=== PATIENT | female | born 1960 | race Caucasian/White ===

== ENCOUNTER → 2017-01-06 | Outpatient (CLI) | payer OTHER ==
--- NOTE | 2017-01-06 08:53 | US ---
EXAMINATION TYPE: US abdomen complete DATE OF EXAM: 01/06/2017 7:35 AM COMPARISON: 07/17/2014 CLINICAL HISTORY: R10.84 Gen Abd Pain, R94.5 Abn LFT. 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 small 4mm polyp, non mobile echogenic foci at gb neck Evidence for sonographic Odonnell's sign: no CBD: wnl Spleen: wnl Right Kidney: not seen Left Kidney: creek, not well seen, scattered cysts, atrophied Left Pelvic Transplant: wnl Upper IVC: wnl Abd Aorta: wnl The liver is somewhat heterogenous and this may reflect fatty hepatic infiltration. The intrahepatic portion of the IVC and proximal abdominal aorta are within normal limits. There is no evidence of ch olelithiasis. Small gallbladder polyp is difficult to exclude. Common bile duct is unremarkable. The visualized portions of the pancreas are homogenous. The spleen is unremarkable. Left pelvic transpl ant kidney is grossly unremarkable. Nonvisualization of the right kidney. Left creek kidney demonstr ates cysts and atrophy. IMPRESSION: 1. Fatty liver. 2. I cannot exclude gallbladder polyps. 3. Atrophic left-sided kidney with cystic change. Transplant kidney appears unremarkable.
== END | disposition home or self-care (01) ==
LOC: RADUSWWP 07:10
PROVIDERS: ATTEND Internal Medicine
DX: K76.0 Fatty (change of) liver, not elsewhere classified (principal); N26.1 Atrophy of kidney (terminal); N28.1 Cyst of kidney, acquired
CPT/HCPCS: 76700

== ENCOUNTER → 2017-08-08 | Outpatient (CLI) | payer OTHER ==
--- NOTE | 2017-08-08 08:36 | US ---
EXAMINATION TYPE: US liver DATE OF EXAM: 08/08/2017 COMPARISON: NONE CLINICAL HISTORY: Abnormal Liver Function Test r94.5. elevated lft's, h/o renal failure with left pel myra transplant EXAM MEASUREMENTS: Liver Length: 14.5 cm Gallbladder Wall: 0.2 cm CBD: 0.4 cm Right Kidney: N/A Pancreas: wnl Liver: heterogeneous, possible focal fatty sparing Gallbladder: tiny shadowing stones seen Evidence for sonographic Odonnell's sign: NO CBD: wnl Right Kidney: not seen due to atrophy IMPRESSION: 1. Cholelithiasis. 2. Mild fatty infiltration of the liver.
== END | disposition home or self-care (01) ==
LOC: RADUSWWP 07:50
PROVIDERS: ATTEND Internal Medicine
DX: K80.20 Calculus of gallbladder without cholecystitis without obstruction (principal); K76.0 Fatty (change of) liver, not elsewhere classified
CPT/HCPCS: 76705

== ENCOUNTER 2018-11-08 02:22 | Emergency (ER) | payer OTHER ==
[2018-11-08 02:32] VITALS: TEMP 97.5
[2018-11-08] MEDS ORDERED: cloNIDine HCL 0.2 MG TAB PO STA (03:29)
[2018-11-08] MEDS ORDERED: OXYMETAZOLINE 0.05% NASL SPRAY 1 SPRAY BOTTLE NASAL STA (03:29)
--- NOTE | 2018-11-08 03:44 | ED ---
ENT HPI - General Chief complaint: ENT Stated complaint: Nose Bleed Time Seen by Provider: 11/08/18 03:28 Source: patient, EMS Mode of arrival: EMS Limitations: no limitations - History of Present Illness Initial comments: This patient is a 58-year-old woman who presents to be evaluated for epistaxis. The patient states that she had been at home at rest when the bleeding started from the right nare. She states that she was applying pressure at home but it didn't seem to help. The bleeding did stop but then it seemed to be coming from the left nare, so she felt she should be evaluated. In addition there were times when it seemed like the blood was going back, and she was swallowing it. The patient did have minor nosebleed a bit over a week ago that stopped at home. Patient denies other symptoms. She did have 3-4 drinks tonight. Denies history of previous bleeding disorder or use of anticoagulant. MD complaint: epistaxis Onset/Timin -: hour(s) Location: nose Severity: moderate Severity scale (1-10): 0 Consistency: intermittent Improves with: pressure Worsens with: none Context-Epistaxis: history of similar - Related Data Home Medications Medication Instructions Recorded Confirmed ALPRAZolam [Xanax] 0.25 mg PO TID PRN 08/13/14 03/01/16 ARIPiprazole [Abilify] 2 mg PO DAILY 08/13/14 03/01/16 Aspirin 325 mg PO DAILY 08/13/14 03/01/16 Dextroamphetamine/Amphetamine 20 mg PO DAILY 08/13/14 03/01/16 [Adderall] Escitalopram [Lexapro] 10 mg PO DAILY 08/13/14 03/01/16 HYDROcodone/APAP 7.5-325MG [Crucible 1 each PO TID PRN 08/13/14 03/01/16 7.5] Meclicot 25 mg PO DAILY 08/13/14 03/01/16 Mycophenolate Mofetil [Cellcept] 250 mg PO DAILY 08/13/14 03/01/16 Pravastatin Sodium [Pravachol] 40 mg PO HS 08/13/14 03/01/16 Sirolimus [Rapamune] 1 mg PO DAILY 08/13/14 03/01/16 Diltiazem Cd [Cardizem Cd] 300 mg PO DAILY 02/26/16 03/01/16 Previous Rx's Medication Instructions Recorded Cephalexin [Keflex] 500 mg PO Q6HR #16 cap 11/08/18 Allergies Allergy/AdvReac Type Severity Reaction Status Date / Time Penicillins Allergy Vomiting Verified 02/26/16 14:35 Review of Systems ROS Statement: Those systems with pertinent positive or pertinent negative responses have been documented in the HPI. ROS Other: All systems not noted in ROS Statement are negative. Constitutional: Denies: fever, chills, weakness ENT: Reports: epistaxis Respiratory: Denies: cough, dyspnea Cardiovascular: Denies: chest pain, palpitations, syncope Gastrointestinal: Reports: nausea. Denies: abdominal pain, vomiting, diarrhea Genitourinary: Denies: dysuria Skin: Denies: rash Neurological: Denies: headache, weakness, numbness Hematological/Lymphatic: Denies: easy bleeding Past Medical History Past Medical History: CVA/TIA, Hyperlipidemia, Hypertension, Renal Disease Additional Past Medical History / Comment(s): HEART MURMUR, HX OF TIA , DIVERTICLITIS, ANEMIA., HEPATITIS, RECENT CORTISONE INJECTION OF THUMB FOR BASAL JOINT ARTHRITIS., BACK AND RIGHT SHOULDER PAIN (LIMITED ROM), POLYCYSTIC KIDNEY DISEASE, BORN WITH 1 KIDNEDY. 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 HX OF HEMODIALYSIS. 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 History of Any Multi-Drug Resistant Organisms: MRSA Date of last positivie culture/infection: 08/28/2014 MDRO Source:: Abdomen Past Surgical History: Adenoidectomy, Bladder Surgery, Section, Tonsillectomy, Tubal Ligation Additional Past Surgical History / Comment(s): cataracts. 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 eye surgery. dialysis fistula left arm. breast bx. Past Anesthesia/Blood Transfusion Reactions: Motion Sickness Past Psychological History: Anxiety Smoking Status: Never smoker Past Alcohol Use History: Occasional Past Drug Use History: Marijuana - Past Family History Mother Family Medical History: No Reported History General Exam Limitations: no limitations General appearance: alert, in no apparent distress Eye exam: Present: normal appearance, PERRL, EOMI ENT exam: Present: other (Dried blood pharynx. Clot left Nare) Respiratory exam: Present: normal lung sounds bilaterally. Absent: respiratory distress, wheezes, rales, rhonchi, stridor Cardiovascular Exam: Present: regular rate, normal rhythm, normal heart sounds. Absent: systolic murmur, diastolic murmur, rubs, gallop Skin exam: Present: warm, dry, intact, normal color. Absent: rash Course Vital Signs 11/08/18 02:28 Temperature 97.5 F L Pulse Rate 96 Respiratory 16 Rate Blood Pressure 171/93 O2 Sat by Pulse 97 Oximetry Disposition Clinical Impression: Epistaxis Disposition: HOME SELF-CARE Condition: Good Instructions: Nosebleed (ED) Prescriptions: Cephalexin [Keflex] 500 mg PO Q6HR #16 cap Is patient prescribed a controlled substance at d/c from ED?: No Referrals: Harry Foreman MD [Primary Care Provider] - 1-2 days Barney Lin DO [Doctor of Osteopathic Medicine] - 1-2 days
[2018-11-08 05:27] VITALS: BP 176/96; PULSE 99; RESP 18
[2018-11-08 06:13] LABS: Amorphous Sediment,Urine Rare /hpf; Appearance,Urine Turbid (Clear); Bacteria,Urine Moderate /hpf; Bilirubin,Urine Negative (Negative); Blood,Urine Negative (Negative); Color,Urine Yellow; Glucose,Urine (UA) Negative (Negative); Ketones,Urine Negative (Negative); Leukocyte Esterase,Urine Large (Negative); Mucus,Urine Rare /hpf; Nitrite,Urine Positive (Negative); PH, Urine 8.5 (5.0-8.0); Protein,Urine 1+ (Negative); RBC,Urine 4 /hpf (0-5); Specific Gravity,Urine 1.017 (1.001-1.035); Urobilinogen,Urine <2.0 mg/dL (<2.0)
== END 2018-11-08 05:35 | disposition home or self-care (01) ==
LOC: EC 02:22
DX: R04.0 Epistaxis (principal); E78.5 Hyperlipidemia, unspecified; Z86.73 Personal history of transient ischemic attack (TIA), and cerebral infarction without residual deficits; Z86.19 Personal history of other infectious and parasitic diseases; D64.9 Anemia, unspecified; F41.9 Anxiety disorder, unspecified; I12.9 Hypertensive chronic kidney disease with stage 1 through stage 4 chronic kidney disease, or unspecified chronic kidney disease; N18.9 Chronic kidney disease, unspecified; Z94.0 Kidney transplant status; Z99.2 Dependence on renal dialysis; Z79.82 Long term (current) use of aspirin; Z79.899 Other long term (current) drug therapy; Z88.0 Allergy status to penicillin
CPT/HCPCS: 81001; 99283

== ENCOUNTER 2019-01-23 11:47 | Emergency (ER) | payer OTHER ==
[2019-01-23] MEDS ORDERED: SODIUM CHLORIDE 0.9% 500 ML 500 ML IV STA (12:19)
--- NOTE | 2019-01-23 12:23 | ED ---
General Adult HPI - General Chief complaint: Nausea/Vomiting/Diarrhea Stated complaint: Nausea vomiting Time Seen by Provider: 01/23/19 12:07 Source: patient, RN notes reviewed, old records reviewed Mode of arrival: ambulatory Limitations: no limitations - History of Present Illness Initial comments: 58-year-old female patient past medical history including polycystic kidney disease, status post renal transplant - previous on dialysis not currently on di alysis presents to ED primarily for chief complaint of depression and fleeting suicidal ideations. Patient has secondary complaint of some waxing and waning abdominal pain which has been present for approximately 3 weeks. Patient reports that she has had some nausea and vomiting over this time period as well. Patient denies any nausea and vomiting today. Patient denies any focal area of abdominal tenderness. Patient states that she has not done anything to hurt herself today, denies any active plans herself or hurt any other people. Patient denies that she is not . Denies other complaints. Systemic: Pt denies fatigue, myalgia, fever/chills, rash. Pt denies weakness, night sweats, weight loss. Neuro: Pt denies headache, visual disturbances, syncope or pre-syncope. HEENT: Pt denies ocular discharge or irritation, otalgia, rhinorrhea, pharyngitis or notable lymphadenopathy. Cardiopulmonary: Pt denies chest pain, SOB, heart palpitations, dyspnea on exertion. : Pt denies dysuria, burning w/ urination, frequency/urgency. Denies new onset urinary or bowel incontinence. MSK: Pt denies myalgia, loss of strength or function in extremities. Neuro: Pt denies new onset weakness, paresthesias. - Related Data Home Medications Medication Instructions Recorded Confirmed ALPRAZolam [Xanax] 0.25 mg PO TID PRN 08/13/14 01/23/19 ARIPiprazole [Abilify] 2 mg PO DAILY 08/13/14 01/23/19 Aspirin 325 mg PO DAILY 08/13/14 01/23/19 Sirolimus [Rapamune] 1 mg PO DAILY 08/13/14 01/23/19 Atomoxetine HCl [Strattera] 40 mg PO DAILY 01/23/19 01/23/19 Carvedilol [Coreg] 6.25 mg PO BID 01/23/19 01/23/19 Diltiazem HCl [Cardizem Cd] 360 mg PO DAILY 01/23/19 01/23/19 Escitalopram [Lexapro] 20 mg PO DAILY 01/23/19 01/23/19 Mycophenolate Mofetil [Cellcept] 500 mg PO BID 01/23/19 01/23/19 Pravastatin Sodium [Pravachol] 80 mg PO HS 01/23/19 01/23/19 Previous Rx's Medication Instructions Recorded Ondansetron Odt [Zofran ODT] 4 mg PO Q8HR PRN #20 tab 01/23/19 Allergies Allergy/AdvReac Type Severity Reaction Status Date / Time Penicillins Allergy Vomiting Verified 01/23/19 12:36 Review of Systems ROS Statement: Those systems with pertinent positive or pertinent negative responses have been documented in the HPI. ROS Other: All systems not noted in ROS Statement are negative. Past Medical History Past Medical History: CVA/TIA, Hyperlipidemia, Hypertension, Renal Disease Additional Past Medical History / Comment(s): HEART MURMUR, HX OF TIA , DIVERTICLITIS, ANEMIA., HEPATITIS, RECENT CORTISONE INJECTION OF THUMB FOR BASAL JOINT ARTHRITIS., BACK AND RIGHT SHOULDER PAIN (LIMITED ROM), POLYCYSTIC KIDNEY DISEASE, BORN WITH 1 KIDNEDY. 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 HX OF HEMODIALYSIS. 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 History of Any Multi-Drug Resistant Organisms: MRSA Date of last positivie culture/infection: 08/28/2014 MDRO Source:: Abdomen Past Surgical History: Adenoidectomy, Bladder Surgery, Section, Tonsillectomy, Tubal Ligation Additional Past Surgical History / Comment(s): cataracts. 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 eye surgery. dialysis fistula left arm. breast bx. Past Anesthesia/Blood Transfusion Reactions: Motion Sickness Past Psychological History: Anxiety Smoking Status: Never smoker Past Alcohol Use History: Occasional Past Drug Use History: Marijuana - Past Family History Mother Family Medical History: No Reported History General Exam - General Exam Comments Initial Comments: Constitutional: NAD, AOX3, Pt has pleasant affect. HEENT: NC/AT, trachea midline, neck supple, no lymphadenopathy. Posterior pharynx non erythematous, without exudates. External ears appear normal, without discharge. Mucous membranes moist. Eyes PERRLA, EOM intact. There is no scleral icterus. No pallor noted. Cardiopulmonary: RRR, no murmurs, rubs or gallops, no JVD noted. Lungs CTAB in anterior and posterior dodd. No peripheral edema. Abdominal exam: Abdomen soft and non-distended. Abdomen mildly tender to palpation in epigastric region. No guarding, no JVD, no rebound tenderness. Bowel sounds active in LLQ. No hepatosplenomegaly. No ecchymosis Neuro: CN II-XII grossly intact. No nuchal rigidity. MSK: No posterior calf tenderness bilaterally, homans sign negative bilaterally. Posterior tibialis and radial pulse +2 bilaterally. Sensation intact in upper and lower extremities. Full active ROM in upper and lower extremities, 5/5 stregnth. Limitations: no limitations Course Vital Signs 01/23/19 01/23/19 01/23/19 11:49 14:08 16:24 Temperature 98.4 F Pulse Rate 87 94 107 H Respiratory 18 16 18 Rate Blood Pressure 164/102 159/84 200/93 O2 Sat by Pulse 97 96 96 Oximetry 01/23/19 01/23/19 16:58 21:36 Temperature 98 F Pulse Rate 94 79 Respiratory 18 18 Rate Blood Pressure 173/88 139/89 O2 Sat by Pulse 95 97 Oximetry Medical Decision Making - Medical Decision Making 58-year-old female patient past medical history including polycystic kidney disease, status post renal transplant - previous on dialysis not currently on dialysis presents to ED primarily for chief complaint of depression and fleeting suicidal ideations. Patient has secondary complaint of some waxing and waning abdominal pain which has been present for approximately 3 weeks. Patient reports that she has had some nausea and vomiting over this time period as well. Patient denies any nausea and vomiting today. Patient denies any focal area of abdominal tenderness. Patient states that she has not done anything to hurt herself today, denies any active plans herself or hurt any other people. Patien t denies that she is not . Denies other complaints. Patient vital signs stable, afebrile. Physical exam displayed: Abdomen soft and non- distended. Abdomen mildly tender to palpation in epigastric region. No guarding, no JVD, no rebound tenderness. Laboratory investigations revealed mild hypokalemia, mild hypomagnesemia. Bilirubin elevated at 2.5. Bilirubin differentials displayed no unconjugated, 0.8 unconjugated bilirubin. AST elevated. Alk phos elevated. Lipase mildly elevated. UA was negative. Tox screen negative. CT abdomen and pelvis displayed hepatomegaly and heterogeneous hyperdense appearance of liver. Intrahepatic biliary dilation possibly worrisome of obstructing mass or cholangiocarcinoma. Ultrasound of gallbladder revealed biliary sludging cholelithiasis without sonographic evidence for acute cholecystitis. EPS evaluation did not recommend admission. Patient denies any suicidal or homicidal thoughts or plans. Patient discharged with psychiatric follow-up, as well as GI follow-up. Patient to follow up with primary care provider in 1-2 days. Patient to return to ER if symptoms worsen in anyway. Case discussed with Dr. Abad. - Lab Data Result diagrams: 01/23/19 12:35 01/23/19 12:35 Lab Results 01/23/19 01/23/19 01/23/19 Range/Units 12:35 12:35 12:35 WBC 8.2 (3.8-10.6) k/uL RBC 3.57 L (3.80-5.40) m/uL Hgb 11.2 L (11.4-16.0) gm/dL Hct 34.9 (34.0-46.0) % MCV 97.8 (80.0-100.0) fL MCH 31.3 (25.0-35.0) pg MCHC 32.0 (31.0-37.0) g/dL RDW 21.7 H (11.5-15.5) % Plt Count 149 L (150-450) k/uL Neutrophils % 69 % Lymphocytes % 23 % Monocytes % 5 % Eosinophils % 2 % Basophils % 1 % Neutrophils # 5.6 (1.3-7.7) k/uL Lymphocytes # 1.8 (1.0-4.8) k/uL Monocytes # 0.4 (0-1.0) k/uL Eosinophils # 0.1 (0-0.7) k/uL Basophils # 0.1 (0-0.2) k/uL Anisocytosis Moderate Macrocytosis Moderate Sodium 140 (137-145) mmol/L Potassium 3.3 L (3.5-5.1) mmol/L Chloride 103 (98-107) mmol/L Carbon Dioxide 26 (22-30) mmol/L Anion Gap 11 mmol/L BUN 9 (7-17) mg/dL Creatinine 0.55 (0.52-1.04) mg/dL Est GFR (CKD-EPI)AfAm >90 (>60 ml/min/1.73 sqM) Est GFR (CKD-EPI)NonAf >90 (>60 ml/min/1.73 sqM) Glucose 106 H (74-99) mg/dL Calcium 8.8 (8.4-10.2) mg/dL Phosphorus 3.0 (2.5-4.5) mg/dL Magnesium 1.4 L (1.6-2.3) mg/dL Total Bilirubin 2.6 H 2.5 H (0.2-1.3) mg/dL Conjugated Bilirubin 0.1 (0.0-0.3) mg/dL Unconjugated Bilirubin 0.8 (0.0-1.1) mg/dL Delta Bilirubin 1.6 H (0.0-0.2) mg/dL AST 231 H (14-36) U/L ALT 52 (9-52) U/L Alkaline Phosphatase 435 H (38-126) U/L Total Protein 6.7 (6.3-8.2) g/dL Albumin 3.3 L (3.5-5.0) g/dL Lipase 345 H (23-300) U/L Urine Color Urine Appearance (Clear) Urine pH (5.0-8.0) Ur Specific [place] (1.001-1.035) Urine Protein (Negative) Urine Glucose (UA) (Negative) Urine Ketones (Negative) Urine Blood (Negative) Urine Nitrite (Negative) Urine Bilirubin (Negative) Urine Urobilinogen (<2.0) mg/dL Ur Leukocyte Esterase (Negative) Urine WBC (0-5) /hpf Ur Squamous Epith Cells (0-4) /hpf Amorphous Sediment (None) /hpf Urine Bacteria (None) /hpf Urine Mucus (None) /hpf Urine Opiates Screen (NotDetected) Ur Oxycodone Screen (NotDetected) Urine Methadone Screen (NotDetected) Ur Propoxyphene Screen (NotDetected) Ur Barbiturates Screen (NotDetected) U Tricyclic Antidepress (NotDetected) Ur Phencyclidine Scrn (NotDetected) Ur Amphetamines Screen (NotDetected) U Methamphetamines Scrn (NotDetected) U Benzodiazepines Scrn (NotDetected) Urine Cocaine Screen (NotDetected) U Marijuana (THC) Screen (NotDetected) 01/23/19 01/23/19 Range/Units 13:05 14:20 WBC (3.8-10.6) k/uL RBC (3.80-5.40) m/uL Hgb (11.4-16.0) gm/dL Hct (34.0-46.0) % MCV (80.0-100.0) fL MCH (25.0-35.0) pg MCHC (31.0-37.0) g/dL RDW (11.5-15.5) % Plt Count (150-450) k/uL Neutrophils % % Lymphocytes % % Monocytes % % Eosinophils % % Basophils % % Neutrophils # (1.3-7.7) k/uL Lymphocytes # (1.0-4.8) k/uL Monocytes # (0-1.0) k/uL Eosinophils # (0-0.7) k/uL Basophils # (0-0.2) k/uL Anisocytosis Macrocytosis Sodium (137-145) mmol/L Potassium (3.5-5.1) mmol/L Chloride (98-107) mmol/L Carbon Dioxide (22-30) mmol/L Anion Gap mmol/L BUN (7-17) mg/dL Creatinine (0.52-1.04) mg/dL Est GFR (CKD-EPI)AfAm (>60 ml/min/1.73 sqM) Est GFR (CKD-EPI)NonAf (>60 ml/min/1.73 sqM) Glucose (74-99) mg/dL Calcium (8.4-10.2) mg/dL Phosphorus (2.5-4.5) mg/dL Magnesium (1.6-2.3) mg/dL Total Bilirubin (0.2-1.3) mg/dL Conjugated Bilirubin (0.0-0.3) mg/dL Unconjugated Bilirubin (0.0-1.1) mg/dL Delta Bilirubin (0.0-0.2) mg/dL AST (14-36) U/L ALT (9-52) U/L Alkaline Phosphatase (38-126) U/L Total Protein (6.3-8.2) g/dL Albumin (3.5-5.0) g/dL Lipase (23-300) U/L Urine Color Yellow Urine Appearance Cloudy H (Clear) Urine pH 6.5 (5.0-8.0) Ur Specific [place] 1.007 (1.001-1.035) Urine Protein Negative (Negative) Urine Glucose (UA) Negative (Negative) Urine Ketones Trace H (Negative) Urine Blood Negative (Negative) Urine Nitrite Negative (Negative) Urine Bilirubin Negative (Negative) Urine Urobilinogen 2.0 (<2.0) mg/dL Ur Leukocyte Esterase Negative (Negative) Urine WBC 2 (0-5) /hpf Ur Squamous Epith Cells <1 (0-4) /hpf Amorphous Sediment Moderate H (None) /hpf Urine Bacteria Occasional H (None) /hpf Urine Mucus Few H (None) /hpf Urine Opiates Screen Not Detected (NotDetected) Ur Oxycodone Screen Not Detected (NotDetected) Urine Methadone Screen Not Detected (NotDetected) Ur Propoxyphene Screen Not Detected (NotDetected) Ur Barbiturates Screen Not Detected (NotDetected) U Tricyclic Antidepress Not Detected (NotDetected) Ur Phencyclidine Scrn Not Detected (NotDetected) Ur Amphetamines Screen Not Detected (NotDetected) U Methamphetamines Scrn Not Detected (NotDetected) U Benzodiazepines Scrn Not Detected (NotDetected) Urine Cocaine Screen Not Detected (NotDetected) U Marijuana (THC) Screen Not Detected (NotDetected) Disposition Clinical Impression: Depression, Abdominal pain Disposition: HOME SELF-CARE Condition: Stable Instructions (If sedation given, give patient instructions): Abdominal Pain (ED) Additional Instructions: Patient to adhere to previously discussed treatment plan and will take medication(s) as directed. Patient to follow up with PCP in 1-2 days. Patient to return to ED if symptoms do not improve. Use Zofran as needed for nausea. Follow up with primary care provider as well as GI consult for imaging findings. Follow-up with psychiatric providers. Return to ER if new signs or symptoms develop or if condition worsens in any way. Prescriptions: Ondansetron Odt [Zofran ODT] 4 mg PO Q8HR PRN #20 tab PRN Reason: Nausea Is patient prescribed a controlled substance at d/c from ED?: No Referrals: Harry Foreman MD [Primary Care Provider] - 1-2 days Xander Gomez MD [STAFF PHYSICIAN] - 1-2 days
[2019-01-23 12:57] LABS: Anisocytosis Moderate; Basophils # (A) 0.1 k/uL (0-0.2); Basophils % (A) 1 %; Eosinophils # (A) 0.1 k/uL (0-0.7); Eosinophils % (A) 2 %; HCT 34.9 % (34.0-46.0); HGB 11.2 gm/dL (11.4-16.0); Lymphocytes # (A) 1.8 k/uL (1.0-4.8); Lymphocytes % (A) 23 %; MCH 31.3 pg (25.0-35.0); MCV 97.8 fL (80.0-100.0); Macrocytosis Moderate; Mean Platelet Volume 7.3; Monocytes # (A) 0.4 k/uL (0-1.0); Monocytes % (A) 5 %; Neutrophils # (A) 5.6 k/uL (1.3-7.7); Neutrophils % (A) 69 %; Platelet Count 149 k/uL (150-450); RBC 3.57 m/uL (3.80-5.40); RDW 21.7 % (11.5-15.5); WBC 8.2 k/uL (3.8-10.6)
--- NOTE | 2019-01-23 13:02 | XR ---
EXAMINATION TYPE: XR KUB DATE OF EXAM: 01/23/2019 12:48 PM CLINICAL HISTORY: Lower abdominal pain with nausea and vomiting for 2 weeks. TECHNIQUE: Single Upright KUB images of the abdomen is obtained. COMPARISON: Abdominal x-ray November 14, 2012 FINDINGS: Scattered gas is seen in non-distended stomach and small bowel loops. Gas and fecal materia l is seen in non-distended colon. There is air-fluid level overlying lumbosacral junction of uncertai n etiology near surgical clips which were present on prior study. Gas and fecal material is redemonst rated in nondistended rectum. Surgical screws L3 level are redemonstrated. No pneumoperitoneum is pre sent. Visualized lung bases are clear. IMPRESSION: Overall nonobstructive bowel gas pattern remains present. Air-fluid level midline upper pelvis of unc ertain etiology, differential includes focal prominent bowel loop or possibly air within mildly diste nded bladder. Correlate clinically.
[2019-01-23 13:07] LABS: ALT 52 U/L (9-52); AST 231 U/L (14-36); Albumin 3.3 g/dL (3.5-5.0); Alkaline Phosphatase 435 U/L (38-126); Anion Gap 11 mmol/L; Blood Urea Nitrogen 9 mg/dL (7-17); Calcium 8.8 mg/dL (8.4-10.2); Carbon Dioxide 26 mmol/L (22-30); Chloride 103 mmol/L (98-107); Glucose 106 mg/dL (74-99); Lipase 345 U/L (23-300); Magnesium 1.4 mg/dL (1.6-2.3); Potassium 3.3 mmol/L (3.5-5.1); Sodium 140 mmol/L (137-145); Total Bilirubin 2.6 mg/dL (0.2-1.3); Total Protein 6.7 g/dL (6.3-8.2)
[2019-01-23 13:39] LABS: Amphetamine Screen,Urine Not Detected (NotDetected); Barbiturate Screen,Urine Not Detected (NotDetected); Benzodiazepines Screen,Urine Not Detected (NotDetected); Cocaine Screen,Urine Not Detected (NotDetected); Methadone Screen, Urine Not Detected (NotDetected); Opiate Screen,Urine Not Detected (NotDetected); Oxycodone Screen, Urine Not Detected (NotDetected); Phencyclidine Screen,Urine Not Detected (NotDetected); Tricyclic Antidepressant,Urine Not Detected (NotDetected); Urn Cannabinoid Scrn Not Detected (NotDetected)
[2019-01-23] MEDS ORDERED: ONDANSETRON 4 MG/2 ML VIAL IVP STA ×2 (14:21→17:14)
[2019-01-23 14:27] LABS: Amorphous Sediment,Urine Moderate /hpf; Appearance,Urine Cloudy (Clear); Bacteria,Urine Occasional /hpf; Bilirubin,Urine Negative (Negative); Blood,Urine Negative (Negative); Color,Urine Yellow; Glucose,Urine (UA) Negative (Negative); Ketones,Urine Trace (Negative); Leukocyte Esterase,Urine Negative (Negative); Mucus,Urine Few /hpf; Nitrite,Urine Negative (Negative); PH, Urine 6.5 (5.0-8.0); Protein,Urine Negative (Negative); Specific Gravity,Urine 1.007 (1.001-1.035); Squamous Epithelial Cell,Urine <1 /hpf (0-4)
--- NOTE | 2019-01-23 14:55 | CT ---
EXAMINATION TYPE: CT abdomen pelvis w con DATE OF EXAM: 01/23/2019 HISTORY: Nausea, vomiting, abdominal pain CT DLP: 688.3mGycm Automated Exposure Control for Dose Reduction was Utilized. CONTRAST: CT scan of the abdomen and pelvis is performed without oral but with IV Contrast, patient injected wi th 100 ml mL of Isovue 300. COMPARISON: CT abdomen March 04, 2011. Abdominal x-ray earlier today. FINDINGS: LUNG BASES: No significant abnormality is appreciated. LIVER/GB: Liver is enlarged in size and more prominent from prior CT. It is markedly heterogeneously hypodense in appearance suggesting diffuse fatty infiltration. In the left hepatic lobe anteriorly ne ar hepatic dome there are focal areas of hypodensity some round and some tubular shaped new from prio r CT. There is single dependent calcified gallstone in gallbladder axial image 35. There is no suspic ious intrahepatic or extrahepatic biliary dilatation otherwise seen. Portal vein is noted patent and not suspiciously dilated. IVC is also noted patent. There is now however new mild to moderate narrowi ng of the intrahepatic portion superiorly near coronal image 46. PANCREAS: No significant abnormality is seen. SPLEEN: No significant abnormality is seen. ADRENALS: Slight nodular thickening inferior aspect right adrenal glands image 24 is not significantl y changed from prior study image 19 presumed benign. KIDNEYS: At level of left kidney there is redemonstration of some simple appearing cysts and cortical calcifications consistent with product of end-stage renal disease. Right kidney also is suspected matute rgically absent.. Surgical clips inferior right nephrectomy bed are noted. There is left pelvic renal transplant anteriorly redemonstrated. There is satisfactory uptake and excretion from the transplant with mild hydronephrosis. Air-fluid level is seen within mildly distended bladder likely accounting for the abnormal x-ray earlier today. Scattered pelvic phleboliths are present bilaterally. BOWEL: Evaluation of bowel noted suboptimal secondary to lack of enteric contrast. Stomach is poorly distended and thus suboptimally evaluated. There is no suspicious small or large bowel dilatation. Th ere is diffuse colonic diverticula including near level of hepatic flexure with more prominent divert icula seen in the left and sigmoid colon. There is mild wall thickening involving the transverse and mid to distal sigmoid colon. Finding is presumed product of nondistention, a colitis cannot be exclud ed. Correlate clinically. UTERUS/ADNEXA: Anteverted uterus projects to right of midline. LYMPH NODES: No greater than 1cm abdominal or pelvic lymph nodes are appreciated. OSSEOUS STRUCTURES: Moderate disc space narrowing L2-L3 level with moderate spurring is seen. Posteri or spur disc complex effaces anterior thecal sac at this level. OTHER: No significant additional abnormality is seen. IMPRESSION: 1. No bowel obstruction is present. 2. Air-fluid level in bladder account for x-ray abnormality, correlate clinically for recent Ole[place] ca theterization otherwise other etiologies need to be considered. 3. Progressive hepatomegaly and heterogeneous hypodense appearance of liver with multifocal diffuse n odularity. No peripheral nodularity identified to suggest cirrhosis. Differential includes diffuse in filtrating hepatocellular carcinoma and/or CAZARES with regenerating nodules. Latter is favored. Correla te clinically. Imaging guided random biopsy for tissue analysis can be performed if desired. 4. Focal moderate intrahepatic biliary dilatation periphery anterior left hepatic lobe is worrisome f or obstructing mass or cholangiocarcinoma. Liver protocol MRI can be performed to further evaluate th is.
[2019-01-23] MEDS ORDERED: MAGNESIUM OXIDE 400 MG TAB PO STA (15:15)
[2019-01-23] MEDS ORDERED: POTASSIUM CHLORIDE ER 20 MEQ TAB.ER PO STA (15:16)
[2019-01-23 15:26] LABS: Bilirubin, Conjugated 0.1 mg/dL (0.0-0.3); Bilirubin, Delta 1.6 mg/dL (0.0-0.2); Bilirubin,Unconjugated 0.8 mg/dL (0.0-1.1); Total Bilirubin 2.5 mg/dL (0.2-1.3)
--- NOTE | 2019-01-23 15:57 | US ---
EXAMINATION TYPE: US gallbladder DATE OF EXAM: 01/23/2019 COMPARISON: 01/23/2019 CLINICAL HISTORY: Pain. ETOH, abnormal CT, abd pain, h/o renal transplant in left pelvis EXAM MEASUREMENTS: Liver Length: 18.0 cm Gallbladder Wall: 0.2 cm CBD: 0.4 cm Right Kidney: N/A Limited views due to overlying bowel gas and body habitus Pancreas: limited views appear wnl Liver: difficult to penetrate, heterogeneous and coarsened echotexture that limits evaluation for un derlying hepatic masses, larger in size. The previously noted intrahepatic biliary ductal dilatation versus hepatic mass is not well seen sonographically as a liver is difficult to penetrate. Gallbladder: mobile debris seen, single 4mm foci seen Evidence for sonographic Odonnell's sign: no CBD: wnl Right Kidney: not seen due to atrophy and bowel gas IMPRESSION: 1. Biliary sludge and cholelithiasis without sonographic evidence of acute cholecystitis. 2. Diffusely coarsened and heterogenous hepatic echotexture. This could relate to hepatic steatosis, cirrhosis from nonalcoholic steatohepatitis or other hepatocellular disease. Correlate with laborator y values. The findings concerning for cholangiocarcinoma are not well seen sonographically. MRI liver mass protocol should again be considered. 3. Nonvisualization of the right kidney, possibly surgically absent.
[2019-01-23] MEDS ORDERED: MORPHINE SULFATE 2 MG/ML SYRINGE IVP STA (16:14)
[2019-01-23 16:25] VITALS: RESP 18
[2019-01-23] MEDS ORDERED: MORPHINE SULFATE 4 MG/ML SYRINGE IV STA (17:13)
[2019-01-23 21:36] VITALS: BP 139/89; PULSE 79; TEMP 98
== END 2019-01-23 21:37 | disposition home or self-care (01) ==
LOC: EC 11:47
DX: F32.9 Major depressive disorder, single episode, unspecified (principal); R10.13 Epigastric pain; R11.2 Nausea with vomiting, unspecified; R45.851 Suicidal ideations; E78.5 Hyperlipidemia, unspecified; I10 Essential (primary) hypertension; Z86.73 Personal history of transient ischemic attack (TIA), and cerebral infarction without residual deficits; Z86.19 Personal history of other infectious and parasitic diseases; Z86.14 Personal history of Methicillin resistant Staphylococcus aureus infection; F41.9 Anxiety disorder, unspecified; Z79.82 Long term (current) use of aspirin; Z79.899 Other long term (current) drug therapy; Z88.0 Allergy status to penicillin; Z94.0 Kidney transplant status
CPT/HCPCS: 36415; 80053; 82248; 83690; 83735; 84100; 85025; 81001; 80306; 87086; 74018; 76705; 74177; 99285; 96374; 96376 ×2; 96375; 96361 ×6; J2270 ×2; J2405; Q9967

== ENCOUNTER 2019-02-15 15:47 | Inpatient (IN) | payer OTHER ==
[2019-02-15] MEDS ORDERED: SODIUM CHLORIDE 0.9% 1,000 ML IV STA (16:00)
--- NOTE | 2019-02-15 16:04 | ED ---
General Adult HPI - General Chief complaint: Nausea/Vomiting/Diarrhea Stated complaint: ABD PAIN Time Seen by Provider: 02/15/19 15:52 Source: patient, EMS, RN notes reviewed, old records reviewed Mode of arrival: EMS Limitations: no limitations - History of Present Illness Initial comments: 58-year-old female presenting with initial chief complaint of chest pain. History is somewhat limited as patient has been drinking alcohol. She was previous medical history of kidney transplant, review of medical record indicates this was in 1992. She called EMS for chest pain, probable arrival denies chest pain, states she had abdominal pain nausea vomiting and loose stool. She has previous history of gallstones and complains right upper quadrant abdominal pain. Patient is intoxicated and somewhat reluctant to give a complete history. - Related Data Home Medications Medication Instructions Recorded Confirmed ALPRAZolam [Xanax] 0.25 mg PO TID PRN 08/13/14 02/15/19 ARIPiprazole [Abilify] 2 mg PO DAILY 08/13/14 02/15/19 Sirolimus [Rapamune] 1 mg PO DAILY 08/13/14 02/15/19 Atomoxetine HCl [Strattera] 40 mg PO DAILY 01/23/19 02/15/19 Carvedilol [Coreg] 6.25 mg PO BID 01/23/19 02/15/19 Diltiazem HCl [Cardizem Cd] 360 mg PO DAILY 01/23/19 02/15/19 Escitalopram [Lexapro] 20 mg PO DAILY 01/23/19 02/15/19 Mycophenolate Mofetil [Cellcept] 500 mg PO BID 01/23/19 02/15/19 Pravastatin Sodium [Pravachol] 80 mg PO HS 01/23/19 02/15/19 Allergies Allergy/AdvReac Type Severity Reaction Status Date / Time Penicillins AdvReac Vomiting Verified 02/15/19 16:43 Review of Systems ROS Statement: Those systems with pertinent positive or pertinent negative responses have been documented in the HPI. ROS Other: All systems not noted in ROS Statement are negative. Past Medical History Past Medical History: CVA/TIA, Hyperlipidemia, Hypertension, Renal Disease Additional Past Medical History / Comment(s): HEART MURMUR, HX OF TIA , DIVERTIC LITIS, ANEMIA., HEPATITIS, RECENT CORTISONE INJECTION OF THUMB FOR BASAL JOINT ARTHRITIS., BACK AND RIGHT SHOULDER PAIN (LIMITED ROM), POLYCYSTIC KIDNEY DISEASE, BORN WITH 1 KIDNEDY. 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 HX OF HEMODIALYSIS. 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 History of Any Multi-Drug Resistant Organisms: MRSA Date of last positivie culture/infection: 08/28/2014 MDRO Source:: Abdomen Past Surgical History: Adenoidectomy, Bladder Surgery, Section, To nsillectomy, Tubal Ligation Additional Past Surgical History / Comment(s): cataracts. 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 eye surgery. dialysis fistula left arm. breast bx. Past Anesthesia/Blood Transfusion Reactions: Motion Sickness Past Psychological History: Anxiety Smoking Status: Never smoker Past Alcohol Use History: Abuse, Daily, Heavy Past Drug Use History: Marijuana - Past Family History Mother Family Medical History: No Reported History General Exam Limitations: no limitations General appearance: alert, appears intoxicated Head exam: Present: atraumatic, normocephalic Eye exam: Present: normal appearance, scleral icterus ENT exam: Present: mucous membranes dry Neck exam: Present: normal inspection. Absent: tenderness, meningismus Respiratory exam: Absent: respiratory distress, wheezes Cardiovascular Exam: Present: tachycardia, irregular rhythm GI/Abdominal exam: Present: soft, tenderness (Right upper quadrant tenderness to palpation). Absent: distended, guarding, rebound Extremities exam: Present: normal inspection, normal capillary refill. Absent: pedal edema Neurological exam: Present: alert. Absent: motor sensory deficit Skin exam: Present: warm, dry, intact, other (Jaundice). Absent: cyanosis, diaphoretic Course Vital Signs 02/15/19 02/15/19 02/15/19 15:53 17:13 18:44 Temperature 98.3 F Pulse Rate 107 H 101 H 114 H Respiratory 18 20 20 Rate Blood Pressure 142/74 121/73 121/73 O2 Sat by Pulse 98 98 99 Oximetry - Reevaluation(s) Reevaluation #1: 02/15/19 19:35 Patient does admit to daily drinking for the past 3 months straight. EKG Findings - EKG Comments: EKG Findings:: EKG: Sinus tachycardia, rate of 101, AR interval 134, QRS duration 86, QTC 42, no ST segment elevation, Medical Decision Making - Medical Decision Making 58-year-old female presenting with alcohol intoxication, complaining of right upper quadrant pain. Patient is jaundiced on exam with right upper quadrant pain. Laboratory studies reveal mild leukocytosis, hemoglobin 10.1, significant acidosis with a CO2 of 9, lactic acidosis 10. She has elevated total bili at 7.8. Transaminitis with elevated alkaline phosphatase. Acetaminophen negative, alcohol is elevated 117. She has an INR 1.1. She is given fluid resuscitation, x-ray and ultrasound is obtained. Ultrasound shows no signs of acute cholecystitis, no interval change compared to prior, common bile duct not well visualized. Patient is started on antibiotics to cover possible biliary tree infection, given penicillin ALLERGY she started on cefepime and Flagyl. After fluid resuscitation her lactic acid is down trending to 6.3. Case discussed with the admitting physician Dr. Foreman, and pulmonary control room supervisor Dr. Boone given her lactic acidosis. It is felt this patient is stable for monitored bed, no ICU at this time. I suspect her lactic acidosis is secondary to liver failure and dehydration.. She is placed on CIWA scale for alcohol withdrawal. Gastroenterology placed on consult. - Lab Data Result diagrams: 02/15/19 16:20 02/15/19 19:43 Lab Results 02/15/19 02/15/19 02/15/19 Range/Units 16:20 16:20 16:20 WBC 11.1 H (3.8-10.6) k/uL RBC 2.55 L (3.80-5.40) m/uL Hgb 10.1 L (11.4-16.0) gm/dL Hct 30.2 L (34.0-46.0) % MCV 118.4 H D (80.0-100.0) fL MCH 39.8 H (25.0-35.0) pg MCHC 33.6 (31.0-37.0) g/dL RDW 19.1 H (11.5-15.5) % Plt Count 138 L (150-450) k/uL Neutrophils % 86 % Lymphocytes % 7 % Monocytes % 5 % Eosinophils % 1 % Basophils % 0 % Neutrophils # 9.6 H (1.3-7.7) k/uL Lymphocytes # 0.7 L (1.0-4.8) k/uL Monocytes # 0.6 (0-1.0) k/uL Eosinophils # 0.1 (0-0.7) k/uL Basophils # 0.0 (0-0.2) k/uL Manual Slide Review Performed Polychromasia Present Anisocytosis Slight Anisocytosis (manual) Present Macrocytosis Marked PT (9.0-12.0) sec INR (<1.2) APTT (22.0-30.0) sec Sodium 136 L (137-145) mmol/L Potassium 3.7 (3.5-5.1) mmol/L Chloride 97 L (98-107) mmol/L Carbon Dioxide 9 L* (22-30) mmol/L Anion Gap 30 mmol/L BUN 11 (7-17) mg/dL Creatinine 0.65 (0.52-1.04) mg/dL Est GFR (CKD-EPI)AfAm >90 (>60 ml/min/1.73 sqM) Est GFR (CKD-EPI)NonAf >90 (>60 ml/min/1.73 sqM) Glucose 100 H (74-99) mg/dL Lactic Ac Sepsis Rflx Plasma Lactic Acid Tony (0.7-2.0) mmol/L Calcium 8.7 (8.4-10.2) mg/dL Magnesium (1.6-2.3) mg/dL Total Bilirubin 7.9 H (0.2-1.3) mg/dL Conjugated Bilirubin (0.0-0.3) mg/dL Unconjugated Bilirubin (0.0-1.1) mg/dL Delta Bilirubin (0.0-0.2) mg/dL AST 142 H (14-36) U/L ALT 40 (9-52) U/L Alkaline Phosphatase 317 H (38-126) U/L Troponin I 0.018 (0.000-0.034) ng/mL Total Protein 6.5 (6.3-8.2) g/dL Albumin 3.3 L (3.5-5.0) g/dL Amylase 31 (30-110) U/L Lipase 178 (23-300) U/L Urine Color Urine Appearance (Clear) Urine pH (5.0-8.0) Ur Specific [place] (1.001-1.035) Urine Protein (Negative) Urine Glucose (UA) (Negative) Urine Ketones (Negative) Urine Blood (Negative) Urine Nitrite (Negative) Urine Bilirubin (Negative) Urine Urobilinogen (<2.0) mg/dL Ur Leukocyte Esterase (Negative) Urine RBC (0-5) /hpf Ur Squamous Epith Cells (0-4) /hpf Amorphous Sediment (None) /hpf Urine Bacteria (None) /hpf Urine Mucus (None) /hpf Acetaminophen ug/mL Serum Alcohol 117 mg/dL Acetone, Qual (Negative) 02/15/19 02/15/19 02/15/19 Range/Units 16:20 16:20 17:00 WBC (3.8-10.6) k/uL RBC (3.80-5.40) m/uL Hgb (11.4-16.0) gm/dL Hct (34.0-46.0) % MCV (80.0-100.0) fL MCH (25.0-35.0) pg MCHC (31.0-37.0) g/dL RDW (11.5-15.5) % Plt Count (150-450) k/uL Neutrophils % % Lymphocytes % % Monocytes % % Eosinophils % % Basophils % % Neutrophils # (1.3-7.7) k/uL Lymphocytes # (1.0-4.8) k/uL Monocytes # (0-1.0) k/uL Eosinophils # (0-0.7) k/uL Basophils # (0-0.2) k/uL Manual Slide Review Polychromasia Anisocytosis Anisocytosis (manual) Macrocytosis PT 11.7 (9.0-12.0) sec INR 1.1 (<1.2) APTT 27.5 (22.0-30.0) sec Sodium (137-145) mmol/L Potassium (3.5-5.1) mmol/L Chloride (98-107) mmol/L Carbon Dioxide (22-30) mmol/L Anion Gap mmol/L BUN (7-17) mg/dL Creatinine (0.52-1.04) mg/dL Est GFR (CKD-EPI)AfAm (>60 ml/min/1.73 sqM) Est GFR (CKD-EPI)NonAf (>60 ml/min/1.73 sqM) Glucose (74-99) mg/dL Lactic Ac Sepsis Rflx Plasma Lactic Acid Tony 10.2 H* (0.7-2.0) mmol/L Calcium (8.4-10.2) mg/dL Magnesium 1.6 (1.6-2.3) mg/dL Total Bilirubin 7.8 H (0.2-1.3) mg/dL Conjugated Bilirubin 3.6 H (0.0-0.3) mg/dL Unconjugated Bilirubin 1.4 H (0.0-1.1) mg/dL Delta Bilirubin 2.8 H (0.0-0.2) mg/dL AST (14-36) U/L ALT (9-52) U/L Alkaline Phosphatase (38-126) U/L Troponin I (0.000-0.034) ng/mL Total Protein (6.3-8.2) g/dL Albumin (3.5-5.0) g/dL Amylase (30-110) U/L Lipase (23-300) U/L Urine Color Urine Appearance (Clear) Urine pH (5.0-8.0) Ur Specific [place] (1.001-1.035) Urine Protein (Negative) Urine Glucose (UA) (Negative) Urine Ketones (Negative) Urine Blood (Negative) Urine Nitrite (Negative) Urine Bilirubin (Negative) Urine Urobilinogen (<2.0) mg/dL Ur Leukocyte Esterase (Negative) Urine RBC (0-5) /hpf Ur Squamous Epith Cells (0-4) /hpf Amorphous Sediment (None) /hpf Urine Bacteria (None) /hpf Urine Mucus (None) /hpf Acetaminophen <10.0 ug/mL Serum Alcohol mg/dL Acetone, Qual Negative (Negative) 02/15/19 02/15/19 02/15/19 Range/Units 17:00 17:11 17:30 WBC (3.8-10.6) k/uL RBC (3.80-5.40) m/uL Hgb (11.4-16.0) gm/dL Hct (34.0-46.0) % MCV (80.0-100.0) fL MCH (25.0-35.0) pg MCHC (31.0-37.0) g/dL RDW (11.5-15.5) % Plt Count (150-450) k/uL Neutrophils % % Lymphocytes % % Monocytes % % Eosinophils % % Basophils % % Neutrophils # (1.3-7.7) k/uL Lymphocytes # (1.0-4.8) k/uL Monocytes # (0-1.0) k/uL Eosinophils # (0-0.7) k/uL Basophils # (0-0.2) k/uL Manual Slide Review Polychromasia Anisocytosis Anisocytosis (manual) Macrocytosis PT (9.0-12.0) sec INR (<1.2) APTT (22.0-30.0) sec Sodium (137-145) mmol/L Potassium (3.5-5.1) mmol/L Chloride (98-107) mmol/L Carbon Dioxide (22-30) mmol/L Anion Gap mmol/L BUN (7-17) mg/dL Creatinine (0.52-1.04) mg/dL Est GFR (CKD-EPI)AfAm (>60 ml/min/1.73 sqM) Est GFR (CKD-EPI)NonAf (>60 ml/min/1.73 sqM) Glucose (74-99) mg/dL Lactic Ac Sepsis Rflx Y Plasma Lactic Acid Tony 9.4 H* (0.7-2.0) mmol/L Calcium (8.4-10.2) mg/dL Magnesium (1.6-2.3) mg/dL Total Bilirubin (0.2-1.3) mg/dL Conjugated Bilirubin (0.0-0.3) mg/dL Unconjugated Bilirubin (0.0-1.1) mg/dL Delta Bilirubin (0.0-0.2) mg/dL AST (14-36) U/L ALT (9-52) U/L Alkaline Phosphatase (38-126) U/L Troponin I (0.000-0.034) ng/mL Total Protein (6.3-8.2) g/dL Albumin (3.5-5.0) g/dL Amylase (30-110) U/L Lipase (23-300) U/L Urine Color Dark Yellow Urine Appearance Cloudy H (Clear) Urine pH 6.5 (5.0-8.0) Ur Specific [place] 1.015 (1.001-1.035) Urine Protein 1+ H (Negative) Urine Glucose (UA) Negative (Negative) Urine Ketones 2+ H (Negative) Urine Blood Small H (Negative) Urine Nitrite Negative (Negative) Urine Bilirubin 2+ H (Negative) Urine Urobilinogen 6.0 (<2.0) mg/dL Ur Leukocyte Esterase Moderate H (Negative) Urine RBC 1 (0-5) /hpf Ur Squamous Epith Cells 1 (0-4) /hpf Amorphous Sediment Rare H (None) /hpf Urine Bacteria Moderate H (None) /hpf Urine Mucus Rare H (None) /hpf Acetaminophen ug/mL Serum Alcohol mg/dL Acetone, Qual (Negative) 02/15/19 02/15/19 02/15/19 Range/Units 17:43 19:43 19:43 WBC (3.8-10.6) k/uL RBC (3.80-5.40) m/uL Hgb (11.4-16.0) gm/dL Hct (34.0-46.0) % MCV (80.0-100.0) fL MCH (25.0-35.0) pg MCHC (31.0-37.0) g/dL RDW (11.5-15.5) % Plt Count (150-450) k/uL Neutrophils % % Lymphocytes % % Monocytes % % Eosinophils % % Basophils % % Neutrophils # (1.3-7.7) k/uL Lymphocytes # (1.0-4.8) k/uL Monocytes # (0-1.0) k/uL Eosinophils # (0-0.7) k/uL Basophils # (0-0.2) k/uL Manual Slide Review Polychromasia Anisocytosis Anisocytosis (manual) Macrocytosis PT (9.0-12.0) sec INR (<1.2) APTT (22.0-30.0) sec Sodium 139 (137-145) mmol/L Potassium 2.7 L* (3.5-5.1) mmol/L Chloride 107 (98-107) mmol/L Carbon Dioxide 10 L (22-30) mmol/L Anion Gap 22 mmol/L BUN 9 (7-17) mg/dL Creatinine 0.52 (0.52-1.04) mg/dL Est GFR (CKD-EPI)AfAm >90 (>60 ml/min/1.73 sqM) Est GFR (CKD-EPI)NonAf >90 (>60 ml/min/1.73 sqM) Glucose 78 (74-99) mg/dL Lactic Ac Sepsis Rflx Y Plasma Lactic Acid Tony 6.3 H* (0.7-2.0) mmol/L Calcium 7.4 L (8.4-10.2) mg/dL Magnesium (1.6-2.3) mg/dL Total Bilirubin 7.2 H (0.2-1.3) mg/dL Conjugated Bilirubin (0.0-0.3) mg/dL Unconjugated Bilirubin (0.0-1.1) mg/dL Delta Bilirubin (0.0-0.2) mg/dL AST 119 H (14-36) U/L ALT 47 (9-52) U/L Alkaline Phosphatase 288 H (38-126) U/L Troponin I (0.000-0.034) ng/mL Total Protein 5.5 L (6.3-8.2) g/dL Albumin 2.6 L (3.5-5.0) g/dL Amylase (30-110) U/L Lipase (23-300) U/L Urine Color Urine Appearance (Clear) Urine pH (5.0-8.0) Ur Specific [place] (1.001-1.035) Urine Protein (Negative) Urine Glucose (UA) (Negative) Urine Ketones (Negative) Urine Blood (Negative) Urine Nitrite (Negative) Urine Bilirubin (Negative) Urine Urobilinogen (<2.0) mg/dL Ur Leukocyte Esterase (Negative) Urine RBC (0-5) /hpf Ur Squamous Epith Cells (0-4) /hpf Amorphous Sediment (None) /hpf Urine Bacteria (None) /hpf Urine Mucus (None) /hpf Acetaminophen ug/mL Serum Alcohol mg/dL Acetone, Qual (Negative) Critical Care Time Critical Care Time: Yes Total Critical Care Time: 35 Disposition Clinical Impression: Dehydration, Hyperbilirubinemia, Alcohol abuse, Lactic acidosis Disposition: ADMITTED IP TO THIS [facility] Condition: Serious Is patient prescribed a controlled substance at d/c from ED?: No Referrals: Harry Foreman MD [Primary Care Provider] - 1-2 days Decision to Admit Reason: Admit from EC Decision Date: 02/15/19 Decision Time: 19:30
[2019-02-15 16:50] LABS: Anisocytosis Slight; Basophils % (A) 0 %; Eosinophils # (A) 0.1 k/uL (0-0.7); Eosinophils % (A) 1 %; HCT 30.2 % (34.0-46.0); HGB 10.1 gm/dL (11.4-16.0); Lymphocytes # (A) 0.7 k/uL (1.0-4.8); Lymphocytes % (A) 7 %; MCH 39.8 pg (25.0-35.0); MCHC 33.6 g/dL (31.0-37.0); Macrocytosis Marked; Mean Platelet Volume 9.1; Monocytes # (A) 0.6 k/uL (0-1.0); Monocytes % (A) 5 %; Neutrophils # (A) 9.6 k/uL (1.3-7.7); Neutrophils % (A) 86 %; Platelet Count 138 k/uL (150-450); RBC 2.55 m/uL (3.80-5.40); RDW 19.1 % (11.5-15.5); WBC 11.1 k/uL (3.8-10.6)
[2019-02-15 16:53] LABS: MCV 118.4 fL (80.0-100.0)
[2019-02-15 16:56] LABS: ALT 40 U/L (9-52); AST 142 U/L (14-36); Albumin 3.3 g/dL (3.5-5.0); Alkaline Phosphatase 317 U/L (38-126); Amylase 31 U/L (30-110); Anion Gap 30 mmol/L; Blood Urea Nitrogen 11 mg/dL (7-17); Calcium 8.7 mg/dL (8.4-10.2); Chloride 97 mmol/L (98-107); Glucose 100 mg/dL (74-99); Lipase 178 U/L (23-300); Potassium 3.7 mmol/L (3.5-5.1); Sodium 136 mmol/L (137-145); Total Bilirubin 7.9 mg/dL (0.2-1.3); Total Protein 6.5 g/dL (6.3-8.2)
[2019-02-15 17:00] LABS: Alcohol 117 mg/dL; Carbon Dioxide 9 mmol/L (22-30)
[2019-02-15] MEDS ORDERED: SODIUM CHLORIDE 0.9% 1,000 ML IV ONE ×2 (17:07→17:26)
[2019-02-15] MEDS ORDERED: LORazepam 2 MG/ML INJ IV PRN ×3 (17:10)
[2019-02-15] MEDS ORDERED: THIAMINE 100 MG/ML 2 ML VIAL IM STA (17:10)
[2019-02-15] MEDS ORDERED: metroNIDAZOLE-NS PMX 500 MG in SALINE 1 100ML.BAG IVPB STA (17:14)
[2019-02-15] MEDS ORDERED: CEFEPIME 2 GM in SODIUM CHLORIDE 0.9% 100 ML IVPB STA (17:14)
[2019-02-15 17:20] LABS: Anisocytosis (M) Present; Polychromasia Present
[2019-02-15 17:25] LABS: INR 1.1 (<1.2)
[2019-02-15 17:26] LABS: Partial Thromboplastin Time 27.5 sec (22.0-30.0); Prothrombin Time 11.7 sec (9.0-12.0)
--- NOTE | 2019-02-15 17:53 | US ---
EXAMINATION TYPE: US gallbladder DATE OF EXAM: 02/15/2019 COMPARISON: Ultrasound 01/23/2019 CLINICAL HISTORY: Pain. Abdominal pain, ETOH, patient states right nephrectomy EXAM MEASUREMENTS: Liver Length: 19.9 cm Gallbladder Wall: 0.4 cm CBD: unable to visualize Right Kidney: N/A Technical limitations due to patient's body habitus and large amount of overlying bowel content Pancreas: Obscured by bowel gas Liver: enlarged, unable to penetrate, heterogeneous Gallbladder: sludge with 0.8cm stone Evidence for sonographic Odonnell's sign: no CBD: unable to visualize Right Kidney: unable to visualize, possibly surgically absent IMPRESSION: 1. No definite acute process. 2. No interval change when compared to the prior ultrasound examination. Biliary sludge and cholelith iasis without sonographic evidence of acute cholecystitis. Diffusely coarsened and heterogenous hepat ic echotexture.
[2019-02-15 18:03] LABS: Amorphous Sediment,Urine Rare /hpf; Appearance,Urine Cloudy (Clear); Bacteria,Urine Moderate /hpf; Bilirubin,Urine 2+ (Negative); Blood,Urine Small (Negative); Color,Urine Dark Yellow; Glucose,Urine (UA) Negative (Negative); Ketones,Urine 2+ (Negative); Leukocyte Esterase,Urine Moderate (Negative); Mucus,Urine Rare /hpf; Nitrite,Urine Negative (Negative); PH, Urine 6.5 (5.0-8.0); Protein,Urine 1+ (Negative); RBC,Urine 1 /hpf (0-5); Specific Gravity,Urine 1.015 (1.001-1.035); Squamous Epithelial Cell,Urine 1 /hpf (0-4)
[2019-02-15 18:23] LABS: Acetaminophen <10.0 ug/mL; Bilirubin, Conjugated 3.6 mg/dL (0.0-0.3); Bilirubin, Delta 2.8 mg/dL (0.0-0.2); Bilirubin,Unconjugated 1.4 mg/dL (0.0-1.1); Magnesium 1.6 mg/dL (1.6-2.3); Total Bilirubin 7.8 mg/dL (0.2-1.3)
--- NOTE | 2019-02-15 18:26 | XR ---
EXAMINATION: XR chest 2V DATE AND TIME: 02/15/2019 5:42 PM CLINICAL INDICATION: PHH; abdominal pain TECHNIQUE: Departmental protocol COMPARISON: 11/14/2012 radiographs FINDINGS: The lungs are clear. However, on the lateral view there is a 2 cm dense opacity superimposed over the expected position of the esophagus. This finding is not definitely seen on the prior study and is mo st likely to represent summation shadows related to the azygos vein, but nonurgent follow-up chest CT can prove benignity. The pleural spaces are negative. The cardiac silhouette is not enlarged. The remainder of the mediastinal silhouette is unremarkable. The skeletal structures and soft tissues are negative for acute findings. IMPRESSION: NO ACUTE PROCESS. Incidental finding seen on the lateral radiograph, w/ nonurgent follow-up chest CT suggested.
--- NOTE | 2019-02-15 18:30 | XR ---
EXAMINATION TYPE: XR KUB, 1V DATE OF EXAM: 02/15/2019 COMPARISON: 01/23/2019 HISTORY: Pain, diarrhea TECHNIQUE: Supine image FINDINGS: Bowel gas pattern is negative as seen. Surgical clips noted in the right lower quadrant. No definite acute skeletal or soft tissue findings. Note: Abnormal gas collections cannot be excluded supine radiography. IMPRESSION: NEGATIVE EXAMINATION
[2019-02-15 20:04] LABS: ALT 47 U/L (9-52); AST 119 U/L (14-36); Albumin 2.6 g/dL (3.5-5.0); Alkaline Phosphatase 288 U/L (38-126); Anion Gap 22 mmol/L; Blood Urea Nitrogen 9 mg/dL (7-17); Calcium 7.4 mg/dL (8.4-10.2); Carbon Dioxide 10 mmol/L (22-30); Chloride 107 mmol/L (98-107); Glucose 78 mg/dL (74-99); Sodium 139 mmol/L (137-145); Total Bilirubin 7.2 mg/dL (0.2-1.3); Total Protein 5.5 g/dL (6.3-8.2)
[2019-02-15 20:16] LABS: Potassium 2.7 mmol/L (3.5-5.1)
[2019-02-15] MEDS ORDERED: POTASSIUM CHLORIDE ER 20 MEQ TAB.ER PO STA (20:29)
[2019-02-15] MEDS ORDERED: NALOXONE 0.4 MG/ML 1 ML VIAL IV PRN (20:41)
[2019-02-15] MEDS: ONDANSETRON 4 MG/2 ML VIAL IVP PRN (20:59)
[2019-02-15] MEDS: SODIUM CHLORIDE 0.9% 1,000 ML IV SCH ×2 (21:00→23:50)
[2019-02-15] MEDS: POTASSIUM CHLORIDE 10 MEQ in WATER FOR INJECTION 1 100ML.BAG IVPB SCH ×2 (21:48→23:51)
[2019-02-16] MEDS: POTASSIUM CHLORIDE 10 MEQ in WATER FOR INJECTION 1 100ML.BAG IVPB SCH ×2 (01:24→03:00)
[2019-02-16] MEDS: CEFEPIME 2 GM in SODIUM CHLORIDE 0.9% 100 ML IVPB SCH ×3 (04:25→21:26)
[2019-02-16] MEDS: HYDROmorphone 0.5 MG/0.5 ML SYRINGE IVP PRN ×2 (06:22→17:01)
[2019-02-16] MEDS: ONDANSETRON 4 MG/2 ML VIAL IVP PRN (06:22)
[2019-02-16 06:52] LABS: Anisocytosis Moderate; Basophils % (A) 0 %; Eosinophils % (A) 0 %; HCT 30.6 % (34.0-46.0); HGB 9.9 gm/dL (11.4-16.0); Hypochromasia Moderate; Lymphocytes # (A) 0.7 k/uL (1.0-4.8); Lymphocytes % (A) 7 %; MCH 37.8 pg (25.0-35.0); MCHC 32.3 g/dL (31.0-37.0); MCV 117.2 fL (80.0-100.0); Macrocytosis Marked; Monocytes # (A) 0.4 k/uL (0-1.0); Monocytes % (A) 5 %; Neutrophils # (A) 8.6 k/uL (1.3-7.7); Neutrophils % (A) 87 %; Platelet Count 122 k/uL (150-450); RBC 2.61 m/uL (3.80-5.40); RDW 20.4 % (11.5-15.5); WBC 9.8 k/uL (3.8-10.6)
[2019-02-16 07:02] LABS: INR 1.3 (<1.2); Prothrombin Time 12.9 sec (9.0-12.0)
[2019-02-16 08:34] LABS: ALT 52 U/L (9-52); AST 139 U/L (14-36); Albumin 2.8 g/dL (3.5-5.0); Alkaline Phosphatase 304 U/L (38-126); Anion Gap 17 mmol/L; Blood Urea Nitrogen 11 mg/dL (7-17); Carbon Dioxide 17 mmol/L (22-30); Chloride 103 mmol/L (98-107); Glucose 127 mg/dL (74-99); Magnesium 1.5 mg/dL (1.6-2.3); Potassium 3.3 mmol/L (3.5-5.1); Sodium 137 mmol/L (137-145); Total Bilirubin 8.9 mg/dL (0.2-1.3); Total Protein 5.8 g/dL (6.3-8.2)
[2019-02-16] MEDS: PANTOPRAZOLE 40 MG/10 ML VIAL IV SCH (08:37)
[2019-02-16 08:40] LABS: Phosphorus 0.8 mg/dL (2.5-4.5)
[2019-02-16] MEDS: SODIUM CHLORIDE 0.9% 1,000 ML IV SCH ×3 (08:40→22:48)
[2019-02-16] MEDS ORDERED: ALPRAZolam 0.25 MG TAB PO PRN (08:48)
[2019-02-16] MEDS: ESCITALOPRAM 20 MG TAB PO SCH (09:44)
[2019-02-16] MEDS: ARIPiprazole 2 MG TAB PO SCH (09:44)
[2019-02-16] MEDS: DILTIAZEM CD 180 MG CAP.ER.24H PO SCH (09:44)
[2019-02-16] MEDS: CARVEDILOL 6.25 MG TAB PO SCH ×2 (09:44→17:01)
[2019-02-16] MEDS: MYCOPHENOLATE MOFETIL 500 MG TAB PO SCH ×2 (09:45→22:47)
[2019-02-16] MEDS ORDERED: Phosphorus Replacement Protoco 1 EACH MISC MISCELLANE PRN (12:02)
[2019-02-16] MEDS: NON-FORMULARY DRUG (Atomoxetine Hcl [Strattera] 40 MG) PO SCH (12:05)
[2019-02-16] MEDS: SIROLIMUS 1 MG PO SCH (12:05)
[2019-02-16] MEDS: THIAMINE 100 MG TAB PO SCH ×2 (12:06→17:01)
[2019-02-16] MEDS ORDERED: Magnesium Replacement Protocol 1 EACH MISC MISCELLANE PRN (12:35)
[2019-02-16] MEDS ORDERED: Potassium Replacement Protocol 1 EACH MISC MISCELLANE PRN (12:36)
--- NOTE | 2019-02-16 13:17 | CONS ---
CONSULTATION PULMONARY CRITICAL CARE CONSULTATION: DATE OF SERVICE: 02/16/2019 We were up on the floor and Dr. Foreman asked us to stop by and see this patient. She is a 58-year-old female who apparently was brought in to EMS on 02/15 for nausea, vomiting, and diarrhea. The patient has history of severe alcoholic liver disease. She drinks 1 pint of vodka a day. She apparently was brought in because of jaundice, mental status changes, nausea, vomiting, diarrhea. She looks very much older than her stated age of 58. She is a very poor historian. Somewhat lethargic and somnolent. For that reason, I thought it was better that she be in the ICU. She did not have any particular complaints who we saw her but she is a very poor historian. She apparently has a previous history of a kidney transplant years ago. HOME MEDICATIONS: Apparently include Xanax, Abilify, Rapamune, Strattera, Coreg, Cardizem, Lexapro, CellCept, and pravastatin. ALLERGIES: Are PENICILLIN. 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 History of hemodialysis. SURGICAL HISTORY: Includes among other things adenoidectomy, bladder surgery, renal transplant x2, C- section, tonsillectomy, tubal ligation, cataract surgery. Her kidney transplants were 1972, 1992. She also has a dialysis fistula in the left arm. She has had a breast biopsy. SOCIAL HISTORY: Positive for chronic alcohol abuse. She drinks at least a pint of vodka a day. No alcohol use. She does use marijuana. FAMILY HISTORY: Not documented in the medical record. REVIEW OF SYSTEMS: Completely unreliable. The patient is not able to give any history. According to the ER jacqueline, she came in for nausea, vomiting, and diarrhea with abdominal pain. Current vital signs are reviewed, temperature is 98.4, heart rate 102, respiratory rate 16, blood pressure 137/89, mean 105, room air saturation 96%. She is very jaundiced. HEENT examination is grossly unremarkable. NECK: Supple. Full range of motion. No adenopathy. No neck vein distention. Cardiovascular examination reveals tachycardia. Heart rate 102. It is regular. Lungs revealed diminished but relatively clear breath sounds. Abdomen is distended. There may be ascites. Extremities are intact. Mild edema. Skin shows evidence of significant jaundice. Neurologic examination is difficult to assess. LABS: Reviewed. White count 9.8, hemoglobin 9.9, hematocrit 30.6, and platelet count 122,000. PT 12.9, INR 1.3. Sodium 137, potassium 3.3, chloride 103, CO2 is 17, anion gap 17, BUN and creatinine were 11 and 0.59. Her lactic acid was 9.4, initially then down to 6.3. Her phosphorus was 0.8. Her magnesium 1.5. Total bilirubin 8.9, AST 139, ALT 52, alkaline phosphatase 304. Her urine is dark and yellow. It is cloudy. Leukocyte esterase was moderate positive. Nitrite was negative. There was some moderate bacteria. . She had a belly film. The belly film was negative. Chest x-ray showed no acute process. ASSESSMENT: 1. Alcoholic liver disease with likely severe cirrhosis, coagulopathy, bicytopenia and hyperbilirubinemia all related to her alcoholic liver disease. 2. Anemia. 3. Thrombocytopenia. 4. Coagulopathy, liver disease. 5. Hypovolemia. 6. Anion gap metabolic acidosis secondary to lactic acidemia. 7. Possible urinary tract infection/urosepsis. 8. Hypoalbuminemia. 9. Previous kidney transplant x2. 10.Cerebrovascular accident. 11.Hyperlipidemia. 12.History of hypertension. 13.History of congenital absence of one kidney. 14.History of polycystic kidney disease. 15.Diverticular disease. PLAN: The patient has a multitude of medical problems and probably will be best suited in the ICU. The patient has electrolyte disturbances, hyperbilirubinemia, coagulopathy, and anion gap metabolic acidosis secondary to lactic acidemia. She will need fluid resuscitation. She may she may be best served at an acute liver unit such as [facility]. Additional recommendations and suggestions are forthcoming. Prognosis is poor. Additional recommendations and suggestions are forthcoming. MMODL / IJN: [id number] /
[2019-02-16] MEDS: MAGNESIUM SULFATE-D5W PMX 1 GM in DEXTROSE/WATER 1 100ML.BAG IVPB SCH ×2 (13:30→15:58)
[2019-02-16] MEDS: POTASSIUM PHOSPHATE 10 MMOL in SODIUM CHLORIDE 0.9% 250 ML IV SCH ×3 (13:52→21:26)
--- NOTE | 2019-02-16 14:03 | P.HPIM ---
History of Present Illness H&P Date: 02/16/19 Carol Guardado is a 58-year-old female known to my practice however has not shown up in the office for a long time who was brought in to [facility] emergency room with a chief complaint of mental status changes and multiple vague complaints of chest pain, abdominal pain, nausea vomiting and diarrhea, patient had evidence of significant jaundice, total bilirubin was elevated at 7.2 she was intoxicated with alcohol level of 117 patient also had evidence of urinary tract infection and evidence of sepsis with leukocytosis and elevated lactic acid she was started on IV antibiotic cefepime and IV fluids and admitted to telemetry floor. Her past medical history is significant for history of hypertension, history of depression, history of chronic renal failure with history of renal transplant in the past. She has a known history of alcohol abuse she drinks 1 pint of vodka per day. Past Medical History Past Medical History: CVA/TIA, Hyperlipidemia, Hypertension, Renal Disease Additional Past Medical History / Comment(s): HEART MURMUR, HX OF TIA , DIVERTICLITIS, ANEMIA., HEPATITIS, RECENT CORTISONE INJECTION OF THUMB FOR BASAL JOINT ARTHRITIS., BACK AND RIGHT SHOULDER PAIN (LIMITED ROM), POLYCYSTIC KIDNEY DISEASE, BORN WITH 1 KIDNEDY. 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 HX OF HEMODIALYSIS. 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 History of Any Multi-Drug Resistant Organisms: MRSA Date of last positivie culture/infection: 08/28/2014 MDRO Source:: Abdomen Past Surgical History: Adenoidectomy, Bladder Surgery, Section, Tonsillectomy, Tubal Ligation Additional Past Surgical History / Comment(s): cataracts. 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 eye surgery. dialysis fistula left arm. breast bx. Past Anesthesia/Blood Transfusion Reactions: Motion Sickness Past Psychological History: Anxiety Smoking Status: Never smoker Past Alcohol Use History: Abuse, Daily, Heavy Additional Past Alcohol Use History / Comment(s): pt reports consuming 1 pint of vodka per day, last drink 02/15/19 Past Drug Use History: Marijuana Additional Drug Use History / Comment(s): 3 times a month - Past Family History Mother Family Medical History: No Reported History Medications and Allergies Home Medications Medication Instructions Recorded Confirmed Type ALPRAZolam [Xanax] 0.25 mg PO TID PRN 08/13/14 02/15/19 History ARIPiprazole [Abilify] 2 mg PO DAILY 08/13/14 02/15/19 History Sirolimus [Rapamune] 1 mg PO DAILY 08/13/14 02/15/19 History Atomoxetine HCl [Strattera] 40 mg PO DAILY 01/23/19 02/15/19 History Carvedilol [Coreg] 6.25 mg PO BID 01/23/19 02/15/19 History Diltiazem HCl [Cardizem Cd] 360 mg PO DAILY 01/23/19 02/15/19 History Escitalopram [Lexapro] 20 mg PO DAILY 01/23/19 02/15/19 History Mycophenolate Mofetil [Cellcept] 500 mg PO BID 01/23/19 02/15/19 History Pravastatin Sodium [Pravachol] 80 mg PO HS 01/23/19 02/15/19 History Allergies Allergy/AdvReac Type Severity Reaction Status Date / Time Penicillins AdvReac Vomiting Verified 02/15/19 16:43 Physical Exam Vitals: Vital Signs Temp Pulse Pulse Resp BP BP Pulse Ox 02/16/19 12:00 98.4 F 102 H 16 137/89 96 02/16/19 08:00 99.0 F 112 H 18 144/93 95 02/16/19 04:15 98.1 F 93 18 150/97 99 02/16/19 00:42 98.5 F 115 H 18 138/82 100 02/15/19 22:59 98.9 F 118 H 18 147/82 100 02/15/19 21:06 117 H 20 156/83 96 02/15/19 18:44 114 H 20 121/73 99 02/15/19 17:13 101 H 20 121/73 98 02/15/19 15:53 98.3 F 107 H 18 142/74 98 Intake and Output 02/15/19 02/16/19 02/16/19 22:59 06:59 14:59 Intake Total 860 Balance 860 Intake: Intake, IV Titration 700 Amount Cefepime 2 gm In Sodium 100 Chloride 0.9% 100 ml @ 200 mls/hr IVPB Q8H EDDA Rx#:[id number] Sodium Chloride 0.9% 1, 600 000 ml @ 150 mls/hr IV . Q6H40M EDDA Rx#:[id number] Oral 160 Other: # Voids 1 1 # Bowel Movements 2 2 Weight 80.286 kg 60 kg In general patient is somnolent but awakes easily she answered a few questions and closes her eyes again HEENT was significant icterus otherwise no abnormality Neck is supple no JVD no goiter no lymphadenopathy Chest exam reveals a few scattered rhonchi no wheezing Cardiac exam reveals regular heart sounds S1 and S2 no gallops no murmurs Abdomen is soft nontender no organomegaly with normal bowel sounds Extremity exam reveals no edema no cyanosis or clubbing Neurological examination reveals drowsiness but no focal neurological deficit Results CBC & Chem 7: 02/16/19 06:04 02/16/19 06:04 Labs: Abnormal Lab Results - Last 24 Hours (Table) 02/15/19 02/15/19 02/15/19 Range/Units 00:30 16:20 16:20 WBC 11.1 H (3.8-10.6) k/uL RBC 2.55 L (3.80-5.40) m/uL Hgb 10.1 L (11.4-16.0) gm/dL Hct 30.2 L (34.0-46.0) % MCV 118.4 H D (80.0-100.0) fL MCH 39.8 H (25.0-35.0) pg RDW 19.1 H (11.5-15.5) % Plt Count 138 L (150-450) k/uL Neutrophils # 9.6 H (1.3-7.7) k/uL Lymphocytes # 0.7 L (1.0-4.8) k/uL PT (9.0-12.0) sec INR (<1.2) Sodium 136 L (137-145) mmol/L Potassium (3.5-5.1) mmol/L Chloride 97 L (98-107) mmol/L Carbon Dioxide 9 L* (22-30) mmol/L Glucose 100 H (74-99) mg/dL Plasma Lactic Acid Tony 6.4 H* (0.7-2.0) mmol/L Calcium (8.4-10.2) mg/dL Phosphorus (2.5-4.5) mg/dL Magnesium (1.6-2.3) mg/dL Total Bilirubin 7.9 H (0.2-1.3) mg/dL Conjugated Bilirubin (0.0-0.3) mg/dL Unconjugated Bilirubin (0.0-1.1) mg/dL Delta Bilirubin (0.0-0.2) mg/dL AST 142 H (14-36) U/L Alkaline Phosphatase 317 H (38-126) U/L Total Protein (6.3-8.2) g/dL Albumin 3.3 L (3.5-5.0) g/dL Urine Appearance (Clear) Urine Protein (Negative) Urine Ketones (Negative) Urine Blood (Negative) Urine Bilirubin (Negative) Ur Leukocyte Esterase (Negative) Amorphous Sediment (None) /hpf Urine Bacteria (None) /hpf Urine Mucus (None) /hpf 02/15/19 02/15/19 02/15/19 Range/Units 16:20 16:20 17:11 WBC (3.8-10.6) k/uL RBC (3.80-5.40) m/uL Hgb (11.4-16.0) gm/dL Hct (34.0-46.0) % MCV (80.0-100.0) fL MCH (25.0-35.0) pg RDW (11.5-15.5) % Plt Count (150-450) k/uL Neutrophils # (1.3-7.7) k/uL Lymphocytes # (1.0-4.8) k/uL PT (9.0-12.0) sec INR (<1.2) Sodium (137-145) mmol/L Potassium (3.5-5.1) mmol/L Chloride (98-107) mmol/L Carbon Dioxide (22-30) mmol/L Glucose (74-99) mg/dL Plasma Lactic Acid Tony 10.2 H* 9.4 H* (0.7-2.0) mmol/L Calcium (8.4-10.2) mg/dL Phosphorus (2.5-4.5) mg/dL Magnesium (1.6-2.3) mg/dL Total Bilirubin 7.8 H (0.2-1.3) mg/dL Conjugated Bilirubin 3.6 H (0.0-0.3) mg/dL Unconjugated Bilirubin 1.4 H (0.0-1.1) mg/dL Delta Bilirubin 2.8 H (0.0-0.2) mg/dL AST (14-36) U/L Alkaline Phosphatase (38-126) U/L Total Protein (6.3-8.2) g/dL Albumin (3.5-5.0) g/dL Urine Appearance (Clear) Urine Protein (Negative) Urine Ketones (Negative) Urine Blood (Negative) Urine Bilirubin (Negative) Ur Leukocyte Esterase (Negative) Amorphous Sediment (None) /hpf Urine Bacteria (None) /hpf Urine Mucus (None) /hpf 02/15/19 02/15/19 02/15/19 Range/Units 17:30 19:43 19:43 WBC (3.8-10.6) k/uL RBC (3.80-5.40) m/uL Hgb (11.4-16.0) gm/dL Hct (34.0-46.0) % MCV (80.0-100.0) fL MCH (25.0-35.0) pg RDW (11.5-15.5) % Plt Count (150-450) k/uL Neutrophils # (1.3-7.7) k/uL Lymphocytes # (1.0-4.8) k/uL PT (9.0-12.0) sec INR (<1.2) Sodium (137-145) mmol/L Potassium 2.7 L* (3.5-5.1) mmol/L Chloride (98-107) mmol/L Carbon Dioxide 10 L (22-30) mmol/L Glucose (74-99) mg/dL Plasma Lactic Acid Tony 6.3 H* (0.7-2.0) mmol/L Calcium 7.4 L (8.4-10.2) mg/dL Phosphorus (2.5-4.5) mg/dL Magnesium (1.6-2.3) mg/dL Total Bilirubin 7.2 H (0.2-1.3) mg/dL Conjugated Bilirubin (0.0-0.3) mg/dL Unconjugated Bilirubin (0.0-1.1) mg/dL Delta Bilirubin (0.0-0.2) mg/dL AST 119 H (14-36) U/L Alkaline Phosphatase 288 H (38-126) U/L Total Protein 5.5 L (6.3-8.2) g/dL Albumin 2.6 L (3.5-5.0) g/dL Urine Appearance Cloudy H (Clear) Urine Protein 1+ H (Negative) Urine Ketones 2+ H (Negative) Urine Blood Small H (Negative) Urine Bilirubin 2+ H (Negative) Ur Leukocyte Esterase Moderate H (Negative) Amorphous Sediment Rare H (None) /hpf Urine Bacteria Moderate H (None) /hpf Urine Mucus Rare H (None) /hpf 02/16/19 02/16/19 02/16/19 Range/Units 06:04 06:04 06:04 WBC (3.8-10.6) k/uL RBC 2.61 L (3.80-5.40) m/uL Hgb 9.9 L (11.4-16.0) gm/dL Hct 30.6 L (34.0-46.0) % MCV 117.2 H (80.0-100.0) fL MCH 37.8 H (25.0-35.0) pg RDW 20.4 H (11.5-15.5) % Plt Count 122 L (150-450) k/uL Neutrophils # 8.6 H (1.3-7.7) k/uL Lymphocytes # 0.7 L (1.0-4.8) k/uL PT 12.9 H (9.0-12.0) sec INR 1.3 H (<1.2) Sodium (137-145) mmol/L Potassium 3.3 L (3.5-5.1) mmol/L Chloride (98-107) mmol/L Carbon Dioxide 17 L (22-30) mmol/L Glucose 127 H (74-99) mg/dL Plasma Lactic Acid Tony (0.7-2.0) mmol/L Calcium 8.0 L (8.4-10.2) mg/dL Phosphorus 0.8 L* (2.5-4.5) mg/dL Magnesium 1.5 L (1.6-2.3) mg/dL Total Bilirubin 8.9 H (0.2-1.3) mg/dL Conjugated Bilirubin (0.0-0.3) mg/dL Unconjugated Bilirubin (0.0-1.1) mg/dL Delta Bilirubin (0.0-0.2) mg/dL AST 139 H (14-36) U/L Alkaline Phosphatase 304 H (38-126) U/L Total Protein 5.8 L (6.3-8.2) g/dL Albumin 2.8 L (3.5-5.0) g/dL Urine Appearance (Clear) Urine Protein (Negative) Urine Ketones (Negative) Urine Blood (Negative) Urine Bilirubin (Negative) Ur Leukocyte Esterase (Negative) Amorphous Sediment (None) /hpf Urine Bacteria (None) /hpf Urine Mucus (None) /hpf Thrombosis Risk Factor Assmnt - Choose All That Apply Any of the Below Risk Factors Present?: Yes Each Factor Represents 1 point: Age 41-60 years, Obesity (BMI >25) Other Risk Factors: No Other congenital or acquired thrombophilia - If yes, enter type in comment: No Thrombosis Risk Factor Assessment Total Risk Factor Score: 2 Thrombosis Risk Factor Assessment Level: Low Risk Assessment and Plan Plan: #1 acute alcoholic hepatitis #2 underlying history of chronic liver failure #3 underlying history of hypertension #4 underlying history of depression #5 chronic kidney disease with previous history of renal transplant #6 underlying history of hyperlipidemia maintained on Pravachol #7 evidence of urinary tract infection with sepsis #8 anemia and thrombocytopenia likely related to liver disease #9 poor nutritional status with protein calorie malnutrition with decreased albumin to 2.6 #10 severe electrolyte imbalance with hypokalemia and hypophosphatemia and hypomagnesemia #11 metabolic acidosis At this time patient was seen and examined she will be maintained on IV fluid, critical care consultation was requested for possible transfer to ICU Continue with IV antibiotic, awaiting culture results Patient counseled regarding alcohol abuse CODE STATUS is full code discussed with patient Prognosis is poor due to severe underlying liver disease
[2019-02-16 14:27] LABS: Glucose,Whole Blood 256 mg/dL (75-99)
[2019-02-16 17:54] LABS: Glucose,Whole Blood 179 mg/dL (75-99)
[2019-02-16] MEDS: PRAVASTATIN SODIUM 80 MG TAB PO SCH (22:47)
[2019-02-16 23:50] LABS: Glucose,Whole Blood 133 mg/dL (75-99)
[2019-02-17] MEDS: SODIUM CHLORIDE 0.9% 1,000 ML IV SCH ×3 (04:57→21:05)
[2019-02-17] MEDS: CEFEPIME 2 GM in SODIUM CHLORIDE 0.9% 100 ML IVPB SCH ×3 (04:57→21:05)
[2019-02-17 06:16] LABS: ALT 48 U/L (9-52); AST 113 U/L (14-36); Albumin 2.1 g/dL (3.5-5.0); Alkaline Phosphatase 212 U/L (38-126); Anion Gap 8 mmol/L; Blood Urea Nitrogen 16 mg/dL (7-17); Calcium 6.9 mg/dL (8.4-10.2); Carbon Dioxide 17 mmol/L (22-30); Chloride 110 mmol/L (98-107); Glucose 114 mg/dL (74-99); Magnesium 1.8 mg/dL (1.6-2.3); Potassium 3.2 mmol/L (3.5-5.1); Sodium 135 mmol/L (137-145); Total Bilirubin 7.1 mg/dL (0.2-1.3); Total Protein 4.9 g/dL (6.3-8.2)
[2019-02-17 06:44] LABS: Phosphorus 1.4 mg/dL (2.5-4.5)
[2019-02-17] MEDS: MAGNESIUM SULFATE-D5W PMX 1 GM in DEXTROSE/WATER 1 100ML.BAG IVPB SCH ×2 (06:50→08:10)
[2019-02-17] MEDS: POTASSIUM CHLORIDE ER 20 MEQ TAB.ER PO SCH ×4 (06:51→18:00)
[2019-02-17 07:15] LABS: Glucose,Whole Blood 132 mg/dL (75-99)
[2019-02-17 07:37] LABS: Anisocytosis Moderate; Basophils % (A) 0 %; Eosinophils # (A) 0.2 k/uL (0-0.7); Eosinophils % (A) 3 %; HCT 24.8 % (34.0-46.0); Hypochromasia Marked; Lymphocytes # (A) 0.8 k/uL (1.0-4.8); Lymphocytes % (A) 12 %; MCH 38.2 pg (25.0-35.0); MCV 119.2 fL (80.0-100.0); Macrocytosis Marked; Mean Platelet Volume 11.3; Monocytes # (A) 0.3 k/uL (0-1.0); Monocytes % (A) 5 %; Neutrophils % (A) 79 %; Platelet Count 111 k/uL (150-450); RBC 2.08 m/uL (3.80-5.40); RDW 20.3 % (11.5-15.5); WBC 6.4 k/uL (3.8-10.6)
[2019-02-17 07:38] LABS: HGB 7.9 gm/dL (11.4-16.0)
[2019-02-17] MEDS: PANTOPRAZOLE 40 MG/10 ML VIAL IV SCH (08:10)
[2019-02-17] MEDS: SODIUM PHOSPHATE 10 MMOL in SODIUM CHLORIDE 0.9% 250 ML IVPB SCH ×3 (08:20→14:23)
[2019-02-17] MEDS: CARVEDILOL 6.25 MG TAB PO SCH ×2 (08:29→17:54)
[2019-02-17] MEDS: ESCITALOPRAM 20 MG TAB PO SCH (08:31)
[2019-02-17] MEDS: ARIPiprazole 2 MG TAB PO SCH (08:31)
[2019-02-17] MEDS: NON-FORMULARY DRUG (Atomoxetine Hcl [Strattera] 40 MG) PO SCH (08:32)
[2019-02-17] MEDS: SIROLIMUS 1 MG PO SCH (08:33)
[2019-02-17] MEDS: MYCOPHENOLATE MOFETIL 500 MG TAB PO SCH ×2 (08:34→21:05)
--- NOTE | 2019-02-17 09:16 | P.PN ---
Subjective Progress Note Date: 02/17/19 Principal diagnosis: Alcoholic liver disease with severe cirrhosis, bycytopenia, hyperbilirubinemia, anemia, probable urinary tract infection On 02/17/2018 patient seen in follow-up in the intensive care unit, she is resting comfortably in bed, she is lethargic, but easily arousable to verbal stimuli, oriented times 2. Denies any acute distress, no shortness of breath or chest pain, no abdominal pain, she is on room air, with pulse ox of 93%, IV 0.9 normal saline at a rate of 150 ML per hour, no fever or chills, hemodynamically patient is stable, blood pressures 90/61 with a map of 70. Urine output is 30- 50 ML per hour. Antibiotic coverage in the form of cefepime. His labs have been reviewed, white blood cell count of 6.4, hemoglobin is 7.9, serum sodium is 135, potassium is 3.2, chloride is 110, CO2 17, BUN 16, creatinine 0.57, calcium was 6.9, phosphorus is 1.4, alkaline phosphatase is trending down, down to 12, AST is 113, ALT is 48, albumin is 2.1. C. diff was negative, stool occult blood was positive. No hematemesis, no blood per rectum. Lung sounds are clear, diminished at the bases. She is on clear liquid diet. Patient is on no PPI therapy, patient is on CIWA protocol, no acute complaints or events overnight Objective - Vital Signs Vital signs: Vital Signs Temp 97.7 F 02/17/19 08:00 Pulse 72 02/17/19 08:00 Resp 19 02/17/19 08:00 BP 90/61 02/17/19 08:00 Pulse Ox 93 L 02/17/19 08:00 Intake & Output 02/16/19 02/17/19 02/17/19 18:59 06:59 18:59 Intake Total 2110 3900 300 Output Total 500 390 95 Balance 1610 3510 205 Weight 71.5 kg Intake: IV 1250 3900 300 0.9 300 3650 300 Magnesium Sulfate-D5w Pmx 200 1 gm In Dextrose/Water 1 100ml.bag @ 100 mls/hr IVPB Q1H EDDA Rx#: [id number] Potassium Phosphate 10 750 250 mmol In Sodium Chloride 0 .9% 250 ml @ 125 mls/hr IV Q2H EDDA Rx#:[id number] Intake, IV Titration 700 Amount Cefepime 2 gm In Sodium 100 Chloride 0.9% 100 ml @ 200 mls/hr IVPB Q8H EDDA Rx#:[id number] Sodium Chloride 0.9% 1, 600 000 ml @ 150 mls/hr IV . Q6H40M EDDA Rx#:[id number] Oral 160 Output: Urine 500 390 95 Other: Voiding Method Indwelling Catheter # Voids 1 # Bowel Movements 2 - Exam GENERAL EXAM: Lethargic, extremely jaundiced 58-year-old obese white female, arousable to verbal stimuli comfortable in no apparent distress. HEAD: Normocephalic/atraumatic. EYES: Normal reaction of pupils, equal size. Conjunctiva pink, sclera white. NOSE: Clear with pink turbinates. THROAT: No erythema or exudates. NECK: No masses, no JVD, no thyroid enlargement, no adenopathy. CHEST: No chest wall deformity. Symmetrical expansion. LUNGS: Equal air entry with no crackles, wheeze, rhonchi or dullness. CVS: Regular rate and rhythm, normal S1 and S2, no gallops, no murmurs, no rubs ABDOMEN: Soft, nontender. No hepatosplenomegaly, normal bowel sounds, no guarding or rigidity. EXTREMITIES: No clubbing, 1+ pitting edema lower extremities, no cyanosis, 2+ pulses and upper and lower extremities. MUSCULOSKELETAL: Muscle strength and tone normal. SPINE: No scoliosis or deformity SKIN: No rashes CENTRAL NERVOUS SYSTEM: Lethargic, but arousable to verbal stimuli. No focal deficits, tone is normal in all 4 extremities. - Labs CBC & Chem 7: 02/17/19 05:15 02/17/19 05:15 Labs: Abnormal Lab Results - Last 24 Hours (Table) 02/16/19 02/16/19 02/16/19 Range/Units 06:16 14:15 17:42 RBC (3.80-5.40) m/uL Hgb (11.4-16.0) gm/dL Hct (34.0-46.0) % MCV (80.0-100.0) fL MCH (25.0-35.0) pg RDW (11.5-15.5) % Plt Count (150-450) k/uL Lymphocytes # (1.0-4.8) k/uL Sodium (137-145) mmol/L Potassium (3.5-5.1) mmol/L Chloride (98-107) mmol/L Carbon Dioxide (22-30) mmol/L Glucose (74-99) mg/dL POC Glucose (mg/dL) 256 H 179 H (75-99) mg/dL Calcium (8.4-10.2) mg/dL Phosphorus (2.5-4.5) mg/dL Total Bilirubin (0.2-1.3) mg/dL AST (14-36) U/L Alkaline Phosphatase (38-126) U/L Total Protein (6.3-8.2) g/dL Albumin (3.5-5.0) g/dL Stool Occult Blood Positive H (Negative) 02/16/19 02/17/19 02/17/19 Range/Units 23:38 05:15 05:15 RBC 2.08 L (3.80-5.40) m/uL Hgb 7.9 L D (11.4-16.0) gm/dL Hct 24.8 L (34.0-46.0) % MCV 119.2 H (80.0-100.0) fL MCH 38.2 H (25.0-35.0) pg RDW 20.3 H (11.5-15.5) % Plt Count 111 L (150-450) k/uL Lymphocytes # 0.8 L (1.0-4.8) k/uL Sodium 135 L (137-145) mmol/L Potassium 3.2 L (3.5-5.1) mmol/L Chloride 110 H (98-107) mmol/L Carbon Dioxide 17 L (22-30) mmol/L Glucose 114 H (74-99) mg/dL POC Glucose (mg/dL) 133 H (75-99) mg/dL Calcium 6.9 L (8.4-10.2) mg/dL Phosphorus 1.4 L (2.5-4.5) mg/dL Total Bilirubin 7.1 H (0.2-1.3) mg/dL AST 113 H (14-36) U/L Alkaline Phosphatase 212 H (38-126) U/L Total Protein 4.9 L (6.3-8.2) g/dL Albumin 2.1 L (3.5-5.0) g/dL Stool Occult Blood (Negative) 02/17/19 Range/Units 07:04 RBC (3.80-5.40) m/uL Hgb (11.4-16.0) gm/dL Hct (34.0-46.0) % MCV (80.0-100.0) fL MCH (25.0-35.0) pg RDW (11.5-15.5) % Plt Count (150-450) k/uL Lymphocytes # (1.0-4.8) k/uL Sodium (137-145) mmol/L Potassium (3.5-5.1) mmol/L Chloride (98-107) mmol/L Carbon Dioxide (22-30) mmol/L Glucose (74-99) mg/dL POC Glucose (mg/dL) 132 H (75-99) mg/dL Calcium (8.4-10.2) mg/dL Phosphorus (2.5-4.5) mg/dL Total Bilirubin (0.2-1.3) mg/dL AST (14-36) U/L Alkaline Phosphatase (38-126) U/L Total Protein (6.3-8.2) g/dL Albumin (3.5-5.0) g/dL Stool Occult Blood (Negative) Assessment and Plan Plan: Assessment: #1. Hypotension, related to hypovolemia, and underlying alcoholic liver disease with hypoalbuminemia #2. Alcoholic liver disease with likely severe cirrhosis, bicytopenia, hyperbilirubinemia #3. Chronic anemia #4. Thrombocytopenia #5. Anion gap metabolic acidosis secondary to lactic acidemia #6. Possible tract infection #7. He of previous kidney transplant 2 #8. Hx of CVA #9. Hypertension, hyperlipidemia #10. History of congenital absence of one kidney, and polycystic kidney disease #11. Diverticular disease Plan: Continue the IV fluids, will continue current antibiotics, blood culture and urine culture has been ordered, fever or chills, and was fluid resuscitated yesterday, more hemodynamically stable today, nonoliguric. Renal profile is within normal limits, we'll correct serum potassium per protocol. No hematemesis, no bleeding per rectum. Patient will remain in the ICU for further monitoring. I performed a history & physical examination of the patient and discussed their management with my nurse practitioner, Cindy Salazar. I reviewed the nurse practitioner's note and agree with the documented findings and plan of care. Lung sounds are diminished breath sounds. The findings and the impression was discussed with the patient. I attest to the documentation by the nurse practitioner. Time with Patient: Less than 30
[2019-02-17] MEDS: DILTIAZEM CD 180 MG CAP.ER.24H PO SCH (10:22)
[2019-02-17] MEDS: NOREPINEPHRINE 4 MG in SODIUM CHLORIDE 0.9% 250 ML IV SCH (10:42)
[2019-02-17] MEDS: HYDROmorphone 0.5 MG/0.5 ML SYRINGE IVP PRN (12:01)
[2019-02-17] MEDS: THIAMINE 100 MG TAB PO SCH ×2 (12:12→16:22)
[2019-02-17 12:22] LABS: Glucose,Whole Blood 150 mg/dL (75-99)
[2019-02-17 14:19] LABS: Anisocytosis Slight; Basophils % (A) 0 %; Eosinophils # (A) 0.3 k/uL (0-0.7); Eosinophils % (A) 4 %; HCT 26.6 % (34.0-46.0); HGB 8.9 gm/dL (11.4-16.0); Lymphocytes # (A) 1.1 k/uL (1.0-4.8); Lymphocytes % (A) 14 %; MCH 40.4 pg (25.0-35.0); MCHC 33.5 g/dL (31.0-37.0); MCV 120.8 fL (80.0-100.0); Macrocytosis Marked; Mean Platelet Volume 9.1; Monocytes # (A) 0.4 k/uL (0-1.0); Monocytes % (A) 5 %; Neutrophils # (A) 5.8 k/uL (1.3-7.7); Neutrophils % (A) 76 %; Platelet Count 133 k/uL (150-450); RDW 18.4 % (11.5-15.5); WBC 7.6 k/uL (3.8-10.6)
--- NOTE | 2019-02-17 15:29 | P.CONS ---
History of Present Illness - Reason for Consult Consult date: 02/16/19 Increased bilirubin and liver failure - History of Present Illness The patient is a 58-year-old female with past medical history significant for hypertension, depression, chronic renal failure with history of renal transplant in the past. She has a known history of alcohol abuse drinking 1 pint of vodka per day. She was brought in to [facility] Emergency Department with a chief complaint of mental status changes and multiple vague complaints of chest pain, abdominal pain, nausea vomiting and diarrhea, patient had evidence of significant jaundice, total bilirubin was elevated at 7.2 she was intoxicated with alcohol level of 117 patient also had evidence of urinary tract infection and evidence of sepsis with leukocytosis and elevated lactic acid she was started on IV antibiotic cefepime and IV fluids and admitted to telemetry floor. Patient was transferred to ICU for more intensive management. We are asked to see her for alcoholic liver disease. She is on CIWA protocol. Stools were hemoccult positive. No hematemesis or melena. Review of Systems CONSTITUTIONAL: Denies any fevers, chills, weight change or fatigue. CARDIOVASCULAR: Denies any chest pain, palpitations high or low blood pressures RESPIRATORY: Denies any shortness of breath, hemoptysis or cough. GENITOURINARY: No dysuria or hematuria. MUSCULOSKELETAL: No weakness reported. SKIN: Denies any new rashes or lesions, jaundice or pallor. PSYCHIATRIC: Denies any depression or anxiety. NEUROLOGY: Denies headache, denies any new focal deficits. EARS/NOSE/THROAT: No recent hearing change, congestion, nasal discharge or sore throat. EYES: No pain in eyes, discharge or change in vision. GASTROINTESTINAL: As per HPI. Past Medical History Past Medical History: CVA/TIA, Hyperlipidemia, Hypertension, Renal Disease Additional Past Medical History / Comment(s): HEART MURMUR, HX OF TIA , DIVERTICLITIS, ANEMIA., HEPATITIS, RECENT CORTISONE INJECTION OF THUMB FOR BASAL JOINT ARTHRITIS., BACK AND RIGHT SHOULDER PAIN (LIMITED ROM), POLYCYSTIC KIDNEY DISEASE, BORN WITH 1 KIDNEDY. 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 HX OF HEMODIALYSIS. 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 History of Any Multi-Drug Resistant Organisms: MRSA Year Discovered:: 08/28/2014 MDRO Source:: Abdomen Past Surgical History: Adenoidectomy, Bladder Surgery, Section, Tonsillectomy, Tubal Ligation Additional Past Surgical History / Comment(s): cataracts. 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 eye surgery. dialysis fistula left arm. breast bx. Past Anesthesia/Blood Transfusion Reactions: Motion Sickness Past Psychological History: Anxiety Smoking Status: Never smoker Past Alcohol Use History: Abuse, Daily, Heavy Additional Past Alcohol Use History / Comment(s): pt reports consuming 1 pint of vodka per day, last drink 02/15/19 Past Drug Use History: Marijuana Additional Drug Use History / Comment(s): 3 times a month - Past Family History Mother Family Medical History: No Reported History Medications and Allergies Home Medications Medication Instructions Recorded Confirmed Type ALPRAZolam [Xanax] 0.25 mg PO TID PRN 08/13/14 02/15/19 History ARIPiprazole [Abilify] 2 mg PO DAILY 08/13/14 02/15/19 History Sirolimus [Rapamune] 1 mg PO DAILY 08/13/14 02/15/19 History Atomoxetine HCl [Strattera] 40 mg PO DAILY 01/23/19 02/15/19 History Carvedilol [Coreg] 6.25 mg PO BID 01/23/19 02/15/19 History Diltiazem HCl [Cardizem Cd] 360 mg PO DAILY 01/23/19 02/15/19 History Escitalopram [Lexapro] 20 mg PO DAILY 01/23/19 02/15/19 History Mycophenolate Mofetil [Cellcept] 500 mg PO BID 01/23/19 02/15/19 History Pravastatin Sodium [Pravachol] 80 mg PO HS 01/23/19 02/15/19 History Allergies Allergy/AdvReac Type Severity Reaction Status Date / Time Penicillins AdvReac Vomiting Verified 02/15/19 16:43 Physical Exam Vitals: Vital Signs Temp Pulse Pulse Resp BP BP Pulse Ox 02/16/19 08:00 99.0 F 112 H 18 144/93 95 02/16/19 04:15 98.1 F 93 18 150/97 99 02/16/19 00:42 98.5 F 115 H 18 138/82 100 02/15/19 22:59 98.9 F 118 H 18 147/82 100 02/15/19 21:06 117 H 20 156/83 96 02/15/19 18:44 114 H 20 121/73 99 02/15/19 17:13 101 H 20 121/73 98 02/15/19 15:53 98.3 F 107 H 18 142/74 98 Intake and Output 02/15/19 02/16/19 02/16/19 22:59 06:59 14:59 Intake Total 60 Balance 60 Intake: Oral 60 Other: # Voids 1 # Bowel Movements 2 Weight 80.286 kg 60 kg On physical examination, patient appear drowzy, stated age in no acute distress. HEAD: Normocephalic, atraumatic. EYES: Scleral icterus. No conjunctival injection. MOUTH: No lesions, tongue midline. NECK: Trachea midline, no gross abnormalities. CHEST: Clear to auscultation with no wheezing or rhonchi appreciated. HEART: Regular, no abnormal solids, murmurs, gallops or friction rubs. ABDOMEN: Soft. Bowel sounds are positive. No organomegaly. No guarding or rigidity. EXTREMITIES: No pedal edema. SKIN: No rashes, no jaundice. NEUROLOGIC: Drowzy. No focal deficits. Results CBC & Chem 7: 02/17/19 12:48 02/17/19 12:48 Labs: Abnormal Lab Results - Last 24 Hours (Table) 02/15/19 02/15/19 02/15/19 Range/Units 00:30 16:20 16:20 WBC 11.1 H (3.8-10.6) k/uL RBC 2.55 L (3.80-5.40) m/uL Hgb 10.1 L (11.4-16.0) gm/dL Hct 30.2 L (34.0-46.0) % MCV 118.4 H D (80.0-100.0) fL MCH 39.8 H (25.0-35.0) pg RDW 19.1 H (11.5-15.5) % Plt Count 138 L (150-450) k/uL Neutrophils # 9.6 H (1.3-7.7) k/uL Lymphocytes # 0.7 L (1.0-4.8) k/uL PT (9.0-12.0) sec INR (<1.2) Sodium 136 L (137-145) mmol/L Potassium (3.5-5.1) mmol/L Chloride 97 L (98-107) mmol/L Carbon Dioxide 9 L* (22-30) mmol/L Glucose 100 H (74-99) mg/dL Plasma Lactic Acid Tony 6.4 H* (0.7-2.0) mmol/L Calcium (8.4-10.2) mg/dL Phosphorus (2.5-4.5) mg/dL Magnesium (1.6-2.3) mg/dL Total Bilirubin 7.9 H (0.2-1.3) mg/dL Conjugated Bilirubin (0.0-0.3) mg/dL Unconjugated Bilirubin (0.0-1.1) mg/dL Delta Bilirubin (0.0-0.2) mg/dL AST 142 H (14-36) U/L Alkaline Phosphatase 317 H (38-126) U/L Total Protein (6.3-8.2) g/dL Albumin 3.3 L (3.5-5.0) g/dL Urine Appearance (Clear) Urine Protein (Negative) Urine Ketones (Negative) Urine Blood (Negative) Urine Bilirubin (Negative) Ur Leukocyte Esterase (Negative) Amorphous Sediment (None) /hpf Urine Bacteria (None) /hpf Urine Mucus (None) /hpf 02/15/19 02/15/19 02/15/19 Range/Units 16:20 16:20 17:11 WBC (3.8-10.6) k/uL RBC (3.80-5.40) m/uL Hgb (11.4-16.0) gm/dL Hct (34.0-46.0) % MCV (80.0-100.0) fL MCH (25.0-35.0) pg RDW (11.5-15.5) % Plt Count (150-450) k/uL Neutrophils # (1.3-7.7) k/uL Lymphocytes # (1.0-4.8) k/uL PT (9.0-12.0) sec INR (<1.2) Sodium (137-145) mmol/L Potassium (3.5-5.1) mmol/L Chloride (98-107) mmol/L Carbon Dioxide (22-30) mmol/L Glucose (74-99) mg/dL Plasma Lactic Acid Tony 10.2 H* 9.4 H* (0.7-2.0) mmol/L Calcium (8.4-10.2) mg/dL Phosphorus (2.5-4.5) mg/dL Magnesium (1.6-2.3) mg/dL Total Bilirubin 7.8 H (0.2-1.3) mg/dL Conjugated Bilirubin 3.6 H (0.0-0.3) mg/dL Unconjugated Bilirubin 1.4 H (0.0-1.1) mg/dL Delta Bilirubin 2.8 H (0.0-0.2) mg/dL AST (14-36) U/L Alkaline Phosphatase (38-126) U/L Total Protein (6.3-8.2) g/dL Albumin (3.5-5.0) g/dL Urine Appearance (Clear) Urine Protein (Negative) Urine Ketones (Negative) Urine Blood (Negative) Urine Bilirubin (Negative) Ur Leukocyte Esterase (Negative) Amorphous Sediment (None) /hpf Urine Bacteria (None) /hpf Urine Mucus (None) /hpf 02/15/19 02/15/19 02/15/19 Range/Units 17:30 19:43 19:43 WBC (3.8-10.6) k/uL RBC (3.80-5.40) m/uL Hgb (11.4-16.0) gm/dL Hct (34.0-46.0) % MCV (80.0-100.0) fL MCH (25.0-35.0) pg RDW (11.5-15.5) % Plt Count (150-450) k/uL Neutrophils # (1.3-7.7) k/uL Lymphocytes # (1.0-4.8) k/uL PT (9.0-12.0) sec INR (<1.2) Sodium (137-145) mmol/L Potassium 2.7 L* (3.5-5.1) mmol/L Chloride (98-107) mmol/L Carbon Dioxide 10 L (22-30) mmol/L Glucose (74-99) mg/dL Plasma Lactic Acid Tony 6.3 H* (0.7-2.0) mmol/L Calcium 7.4 L (8.4-10.2) mg/dL Phosphorus (2.5-4.5) mg/dL Magnesium (1.6-2.3) mg/dL Total Bilirubin 7.2 H (0.2-1.3) mg/dL Conjugated Bilirubin (0.0-0.3) mg/dL Unconjugated Bilirubin (0.0-1.1) mg/dL Delta Bilirubin (0.0-0.2) mg/dL AST 119 H (14-36) U/L Alkaline Phosphatase 288 H (38-126) U/L Total Protein 5.5 L (6.3-8.2) g/dL Albumin 2.6 L (3.5-5.0) g/dL Urine Appearance Cloudy H (Clear) Urine Protein 1+ H (Negative) Urine Ketones 2+ H (Negative) Urine Blood Small H (Negative) Urine Bilirubin 2+ H (Negative) Ur Leukocyte Esterase Moderate H (Negative) Amorphous Sediment Rare H (None) /hpf Urine Bacteria Moderate H (None) /hpf Urine Mucus Rare H (None) /hpf 02/16/19 02/16/19 02/16/19 Range/Units 06:04 06:04 06:04 WBC (3.8-10.6) k/uL RBC 2.61 L (3.80-5.40) m/uL Hgb 9.9 L (11.4-16.0) gm/dL Hct 30.6 L (34.0-46.0) % MCV 117.2 H (80.0-100.0) fL MCH 37.8 H (25.0-35.0) pg RDW 20.4 H (11.5-15.5) % Plt Count 122 L (150-450) k/uL Neutrophils # 8.6 H (1.3-7.7) k/uL Lymphocytes # 0.7 L (1.0-4.8) k/uL PT 12.9 H (9.0-12.0) sec INR 1.3 H (<1.2) Sodium (137-145) mmol/L Potassium 3.3 L (3.5-5.1) mmol/L Chloride (98-107) mmol/L Carbon Dioxide 17 L (22-30) mmol/L Glucose 127 H (74-99) mg/dL Plasma Lactic Acid Tony (0.7-2.0) mmol/L Calcium 8.0 L (8.4-10.2) mg/dL Phosphorus 0.8 L* (2.5-4.5) mg/dL Magnesium 1.5 L (1.6-2.3) mg/dL Total Bilirubin 8.9 H (0.2-1.3) mg/dL Conjugated Bilirubin (0.0-0.3) mg/dL Unconjugated Bilirubin (0.0-1.1) mg/dL Delta Bilirubin (0.0-0.2) mg/dL AST 139 H (14-36) U/L Alkaline Phosphatase 304 H (38-126) U/L Total Protein 5.8 L (6.3-8.2) g/dL Albumin 2.8 L (3.5-5.0) g/dL Urine Appearance (Clear) Urine Protein (Negative) Urine Ketones (Negative) Urine Blood (Negative) Urine Bilirubin (Negative) Ur Leukocyte Esterase (Negative) Amorphous Sediment (None) /hpf Urine Bacteria (None) /hpf Urine Mucus (None) /hpf Assessment and Plan Assessment: Picture consistent with acute hepatitis on top of chronic alcoholic liver disease. Plan: Agree with your current management. Will monitor closely for alcohol withdrawal, GI bleeding and infection. Further plans based on her course.
--- NOTE | 2019-02-17 17:35 | P.PN ---
Subjective Progress Note Date: 02/17/19 Carol Guardado is a 58-year-old female known to my practice however has not shown up in the office for a long time who was brought in to [facility] emergency room with a chief complaint of mental status changes and multiple vague complaints of chest pain, abdominal pain, nausea vomiting and diarrhea, patient had evidence of significant jaundice, total bilirubin was elevated at 7.2 she was intoxicated with alcohol level of 117 patient also had evidence of urinary tract infection and evidence of sepsis with leukocytosis and elevated lactic acid she was started on IV antibiotic cefepime and IV fluids and admitted to telemetry floor. Her past medical history is significant for history of hypertension, history of depression, history of chronic renal failure with history of renal transplant in the past. She has a known history of alcohol abuse she drinks 1 pint of vodka per day. On 02/17/2019 patient was seen and examined in the intensive care unit she is alert and oriented 3 in no apparent distress she is complaining of generalized weakness otherwise she denies any complaints there is no fever or chills no headache or dizziness no chest pain no shortness of breath no cough no nausea or vomiting no abdominal pain no diarrhea and no urinary symptoms. Patient received fluid boluses the last 24 hours and her blood pressure has stabilized. Objective - Vital Signs Vital signs: Vital Signs Temp 97.7 F 02/17/19 12:00 Pulse 61 02/17/19 17:00 Resp 18 02/17/19 17:00 BP 106/73 02/17/19 17:00 Pulse Ox 94 L 02/17/19 17:00 Intake & Output 02/16/19 02/17/19 02/17/19 18:59 06:59 18:59 Intake Total 2110 3900 2533.088 Output Total 500 390 490 Balance 1610 3510 2043.088 Weight 71.5 kg Intake: IV 1250 3900 2350 0.9 300 3650 1500 Magnesium Sulfate-D5w Pmx 200 100 1 gm In Dextrose/Water 1 100ml.bag @ 100 mls/hr IVPB Q1H [facility] Rx#: [id number] Potassium Phosphate 10 750 250 750 mmol In Sodium Chloride 0 .9% 250 ml @ 125 mls/hr IV Q2H [facility] Rx#:[id number] Intake, IV Titration 700 183.088 Amount Cefepime 2 gm In Sodium 100 100 Chloride 0.9% 100 ml @ 200 mls/hr IVPB Q8H [facility] Rx#:[id number] Norepinephrine 4 mg In 83.088 Sodium Chloride 0.9% 250 ml @ 0.05 MCG/KG/MIN 13. 621 mls/hr IV .[id number] [facility] Rx#:[id number] Sodium Chloride 0.9% 1, 600 000 ml @ 150 mls/hr IV . Q6H40M [facility] Rx#:[id number] Oral 160 Output: Urine 500 390 490 Other: Voiding Method Indwelling Catheter Indwelling Catheter # Voids 1 # Bowel Movements 2 - Exam In general patient is somnolent but awakes easily she answered a few questions and closes her eyes again HEENT was significant icterus otherwise no abnormality Neck is supple no JVD no goiter no lymphadenopathy Chest exam reveals a few scattered rhonchi no wheezing Cardiac exam reveals regular heart sounds S1 and S2 no gallops no murmurs Abdomen is soft nontender no organomegaly with normal bowel sounds Extremity exam reveals no edema no cyanosis or clubbing Neurological examination reveals drowsiness but no focal neurological deficit - Labs CBC & Chem 7: 02/17/19 12:48 02/17/19 12:48 Labs: Abnormal Lab Results - Last 24 Hours (Table) 02/16/19 02/16/19 02/17/19 Range/Units 17:42 23:38 05:15 RBC 2.08 L (3.80-5.40) m/uL Hgb 7.9 L D (11.4-16.0) gm/dL Hct 24.8 L (34.0-46.0) % MCV 119.2 H (80.0-100.0) fL MCH 38.2 H (25.0-35.0) pg RDW 20.3 H (11.5-15.5) % Plt Count 111 L (150-450) k/uL Lymphocytes # 0.8 L (1.0-4.8) k/uL Sodium (137-145) mmol/L Potassium (3.5-5.1) mmol/L Chloride (98-107) mmol/L Carbon Dioxide (22-30) mmol/L Glucose (74-99) mg/dL POC Glucose (mg/dL) 179 H 133 H (75-99) mg/dL Calcium (8.4-10.2) mg/dL Phosphorus (2.5-4.5) mg/dL Total Bilirubin (0.2-1.3) mg/dL AST (14-36) U/L Alkaline Phosphatase (38-126) U/L Total Protein (6.3-8.2) g/dL Albumin (3.5-5.0) g/dL 02/17/19 02/17/19 02/17/19 Range/Units 05:15 07:04 12:10 RBC (3.80-5.40) m/uL Hgb (11.4-16.0) gm/dL Hct (34.0-46.0) % MCV (80.0-100.0) fL MCH (25.0-35.0) pg RDW (11.5-15.5) % Plt Count (150-450) k/uL Lymphocytes # (1.0-4.8) k/uL Sodium 135 L (137-145) mmol/L Potassium 3.2 L (3.5-5.1) mmol/L Chloride 110 H (98-107) mmol/L Carbon Dioxide 17 L (22-30) mmol/L Glucose 114 H (74-99) mg/dL POC Glucose (mg/dL) 132 H 150 H (75-99) mg/dL Calcium 6.9 L (8.4-10.2) mg/dL Phosphorus 1.4 L (2.5-4.5) mg/dL Total Bilirubin 7.1 H (0.2-1.3) mg/dL AST 113 H (14-36) U/L Alkaline Phosphatase 212 H (38-126) U/L Total Protein 4.9 L (6.3-8.2) g/dL Albumin 2.1 L (3.5-5.0) g/dL 02/17/19 02/17/19 Range/Units 12:48 12:48 RBC 2.20 L (3.80-5.40) m/uL Hgb 8.9 L (11.4-16.0) gm/dL Hct 26.6 L (34.0-46.0) % MCV 120.8 H (80.0-100.0) fL MCH 40.4 H (25.0-35.0) pg RDW 18.4 H (11.5-15.5) % Plt Count 133 L (150-450) k/uL Lymphocytes # (1.0-4.8) k/uL Sodium (137-145) mmol/L Potassium 3.4 L (3.5-5.1) mmol/L Chloride (98-107) mmol/L Carbon Dioxide (22-30) mmol/L Glucose (74-99) mg/dL POC Glucose (mg/dL) (75-99) mg/dL Calcium (8.4-10.2) mg/dL Phosphorus (2.5-4.5) mg/dL Total Bilirubin (0.2-1.3) mg/dL AST (14-36) U/L Alkaline Phosphatase (38-126) U/L Total Protein (6.3-8.2) g/dL Albumin (3.5-5.0) g/dL Microbiology - Last 24 Hours (Table) 02/17/19 10:15 Urine Culture - Preliminary Urine,Catheterized Assessment and Plan Plan: #1 acute alcoholic hepatitis #2 underlying history of chronic liver failure #3 underlying history of hypertension #4 underlying history of depression #5 chronic kidney disease with previous history of renal transplant #6 underlying history of hyperlipidemia maintained on Pravachol #7 evidence of urinary tract infection with sepsis #8 anemia and thrombocytopenia likely related to liver disease #9 poor nutritional status with protein calorie malnutrition with decreased albumin to 2.6 #10 severe electrolyte imbalance with hypokalemia and hypophosphatemia and hypomagnesemia #11 metabolic acidosis At this time patient was seen and examined she will be maintained on IV fluid, patient is in ICU and has received multiple fluid boluses over the last 24 hours Continue with IV antibiotic, awaiting culture results Patient counseled regarding alcohol abuse CODE STATUS is full code discussed with patient Prognosis is poor due to severe underlying liver disease
[2019-02-17] MEDS: PRAVASTATIN SODIUM 80 MG TAB PO SCH (21:06)
--- NOTE | 2019-02-17 22:04 | P.CONS ---
History of Present Illness - Reason for Consult Consult date: 02/17/19 - Chief Complaint Mental status - History of Present Illness 58-year-old female presents to the emergency center with complaints of altered mental status, was also having difficulties with nausea emesis generalized malaise and abdominal pain. At the time of presentation the patient is grossly jaundiced and was also with evidence of alcohol intoxication. Initially the patient does drink alcohol on a daily basis. She has a very complex past medical history regarding her polycystic renal disease and prior renal transplantation 2. Last transplant was in 1992. Has had hemodialysis in the past but that's been several years. Apparently she's been having the current difficulties with her ongoing alcoholism and now has had acute alcoholic liver disease and presents jaundiced with altered mental status and concerns to underlying sepsis from urinary system. With at the infectious diseases consultation was requested. Review of Systems ROS unobtainable: due to mental status Past Medical History Past Medical History: CVA/TIA, Hyperlipidemia, Hypertension, Renal Disease Additional Past Medical History / Comment(s): HEART MURMUR, HX OF TIA , DIVERTICLITIS, ANEMIA., HEPATITIS, RECENT CORTISONE INJECTION OF THUMB FOR BASAL JOINT ARTHRITIS., BACK AND RIGHT SHOULDER PAIN (LIMITED ROM), POLYCYSTIC KIDNEY DISEASE, BORN WITH 1 KIDNEDY. 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 HX OF HEMODIALYSIS. 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 History of Any Multi-Drug Resistant Organisms: MRSA Year Discovered:: 08/28/2014 MDRO Source:: Abdomen Past Surgical History: Adenoidectomy, Bladder Surgery, Section, Tonsillectomy, Tubal Ligation Additional Past Surgical History / Comment(s): cataracts. 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 eye surgery. dialysis fistula left arm. breast bx. Past Anesthesia/Blood Transfusion Reactions: Motion Sickness Past Psychological History: Anxiety Additional Psychological History / Comment(s): Patient relates that she lives with some family members. No animals. No travel. The experience Smoking Status: Never smoker Past Alcohol Use History: Abuse, Daily, Heavy Additional Past Alcohol Use History / Comment(s): pt reports consuming 1 pint of vodka per day, last drink 02/15/19 Past Drug Use History: Marijuana Additional Drug Use History / Comment(s): 3 times a month - Past Family History Mother Family Medical History: No Reported History Medications and Allergies Home Medications and Allergies Comment(s): Current Medications Alprazolam (Xanax) 0.25 mg PO TID PRN PRN Reason: Anxiety Aripiprazole (Abilify) 2 mg PO DAILY [facility] Last Admin: 02/17/19 08:31 Dose: 2 mg Documented by: Carvedilol (Coreg) 6.25 mg PO BID-W/MEALS [facility] Last Admin: 02/17/19 17:54 Dose: Not Given Documented by: Diltiazem HCl (Cardizem Cd) 360 mg PO DAILY [facility] Last Admin: 02/17/19 10:22 Dose: Not Given Documented by: Escitalopram Oxalate (Lexapro) 20 mg PO DAILY [facility] Last Admin: 02/17/19 08:31 Dose: 20 mg Documented by: Hydromorphone HCl (Dilaudid) 0.5 mg IVP Q3HR PRN PRN Reason: Moderate Pain Last Admin: 02/17/19 12:01 Dose: 0.5 mg Documented by: Sodium Chloride (Saline 0.9%) 1,000 mls @ 150 mls/hr IV .[id number] [facility] Last Admin: 02/17/19 21:05 Dose: 150 mls/hr Documented by: Cefepime HCl 2 gm/ Sodium (Chloride) 100 mls @ 200 mls/hr IVPB Q8H [facility] Last Admin: 02/17/19 21:05 Dose: 200 mls/hr Documented by: Norepinephrine Bitartrate 4 mg (/ Sodium Chloride) 254 mls @ 13.621 mls/hr IV .[id number] [facility]; Protocol Last Titration: 02/17/19 17:05 Dose: 0.03 mcg/kg/min, 8.172 mls/hr Documented by: Lorazepam (Ativan) 1 mg IV Q2HR PRN PRN Reason: CIWA 8 or 9 Last Admin: 02/15/19 21:00 Dose: 1 mg Documented by: Lorazepam (Ativan) 1 mg IV Q1HR PRN PRN Reason: CIWA 10 to 15 Miscellaneous Information (Phosphorus Per Protocol) 1 each MISCELLANE DAILY PRN; Protocol PRN Reason: Per Protocol Miscellaneous Information (Magnesium Per Protocol) 1 each MISCELLANE DAILY PRN; Protocol PRN Reason: Per Protocol Miscellaneous Information (Potassium Per Protocol) 1 each MISCELLANE DAILY PRN; Protocol PRN Reason: Per Protocol Mycophenolate Mofetil (Cellcept) 500 mg PO BID [facility] Last Admin: 02/17/19 21:05 Dose: 500 mg Documented by: Naloxone HCl (Narcan) 0.2 mg IV Q2M PRN PRN Reason: Opioid Reversal Non-Formulary Medication (Atomoxetine Hcl [Strattera]) 40 mg PO DAILY [facility] Last Admin: 02/17/19 08:32 Dose: 40 mg Documented by: Non-Formulary Medication (Sirolimus [Rapamune]) 1 mg PO DAILY [facility] Last Admin: 02/17/19 08:33 Dose: 1 mg Documented by: Ondansetron HCl (Zofran) 4 mg IVP Q8HR PRN PRN Reason: Nausea And Vomiting Last Admin: 02/16/19 06:22 Dose: 4 mg Documented by: Pantoprazole Sodium (Protonix) 40 mg IV DAILY [facility] Last Admin: 02/17/19 08:10 Dose: 40 mg Documented by: Pravastatin Sodium (Pravachol) [address] [facility] Last Admin: 02/17/19 21:06 Dose: 80 mg Documented by: Thiamine HCl (Vitamin B-1) 100 mg PO BID@1200,1700 [facility] Last Admin: 02/17/19 16:22 Dose: 100 mg Documented by: Home Medications Medication Instructions Recorded Confirmed Type ALPRAZolam [Xanax] 0.25 mg PO TID PRN 08/13/14 02/15/19 History ARIPiprazole [Abilify] 2 mg PO DAILY 08/13/14 02/15/19 History Sirolimus [Rapamune] 1 mg PO DAILY 08/13/14 02/15/19 History Atomoxetine HCl [Strattera] 40 mg PO DAILY 01/23/19 02/15/19 History Carvedilol [Coreg] 6.25 mg PO BID 01/23/19 02/15/19 History Diltiazem HCl [Cardizem Cd] 360 mg PO DAILY 01/23/19 02/15/19 History Escitalopram [Lexapro] 20 mg PO DAILY 01/23/19 02/15/19 History Mycophenolate Mofetil [Cellcept] 500 mg PO BID 01/23/19 02/15/19 History Pravastatin Sodium [Pravachol] 80 mg PO HS 01/23/19 02/15/19 History Allergies Allergy/AdvReac Type Severity Reaction Status Date / Time Penicillins AdvReac Vomiting Verified 02/15/19 16:43 Physical Exam Vitals: Vital Signs Temp Pulse Resp BP Pulse Ox 02/17/19 21:00 80 17 92/72 95 02/17/19 20:00 98.8 F 83 19 97/69 95 02/17/19 19:00 75 19 90/65 97 02/17/19 18:00 74 16 97/67 95 02/17/19 17:00 61 18 106/73 94 L 02/17/19 16:00 70 16 94/66 93 L 02/17/19 15:00 69 14 105/65 92 L 02/17/19 14:00 68 13 94/66 91 L 02/17/19 13:00 69 15 96/59 92 L 02/17/19 12:00 97.7 F 74 23 97/58 95 02/17/19 11:00 69 16 75/50 92 L 02/17/19 10:00 67 16 81/51 91 L 02/17/19 09:00 78 23 86/58 95 02/17/19 08:00 97.7 F 72 23 90/61 93 L 02/17/19 07:00 80 16 102/61 94 L 02/17/19 06:00 69 19 86/53 95 02/17/19 05:00 73 16 87/54 93 L 02/17/19 04:00 97.9 F 73 15 88/60 94 L 02/17/19 03:00 78 16 88/63 96 02/17/19 02:00 74 14 101/66 98 02/17/19 01:00 70 16 101/69 96 02/17/19 00:00 98.6 F 80 14 93/74 95 02/16/19 23:00 76 17 96/71 94 L 02/16/19 22:00 75 14 92/67 96 Intake and Output 02/17/19 02/17/19 02/17/19 06:59 14:59 22:59 Intake Total 1200 2000 1133.088 Output Total 258 370 262 Balance 942 1630 871.088 Intake: IV 1200 1900 1050 0.9 1200 1050 1050 Magnesium Sulfate-D5w Pmx 100 1 gm In Dextrose/Water 1 100ml.bag @ 100 mls/hr IVPB Q1H [facility] Rx#: [id number] Potassium Phosphate 10 750 mmol In Sodium Chloride 0 .9% 250 ml @ 125 mls/hr IV Q2H [facility] Rx#:[id number] Intake, IV Titration 100 83.088 Amount Cefepime 2 gm In Sodium 100 Chloride 0.9% 100 ml @ 200 mls/hr IVPB Q8H [facility] Rx#:[id number] Norepinephrine 4 mg In 83.088 Sodium Chloride 0.9% 250 ml @ 0.05 MCG/KG/MIN 13. 621 mls/hr IV .[id number] [facility] Rx#:[id number] Output: Urine 258 370 262 Other: Voiding Method Indwelling Catheter Indwelling Catheter Indwelling Catheter Weight 71.5 kg 58-year-old woman markedly jaundiced HEENT: Anicteric conjunctiva are pink and moist nasal mucosa grossly intact without significant lesions, there is no thrush. Neck: The neck is supple without significant lymphadenopathy or thyromegaly. Lungs: Symmetrical bilateral air entry with few expiratory wheezes no bronchial sounds Heart: Regular rate and rhythm with an audible S1-S2, no S3 no S4. There is no significant murmur click or rub, PMI was nondisplaced. Abdomen: Obese, Positive bowel sounds soft and nontender without palpable masses or organomegaly. There was no guarding or rebound. Tenderness in the right upper quadrant no significant ascites spleen was not palpable Extremities: There is some generalized edema prior fistula in the left arm is nontender lower extremity edema is noted no ulcerations or splinter hemorrhages Neuthe patient is arousable and awake follows some simple commands poor historian at this time Results CBC & Chem 7: 02/17/19 12:48 02/17/19 12:48 Labs: Abnormal Lab Results - Last 24 Hours (Table) 02/16/19 02/17/19 02/17/19 Range/Units 23:38 05:15 05:15 RBC 2.08 L (3.80-5.40) m/uL Hgb 7.9 L D (11.4-16.0) gm/dL Hct 24.8 L (34.0-46.0) % MCV 119.2 H (80.0-100.0) fL MCH 38.2 H (25.0-35.0) pg RDW 20.3 H (11.5-15.5) % Plt Count 111 L (150-450) k/uL Lymphocytes # 0.8 L (1.0-4.8) k/uL Sodium 135 L (137-145) mmol/L Potassium 3.2 L (3.5-5.1) mmol/L Chloride 110 H (98-107) mmol/L Carbon Dioxide 17 L (22-30) mmol/L Glucose 114 H (74-99) mg/dL POC Glucose (mg/dL) 133 H (75-99) mg/dL Calcium 6.9 L (8.4-10.2) mg/dL Phosphorus 1.4 L (2.5-4.5) mg/dL Total Bilirubin 7.1 H (0.2-1.3) mg/dL AST 113 H (14-36) U/L Alkaline Phosphatase 212 H (38-126) U/L Total Protein 4.9 L (6.3-8.2) g/dL Albumin 2.1 L (3.5-5.0) g/dL 02/17/19 02/17/19 02/17/19 Range/Units 07:04 12:10 12:48 RBC (3.80-5.40) m/uL Hgb (11.4-16.0) gm/dL Hct (34.0-46.0) % MCV (80.0-100.0) fL MCH (25.0-35.0) pg RDW (11.5-15.5) % Plt Count (150-450) k/uL Lymphocytes # (1.0-4.8) k/uL Sodium (137-145) mmol/L Potassium 3.4 L (3.5-5.1) mmol/L Chloride (98-107) mmol/L Carbon Dioxide (22-30) mmol/L Glucose (74-99) mg/dL POC Glucose (mg/dL) 132 H 150 H (75-99) mg/dL Calcium (8.4-10.2) mg/dL Phosphorus (2.5-4.5) mg/dL Total Bilirubin (0.2-1.3) mg/dL AST (14-36) U/L Alkaline Phosphatase (38-126) U/L Total Protein (6.3-8.2) g/dL Albumin (3.5-5.0) g/dL 02/17/19 Range/Units 12:48 RBC 2.20 L (3.80-5.40) m/uL Hgb 8.9 L (11.4-16.0) gm/dL Hct 26.6 L (34.0-46.0) % MCV 120.8 H (80.0-100.0) fL MCH 40.4 H (25.0-35.0) pg RDW 18.4 H (11.5-15.5) % Plt Count 133 L (150-450) k/uL Lymphocytes # (1.0-4.8) k/uL Sodium (137-145) mmol/L Potassium (3.5-5.1) mmol/L Chloride (98-107) mmol/L Carbon Dioxide (22-30) mmol/L Glucose (74-99) mg/dL POC Glucose (mg/dL) (75-99) mg/dL Calcium (8.4-10.2) mg/dL Phosphorus (2.5-4.5) mg/dL Total Bilirubin (0.2-1.3) mg/dL AST (14-36) U/L Alkaline Phosphatase (38-126) U/L Total Protein (6.3-8.2) g/dL Albumin (3.5-5.0) g/dL Microbiology - Last 24 Hours (Table) 02/17/19 10:15 Urine Culture - Preliminary Urine,Catheterized Laboratory Results WBC 7.6 k/uL (3.8-10.6) 02/17/19 12:48 RBC 2.20 m/uL (3.80-5.40) L 02/17/19 12:48 Hgb 8.9 gm/dL (11.4-16.0) L 02/17/19 12:48 Hct 26.6 % (34.0-46.0) L 02/17/19 12:48 MCV 120.8 fL (80.0-100.0) H 02/17/19 12:48 MCH 40.4 pg (25.0-35.0) H 02/17/19 12:48 MCHC 33.5 g/dL (31.0-37.0) 02/17/19 12:48 RDW 18.4 % (11.5-15.5) H 02/17/19 12:48 Plt Count 133 k/uL (150-450) L 02/17/19 12:48 Neutrophils % 76 % 02/17/19 12:48 Lymphocytes % 14 % 02/17/19 12:48 Monocytes % 5 % 02/17/19 12:48 Eosinophils % 4 % 02/17/19 12:48 Basophils % 0 % 02/17/19 12:48 Neutrophils # 5.8 k/uL (1.3-7.7) 02/17/19 12:48 Lymphocytes # 1.1 k/uL (1.0-4.8) 02/17/19 12:48 Monocytes # 0.4 k/uL (0-1.0) 02/17/19 12:48 Eosinophils # 0.3 k/uL (0-0.7) 02/17/19 12:48 Basophils # 0.0 k/uL (0-0.2) 02/17/19 12:48 Differential Comment 02/17/19 12:48 Manual Slide Review Performed 02/17/19 12:48 Polychromasia Present 02/15/19 16:20 Hypochromasia Marked 02/17/19 05:15 Anisocytosis Slight 02/17/19 12:48 Anisocytosis (manual) Present 02/15/19 16:20 Macrocytosis Marked 02/17/19 12:48 PT 12.9 sec (9.0-12.0) H 02/16/19 06:04 INR 1.3 (<1.2) H 02/16/19 06:04 APTT 27.5 sec (22.0-30.0) 02/15/19 17:00 Sodium 135 mmol/L (137-145) L 02/17/19 05:15 Potassium 3.4 mmol/L (3.5-5.1) L 02/17/19 12:48 Chloride 110 mmol/L (98-107) H 02/17/19 05:15 Carbon Dioxide 17 mmol/L (22-30) L 02/17/19 05:15 Anion Gap 8 mmol/L 02/17/19 05:15 BUN 16 mg/dL (7-17) 02/17/19 05:15 Creatinine 0.57 mg/dL (0.52-1.04) 02/17/19 05:15 Est GFR (CKD-EPI)AfAm >90 (>60 ml/min/1.73 sqM) 02/17/19 05:15 Est GFR (CKD-EPI)NonAf >90 (>60 ml/min/1.73 sqM) 02/17/19 05:15 Glucose 114 mg/dL (74-99) H 02/17/19 05:15 POC Glucose (mg/dL) 150 mg/dL (75-99) H 02/17/19 12:10 POC Glu Sales And Marketing Assistant ID 02/17/19 12:10 Lactic Ac Sepsis Rflx Y 02/15/19 20:17 Plasma Lactic Acid Tony 6.3 mmol/L (0.7-2.0) H* 02/15/19 19:43 Calcium 6.9 mg/dL (8.4-10.2) L 02/17/19 05:15 Phosphorus 1.4 mg/dL (2.5-4.5) L 02/17/19 05:15 Magnesium 1.8 mg/dL (1.6-2.3) 02/17/19 05:15 Total Bilirubin 7.1 mg/dL (0.2-1.3) H 02/17/19 05:15 Conjugated Bilirubin 3.6 mg/dL (0.0-0.3) H 02/15/19 16:20 Unconjugated Bilirubin 1.4 mg/dL (0.0-1.1) H 02/15/19 16:20 Delta Bilirubin 2.8 mg/dL (0.0-0.2) H 02/15/19 16:20 AST 113 U/L (14-36) H 02/17/19 05:15 ALT 48 U/L (9-52) 02/17/19 05:15 Alkaline Phosphatase 212 U/L (38-126) H 02/17/19 05:15 Troponin I 0.018 ng/mL (0.000-0.034) 02/15/19 16:20 Total Protein 4.9 g/dL (6.3-8.2) L 02/17/19 05:15 Albumin 2.1 g/dL (3.5-5.0) L 02/17/19 05:15 Amylase 31 U/L (30-110) 02/15/19 16:20 Lipase 178 U/L (23-300) 02/15/19 16:20 Cortisol 20 ug/dL 02/17/19 10:05 Urine Color Dark Yellow 02/15/19 17:30 Urine Appearance Cloudy (Clear) H 02/15/19 17:30 Urine pH 6.5 (5.0-8.0) 02/15/19 17:30 Ur Specific Camp 1.015 (1.001-1.035) 02/15/19 17:30 Urine Protein 1+ (Negative) H 02/15/19 17:30 Urine Glucose (UA) Negative (Negative) 02/15/19 17:30 Urine Ketones 2+ (Negative) H 02/15/19 17:30 Urine Blood Small (Negative) H 02/15/19 17:30 Urine Nitrite Negative (Negative) 02/15/19 17:30 Urine Bilirubin 2+ (Negative) H 02/15/19 17:30 Urine Urobilinogen 6.0 mg/dL (<2.0) 02/15/19 17:30 Ur Leukocyte Esterase Moderate (Negative) H 02/15/19 17:30 Urine RBC 1 /hpf (0-5) 02/15/19 17:30 Ur Squamous Epith Cells 1 /hpf (0-4) 02/15/19 17:30 Amorphous Sediment Rare /hpf (None) H 02/15/19 17:30 Urine Bacteria Moderate /hpf (None) H 02/15/19 17:30 Urine Mucus Rare /hpf (None) H 02/15/19 17:30 Stool Occult Blood Positive (Negative) H 02/16/19 06:16 Acetaminophen <10.0 ug/mL 02/15/19 16:20 Serum Alcohol 117 mg/dL 02/15/19 16:20 Acetone, Qual Negative (Negative) 02/15/19 16:20 C. difficile (EIA) Intrp Negative (Negative) 02/16/19 06:00 Blood Type A Positive 02/16/19 06:15 Blood Type Confirm A Positive 02/15/19 16:20 Blood Type Recheck CABO Indicated 02/16/19 06:15 Antibody Screen NEGATIVE 02/16/19 06:15 Spec Expiration Date 02/19/2019 - 56002/16/19 06:15 Microbiology 02/17/19 10:15 Urine,Catheterized Urine Culture - Preliminary Assessment and Plan (1) Alcohol abuse Current Visit: Yes Status: Acute Code(s): F10.10 - ALCOHOL ABUSE, UNCOMPLICATED SNOMED Code(s): 98100061 (2) Lactic acidosis Current Visit: Yes Status: Acute Code(s): E87.2 - ACIDOSIS SNOMED Code(s): 86469902 (3) Urinary tract infection Narrative/Plan: 58-year-old female with a complex past medical history related to her polycystic kidney disease and prior renal transplantation. She is on sup pressive therapy and apparently has had stability to the transplant. Service chronic alcoholism and now has acute alcohol hepatitis with jaundice. She's been seen by gastroenterology. Recent urine culture shows evidence of E. coli that is resistant to quinolones and sulfa. She was not noted to have ESBL and constantly can de-escalate antibiotic therapy to Rocephin from cefepime. Cultures are in process blood culture negative to date. The patient's total bilirubin is 7.1 and has evidence of acute alcoholic hepatitis likely resulting the ongoing lactic acidosis from the liver disease. She is not having high-grade fevers and apparently is feeling better than admission. Current Visit: Yes Status: Acute Code(s): N39.0 - URINARY TRACT INFECTION, SITE NOT SPECIFIED SNOMED Code(s): 00496421
[2019-02-18 00:10] LABS: Glucose,Whole Blood 151 mg/dL (75-99)
[2019-02-18 06:09] LABS: Anisocytosis Slight; Basophils % (A) 0 %; Eosinophils # (A) 0.2 k/uL (0-0.7); Eosinophils % (A) 3 %; HCT 28.8 % (34.0-46.0); HGB 8.9 gm/dL (11.4-16.0); Hypochromasia Marked; Lymphocytes # (A) 1.1 k/uL (1.0-4.8); Lymphocytes % (A) 15 %; MCH 38.1 pg (25.0-35.0); MCV 122.9 fL (80.0-100.0); Macrocytosis Marked; Mean Platelet Volume 8.2; Monocytes # (A) 0.4 k/uL (0-1.0); Monocytes % (A) 6 %; Neutrophils # (A) 5.3 k/uL (1.3-7.7); Neutrophils % (A) 75 %; Platelet Count 142 k/uL (150-450); RBC 2.35 m/uL (3.80-5.40); RDW 18.4 % (11.5-15.5); WBC 7.1 k/uL (3.8-10.6)
[2019-02-18 06:26] LABS: Anion Gap 9 mmol/L; Blood Urea Nitrogen 13 mg/dL (7-17); Calcium 7.1 mg/dL (8.4-10.2); Carbon Dioxide 17 mmol/L (22-30); Chloride 110 mmol/L (98-107); Glucose 106 mg/dL (74-99); Magnesium 2.2 mg/dL (1.6-2.3); Phosphorus 1.1 mg/dL (2.5-4.5); Potassium 3.7 mmol/L (3.5-5.1); Sodium 136 mmol/L (137-145)
[2019-02-18] MEDS: NOREPINEPHRINE 4 MG in SODIUM CHLORIDE 0.9% 250 ML IV SCH ×2 (07:17→23:48)
[2019-02-18] MEDS: SODIUM CHLORIDE 0.9% 1,000 ML IV SCH ×3 (07:18→12:04)
[2019-02-18] MEDS: PANTOPRAZOLE 40 MG/10 ML VIAL IV SCH (08:58)
[2019-02-18] MEDS: MYCOPHENOLATE MOFETIL 500 MG TAB PO SCH ×2 (08:59→20:33)
[2019-02-18] MEDS: ESCITALOPRAM 20 MG TAB PO SCH (08:59)
[2019-02-18] MEDS: NON-FORMULARY DRUG (Atomoxetine Hcl [Strattera] 40 MG) PO SCH (09:05)
[2019-02-18] MEDS: ARIPiprazole 2 MG TAB PO SCH (09:05)
[2019-02-18] MEDS: SIROLIMUS 1 MG PO SCH (09:06)
[2019-02-18] MEDS: HYDROmorphone 0.5 MG/0.5 ML SYRINGE IVP PRN ×3 (09:19→23:51)
--- NOTE | 2019-02-18 10:33 | P.PN ---
Subjective Progress Note Date: 02/18/19 Principal diagnosis: Alcoholic liver disease with severe cirrhosis, bycytopenia, hyperbilirubinemia, anemia, probable urinary tract infection On 02/17/2018 patient seen in follow-up in the intensive care unit, she is resting comfortably in bed, she is lethargic, but easily arousable to verbal stimuli, oriented times 2. Denies any acute distress, no shortness of breath or chest pain, no abdominal pain, she is on room air, with pulse ox of 93%, IV 0.9 normal saline at a rate of 150 ML per hour, no fever or chills, hemodynamically patient is stable, blood pressures 90/61 with a map of 70. Urine output is 30- 50 ML per hour. Antibiotic coverage in the form of cefepime. His labs have been reviewed, white blood cell count of 6.4, hemoglobin is 7.9, serum sodium is 135, potassium is 3.2, chloride is 110, CO2 17, BUN 16, creatinine 0.57, calcium was 6.9, phosphorus is 1.4, alkaline phosphatase is trending down, down to 12, AST is 113, ALT is 48, albumin is 2.1. C. diff was negative, stool occult blood was positive. No hematemesis, no blood per rectum. Lung sounds are clear, diminished at the bases. She is on clear liquid diet. Patient is on no PPI therapy, patient is on CIWA protocol, no acute complaints or events overnight On 02/18/2019 patient seen in follow-up in the intensive care unit, she is more awake, and conversant on today's exam. She is providing history, she is alert and oriented 3. Remains on the vasopressor support, currently on Levophed and a rate of 1 mics per minute. IV 0.9 normal saline at a rate of 150 ML per hour. Room air pulse ox is 96%, patient has been afebrile, no specific complaints, no shortness of breath or chest pain, he states she has some chronic pain in her abdomen, no acute distress, abdomen is soft, nondistended, nontender. Bowel sounds 4. Lung sounds are clear. Blood cultures and urine cultures have been collected and sent, pending at this time, and we encourage in the form of Rocephin, IV service is following. Today's labs have been reviewed, and showed a white blood cell, 7.1, hemoglobin of 8.9, serum sodium is 136, potassium is 3.7, chloride is 110, CO2 17, renal function is within normal limits, BUN 13 creatinine 0.54. Indwelling catheter is in place, patient is nonoliguric. Producing a dark-colored urine in order of 35-85 ML per hour. Objective - Vital Signs Vital signs: Vital Signs Temp 96.9 F L 02/18/19 08:00 Pulse 93 02/18/19 08:00 Resp 21 02/18/19 08:00 BP 100/67 02/18/19 08:00 Pulse Ox 96 02/18/19 08:00 Intake & Output 02/17/19 02/18/19 02/18/19 18:59 06:59 18:59 Intake Total 2683.088 1800 566.042 Output Total 522 442 105 Balance 2161.088 1358 461.042 Weight 70.4 kg Intake: IV 2500 1800 450 0.9 1650 1800 450 Magnesium Sulfate-D5w Pmx 100 1 gm In Dextrose/Water 1 100ml.bag @ 100 mls/hr IVPB Q1H [facility] Rx#: [id number] Potassium Phosphate 10 750 mmol In Sodium Chloride 0 .9% 250 ml @ 125 mls/hr IV Q2H [facility] Rx#:[id number] Intake, IV Titration 183.088 116.042 Amount Cefepime 2 gm In Sodium 100 Chloride 0.9% 100 ml @ 200 mls/hr IVPB Q8H [facility] Rx#:[id number] Norepinephrine 4 mg In 83.088 116.042 Sodium Chloride 0.9% 250 ml @ 0.05 MCG/KG/MIN 13. 621 mls/hr IV .[id number] [facility] Rx#:[id number] Output: Urine 522 442 105 Other: Voiding Method Indwelling Catheter Indwelling Catheter # Voids 1 - Exam GENERAL EXAM: Lethargic, extremely jaundiced 58-year-old obese white female, arousable to verbal stimuli comfortable in no apparent distress. HEAD: Normocephalic/atraumatic. EYES: Normal reaction of pupils, equal size. Conjunctiva pink, sclera white. NOSE: Clear with pink turbinates. THROAT: No erythema or exudates. NECK: No masses, no JVD, no thyroid enlargement, no adenopathy. CHEST: No chest wall deformity. Symmetrical expansion. LUNGS: Equal air entry with no crackles, wheeze, rhonchi or dullness. CVS: Regular rate and rhythm, normal S1 and S2, no gallops, no murmurs, no rubs ABDOMEN: Soft, nontender. No hepatosplenomegaly, normal bowel sounds, no guarding or rigidity. EXTREMITIES: No clubbing, 1+ pitting edema lower extremities, no cyanosis, 2+ pulses and upper and lower extremities. MUSCULOSKELETAL: Muscle strength and tone normal. SPINE: No scoliosis or deformity SKIN: No rashes CENTRAL NERVOUS SYSTEM: Lethargic, but arousable to verbal stimuli. No focal deficits, tone is normal in all 4 extremities. - Labs CBC & Chem 7: 02/18/19 04:53 02/18/19 04:53 Labs: Abnormal Lab Results - Last 24 Hours (Table) 02/17/19 02/17/19 02/17/19 Range/Units 12:10 12:48 12:48 RBC 2.20 L (3.80-5.40) m/uL Hgb 8.9 L (11.4-16.0) gm/dL Hct 26.6 L (34.0-46.0) % MCV 120.8 H (80.0-100.0) fL MCH 40.4 H (25.0-35.0) pg RDW 18.4 H (11.5-15.5) % Plt Count 133 L (150-450) k/uL Sodium (137-145) mmol/L Potassium 3.4 L (3.5-5.1) mmol/L Chloride (98-107) mmol/L Carbon Dioxide (22-30) mmol/L Glucose (74-99) mg/dL POC Glucose (mg/dL) 150 H (75-99) mg/dL Calcium (8.4-10.2) mg/dL Phosphorus (2.5-4.5) mg/dL 02/17/19 02/18/19 02/18/19 Range/Units 23:58 04:53 04:53 RBC 2.35 L (3.80-5.40) m/uL Hgb 8.9 L (11.4-16.0) gm/dL Hct 28.8 L (34.0-46.0) % MCV 122.9 H (80.0-100.0) fL MCH 38.1 H (25.0-35.0) pg RDW 18.4 H (11.5-15.5) % Plt Count 142 L (150-450) k/uL Sodium 136 L (137-145) mmol/L Potassium (3.5-5.1) mmol/L Chloride 110 H (98-107) mmol/L Carbon Dioxide 17 L (22-30) mmol/L Glucose 106 H (74-99) mg/dL POC Glucose (mg/dL) 151 H (75-99) mg/dL Calcium 7.1 L (8.4-10.2) mg/dL Phosphorus 1.1 L (2.5-4.5) mg/dL Microbiology - Last 24 Hours (Table) 02/17/19 10:15 Urine Culture - Preliminary Urine,Catheterized Assessment and Plan Plan: Assessment: #1. Hypotension, related to hypovolemia and suspected sepsis, and underlying alcoholic liver disease with hypoalbuminemia. #2. Alcoholic liver disease with likely severe cirrhosis, bicytopenia, hyperbilirubinemia #3. Chronic anemia #4. Thrombocytopenia #5. Anion gap metabolic acidosis secondary to lactic acidemia related to sepsis #6. Possible tract infection #7. Hx of previous kidney transplant 2 #8. Hx of CVA #9. Hypertension, hyperlipidemia #10. History of congenital absence of one kidney, and polycystic kidney disease #11. Diverticular disease Plan: We will decrease the IV fluids down to 75 ML per hour, patient started to develop some generalized edema, hemodynamically she is more stable, she is on 1 mcg of levofed, which we will attempt to wean off. She is more awake and alert, and conversant on today's exam, she denies any chest pain, she denies any shortness of breath. Continue with current antibiotics, ID service is following, will await results of the blood and urine culture. Continue with GI and DVT prophylaxis. Repeat lactic acid today. Monitor for signs of acute alc ohol withdrawal. No signs of DTs right now. Patient is pleasant, cooperative. No acute distress. I performed a history & physical examination of the patient and discussed their management with my nurse practitioner, Cindy Salazar. I reviewed the nurse practitioner's note and agree with the documented findings and plan of care. Lung sounds are diminished breath sounds. The findings and the impression was discussed with the patient. I attest to the documentation by the nurse practitioner. Time with Patient: Less than 30
--- NOTE | 2019-02-18 11:25 | P.PN ---
Subjective Progress Note Date: 02/18/19 Carol Guardado is a 58-year-old female known to my practice however has not shown up in the office for a long time who was brought in to [facility] emergency room with a chief complaint of mental status changes and multiple vague complaints of chest pain, abdominal pain, nausea vomiting and diarrhea, patient had evidence of significant jaundice, total bilirubin was elevated at 7.2 she was intoxicated with alcohol level of 117 patient also had evidence of urinary tract infection and evidence of sepsis with leukocytosis and elevated lactic acid she was started on IV antibiotic cefepime and IV fluids and admitted to telemetry floor. Her past medical history is significant for history of hypertension, history of depression, history of chronic renal failure with history of renal transplant in the past. She has a known history of alcohol abuse she drinks 1 pint of vodka per day. On 02/17/2019 patient was seen and examined in the intensive care unit she is alert and oriented 3 in no apparent distress she is complaining of generalized weakness otherwise she denies any complaints there is no fever or chills no headache or dizziness no chest pain no shortness of breath no cough no nausea or vomiting no abdominal pain no diarrhea and no urinary symptoms. Patient received fluid boluses the last 24 hours and her blood pressure has stabilized. On 02/18/2018 patient remains in the intensive care unit. Patient is alert and oriented 3. Patient is still complaining of some abdominal pain. Patient remains on Levophed for pressure support. Diet has been advanced per critical care. Normal saline at 75. This time patient denies chest pain or shortness breath. Patient denies nausea vomiting or diarrhea. Patient denies any urinary burning or frequency Objective - Vital Signs Vital signs: Vital Signs Temp 96.9 F L 02/18/19 08:00 Pulse 92 02/18/19 10:00 Resp 25 H 02/18/19 10:00 BP 125/90 02/18/19 10:00 Pulse Ox 96 02/18/19 10:00 Intake & Output 02/17/19 02/18/19 02/18/19 18:59 06:59 18:59 Intake Total 2683.088 1800 813.788 Output Total 522 442 185 Balance 2161.088 1358 628.788 Weight 70.4 kg Intake: IV 2500 1800 600 0.9 1650 1800 600 Magnesium Sulfate-D5w Pmx 100 1 gm In Dextrose/Water 1 100ml.bag @ 100 mls/hr IVPB Q1H EDDA Rx#: [id number] Potassium Phosphate 10 750 mmol In Sodium Chloride 0 .9% 250 ml @ 125 mls/hr IV Q2H EDDA Rx#:[id number] Intake, IV Titration 183.088 213.788 Amount Cefepime 2 gm In Sodium 100 Chloride 0.9% 100 ml @ 200 mls/hr IVPB Q8H EDDA Rx#:[id number] Norepinephrine 4 mg In 83.088 138.788 Sodium Chloride 0.9% 250 ml @ 0.05 MCG/KG/MIN 13. 621 mls/hr IV .[id number] EDDA Rx#:[id number] Sodium Chloride 0.9% 1, 75 000 ml @ 75 mls/hr IV . [id number] EDDA Rx#: [id number] Output: Urine 522 442 185 Other: Voiding Method Indwelling Catheter Indwelling Catheter # Voids 1 - Exam In general patient is somnolent but awakes easily she answered a few questions and closes her eyes again HEENT was significant icterus otherwise no abnormality Neck is supple no JVD no goiter no lymphadenopathy Chest exam reveals a few scattered rhonchi no wheezing Cardiac exam reveals regular heart sounds S1 and S2 no gallops no murmurs Abdomen is soft nontender no organomegaly with normal bowel sounds Extremity exam reveals no edema no cyanosis or clubbing Neurological examination reveals drowsiness but no focal neurological deficit - Labs CBC & Chem 7: 02/18/19 04:53 02/18/19 04:53 Labs: Abnormal Lab Results - Last 24 Hours (Table) 02/17/19 02/17/19 02/17/19 Range/Units 12:10 12:48 12:48 RBC 2.20 L (3.80-5.40) m/uL Hgb 8.9 L (11.4-16.0) gm/dL Hct 26.6 L (34.0-46.0) % MCV 120.8 H (80.0-100.0) fL MCH 40.4 H (25.0-35.0) pg RDW 18.4 H (11.5-15.5) % Plt Count 133 L (150-450) k/uL Sodium (137-145) mmol/L Potassium 3.4 L (3.5-5.1) mmol/L Chloride (98-107) mmol/L Carbon Dioxide (22-30) mmol/L Glucose (74-99) mg/dL POC Glucose (mg/dL) 150 H (75-99) mg/dL Calcium (8.4-10.2) mg/dL Phosphorus (2.5-4.5) mg/dL 02/17/19 02/18/19 02/18/19 Range/Units 23:58 04:53 04:53 RBC 2.35 L (3.80-5.40) m/uL Hgb 8.9 L (11.4-16.0) gm/dL Hct 28.8 L (34.0-46.0) % MCV 122.9 H (80.0-100.0) fL MCH 38.1 H (25.0-35.0) pg RDW 18.4 H (11.5-15.5) % Plt Count 142 L (150-450) k/uL Sodium 136 L (137-145) mmol/L Potassium (3.5-5.1) mmol/L Chloride 110 H (98-107) mmol/L Carbon Dioxide 17 L (22-30) mmol/L Glucose 106 H (74-99) mg/dL POC Glucose (mg/dL) 151 H (75-99) mg/dL Calcium 7.1 L (8.4-10.2) mg/dL Phosphorus 1.1 L (2.5-4.5) mg/dL Microbiology - Last 24 Hours (Table) 02/17/19 10:15 Urine Culture - Preliminary Urine,Catheterized Assessment and Plan Assessment: #1 acute alcoholic hepatitis. GI services are following. Maintained on CIWA protocal #2 underlying history of chronic liver failure. Total bili 7.1 AST 113, ALT 48 and alkaline phosphatase 212 #3 evidence of urinary tract infection with sepsis. Dr. Lira for infectious disease is following. Patient maintained on Rocephin. Cultures pending. #4 hypotension. Patient maintained on Levophed for pressure support at this time. Levophed is getting titrated down #5 chronic kidney disease with previous history of renal transplant #6 underlying history of hyperlipidemia maintained on Pravachol. Currently on hold due to elevated liver enzymes #7underlying history of depression #8 anemia and thrombocytopenia likely related to liver disease. Hemoglobin has remained stable at 8.9 #9 poor nutritional status with protein calorie malnutrition with decreased albumin to 2.6 #10 severe electrolyte imbalance with hypokalemia and hypophosphatemia and hypomagnesemia. Improving. Potassium 3.7 magnesium 2.2 and phosphorus 1.1 #11 metabolic acidosis At this time patient was seen and examined she will be maintained on IV fluid, patient is in ICU and has received multiple fluid boluses over the last 24 hours Continue with IV antibiotic, awaiting culture results Patient counseled regarding alcohol abuse CODE STATUS is full code discussed with patient Prognosis is poor due to severe underlying liver disease
[2019-02-18] MEDS: CARVEDILOL 6.25 MG TAB PO SCH ×2 (11:33→18:19)
[2019-02-18] MEDS: DILTIAZEM CD 180 MG CAP.ER.24H PO SCH (11:33)
[2019-02-18] MEDS: THIAMINE 100 MG TAB PO SCH ×2 (14:17→18:20)
[2019-02-18] MEDS: SODIUM PHOSPHATE 10 MMOL in SODIUM CHLORIDE 0.9% 250 ML IVPB SCH ×3 (16:12→20:33)
--- NOTE | 2019-02-18 20:40 | P.PN ---
Objective - Vital Signs Vital signs: Vital Signs Temp 98.4 F 02/18/19 12:30 Pulse 93 02/18/19 19:00 Resp 12 02/18/19 19:00 BP 99/67 02/18/19 19:00 Pulse Ox 97 02/18/19 19:00 Intake & Output 02/18/19 02/18/19 02/19/19 06:59 18:59 06:59 Intake Total 1800 1888.788 75 Output Total 442 465 35 Balance 1358 1423.788 40 Weight 70.4 kg Intake: IV 1800 600 0.9 1800 600 Intake, IV Titration 1288.788 75 Amount Norepinephrine 4 mg In 138.788 Sodium Chloride 0.9% 250 ml @ 0.05 MCG/KG/MIN 13. 621 mls/hr IV .[id number] EDDA Rx#:[id number] Sodium Chloride 0.9% 1, 600 75 000 ml @ 75 mls/hr IV . [id number] EDDA Rx#:[id number] Sodium Phosphate 10 mmol 500 In Sodium Chloride 0.9% 250 ml @ 125 mls/hr IVPB Q2H EDDA Rx#:[id number] cefTRIAXone 2 gm In 50 Sodium Chloride 0.9% 50 ml @ 100 mls/hr IVPB Q24HR EDDA Rx#:[id number] Output: Urine 442 465 35 Other: Voiding Method Indwelling Catheter Indwelling Catheter # Voids 1 # Bowel Movements 1 - Labs CBC & Chem 7: 02/18/19 04:53 02/18/19 04:53 Labs: Abnormal Lab Results - Last 24 Hours (Table) 02/17/19 02/18/19 02/18/19 Range/Units 23:58 04:53 04:53 RBC 2.35 L (3.80-5.40) m/uL Hgb 8.9 L (11.4-16.0) gm/dL Hct 28.8 L (34.0-46.0) % MCV 122.9 H (80.0-100.0) fL MCH 38.1 H (25.0-35.0) pg RDW 18.4 H (11.5-15.5) % Plt Count 142 L (150-450) k/uL Sodium 136 L (137-145) mmol/L Chloride 110 H (98-107) mmol/L Carbon Dioxide 17 L (22-30) mmol/L Glucose 106 H (74-99) mg/dL POC Glucose (mg/dL) 151 H (75-99) mg/dL Calcium 7.1 L (8.4-10.2) mg/dL Phosphorus 1.1 L (2.5-4.5) mg/dL Microbiology - Last 24 Hours (Table) 02/17/19 10:05 Blood Culture - Preliminary Blood No Growth after 24 hours 02/17/19 10:32 Blood Culture - Preliminary Blood No Growth after 24 hours 02/17/19 10:15 Urine Culture - Final Urine,Catheterized Assessment and Plan (1) Hyperbilirubinemia Narrative/Plan: Elevation in liver enzymes with market elevation in the bilirubin consistent with known history of alcoholic liver disease and EtOH abuse, liver enzymes slightly improved today with total bilirubin 7.1, alkaline phosphatase 212, AST 113 and ALT 48. Current Visit: Yes Status: Acute Code(s): E80.6 - OTHER DISORDERS OF BILIRUBIN METABOLISM SNOMED Code(s): 86665812 (2) Alcoholic liver disease Narrative/Plan: Patient with findings of a coarsened echotexture on ultrasound with associated elevation in liver enzymes and both a cholestatic and hepatocellular pattern consistent with alcoholic liver disease Current Visit: Yes Status: Acute Code(s): K70.9 - ALCOHOLIC LIVER DISEASE, UNSPECIFIED SNOMED Code(s): 65156081 (3) Alcohol abuse Current Visit: Yes Status: Acute Code(s): F10.10 - ALCOHOL ABUSE, UNCOMPLICATED SNOMED Code(s): 48682426 (4) Diarrhea Narrative/Plan: Patient reporting multiple loose stools, with testing for Clostridium difficile toxin negative, this is likely related to antibiotic use for which the patient is receiving for treatment of urinary tract infection. Current Visit: Yes Status: Acute Code(s): R19.7 - DIARRHEA, UNSPECIFIED SNOMED Code(s): 00685529 (5) Macrocytic anemia Narrative/Plan: Patient had stool testing positive for occult blood, however suspicion for GI bleed is low given absence of any signs or symptoms of GI bleeding, anemia is likely multifactorial in the setting of nutritional deficiencies and toxic effect of alcohol on the bone marrow Current Visit: Yes Status: Acute Code(s): D53.9 - NUTRITIONAL ANEMIA, UNSPECIFIED SNOMED Code(s): 59121921 Plan: Supportive care Okay for diet Continue to monitor hemoglobin and hematocrit and transfuse as needed Iron studies, vitamin B12 and folate have been ordered Continue to monitor for symptoms of withdrawal/CIWA protocol If diarrhea persists can consider further stool studies Continue to monitor liver enzymes and INR Thank you for allowing us to participate in the care of the patient we will continue to follow
[2019-02-19] MEDS: SODIUM CHLORIDE 0.9% 1,000 ML IV SCH ×2 (00:05→17:10)
[2019-02-19 06:40] LABS: ALT 52 U/L (9-52); AST 138 U/L (14-36); Albumin 2.2 g/dL (3.5-5.0); Alkaline Phosphatase 283 U/L (38-126); Anion Gap 6 mmol/L; Blood Urea Nitrogen 9 mg/dL (7-17); Calcium 7.1 mg/dL (8.4-10.2); Carbon Dioxide 17 mmol/L (22-30); Chloride 112 mmol/L (98-107); Glucose 106 mg/dL (74-99); Phosphorus 1.8 mg/dL (2.5-4.5); Potassium 3.5 mmol/L (3.5-5.1); Sodium 135 mmol/L (137-145); Total Bilirubin 8.9 mg/dL (0.2-1.3); Total Protein 5.1 g/dL (6.3-8.2)
[2019-02-19] MEDS: CARVEDILOL 6.25 MG TAB PO SCH ×2 (08:22→18:36)
[2019-02-19] MEDS: ARIPiprazole 2 MG TAB PO SCH (08:22)
[2019-02-19] MEDS: MYCOPHENOLATE MOFETIL 500 MG TAB PO SCH ×2 (08:23→21:20)
[2019-02-19] MEDS: DILTIAZEM CD 180 MG CAP.ER.24H PO SCH (08:23)
[2019-02-19] MEDS: NON-FORMULARY DRUG (Atomoxetine Hcl [Strattera] 40 MG) PO SCH (08:24)
[2019-02-19] MEDS: ESCITALOPRAM 20 MG TAB PO SCH (08:24)
[2019-02-19] MEDS: SIROLIMUS 1 MG PO SCH (08:24)
[2019-02-19] MEDS: PANTOPRAZOLE 40 MG/10 ML VIAL IV SCH (08:27)
[2019-02-19] MEDS ORDERED: FUROSEMIDE 10 MG/ML 4 ML VIAL IV STA (09:04)
[2019-02-19 09:16] LABS: Anisocytosis Slight; HCT 29.7 % (34.0-46.0); HGB 9.2 gm/dL (11.4-16.0); Hypochromasia Marked; MCH 38.8 pg (25.0-35.0); MCV 125.3 fL (80.0-100.0); Macrocytosis Marked; Mean Platelet Volume 8.1; Platelet Count 127 k/uL (150-450); RBC 2.37 m/uL (3.80-5.40); RDW 18.5 % (11.5-15.5); WBC 7.8 k/uL (3.8-10.6)
--- NOTE | 2019-02-19 09:18 | P.PN ---
Subjective Progress Note Date: 02/19/19 Principal diagnosis: Elevated liver enzymes 58-year-old female with a history of alcohol liver disease alcohol abuse past 1 nonbloody bowel movements. C. diff negative. Afebrile. Feels weak. Denies abdominal pain. Total bilirubin increased today 8.9. Transaminases AST 138. ALT 52. AP 283. Objective - Vital Signs Vital signs: Vital Signs Temp 98.2 F 02/19/19 04:00 Pulse 100 02/19/19 07:00 Resp 14 02/19/19 07:00 BP 84/65 02/19/19 07:00 Pulse Ox 98 02/19/19 07:00 Intake & Output 02/18/19 02/19/19 02/19/19 18:59 06:59 18:59 Intake Total 4709.378 9080 75 Output Total 465 435 30 Balance 1423.788 715 45 Weight 71.5 kg Intake: IV 600 1075 75 0.9 600 825 75 Sodium Phosphate 10 mmol 250 In Sodium Chloride 0.9% 250 ml @ 125 mls/hr IVPB Q2H EDDA Rx#:[id number] Intake, IV Titration 1288.788 75 Amount Norepinephrine 4 mg In 138.788 Sodium Chloride 0.9% 250 ml @ 0.05 MCG/KG/MIN 13. 621 mls/hr IV .[id number] EDDA Rx#:[id number] Sodium Chloride 0.9% 1, 600 75 000 ml @ 75 mls/hr IV . [id number] EDDA Rx#:[id number] Sodium Phosphate 10 mmol 500 In Sodium Chloride 0.9% 250 ml @ 125 mls/hr IVPB Q2H EDDA Rx#:[id number] cefTRIAXone 2 gm In 50 Sodium Chloride 0.9% 50 ml @ 100 mls/hr IVPB Q24HR EDDA Rx#:[id number] Output: Urine 465 435 30 Other: Voiding Method Indwelling Catheter Indwelling Catheter # Bowel Movements 1 - Exam General appearance: The patient is alert, oriented, in no acute distress. Jaundice. HET: Head is normocephalic and atraumatic. Pupils are equal and reactive. Oropharynx is clear without lesions. Sclerae icterus. Neck: Supple without lymphadenopathy. Trachea midline. Heart: S1 S2. Regular rate and rhythm. Lungs: No crackles or wheezes are heard. Abdomen: Soft, nontender, nondistended with bowel sounds. No peritoneal signs. No palpable organomegaly or masses. Extremities: Normal skin color and turgor. No cyanosis, rash, ulceration, clubbing, or edema. Radial and pedal pulses are 2/4 bilaterally. Neurological: No focal deficits. Strength and sensation are grossly intact. - Labs CBC & Chem 7: 02/19/19 05:43 02/19/19 05:43 Labs: Abnormal Lab Results - Last 24 Hours (Table) 02/19/19 Range/Units 05:43 Sodium 135 L (137-145) mmol/L Chloride 112 H (98-107) mmol/L Carbon Dioxide 17 L (22-30) mmol/L Creatinine 0.49 L (0.52-1.04) mg/dL Glucose 106 H (74-99) mg/dL Calcium 7.1 L (8.4-10.2) mg/dL Phosphorus 1.8 L (2.5-4.5) mg/dL Total Bilirubin 8.9 H (0.2-1.3) mg/dL AST 138 H (14-36) U/L Alkaline Phosphatase 283 H (38-126) U/L Total Protein 5.1 L (6.3-8.2) g/dL Albumin 2.2 L (3.5-5.0) g/dL Microbiology - Last 24 Hours (Table) 02/17/19 10:05 Blood Culture - Preliminary Blood No Growth after 24 hours 02/17/19 10:32 Blood Culture - Preliminary Blood No Growth after 24 hours 02/17/19 10:15 Urine Culture - Final Urine,Catheterized Assessment and Plan (1) Alcohol abuse Current Visit: Yes Status: Acute Code(s): F10.10 - ALCOHOL ABUSE, UNCOMPLICATED SNOMED Code(s): 19710719 (2) Alcoholic liver disease Current Visit: Yes Status: Acute Code(s): K70.9 - ALCOHOLIC LIVER DISEASE, UNSPECIFIED SNOMED Code(s): 94204491 (3) Diarrhea Current Visit: Yes Status: Acute Code(s): R19.7 - DIARRHEA, UNSPECIFIED SNOMED Code(s): 57960667 (4) Hyperbilirubinemia Narrative/Plan: transaminitis Current Visit: Yes Status: Acute Code(s): E80.6 - OTHER DISORDERS OF BILIRUBIN METABOLISM SNOMED Code(s): 63852567 Plan: 1. Supportive measures. AFP. Possible MRCP; CT A/P January 2019 could not exclude HCC. Diet as tolerated. Continue to monitor for symptoms of withdrawal/CIWA protocol. Continue to monitor CBC CMP INR daily. Assessment and plan a care discussed with Dr. Little
--- NOTE | 2019-02-19 11:56 | P.PN ---
Subjective Progress Note Date: 02/19/19 Carol Guardado is a 58-year-old female known to my practice however has not shown up in the office for a long time who was brought in to [facility] emergency room with a chief complaint of mental status changes and multiple vague complaints of chest pain, abdominal pain, nausea vomiting and diarrhea, patient had evidence of significant jaundice, total bilirubin was elevated at 7.2 she was intoxicated with alcohol level of 117 patient also had evidence of urinary tract infection and evidence of sepsis with leukocytosis and elevated lactic acid she was started on IV antibiotic cefepime and IV fluids and admitted to telemetry floor. Her past medical history is significant for history of hypertension, history of depression, history of chronic renal failure with history of renal transplant in the past. She has a known history of alcohol abuse she drinks 1 pint of vodka per day. On 02/17/2019 patient was seen and examined in the intensive care unit she is alert and oriented 3 in no apparent distress she is complaining of generalized weakness otherwise she denies any complaints there is no fever or chills no headache or dizziness no chest pain no shortness of breath no cough no nausea or vomiting no abdominal pain no diarrhea and no urinary symptoms. Patient received fluid boluses the last 24 hours and her blood pressure has stabilized. On 02/18/2019 patient remains in the intensive care unit. Patient is alert and oriented 3. Patient is still complaining of some abdominal pain. Patient remains on Levophed for pressure support. Diet has been advanced per critical care. Normal saline at 75. This time patient denies chest pain or shortness breath. Patient denies nausea vomiting or diarrhea. Patient denies any urinary burning or frequency On 02/19/2019 patient is alert and orientated. Patient remains in the intensive care unit. Patient has been off Levophed for pressure support for over 24 hours. Patient did receive one-time dose of Lasix per ICU team today. Patient's diet has been advanced. Patient denies chest pain or shortness breath. Patient denies nausea vomiting or diarrhea. Patient denies any urinary burning or frequency Objective - Vital Signs Vital signs: Vital Signs Temp 97.1 F L 02/19/19 08:00 Pulse 97 02/19/19 11:00 Resp 17 02/19/19 11:00 BP 112/79 02/19/19 11:00 Pulse Ox 98 02/19/19 11:00 Intake & Output 02/18/19 02/19/19 02/19/19 18:59 06:59 18:59 Intake Total 9388.008 6137 155 Output Total 465 435 160 Balance 1423.788 715 -5 Weight 71.5 kg Intake: IV 600 1075 155 0.9 600 825 155 Sodium Phosphate 10 mmol 250 In Sodium Chloride 0.9% 250 ml @ 125 mls/hr IVPB Q2H EDDA Rx#:[id number] Intake, IV Titration 1288.788 75 Amount Norepinephrine 4 mg In 138.788 Sodium Chloride 0.9% 250 ml @ 0.05 MCG/KG/MIN 13. 621 mls/hr IV .[id number] EDDA Rx#:[id number] Sodium Chloride 0.9% 1, 600 75 000 ml @ 5 mls/hr IV . Q24H EDDA Rx#:[id number] Sodium Phosphate 10 mmol 500 In Sodium Chloride 0.9% 250 ml @ 125 mls/hr IVPB Q2H EDDA Rx#:[id number] cefTRIAXone 2 gm In 50 Sodium Chloride 0.9% 50 ml @ 100 mls/hr IVPB Q24HR EDDA Rx#:[id number] Output: Urine 465 435 160 Other: Voiding Method Indwelling Catheter Indwelling Catheter Indwelling Catheter # Bowel Movements 1 1 - Exam In general patient is somnolent but awakes easily she answered a few questions and closes her eyes again HEENT was significant icterus otherwise no abnormality Neck is supple no JVD no goiter no lymphadenopathy Chest exam reveals a few scattered rhonchi no wheezing Cardiac exam reveals regular heart sounds S1 and S2 no gallops no murmurs Abdomen is soft nontender no organomegaly with normal bowel sounds Extremity exam reveals no edema no cyanosis or clubbing Neurological examination reveals drowsiness but no focal neurological deficit - Labs CBC & Chem 7: 02/19/19 05:43 02/19/19 05:43 Labs: Abnormal Lab Results - Last 24 Hours (Table) 02/19/19 02/19/19 Range/Units 05:43 05:43 RBC 2.37 L (3.80-5.40) m/uL Hgb 9.2 L (11.4-16.0) gm/dL Hct 29.7 L (34.0-46.0) % MCV 125.3 H (80.0-100.0) fL MCH 38.8 H (25.0-35.0) pg RDW 18.5 H (11.5-15.5) % Plt Count 127 L (150-450) k/uL Sodium 135 L (137-145) mmol/L Chloride 112 H (98-107) mmol/L Carbon Dioxide 17 L (22-30) mmol/L Creatinine 0.49 L (0.52-1.04) mg/dL Glucose 106 H (74-99) mg/dL Calcium 7.1 L (8.4-10.2) mg/dL Phosphorus 1.8 L (2.5-4.5) mg/dL Total Bilirubin 8.9 H (0.2-1.3) mg/dL AST 138 H (14-36) U/L Alkaline Phosphatase 283 H (38-126) U/L Total Protein 5.1 L (6.3-8.2) g/dL Albumin 2.2 L (3.5-5.0) g/dL Microbiology - Last 24 Hours (Table) 02/17/19 10:05 Blood Culture - Preliminary Blood No Growth after 24 hours 02/17/19 10:32 Blood Culture - Preliminary Blood No Growth after 24 hours 02/17/19 10:15 Urine Culture - Final Urine,Catheterized Assessment and Plan Assessment: #1 acute alcoholic hepatitis. GI services are following. Maintained on CIWA protocal #2 underlying history of chronic liver failure. Total bili 7.1 AST 113, ALT 48 and alkaline phosphatase 212 #3 evidence of urinary tract infection with sepsis. Dr. Lira for infectious disease is following. Patient maintained on Rocephin. Cultures pending. #4 hypotension. Patient maintained on Levophed for pressure support at this time. Levophed has been off for 24 hours. #5 chronic kidney disease with previous history of renal transplant #6 underlying history of hyperlipidemia maintained on Pravachol. Currently on hold due to elevated liver enzymes #7underlying history of depression #8 anemia and thrombocytopenia likely related to liver disease. Hemoglobin has remained stable at 8.9 #9 poor nutritional status with protein calorie malnutrition with decreased albumin to 2.6 #10 severe electrolyte imbalance with hypokalemia and hypophosphatemia and hypomagnesemia. Improving. Potassium 3.7 magnesium 2.2 and phosphorus 1.1 #11 metabolic acidosis At this time patient was seen and examined she will be maintained on IV fluid, patient is in ICU and has received multiple fluid boluses over the last 24 hours Continue with IV antibiotic, awaiting culture results Patient counseled regarding alcohol abuse CODE STATUS is full code discussed with patient Prognosis is poor due to severe underlying liver disease I performed an examination of the patient and discussed their management with the Nurse Practitioner. I have reviewed the Nurse Practitioner's notes and agree with the documented findings and plan of care
[2019-02-19 12:02] LABS: Folate, Serum 3.9 ng/mL
[2019-02-19 12:32] LABS: Iron Saturation 14.11 (12.00-45.00)
--- NOTE | 2019-02-19 12:34 | P.PN ---
Subjective Progress Note Date: 02/19/19 Principal diagnosis: Alcoholic liver disease with severe cirrhosis, bycytopenia, hyperbilirubinemia, anemia, probable urinary tract infection On 02/17/2018 patient seen in follow-up in the intensive care unit, she is resting comfortably in bed, she is lethargic, but easily arousable to verbal stimuli, oriented times 2. Denies any acute distress, no shortness of breath or chest pain, no abdominal pain, she is on room air, with pulse ox of 93%, IV 0.9 normal saline at a rate of 150 ML per hour, no fever or chills, hemodynamically patient is stable, blood pressures 90/61 with a map of 70. Urine output is 30- 50 ML per hour. Antibiotic coverage in the form of cefepime. His labs have been reviewed, white blood cell count of 6.4, hemoglobin is 7.9, serum sodium is 135, potassium is 3.2, chloride is 110, CO2 17, BUN 16, creatinine 0.57, calcium was 6.9, phosphorus is 1.4, alkaline phosphatase is trending down, down to 12, AST is 113, ALT is 48, albumin is 2.1. C. diff was negative, stool occult blood was positive. No hematemesis, no blood per rectum. Lung sounds are clear, diminished at the bases. She is on clear liquid diet. Patient is on no PPI therapy, patient is on CIWA protocol, no acute complaints or events overnight On 02/18/2019 patient seen in follow-up in the intensive care unit, she is more awake, and conversant on today's exam. She is providing history, she is alert and oriented 3. Remains on the vasopressor support, currently on Levophed and a rate of 1 mics per minute. IV 0.9 normal saline at a rate of 150 ML per hour. Room air pulse ox is 96%, patient has been afebrile, no specific complaints, no shortness of breath or chest pain, he states she has some chronic pain in her abdomen, no acute distress, abdomen is soft, nondistended, nontender. Bowel sounds 4. Lung sounds are clear. Blood cultures and urine cultures have been collected and sent, pending at this time, and we encourage in the form of Rocephin, IV service is following. Today's labs have been reviewed, and showed a white blood cell, 7.1, hemoglobin of 8.9, serum sodium is 136, potassium is 3.7, chloride is 110, CO2 17, renal function is within normal limits, BUN 13 creatinine 0.54. Indwelling catheter is in place, patient is nonoliguric. Producing a dark-colored urine in order of 35-85 ML per hour. On 02/19/2019 patient seen in follow-up in the intensive care unit, she is awake and alert, oriented 3, pleasant and cooperative. Room air pulse ox is 99%, afebrile, hemodynamically stable, she is off the vasopressor support, she did develop generalized edema, and lower and upper extremities, and abdomen. We'll give patient a dose of IV Lasix today, no difficulty breathing, she denies any dyspnea, lung sounds are clear, sinus tach on the monitor, crit is in the low 100s, she is back on her CellCept. Antibiotic coverage in the form of Rocephin. Urine and blood cultures remain negative. Urine output is in the 30-40 range, she is tolerating full liquid diet Objective - Vital Signs Vital signs: Vital Signs Temp 97.1 F L 02/19/19 08:00 Pulse 97 02/19/19 11:00 Resp 17 02/19/19 11:00 BP 112/79 02/19/19 11:00 Pulse Ox 98 02/19/19 11:00 Intake & Output 02/18/19 02/19/19 02/19/19 18:59 06:59 18:59 Intake Total 0058.948 8812 155 Output Total 465 435 160 Balance 1423.788 715 -5 Weight 71.5 kg Intake: IV 600 1075 155 0.9 600 825 155 Sodium Phosphate 10 mmol 250 In Sodium Chloride 0.9% 250 ml @ 125 mls/hr IVPB Q2H EDDA Rx#:[id number] Intake, IV Titration 1288.788 75 Amount Norepinephrine 4 mg In 138.788 Sodium Chloride 0.9% 250 ml @ 0.05 MCG/KG/MIN 13. 621 mls/hr IV .[id number] EDDA Rx#:[id number] Sodium Chloride 0.9% 1, 600 75 000 ml @ 5 mls/hr IV . Q24H EDDA Rx#:[id number] Sodium Phosphate 10 mmol 500 In Sodium Chloride 0.9% 250 ml @ 125 mls/hr IVPB Q2H EDDA Rx#:[id number] cefTRIAXone 2 gm In 50 Sodium Chloride 0.9% 50 ml @ 100 mls/hr IVPB Q24HR EDDA Rx#:[id number] Output: Urine 465 435 160 Other: Voiding Method Indwelling Catheter Indwelling Catheter Indwelling Catheter # Bowel Movements 1 1 - Exam GENERAL EXAM: jaundiced 58-year-old obese white female, awake and alert, oriented 3, pleasant and cooperative HEAD: Normocephalic/atraumatic. EYES: Normal reaction of pupils, equal size. Conjunctiva pink, sclera white. NOSE: Clear with pink turbinates. THROAT: No erythema or exudates. NECK: No masses, no JVD, no thyroid enlargement, no adenopathy. CHEST: No chest wall deformity. Symmetrical expansion. LUNGS: Equal air entry with no crackles, wheeze, rhonchi or dullness. CVS: Regular rate and rhythm, normal S1 and S2, no gallops, no murmurs, no rubs ABDOMEN: Soft, nontender. No hepatosplenomegaly, normal bowel sounds, no guarding or rigidity. EXTREMITIES: No clubbing, 1+ pitting edema lower extremities, no cyanosis, 2+ pulses and upper and lower extremities. MUSCULOSKELETAL: Muscle strength and tone normal. SPINE: No scoliosis or deformity SKIN: No rashes CENTRAL NERVOUS SYSTEM: Lethargic, but arousable to verbal stimuli. No focal deficits, tone is normal in all 4 extremities. - Labs CBC & Chem 7: 02/19/19 05:43 02/19/19 05:43 Labs: Abnormal Lab Results - Last 24 Hours (Table) 02/19/19 02/19/19 Range/Units 05:43 05:43 RBC 2.37 L (3.80-5.40) m/uL Hgb 9.2 L (11.4-16.0) gm/dL Hct 29.7 L (34.0-46.0) % MCV 125.3 H (80.0-100.0) fL MCH 38.8 H (25.0-35.0) pg RDW 18.5 H (11.5-15.5) % Plt Count 127 L (150-450) k/uL Sodium 135 L (137-145) mmol/L Chloride 112 H (98-107) mmol/L Carbon Dioxide 17 L (22-30) mmol/L Creatinine 0.49 L (0.52-1.04) mg/dL Glucose 106 H (74-99) mg/dL Calcium 7.1 L (8.4-10.2) mg/dL Phosphorus 1.8 L (2.5-4.5) mg/dL Total Bilirubin 8.9 H (0.2-1.3) mg/dL AST 138 H (14-36) U/L Alkaline Phosphatase 283 H (38-126) U/L Total Protein 5.1 L (6.3-8.2) g/dL Albumin 2.2 L (3.5-5.0) g/dL Microbiology - Last 24 Hours (Table) 02/17/19 10:05 Blood Culture - Preliminary Blood No Growth after 24 hours 02/17/19 10:32 Blood Culture - Preliminary Blood No Growth after 24 hours 02/17/19 10:15 Urine Culture - Final Urine,Catheterized Assessment and Plan Plan: Assessment: #1. Hypotension, related to hypovolemia and suspected sepsis, and underlying alcoholic liver disease with hypoalbuminemia. Resolved #2. Alcoholic liver disease with likely severe cirrhosis, bicytopenia, hyperbilirubinemia #3. Chronic anemia #4. Thrombocytopenia #5. Anion gap metabolic acidosis secondary to lactic acidemia related to sepsis #6. Possible tract infection, urine culture showed no growth, empiric antibiotics in the form of Rocephin #7. Hx of previous kidney transplant 2 #8. Hx of CVA #9. Hypertension, hyperlipidemia #10. History of congenital absence of one kidney, and polycystic kidney disease #11. Diverticular disease Plan: We will give the patient dose of IV Lasix today for generalized edema, we will fed has been weaned off, patient is hemodynamically stable, she is awake and alert, she denies any shortness of breath, we will discontinue indwelling catheter, increase activity as tolerated, patient is awake and alert, oriented 3, no signs of delirium tremens. Encourage deep breathing and coughing, no acute events overnight. GI and DVT prophylaxis. Patient is stable to transfer to general medical surgical floor I performed a history & physical examination of the patient and discussed their management with my nurse practitioner, Cindy Salazar. I reviewed the nurse practitioner's note and agree with the documented findings and plan of care. Lung sounds are diminished breath sounds. The findings and the impression was discussed with the patient. I attest to the documentation by the nurse practitioner. Time with Patient: Less than 30
[2019-02-19 13:12] LABS: Eosinophils # (M) 0.08 k/uL (0-0.7); Lymphocytes # (M) 1.48 k/uL (1.0-4.8); Monocytes # (M) 0.94 k/uL (0-1.0); Neutrophils % (M) 68 %; Nucleated Red Blood Cells 0 /100 WBC (0-0); Total Cells Counted 100
--- NOTE | 2019-02-19 15:14 | CDI ---
Documentation Clarification Form Date: 02/19/2019 2:42:35 PM From: Kaylen Sales RN, CCDS Admit Date: 02/15/2019 8:42:00 PM Patient Name: Carol Guardado Visit Number: [id number] Discharge Date: ATTENTION: The Clinical Documentation Specialists (CDI) and [facility] Coding Staff appreciate your assistance in clarifying documentation. Please respond to the clarification below the line at the bottom and electronically sign. The CDI & [facility] Coding staff will review the response and follow-up if needed. Please note: Queries are made part of the Legal Health Record. If you have any questions, please contact the author of this message via ITS. Dr. Harry Foreman The patient presented with complaints of chest pain, abdominal pain, nausea, vomiting and diarrhea. Evidene of urinary tract infection with sepsis is in your H/P. History/Risk Factors: CVA, Hypertension, Hepatitis, Renal disease, Alcohol abuse, Suppressive therapy for Kidney transplant Clinical Indicators: 58-year-old with complaints of abdominal pain On 03/01 patient blood pressure was noted to be 76/65 77 16: Lab findings: HGB 7.9, HCT 24.8: Stool occult blood-Positive Vital Signs: 88/63 78 16, 88/60 73 15, 75/50 69 146 Treatment: IV Fluid Levophed drip Rocephin IV Monitor Labs [facility] protocol Consults: Pulmonary: Hypotension related to hypovolemia and underlying alcoholic liver disease with hypoalbuminemia is documented in the progress notes. In your professional opinion, can you please further clarify Hypotension and hypovolemia if due to? Hypovolemic Shock Sepsis Shock Other, please specify Unable to determine (Last Revision: February 2018) Hypovolemic shock MTDD
--- NOTE | 2019-02-19 15:38 | CDI ---
Documentation Clarification Form Date: 02/19/2019 3:17:08 PM From: Kaylen Sales RN, CCDS Admit Date: 02/15/2019 8:42:00 PM Patient Name: Carol Guardado Visit Number: [id number] Discharge Date: ATTENTION: The Clinical Documentation Specialists (CDI) and [facility] Coding Staff appreciate your assistance in clarifying documentation. Please respond to the clarification below the line at the bottom and electronically sign. The CDI & [facility] Coding staff will review the response and follow-up if needed. Please note: Queries are made part of the Legal Health Record. If you have any questions, please contact the author of this message via ITS. Dr. Harry Foreman Malnutrition has been documented in your H&P and ongoing progress notes. History/Risk Factors: CVA, TIA, Hypertension, Renal Disease, Hepatitis, Alcohol use, daily, heavy. Clinical Indicators: 58-year-old with complaints of nausea, vomiting and diarrhea. She has a history of daily alcohol use. Labs: Albumin 2.6, 2.1 Total Protein 5.5, 4.9 Current BMI: 34.1 Generalized edema lower extremities Treatment: Monitor Labs, Electrolytes, Monitor I/O In your professional opinion, can you please further clarify if the protein calorie malnutrition findings signify one of the following conditions? Mild Protein-Calorie Malnutrition Moderate Protein-Calorie Malnutrition Severe Protein-Calorie Malnutrition Other condition, please specify Unable to determine (Last Revision: February 2018) severe protein calorie malnutrition MTDD
[2019-02-19] MEDS: HYDROmorphone 0.5 MG/0.5 ML SYRINGE IVP PRN (17:09)
[2019-02-19] MEDS: THIAMINE 100 MG TAB PO SCH ×2 (17:09→17:12)
[2019-02-19] MEDS: NOREPINEPHRINE 4 MG in SODIUM CHLORIDE 0.9% 250 ML IV SCH (18:37)
[2019-02-20] MEDS: HYDROmorphone 0.5 MG/0.5 ML SYRINGE IVP PRN ×3 (03:50→20:41)
[2019-02-20] MEDS: THIAMINE 100 MG TAB PO SCH ×2 (09:15→16:10)
[2019-02-20] MEDS: ESCITALOPRAM 20 MG TAB PO SCH (09:15)
[2019-02-20] MEDS: CARVEDILOL 6.25 MG TAB PO SCH ×2 (09:15→16:10)
[2019-02-20] MEDS: NON-FORMULARY DRUG (Atomoxetine Hcl [Strattera] 40 MG) PO SCH (09:16)
[2019-02-20] MEDS: SIROLIMUS 1 MG PO SCH (09:16)
[2019-02-20] MEDS: PANTOPRAZOLE 40 MG/10 ML VIAL IV SCH (09:16)
[2019-02-20] MEDS: DILTIAZEM CD 180 MG CAP.ER.24H PO SCH (09:17)
[2019-02-20] MEDS: MYCOPHENOLATE MOFETIL 500 MG TAB PO SCH ×2 (09:17→20:36)
[2019-02-20] MEDS: ARIPiprazole 2 MG TAB PO SCH (09:17)
[2019-02-20 09:50] LABS: ALT 49 U/L (9-52); AST 126 U/L (14-36); Albumin 2.2 g/dL (3.5-5.0); Alkaline Phosphatase 279 U/L (38-126); Anion Gap 7 mmol/L; Anisocytosis Slight; Basophils % (A) 1 %; Blood Urea Nitrogen 10 mg/dL (7-17); Calcium 7.4 mg/dL (8.4-10.2); Carbon Dioxide 20 mmol/L (22-30); Chloride 109 mmol/L (98-107); Eosinophils # (A) 0.1 k/uL (0-0.7); Eosinophils % (A) 2 %; Glucose 112 mg/dL (74-99); HCT 29.4 % (34.0-46.0); HGB 9.4 gm/dL (11.4-16.0); Hypochromasia Slight; Lymphocytes # (A) 1.1 k/uL (1.0-4.8); Lymphocytes % (A) 17 %; MCH 40.1 pg (25.0-35.0); MCV 125.4 fL (80.0-100.0); Macrocytosis Marked; Mean Platelet Volume 8.7; Monocytes # (A) 0.5 k/uL (0-1.0); Monocytes % (A) 7 %; Neutrophils # (A) 4.9 k/uL (1.3-7.7); Neutrophils % (A) 72 %; Platelet Count 123 k/uL (150-450); Potassium 3.4 mmol/L (3.5-5.1); RBC 2.34 m/uL (3.80-5.40); RDW 18.8 % (11.5-15.5); Sodium 136 mmol/L (137-145); Total Bilirubin 8.6 mg/dL (0.2-1.3); Total Protein 5.1 g/dL (6.3-8.2); WBC 6.8 k/uL (3.8-10.6)
[2019-02-20] MEDS: SODIUM CHLORIDE 0.9% 1,000 ML IV SCH (12:41)
[2019-02-20] MEDS: NOREPINEPHRINE 4 MG in SODIUM CHLORIDE 0.9% 250 ML IV SCH (12:41)
--- NOTE | 2019-02-20 13:16 | P.PN ---
Subjective Progress Note Date: 02/20/19 Principal diagnosis: Elevated liver enzymes 58-year-old female with a history of alcohol liver disease alcohol abuse. Afebrile. Feels weak. Denies abdominal pain. Total bilirubin today 8.6. Objective - Vital Signs Vital signs: Vital Signs Temp 97.9 F 02/20/19 05:37 Pulse 90 02/20/19 05:37 Resp 16 02/20/19 05:37 BP 94/65 02/20/19 05:37 Pulse Ox 98 02/20/19 05:37 Intake & Output 02/19/19 02/20/19 02/20/19 18:59 06:59 18:59 Intake Total 275 1240 Output Total 440 180 Balance -165 1060 Intake: IV 275 60 0.9 275 60 Oral 1180 Output: Urine 440 180 Other: Voiding Method Indwelling Catheter Bedside Commode # Voids 3 # Bowel Movements 1 3 - Exam General appearance: The patient is alert, oriented, in no acute distress. Jaundice. HET: Head is normocephalic and atraumatic. Pupils are equal and reactive. Oropharynx is clear without lesions. Sclerae icterus. Neck: Supple without lymphadenopathy. Trachea midline. Heart: S1 S2. Regular rate and rhythm. Lungs: No crackles or wheezes are heard. Abdomen: Soft, nontender, nondistended with bowel sounds. No peritoneal signs. No palpable organomegaly or masses. Extremities: Normal skin color and turgor. No cyanosis, rash, ulceration, clubbing, or edema. Radial and pedal pulses are 2/4 bilaterally. Neurological: No focal deficits. Strength and sensation are grossly intact. - Labs CBC & Chem 7: 02/20/19 08:23 02/20/19 08:23 Labs: Abnormal Lab Results - Last 24 Hours (Table) 02/20/19 02/20/19 Range/Units 08:23 08:23 RBC 2.34 L (3.80-5.40) m/uL Hgb 9.4 L (11.4-16.0) gm/dL Hct 29.4 L (34.0-46.0) % MCV 125.4 H (80.0-100.0) fL MCH 40.1 H (25.0-35.0) pg RDW 18.8 H (11.5-15.5) % Plt Count 123 L (150-450) k/uL Sodium 136 L (137-145) mmol/L Potassium 3.4 L (3.5-5.1) mmol/L Chloride 109 H (98-107) mmol/L Carbon Dioxide 20 L (22-30) mmol/L Glucose 112 H (74-99) mg/dL Calcium 7.4 L (8.4-10.2) mg/dL Total Bilirubin 8.6 H (0.2-1.3) mg/dL AST 126 H (14-36) U/L Alkaline Phosphatase 279 H (38-126) U/L Total Protein 5.1 L (6.3-8.2) g/dL Albumin 2.2 L (3.5-5.0) g/dL Microbiology - Last 24 Hours (Table) 02/17/19 10:32 Blood Culture - Preliminary Blood No Growth after 72 hours 02/17/19 10:05 Blood Culture - Preliminary Blood No Growth after 72 hours Assessment and Plan (1) Alcohol abuse Current Visit: Yes Status: Acute Code(s): F10.10 - ALCOHOL ABUSE, UNCOMPLI CATED SNOMED Code(s): 11006949 (2) Alcoholic liver disease Current Visit: Yes Status: Acute Code(s): K70.9 - ALCOHOLIC LIVER DISEASE, UNSPECIFIED SNOMED Code(s): 05819457 (3) Diarrhea Current Visit: Yes Status: Acute Code(s): R19.7 - DIARRHEA, UNSPECIFIED SNOMED Code(s): 85174919 (4) Hyperbilirubinemia Narrative/Plan: transaminitis Current Visit: Yes Status: Acute Code(s): E80.6 - OTHER DISORDERS OF BILIRUBIN METABOLISM SNOMED Code(s): 61409858 Plan: 1. Supportive measures. AFP pending. MRCP/MRI liver w/wo contrast r/o HCC; CT A/P January 2019 could not exclude HCC. Diet as tolerated. Continue to monitor for symptoms of withdrawal/CIWA protocol. Continue to monitor CBC CMP INR daily. Assessment and plan a care discussed with Dr. Little
[2019-02-20] MEDS ORDERED: Potassium Replacement Protocol 1 EACH MISC MISCELLANE PRN (13:44)
--- NOTE | 2019-02-20 13:46 | P.PN ---
Subjective Progress Note Date: 02/20/19 Carol Guardado is a 58-year-old female known to my practice however has not shown up in the office for a long time who was brought in to [facility] emergency room with a chief complaint of mental status changes and multiple vague complaints of chest pain, abdominal pain, nausea vomiting and diarrhea, patient had evidence of significant jaundice, total bilirubin was elevated at 7.2 she was intoxicated with alcohol level of 117 patient also had evidence of urinary tract infection and evidence of sepsis with leukocytosis and elevated lactic acid she was started on IV antibiotic cefepime and IV fluids and admitted to telemetry floor. Her past medical history is significant for history of hypertension, history of depression, history of chronic renal failure with history of renal transplant in the past. She has a known history of alcohol abuse she drinks 1 pint of vodka per day. On 02/17/2019 patient was seen and examined in the intensive care unit she is alert and oriented 3 in no apparent distress she is complaining of generalized weakness otherwise she denies any complaints there is no fever or chills no headache or dizziness no chest pain no shortness of breath no cough no nausea or vomiting no abdominal pain no diarrhea and no urinary symptoms. Patient received fluid boluses the last 24 hours and her blood pressure has stabilized. On 02/18/2019 patient remains in the intensive care unit. Patient is alert and oriented 3. Patient is still complaining of some abdominal pain. Patient remains on Levophed for pressure support. Diet has been advanced per critical care. Normal saline at 75. This time patient denies chest pain or shortness breath. Patient denies nausea vomiting or diarrhea. Patient denies any urinary burning or frequency On 02/19/2019 patient is alert and orientated. Patient remains in the intensive care unit. Patient has been off Levophed for pressure support for over 24 hours. Patient did receive one-time dose of Lasix per ICU team today. Patient's diet has been advanced. Patient denies chest pain or shortness breath. Patient denies nausea vomiting or diarrhea. Patient denies any urinary burning or frequency On 02/20/2018 patient is alert and oriented. Patient has been transferred out of the intensive care unit. Discussed case with GI services. Additional lab work will be ordered to assess liver function. Planning ECF upon discharge. At this time patient denies chest pain or shortness of breath breath. Patient denies nausea vomiting or diarrhea. Patient denies any urinary burning or frequency. Objective - Vital Signs Vital signs: Vital Signs Temp 97.9 F 02/20/19 05:37 Pulse 90 02/20/19 05:37 Resp 16 02/20/19 05:37 BP 94/65 02/20/19 05:37 Pulse Ox 98 02/20/19 05:37 Intake & Output 02/19/19 02/20/19 02/20/19 18:59 06:59 18:59 Intake Total 275 1240 Output Total 440 180 Balance -165 1060 Intake: IV 275 60 0.9 275 60 Oral 1180 Output: Urine 440 180 Other: Voiding Method Indwelling Catheter Bedside Commode # Voids 3 # Bowel Movements 1 3 - Exam In general patient is somnolent but awakes easily she answered a few questions and closes her eyes again HEENT was significant icterus otherwise no abnormality Neck is supple no JVD no goiter no lymphadenopathy Chest exam reveals a few scattered rhonchi no wheezing Cardiac exam reveals regular heart sounds S1 and S2 no gallops no murmurs Abdomen is soft nontender no organomegaly with normal bowel sounds Extremity exam reveals no edema no cyanosis or clubbing Neurological examination reveals drowsiness but no focal neurological deficit - Labs CBC & Chem 7: 02/20/19 08:23 02/20/19 08:23 Labs: Abnormal Lab Results - Last 24 Hours (Table) 02/20/19 02/20/19 Range/Units 08:23 08:23 RBC 2.34 L (3.80-5.40) m/uL Hgb 9.4 L (11.4-16.0) gm/dL Hct 29.4 L (34.0-46.0) % MCV 125.4 H (80.0-100.0) fL MCH 40.1 H (25.0-35.0) pg RDW 18.8 H (11.5-15.5) % Plt Count 123 L (150-450) k/uL Sodium 136 L (137-145) mmol/L Potassium 3.4 L (3.5-5.1) mmol/L Chloride 109 H (98-107) mmol/L Carbon Dioxide 20 L (22-30) mmol/L Glucose 112 H (74-99) mg/dL Calcium 7.4 L (8.4-10.2) mg/dL Total Bilirubin 8.6 H (0.2-1.3) mg/dL AST 126 H (14-36) U/L Alkaline Phosphatase 279 H (38-126) U/L Total Protein 5.1 L (6.3-8.2) g/dL Albumin 2.2 L (3.5-5.0) g/dL Microbiology - Last 24 Hours (Table) 02/17/19 10:32 Blood Culture - Preliminary Blood No Growth after 72 hours 02/17/19 10:05 Blood Culture - Preliminary Blood No Growth after 72 hours Assessment and Plan Assessment: #1 acute alcoholic hepatitis. GI services are following. Maintained on CIWA protocal #2 underlying history of chronic liver failure. Total bili 7.1 AST 113, ALT 48 and alkaline phosphatase 212. MRI of the liver has been ordered per GI services #3 evidence of urinary tract infection with sepsis. Dr. Liar for infectious disease is following. Patient maintained on Rocephin. Cultures pending. #4 hypotension. Patient maintained on Levophed for pressure support at this time. Levophed has been off for 24 hours. #5 chronic kidney disease with previous history of renal transplant #6 underlying history of hyperlipidemia maintained on Pravachol. Currently on hold due to elevated liver enzymes #7underlying history of depression #8 anemia and thrombocytopenia likely related to liver disease. Hemoglobin has remained stable at 8.9 #9 poor nutritional status with protein calorie malnutrition with decreased albumin to 2.6 #10 severe electrolyte imbalance with hypokalemia and hypophosphatemia and hypomagnesemia. Improving. Potassium 3.7 magnesium 2.2 and phosphorus 1.1 #11 metabolic acidosis DVT prophylaxis SCDs. GI prophylaxis Protonix I performed an examination of the patient and discussed their management with the Nurse Practitioner. I have reviewed the Nurse Practitioner's notes and agree with the documented findings and plan of care
--- NOTE | 2019-02-20 14:37 | P.PN ---
Subjective Progress Note Date: 02/20/19 Principal diagnosis: Alcoholic liver disease with severe cirrhosis, bycytopenia, hyperbilirubinemia, anemia, probable urinary tract infection On 02/17/2018 patient seen in follow-up in the intensive care unit, she is resting comfortably in bed, she is lethargic, but easily arousable to verbal stimuli, oriented times 2. Denies any acute distress, no shortness of breath or chest pain, no abdominal pain, she is on room air, with pulse ox of 93%, IV 0.9 normal saline at a rate of 150 ML per hour, no fever or chills, hemodynamically patient is stable, blood pressures 90/61 with a map of 70. Urine output is 30- 50 ML per hour. Antibiotic coverage in the form of cefepime. His labs have been reviewed, white blood cell count of 6.4, hemoglobin is 7.9, serum sodium is 135, potassium is 3.2, chloride is 110, CO2 17, BUN 16, creatinine 0.57, calcium was 6.9, phosphorus is 1.4, alkaline phosphatase is trending down, down to 12, AST is 113, ALT is 48, albumin is 2.1. C. diff was negative, stool occult blood was positive. No hematemesis, no blood per rectum. Lung sounds are clear, diminished at the bases. She is on clear liquid diet. Patient is on no PPI therapy, patient is on CIWA protocol, no acute complaints or events overnight On 02/18/2019 patient seen in follow-up in the intensive care unit, she is more awake, and conversant on today's exam. She is providing history, she is alert and oriented 3. Remains on the vasopressor support, currently on Levophed and a rate of 1 mics per minute. IV 0.9 normal saline at a rate of 150 ML per hour. Room air pulse ox is 96%, patient has been afebrile, no specific complaints, no shortness of breath or chest pain, he states she has some chronic pain in her abdomen, no acute distress, abdomen is soft, nondistended, nontender. Bowel sounds 4. Lung sounds are clear. Blood cultures and urine cultures have been collected and sent, pending at this time, and we encourage in the form of Rocephin, IV service is following. Today's labs have been reviewed, and showed a white blood cell, 7.1, hemoglobin of 8.9, serum sodium is 136, potassium is 3.7, chloride is 110, CO2 17, renal function is within normal limits, BUN 13 creatinine 0.54. Indwelling catheter is in place, patient is nonoliguric. Producing a dark-colored urine in order of 35-85 ML per hour. On 02/19/2019 patient seen in follow-up in the intensive care unit, she is awake and alert, oriented 3, pleasant and cooperative. Room air pulse ox is 99%, afebrile, hemodynamically stable, she is off the vasopressor support, she did develop generalized edema, and lower and upper extremities, and abdomen. We'll give patient a dose of IV Lasix today, no difficulty breathing, she denies any dyspnea, lung sounds are clear, sinus tach on the monitor, crit is in the low 100s, she is back on her CellCept. Antibiotic coverage in the form of Rocephin. Urine and blood cultures remain negative. Urine output is in the 30-40 range, she is tolerating full liquid diet On 02/20/2019 patient seen in follow-up on medical surgical floor. Patient is awake and alert, in no acute distress, lung sounds are clear, she is on room air, maintaining oxygenation at 98%, hemodynamically stable, no fever or chills. Today's labs have been reviewed, white blood cell, and a 6.8, hemoglobin is 9.4, sodium is 136, potassium is 3.4, chloride is 109, CO2 is 20. Total bilirubin is relatively stable, and 8.6, alkaline phosphatase is at 279, AST is 126, and ALT is 49. Patient is awake and alert, pleasant, and cooperative, no evidence of confusion or delirium. Objective - Vital Signs Vital signs: Vital Signs Temp 98.2 F 02/20/19 13:54 Pulse 86 02/20/19 13:54 Resp 18 02/20/19 13:54 BP 94/57 02/20/19 13:54 Pulse Ox 98 02/20/19 13:54 Intake & Output 02/19/19 02/20/19 02/20/19 18:59 06:59 18:59 Intake Total 275 1240 450 Output Total 440 180 Balance -165 1060 450 Intake: IV 275 60 0.9 275 60 Oral 1180 450 Output: Urine 440 180 Other: Voiding Method Indwelling Catheter Bedside Commode Bedside Commode # Voids 3 2 # Bowel Movements 1 3 2 - Exam GENERAL EXAM: jaundiced 58-year-old obese white female, awake and alert, oriented 3, pleasant and cooperative HEAD: Normocephalic/atraumatic. EYES: Normal reaction of pupils, equal size. Conjunctiva pink, sclera white. NOSE: Clear with pink turbinates. THROAT: No erythema or exudates. NECK: No masses, no JVD, no thyroid enlargement, no adenopathy. CHEST: No chest wall deformity. Symmetrical expansion. LUNGS: Equal air entry with no crackles, wheeze, rhonchi or dullness. CVS: Regular rate and rhythm, normal S1 and S2, no gallops, no murmurs, no rubs ABDOMEN: Soft, nontender. No hepatosplenomegaly, normal bowel sounds, no guarding or rigidity. EXTREMITIES: No clubbing, 1+ pitting edema lower extremities, no cyanosis, 2+ pulses and upper and lower extremities. MUSCULOSKELETAL: Muscle strength and tone normal. SPINE: No scoliosis or deformity SKIN: No rashes CENTRAL NERVOUS SYSTEM: Lethargic, but arousable to verbal stimuli. No focal deficits, tone is normal in all 4 extremities. - Labs CBC & Chem 7: 02/20/19 08:23 02/20/19 08:23 Labs: Abnormal Lab Results - Last 24 Hours (Table) 02/20/19 02/20/19 Range/Units 08:23 08:23 RBC 2.34 L (3.80-5.40) m/uL Hgb 9.4 L (11.4-16.0) gm/dL Hct 29.4 L (34.0-46.0) % MCV 125.4 H (80.0-100.0) fL MCH 40.1 H (25.0-35.0) pg RDW 18.8 H (11.5-15.5) % Plt Count 123 L (150-450) k/uL Sodium 136 L (137-145) mmol/L Potassium 3.4 L (3.5-5.1) mmol/L Chloride 109 H (98-107) mmol/L Carbon Dioxide 20 L (22-30) mmol/L Glucose 112 H (74-99) mg/dL Calcium 7.4 L (8.4-10.2) mg/dL Total Bilirubin 8.6 H (0.2-1.3) mg/dL AST 126 H (14-36) U/L Alkaline Phosphatase 279 H (38-126) U/L Total Protein 5.1 L (6.3-8.2) g/dL Albumin 2.2 L (3.5-5.0) g/dL Microbiology - Last 24 Hours (Table) 02/17/19 10:32 Blood Culture - Preliminary Blood No Growth after 72 hours 02/17/19 10:05 Blood Culture - Preliminary Blood No Growth after 72 hours Assessment and Plan Plan: Assessment: #1. Hypotension, related to hypovolemia and suspected sepsis, and underlying alcoholic liver disease with hypoalbuminemia. Resolved #2. Alcoholic liver disease with likely severe cirrhosis, bicytopenia, hyperbilirubinemia #3. Chronic anemia #4. Thrombocytopenia #5. Anion gap metabolic acidosis secondary to lactic acidemia related to sepsis #6. Possible tract infection, urine culture showed no growth, empiric antibiot ics in the form of Rocephin #7. Hx of previous kidney transplant 2 #8. Hx of CVA #9. Hypertension, hyperlipidemia #10. History of congenital absence of one kidney, and polycystic kidney disease #11. Diverticular disease Plan: Continue current plan of treatment, patient denies any shortness of breath or chest pain, she is awake and alert, no signs of confusion or agitation. Consult physical therapy. Increase activity as tolerated, encouraged patient to sit up in the chair deep breathe and cough. No active pulmonary issues, we'll follow on as-needed basis. I performed a history & physical examination of the patient and discussed their management with my nurse practitioner, Cindy Salazar. I reviewed the nurse practitioner's note and agree with the documented findings and plan of care. Lung sounds are diminished breath sounds. The findings and the impression was discussed with the patient. I attest to the documentation by the nurse practitioner. Time with Patient: Less than 30
[2019-02-20] MEDS ORDERED: IBUPROFEN 400 MG TAB PO PRN (15:31)
[2019-02-20] MEDS: POTASSIUM CHLORIDE ER 20 MEQ TAB.ER PO SCH ×2 (16:09→17:04)
[2019-02-20] MEDS ORDERED: SODIUM CHLORIDE 0.9% 1,000 ML IV SCH (16:15)
--- NOTE | 2019-02-20 19:37 | MR ---
MR scan of the liver. MRCP. History jaundice. Comparison CT scan 01/23/2019. TECHNIQUE: Multiplanar multiecho imaging of the liver was performed without and with IV contrast. The contrast w as gadolinium 7.5 mm. FINDINGS: Liver is enlarged and measures 21 cm in length. There is dilated left hepatic bile ducts. No obstruct ing lesion identified. Gallbladder measures normal in size and has diameter 3.3 cm. There is heteroge neity in the liver without a discrete mass. There is no evidence of a splenic mass. There is no pancreatic mass. Stomach has normal contour. There is no sign of ascites. There is no ple ural effusion. There is apparent bilateral nephrectomy with left-sided transplant kidney. Transplant kidney shows no hydronephrosis. I see no evidence of retroperitoneal adenopathy. The right hepatic du cts are not dilated. The common bile duct is not dilated. IMPRESSION: Hepatomegaly. There are some dilated bile ducts involving left hepatic lobe without an obstructing ma ss identified. This appears unchanged compared to old CT scan and is of uncertain significance. No di screte liver mass. Heterogeneity in the liver. Findings consistent with nonspecific hepatitis..
[2019-02-20] MEDS: LACTULOSE 20 GM/30 ML CUP PO SCH (22:04)
[2019-02-21] MEDS: HYDROmorphone 0.5 MG/0.5 ML SYRINGE IVP PRN ×2 (01:22→06:18)
[2019-02-21] MEDS: CARVEDILOL 6.25 MG TAB PO SCH ×2 (07:47→15:33)
[2019-02-21] MEDS: LACTULOSE 20 GM/30 ML CUP PO SCH ×4 (07:47→23:26)
[2019-02-21] MEDS: ENOXAPARIN 30 MG/0.3 ML SYRINGE SQ SCH (07:47)
[2019-02-21] MEDS: ESCITALOPRAM 20 MG TAB PO SCH (07:47)
[2019-02-21] MEDS: MYCOPHENOLATE MOFETIL 500 MG TAB PO SCH ×2 (07:49→20:20)
[2019-02-21] MEDS: ARIPiprazole 2 MG TAB PO SCH (07:49)
[2019-02-21] MEDS: NON-FORMULARY DRUG (Atomoxetine Hcl [Strattera] 40 MG) PO SCH (07:50)
[2019-02-21] MEDS: SIROLIMUS 1 MG PO SCH (07:51)
[2019-02-21] MEDS: PANTOPRAZOLE 40 MG/10 ML VIAL IV SCH (07:52)
[2019-02-21] MEDS ORDERED: LACTULOSE 20 GM/30 ML CUP PO ONE (08:00)
[2019-02-21] MEDS: DILTIAZEM CD 180 MG CAP.ER.24H PO SCH (08:05)
[2019-02-21 10:52] LABS: Anisocytosis Slight; Basophils % (A) 0 %; Eosinophils # (A) 0.1 k/uL (0-0.7); Eosinophils % (A) 2 %; Hypochromasia Marked; Lymphocytes # (A) 1.3 k/uL (1.0-4.8); Lymphocytes % (A) 17 %; MCH 37.8 pg (25.0-35.0); MCHC 29.1 g/dL (31.0-37.0); MCV 129.9 fL (80.0-100.0); Macrocytosis Marked; Mean Platelet Volume 8.2; Monocytes # (A) 0.6 k/uL (0-1.0); Monocytes % (A) 8 %; Neutrophils # (A) 5.3 k/uL (1.3-7.7); Neutrophils % (A) 70 %; Platelet Count 120 k/uL (150-450); RBC 2.39 m/uL (3.80-5.40); RDW 18.5 % (11.5-15.5); WBC 7.6 k/uL (3.8-10.6)
[2019-02-21 11:20] LABS: ALT 47 U/L (9-52); AST 112 U/L (14-36); Albumin 2.2 g/dL (3.5-5.0); Alkaline Phosphatase 286 U/L (38-126); Anion Gap 6 mmol/L; Blood Urea Nitrogen 12 mg/dL (7-17); Calcium 7.8 mg/dL (8.4-10.2); Carbon Dioxide 21 mmol/L (22-30); Chloride 112 mmol/L (98-107); Glucose 122 mg/dL (74-99); Sodium 139 mmol/L (137-145); Total Bilirubin 7.9 mg/dL (0.2-1.3); Total Protein 5.1 g/dL (6.3-8.2)
[2019-02-21] MEDS: THIAMINE 100 MG TAB PO SCH ×2 (11:20→17:21)
--- NOTE | 2019-02-21 11:50 | P.PN ---
Subjective Progress Note Date: 02/21/19 Principal diagnosis: Elevated liver enzymes LFTs improved total bilirubin 7.9. AST 112. ALT 47. AP 286. Ammonia 75 yesterday with slight increase in lethargy lactulose started presently 60. Patient is alert. AFP less than 2.5. MRI liver per no evidence of liver masses or suspected malignancy. Afebrile. Passing bowel movements. No abdominal complaints. Objective - Vital Signs Vital signs: Vital Signs Temp 96.9 F L 02/21/19 05:00 Pulse 75 02/21/19 05:00 Resp 18 02/21/19 05:00 BP 114/62 02/21/19 05:00 Pulse Ox 100 02/21/19 05:00 Intake & Output 02/20/19 02/21/19 02/21/19 18:59 06:59 18:59 Intake Total 450 250 Balance 450 250 Intake: Oral 450 250 Other: Voiding Method Bedside Commode Bedside Commode Bedside Commode # Voids 2 2 # Bowel Movements 2 2 - Exam General appearance: The patient is alert, oriented, in no acute distress. Jaundice. HET: Head is normocephalic and atraumatic. Pupils are equal and reactive. Oropharynx is clear without lesions. Sclerae icterus. Neck: Supple without lymphadenopathy. Trachea midline. Heart: S1 S2. Regular rate and rhythm. Lungs: No crackles or wheezes are heard. Abdomen: Soft, nontender, nondistended with bowel sounds. No peritoneal signs. No palpable organomegaly or masses. Extremities: Normal skin color and turgor. No cyanosis, rash, ulceration, clubbing, or edema. Radial and pedal pulses are 2/4 bilaterally. Neurological: No focal deficits. Strength and sensation are grossly intact. - Labs CBC & Chem 7: 02/21/19 10:20 02/21/19 10:20 Labs: Abnormal Lab Results - Last 24 Hours (Table) 02/20/19 02/21/19 02/21/19 Range/Units 20:10 10:20 10:20 RBC 2.39 L (3.80-5.40) m/uL Hgb 9.0 L (11.4-16.0) gm/dL Hct 31.0 L (34.0-46.0) % MCV 129.9 H (80.0-100.0) fL MCH 37.8 H (25.0-35.0) pg MCHC 29.1 L (31.0-37.0) g/dL RDW 18.5 H (11.5-15.5) % Plt Count 120 L (150-450) k/uL Chloride 112 H (98-107) mmol/L Carbon Dioxide 21 L (22-30) mmol/L Glucose 122 H (74-99) mg/dL Calcium 7.8 L (8.4-10.2) mg/dL Total Bilirubin 7.9 H (0.2-1.3) mg/dL AST 112 H (14-36) U/L Alkaline Phosphatase 286 H (38-126) U/L Ammonia 75 H (<30) umol/L Total Protein 5.1 L (6.3-8.2) g/dL Albumin 2.2 L (3.5-5.0) g/dL 02/21/19 Range/Units 10:20 RBC (3.80-5.40) m/uL Hgb (11.4-16.0) gm/dL Hct (34.0-46.0) % MCV (80.0-100.0) fL MCH (25.0-35.0) pg MCHC (31.0-37.0) g/dL RDW (11.5-15.5) % Plt Count (150-450) k/uL Chloride (98-107) mmol/L Carbon Dioxide (22-30) mmol/L Glucose (74-99) mg/dL Calcium (8.4-10.2) mg/dL Total Bilirubin (0.2-1.3) mg/dL AST (14-36) U/L Alkaline Phosphatase (38-126) U/L Ammonia 60 H (<30) umol/L Total Protein (6.3-8.2) g/dL Albumin (3.5-5.0) g/dL Microbiology - Last 24 Hours (Table) 02/17/19 10:32 Blood Culture - Preliminary Blood No Growth after 72 hours 02/17/19 10:05 Blood Culture - Preliminary Blood No Growth after 72 hours Assessment and Plan (1) Alcohol abuse Current Visit: Yes Status: Acute Code(s): F10.10 - ALCOHOL ABUSE, UNCOMPLICATED SNOMED Code(s): 04248260 (2) Alcoholic liver disease Current Visit: Yes Status: Acute Code(s): K70.9 - ALCOHOLIC LIVER DISEASE, UNSPECIFIED SNOMED Code(s): 65486321 (3) Diarrhea Current Visit: Yes Status: Acute Code(s): R19.7 - DIARRHEA, UNSPECIFIED SNOMED Code(s): 36629470 (4) Hyperbilirubinemia Narrative/Plan: transaminitis Current Visit: Yes Status: Acute Code(s): E80.6 - OTHER DISORDERS OF BILIRUBIN METABOLISM SNOMED Code(s): 93672011 (5) Hepatic encephalopathy Current Visit: Yes Status: Acute Code(s): K72.90 - HEPATIC FAILURE, UNSPECIFIED WITHOUT COMA SNOMED Code(s): 37423312 Plan: 1. Daily CBC CMP PT/INR. Lactulose 20 g 4 times a day titrated 3-4 bowel movements daily. Daily ammonia. We'll continue to follow. Discharge planning to ECF in progress. Assessment and plan a care discussed with Dr. Little
[2019-02-21 11:54] LABS: Target Cells Present
[2019-02-21 11:55] LABS: Polychromasia Present
--- NOTE | 2019-02-21 12:08 | CDI ---
Documentation Clarification Form Date: 02/21/2019 11:46:50 AM From: Kaylen Sales RN, CCDS Admit Date: 02/15/2019 8:42:00 PM Patient Name: Carol Guardado Visit Number: [id number] Discharge Date: ATTENTION: The Clinical Documentation Specialists (CDI) and [facility] Coding Staff appreciate your assistance in clarifying documentation. Please respond to the clarification below the line at the bottom and electronically sign. The CDI & [facility] Coding staff will review the response and follow-up if needed. Please note: Queries are made part of the Legal Health Record. If you have any questions, please contact the author of this message via ITS. Dr. Harry Foreman Patient was admitted with chest pain, abdominal pain nausea , vomiting and diarrhea. H&P and ongoing progress notes you have documented chronic kidney disease and further clarification is needed. History/Risk Factors: Renal transplant x2,Polycystic kidney disease, Chronic liver failure Clinical Indicators: 58-year-old with complaints of abdominal pain, nausea, vomiting, diarrhea. On admission BUN 9 CR0.52 GFR >90 02/21/19 BUN 12, CR 0.74 GFR >90 Treatment: IVF Monitor Labs: Electrolytes In order to capture the severity of condition, please clarify if the condition signifies: CKD Stage 1 (GFR > 90) CKD Stage 2 (GFR 60-89) CKD Stage 3 (GFR 30-59) CKD Stage 4 (GFR 15-29) CKD Stage 5 (GFR <15) Other, please specify Unable to determine (Last Revision: February 2018) Chronic kidney disease stage I MTDD
--- NOTE | 2019-02-21 12:12 | CDI ---
Documentation Clarification Form Date: 02/19/2019 3:17:00 PM From: Kaylen Sales RN, CCDS Admit Date: 02/15/2019 8:42:00 PM Patient Name: Carol Guardado Visit Number: [id number] Discharge Date: ATTENTION: The Clinical Documentation Specialists (CDI) and [facility] Coding Staff appreciate your assistance in clarifying documentation. Please respond to the clarification below the line at the bottom and electronically sign. The CDI & [facility] Coding staff will review the response and follow-up if needed. Please note: Queries are made part of the Legal Health Record. If you have any questions, please contact the author of this message via ITS. Dr. Harry Foreman Malnutrition has been documented in your H&P and ongoing progress notes. History/Risk Factors: CVA, TIA, Hypertension, Renal Disease, Hepatitis, Alcohol use, daily, heavy. Clinical Indicators: 58-year-old with complaints of nausea, vomiting and diarrhea. She has a history of daily alcohol use. Labs: Albumin 2.6, 2.1 Total Protein 5.5, 4.9 Current BMI: 34.1 Generalized edema lower extremities Treatment: Monitor Labs, Electrolytes, Monitor I/O In your professional opinion, can you please further clarify if the protein calorie malnutrition findings signify one of the following conditions? Mild protein-Calorie Malnutrition Moderate Protein-Calorie Malnutrition Severe Protein-Calorie Malnutrition Other condition, please specify Unable to determine (Last Revision: February 2018) Severe protein calorie malnutrition MTDD
--- NOTE | 2019-02-21 12:27 | P.PN ---
Subjective Progress Note Date: 02/21/19 Carol Guardado is a 58-year-old female known to my practice however has not shown up in the office for a long time who was brought in to [facility] emergency room with a chief complaint of mental status changes and multiple vague complaints of chest pain, abdominal pain, nausea vomiting and diarrhea, patient had evidence of significant jaundice, total bilirubin was elevated at 7.2 she was intoxicated with alcohol level of 117 patient also had evidence of urinary tract infection and evidence of sepsis with leukocytosis and elevated lactic acid she was started on IV antibiotic cefepime and IV fluids and admitted to telemetry floor. Her past medical history is significant for history of hypertension, history of depression, history of chronic renal failure with history of renal transplant in the past. She has a known history of alcohol abuse she drinks 1 pint of vodka per day. On 02/17/2019 patient was seen and examined in the intensive care unit she is alert and oriented 3 in no apparent distress she is complaining of generalized weakness otherwise she denies any complaints there is no fever or chills no headache or dizziness no chest pain no shortness of breath no cough no nausea or vomiting no abdominal pain no diarrhea and no urinary symptoms. Patient received fluid boluses the last 24 hours and her blood pressure has stabilized. On 02/18/2019 patient remains in the intensive care unit. Patient is alert and oriented 3. Patient is still complaining of some abdominal pain. Patient remains on Levophed for pressure support. Diet has been advanced per critical care. Normal saline at 75. This time patient denies chest pain or shortness breath. Patient denies nausea vomiting or diarrhea. Patient denies any urinary burning or frequency On 02/19/2019 patient is alert and orientated. Patient remains in the intensive care unit. Patient has been off Levophed for pressure support for over 24 hours. Patient did receive one-time dose of Lasix per ICU team today. Patient's diet has been advanced. Patient denies chest pain or shortness breath. Patient denies nausea vomiting or diarrhea. Patient denies any urinary burning or frequency On 02/20/2019 patient is alert and oriented. Patient has been transferred out of the intensive care unit. Discussed case with GI services. Additional lab work will be ordered to assess liver function. Planning ECF upon discharge. At this time patient denies chest pain or shortness of breath breath. Patient denies nausea vomiting or diarrhea. Patient denies any urinary burning or frequency. On 02/21/2019 patient is alert and oriented. Patient is sleepy today but arousable and answers questions and follows commands. Patient's ammonia level 75 yesterday. Patient was started on lactulose per GI services. Patient ammonia today 60. Total bili improving to 7.9. Discharge planning to [facility] in progress. At this time patient denies chest pain or shortness breath. Patient denies nausea vomiting or diarrhea. Patient denies any urinary burning or frequency Objective - Vital Signs Vital signs: Vital Signs Temp 96.9 F L 02/21/19 05:00 Pulse 75 02/21/19 05:00 Resp 18 02/21/19 05:00 BP 114/62 02/21/19 05:00 Pulse Ox 100 02/21/19 05:00 Intake & Output 02/20/19 02/21/19 02/21/19 18:59 06:59 18:59 Intake Total 450 250 Balance 450 250 Intake: Oral 450 250 Other: Voiding Method Bedside Commode Bedside Commode Bedside Commode # Voids 2 2 # Bowel Movements 2 2 - Exam In general patient is somnolent but awakes easily she answered a few questions and closes her eyes again HEENT was significant icterus otherwise no abnormality Neck is supple no JVD no goiter no lymphadenopathy Chest exam reveals a few scattered rhonchi no wheezing Cardiac exam reveals regular heart sounds S1 and S2 no gallops no murmurs Abdomen is soft nontender no organomegaly with normal bowel sounds Extremity exam reveals no edema no cyanosis or clubbing Neurological examination reveals drowsiness but no focal neurological deficit - Labs CBC & Chem 7: 02/21/19 10:20 02/21/19 10:20 Labs: Abnormal Lab Results - Last 24 Hours (Table) 02/20/19 02/21/19 02/21/19 Range/Units 20:10 10:20 10:20 RBC 2.39 L (3.80-5.40) m/uL Hgb 9.0 L (11.4-16.0) gm/dL Hct 31.0 L (34.0-46.0) % MCV 129.9 H (80.0-100.0) fL MCH 37.8 H (25.0-35.0) pg MCHC 29.1 L (31.0-37.0) g/dL RDW 18.5 H (11.5-15.5) % Plt Count 120 L (150-450) k/uL Chloride 112 H (98-107) mmol/L Carbon Dioxide 21 L (22-30) mmol/L Glucose 122 H (74-99) mg/dL Calcium 7.8 L (8.4-10.2) mg/dL Total Bilirubin 7.9 H (0.2-1.3) mg/dL AST 112 H (14-36) U/L Alkaline Phosphatase 286 H (38-126) U/L Ammonia 75 H (<30) umol/L Total Protein 5.1 L (6.3-8.2) g/dL Albumin 2.2 L (3.5-5.0) g/dL 02/21/19 Range/Units 10:20 RBC (3.80-5.40) m/uL Hgb (11.4-16.0) gm/dL Hct (34.0-46.0) % MCV (80.0-100.0) fL MCH (25.0-35.0) pg MCHC (31.0-37.0) g/dL RDW (11.5-15.5) % Plt Count (150-450) k/uL Chloride (98-107) mmol/L Carbon Dioxide (22-30) mmol/L Glucose (74-99) mg/dL Calcium (8.4-10.2) mg/dL Total Bilirubin (0.2-1.3) mg/dL AST (14-36) U/L Alkaline Phosphatase (38-126) U/L Ammonia 60 H (<30) umol/L Total Protein (6.3-8.2) g/dL Albumin (3.5-5.0) g/dL Microbiology - Last 24 Hours (Table) 02/17/19 10:32 Blood Culture - Preliminary Blood No Growth after 72 hours 02/17/19 10:05 Blood Culture - Preliminary Blood No Growth after 72 hours Assessment and Plan Assessment: #1 acute alcoholic hepatitis. GI services are following. Maintained on CIWA protocal #2 underlying history of chronic liver failure. Total bili 7.1 AST 113, ALT 48 and alkaline phosphatase 212. MRI of the liver completed no evidence of masses respect to malignancy #3 evidence of urinary tract infection with sepsis. Dr. Lira for infectious disease is following. Patient maintained on Rocephin. Blood and urine culture showing no growth #4 hypotension. Patient maintained on Levophed for pressure support at this time. Levophed has been off for 24 hours. Resolved #5 chronic kidney disease with previous history of renal transplant #6 underlying history of hyperlipidemia maintained on Pravachol. Currently on hold due to elevated liver enzymes #7underlying history of depression #8 anemia and thrombocytopenia likely related to liver disease. Hemoglobin has remained stable at 8.9 #9 poor nutritional status with protein calorie malnutrition with decreased albumin to 2.6 #10 severe electrolyte imbalance with hypokalemia and hypophosphatemia and hypomagnesemia. Improving. Potassium 3.7 magnesium 2.2 and phosphorus 1.1 #11 metabolic acidosis #12 elevated ammonia level. Patient has been started on lactulose 20 mg 4 times a day per GI services. Will continue to monitor daily ammonia levels DVT prophylaxis Lovenox. GI prophylaxis Protonix Discharge planning to ECF in progress I performed an examination of the patient and discussed their management with the Nurse Practitioner. I have reviewed the Nurse Practitioner's notes and agree with the documented findings and plan of care
[2019-02-21 13:50] VITALS: BMI 34.1
[2019-02-21] MEDS: SODIUM CHLORIDE 0.9% 1,000 ML IV SCH (15:52)
[2019-02-22] MEDS: SODIUM CHLORIDE 0.9% 1,000 ML IV SCH (01:53)
[2019-02-22] MEDS: ESCITALOPRAM 20 MG TAB PO SCH (07:57)
[2019-02-22] MEDS: PANTOPRAZOLE 40 MG/10 ML VIAL IV SCH (07:57)
[2019-02-22] MEDS: CARVEDILOL 6.25 MG TAB PO SCH (07:57)
[2019-02-22] MEDS: ENOXAPARIN 30 MG/0.3 ML SYRINGE SQ SCH (07:58)
[2019-02-22] MEDS: LACTULOSE 20 GM/30 ML CUP PO SCH (07:58)
[2019-02-22] MEDS: ARIPiprazole 2 MG TAB PO SCH (08:00)
[2019-02-22] MEDS: SIROLIMUS 1 MG PO SCH (08:00)
[2019-02-22] MEDS: MYCOPHENOLATE MOFETIL 500 MG TAB PO SCH (08:00)
[2019-02-22] MEDS: DILTIAZEM CD 180 MG CAP.ER.24H PO SCH (08:00)
[2019-02-22] MEDS: NON-FORMULARY DRUG (Atomoxetine Hcl [Strattera] 40 MG) PO SCH (08:01)
--- NOTE | 2019-02-22 09:10 | P.PN ---
Subjective Progress Note Date: 02/22/19 Principal diagnosis: Elevated liver enzymes 58-year-old female with a history of alcohol liver disease alcohol abuse. Afebrile. Feels well. Denies abdominal pain. Morning chemistries pending. Objective - Vital Signs Vital signs: Vital Signs Temp 97.7 F 02/22/19 05:00 Pulse 86 02/22/19 05:00 Resp 18 02/22/19 05:00 BP 115/61 02/22/19 05:00 Pulse Ox 99 02/22/19 05:00 Intake & Output 02/21/19 02/22/19 02/22/19 18:59 06:59 18:59 Intake Total 200 Output Total 350 625 Balance -350 -425 Weight 71.5 kg Intake: Oral 200 Output: Urine 625 Post Void Residual 350 Other: Voiding Method Indwelling Catheter Indwelling Catheter # Voids 1 # Bowel Movements 2 5 1 - Exam General appearance: The patient is alert, oriented, in no acute distress. Jaundice. HET: Head is normocephalic and atraumatic. Pupils are equal and reactive. Oropharynx is clear without lesions. Sclerae icterus. Neck: Supple without lymphadenopathy. Trachea midline. Heart: S1 S2. Regular rate and rhythm. Lungs: No crackles or wheezes are heard. Abdomen: Soft, nontender, nondistended with bowel sounds. No peritoneal signs. No palpable organomegaly or masses. Oleary clear yellow urine. Extremities: Normal skin color and turgor. No cyanosis, rash, ulceration, clubbing, or edema. Radial and pedal pulses are 2/4 bilaterally. Neurological: No focal deficits. Strength and sensation are grossly intact. - Labs CBC & Chem 7: 02/21/19 10:20 02/21/19 10:20 Labs: Abnormal Lab Results - Last 24 Hours (Table) 02/21/19 02/21/19 02/21/19 Range/Units 10:20 10:20 10:20 RBC 2.39 L (3.80-5.40) m/uL Hgb 9.0 L (11.4-16.0) gm/dL Hct 31.0 L (34.0-46.0) % MCV 129.9 H (80.0-100.0) fL MCH 37.8 H (25.0-35.0) pg MCHC 29.1 L (31.0-37.0) g/dL RDW 18.5 H (11.5-15.5) % Plt Count 120 L (150-450) k/uL Chloride 112 H (98-107) mmol/L Carbon Dioxide 21 L (22-30) mmol/L Glucose 122 H (74-99) mg/dL Calcium 7.8 L (8.4-10.2) mg/dL Total Bilirubin 7.9 H (0.2-1.3) mg/dL AST 112 H (14-36) U/L Alkaline Phosphatase 286 H (38-126) U/L Ammonia 60 H (<30) umol/L Total Protein 5.1 L (6.3-8.2) g/dL Albumin 2.2 L (3.5-5.0) g/dL Microbiology - Last 24 Hours (Table) 02/17/19 10:32 Blood Culture - Preliminary Blood No Growth after 96 hours 02/17/19 10:05 Blood Culture - Preliminary Blood No Growth after 96 hours Assessment and Plan (1) Alcohol abuse Current Visit: Yes Status: Acute Code(s): F10.10 - ALCOHOL ABUSE, UNCOMPLICATED SNOMED Code(s): 72298202 (2) Alcoholic liver disease Current Visit: Yes Status: Acute Code(s): K70.9 - ALCOHOLIC LIVER DISEASE, UNSPECIFIED SNOMED Code(s): 64499661 (3) Diarrhea Current Visit: Yes Status: Acute Code(s): R19.7 - DIARRHEA, UNSPECIFIED SNOMED Code(s): 94926415 (4) Hyperbilirubinemia Current Visit: Yes Status: Acute Code(s): E80.6 - OTHER DISORDERS OF BILIRUBIN METABOLISM SNOMED Code(s): 47189105 Plan: 1. Supportive measures. Agreeable for DC. RTO 3 weeks. Lactulose 20 grams TID hold dose if having >4 BMS daily. Assessment and plan a care discussed with Dr. Little
[2019-02-22 09:57] LABS: Anisocytosis Slight; HGB 9.3 gm/dL (11.4-16.0); Hypochromasia Marked; MCH 37.6 pg (25.0-35.0); MCHC 29.1 g/dL (31.0-37.0); MCV 129.2 fL (80.0-100.0); Macrocytosis Marked; Mean Platelet Volume 8.7; Platelet Count 124 k/uL (150-450); RBC 2.48 m/uL (3.80-5.40); RDW 18.2 % (11.5-15.5); WBC 8.6 k/uL (3.8-10.6)
[2019-02-22 10:15] LABS: ALT 57 U/L (9-52); AST 124 U/L (14-36); Albumin 2.5 g/dL (3.5-5.0); Alkaline Phosphatase 311 U/L (38-126); Anion Gap 7 mmol/L; Blood Urea Nitrogen 13 mg/dL (7-17); Calcium 8.4 mg/dL (8.4-10.2); Carbon Dioxide 19 mmol/L (22-30); Chloride 114 mmol/L (98-107); Glucose 123 mg/dL (74-99); Sodium 140 mmol/L (137-145); Total Bilirubin 9.2 mg/dL (0.2-1.3); Total Protein 5.6 g/dL (6.3-8.2)
[2019-02-22 10:17] LABS: INR 1.4 (<1.2); Prothrombin Time 14.1 sec (9.0-12.0)
[2019-02-22] MEDS ORDERED: TAMSULOSIN 0.4 MG CAP.ER.24H PO STA (10:19)
[2019-02-22] MEDS: THIAMINE 100 MG TAB PO SCH (11:47)
[2019-02-22 12:18] LABS: Band Neutrophils % 4 %; Lymphocytes # (M) 0.77 k/uL (1.0-4.8); Metamyelocytes # (M) 0.09 k/uL (0); Metamyelocytes % 1 %; Monocytes # (M) 0.52 k/uL (0-1.0); Neutrophils % (M) 80 %; Nucleated Red Blood Cells 0 /100 WBC (0-0); Total Cells Counted 100
[2019-02-22 12:19] LABS: Poikilocytosis (M) Present; Target Cells Present; Toxic Granulation Present
[2019-02-22 13:02] VITALS: RESP 18
[2019-02-22 13:48] LABS: Glucose,Whole Blood 159 mg/dL (75-99)
[2019-02-22 14:10] VITALS: BP 99/58; PULSE 77; TEMP 97.4
--- NOTE | 2019-02-22 15:13 | P.DS ---
Providers Date of admission: 02/15/19 20:42 Expected date of discharge: 02/22/19 Attending physician: Harry Foreman Consults: 02/16/19 12:10 Consult Physician Routine Consulting Provider: Dallas Boone Consult Reason/Comments: critical care management Do you want consulting provider notified?: Yes 02/16/19 12:12 Consult Physician Routine Consulting Provider: Josh Lira Consult Reason/Comments: UTI, sepsis Do you want consulting provider notified?: Yes Primary care physician: Harry Foreman [place] [facility] Course: Discharge diagnosis #1 acute alcoholic hepatitis. GI services are following. Maintained on CIWA protocal. Patient stated on the importance of alcohol cessation. #2 underlying history of chronic liver failure. Total bili 7.1 AST 113, ALT 48 and alkaline phosphatase 212. MRI of the liver completed no evidence of masses respect to malignancy #3 evidence of urinary tract infection with sepsis. Dr. Lira for infectious disease is following. Patient maintained on Rocephin. Blood and urine culture showing no growth. Patient will be DC'd on Ceftin for 5 more days #4 hypotension. Patient maintained on Levophed for pressure support at this time. Levophed has been off for 24 hours. Resolved. As[place] Cardizem has been decreased to 240 mg by mouth daily #5 chronic kidney disease with previous history of renal transplant #6 underlying history of hyperlipidemia maintained on Pravachol. Currently on hold due to elevated liver enzymes #7underlying history of depression #8 anemia and thrombocytopenia likely related to liver disease. Hemoglobin has remained stable at 8.9 #9 poor nutritional status with protein calorie malnutrition with decreased albumin to 2.6 #10 severe electrolyte imbalance with hypokalemia and hypophosphatemia and hy pomagnesemia. Improving. Potassium 3.7 magnesium 2.2 and phosphorus 1.1 #11 metabolic acidosis #12 elevated ammonia level. Patient has been started on lactulose 20 mg 4 times a day per GI services. Will continue to monitor daily ammonia levels #13 urinary retention. Patient started on Flomax. Oleary catheter removed. Patient did have residual of 180. We'll continue to monitor we'll continue with Flomax medication She will be DC'd to [facility] for rehab. Hospital course Carol Guardado is a 58-year-old female known to my practice however has not shown up in the office for a long time who was brought in to [facility] emergency room with a chief complaint of mental status changes and multiple vague complaints of chest pain, abdominal pain, nausea vomiting and diarrhea, patient had evidence of significant jaundice, total bilirubin was elevated at 7.2 she was intoxicated with alcohol level of 117 patient also had evidence of urinary tract infection and evidence of sepsis with leukocytosis and elevated lactic acid she was started on IV antibiotic cefepime and IV fluids and admitted to telemetry floor. Her past medical history is significant for history of hypertension, history of depression, history of chronic renal failure with history of renal transplant in the past. She has a known history of alcohol abuse she drinks 1 pint of vodka per day. On 02/17/2019 patient was seen and examined in the intensive care unit she is alert and oriented 3 in no apparent distress she is complaining of generalized weakness otherwise she denies any complaints there is no fever or chills no headache or dizziness no chest pain no shortness of breath no cough no nausea or vomiting no abdominal pain no diarrhea and no urinary symptoms. Patient received fluid boluses the last 24 hours and her blood pressure has stabilized. On 02/18/2019 patient remains in the intensive care unit. Patient is alert and oriented 3. Patient is still complaining of some abdominal pain. Patient remains on Levophed for pressure support. Diet has been advanced per critical care. Normal saline at 75. This time patient denies chest pain or shortness breath. Patient denies nausea vomiting or diarrhea. Patient denies any urinary burning or frequency On 02/19/2019 patient is alert and orientated. Patient remains in the intensive care unit. Patient has been off Levophed for pressure support for over 24 hours. Patient did receive one-time dose of Lasix per ICU team today. Patient's diet has been advanced. Patient denies chest pain or shortness breath. Patient denies nausea vomiting or diarrhea. Patient denies any urinary burning or frequency On 02/20/2019 patient is alert and oriented. Patient has been transferred out of the intensive care unit. Discussed case with GI services. Additional lab work will be ordered to assess liver function. Planning ECF upon discharge. At this time patient denies chest pain or shortness of breath breath. Patient den ies nausea vomiting or diarrhea. Patient denies any urinary burning or frequency. On 02/21/2019 patient is alert and oriented. Patient is sleepy today but arousable and answers questions and follows commands. Patient's ammonia level 75 yesterday. Patient was started on lactulose per GI services. Patient ammonia today 60. Total bili improving to 7.9. Discharge planning to [facility] in progress. At this time patient denies chest pain or shortness breath. Patient denies nausea vomiting or diarrhea. Patient denies any urinary burning or frequency On 02/22/2019 patient is alert and oriented 3. Per nursing staff patient did have episode where she was bending over in chair and slipped out of chair. Patient did not lose consciousness did not hit her head. Ammonia level has improved to 37. Patient to follow-up with GI services in 1 week. Patient to continue lactulose. Patient also be discharged on Ceftin for 5 days. Blood and urine cultures were negative. Cardizem also decreased to 240 due to hypotension. Blood pressure has improved. Patient also had episode of urinary retention. Oleary catheter has been DC'd Flomax has been started. We'll continue to monitor. At this time patient denies chest pain or shortness breath. Patient denies nausea vomiting or diarrhea. Patient denies any urinary burning or frequency. She will be DC'd to [facility] I performed an examination of the patient and discussed their management with the Nurse Practitioner. I have reviewed the Nurse Practitioner's notes and agree with the documented findings and plan of care Patient Condition at Discharge: Stable Plan - Discharge Summary Discharge Rx Participant: Yes New Discharge Prescriptions: No Action ARIPiprazole [Abilify] 2 mg PO DAILY ALPRAZolam [Xanax] 0.25 mg PO TID PRN PRN Reason: Anxiety Sirolimus [Rapamune] 1 mg PO DAILY Atomoxetine HCl [Strattera] 40 mg PO DAILY Escitalopram [Lexapro] 20 mg PO DAILY Pravastatin Sodium [Pravachol] 80 mg PO HS Mycophenolate Mofetil [Cellcept] 500 mg PO BID Diltiazem HCl [Cardizem Cd] 360 mg PO DAILY Carvedilol [Coreg] 6.25 mg PO BID Discharge Medication List ALPRAZolam [Xanax] 0.25 mg PO TID PRN 08/13/14 [History] ARIPiprazole [Abilify] 2 mg PO DAILY 08/13/14 [History] Sirolimus [Rapamune] 1 mg PO DAILY 08/13/14 [History] Atomoxetine HCl [Strattera] 40 mg PO DAILY 01/23/19 [History] Carvedilol [Coreg] 6.25 mg PO BID 01/23/19 [History] Diltiazem HCl [Cardizem Cd] 360 mg PO DAILY 01/23/19 [History] Escitalopram [Lexapro] 20 mg PO DAILY 01/23/19 [History] Mycophenolate Mofetil [Cellcept] 500 mg PO BID 01/23/19 [History] Pravastatin Sodium [Pravachol] 80 mg PO HS 01/23/19 [History] Follow up Appointment(s)/Referral(s): Harry Foreman MD [Primary Care Provider] - 1-2 days Franklyn Little MD [STAFF PHYSICIAN] - 3 Weeks
[2019-02-22] MEDS ORDERED: LACTULOSE 20 GM/30 ML CUP PO SCH (16:00)
[2019-02-23] MEDS ORDERED: DILTIAZEM CD 240 MG CAP.ER.24H PO SCH (09:00)
[2019-02-23] MEDS ORDERED: TAMSULOSIN 0.4 MG CAP.ER.24H PO SCH (18:30)
== END 2019-02-22 15:57 | DRG 871 ==
LOC: EC 15:47 → 3SCARD 20:42 → 2SICU 02-16 14:03 → 4MS4W 02-20 00:15
PROVIDERS: ADMIT Internal Medicine; ATTEND Internal Medicine
DX: A41.9 Sepsis, unspecified organism (principal); R57.1 Hypovolemic shock; E43 Unspecified severe protein-calorie malnutrition; E87.2 Acidosis; N39.0 Urinary tract infection, site not specified; Z94.0 Kidney transplant status; Q60.0 Renal agenesis, unilateral; D68.9 Coagulation defect, unspecified; F10.239 Alcohol dependence with withdrawal, unspecified; D69.6 Thrombocytopenia, unspecified; K70.10 Alcoholic hepatitis without ascites; E83.39 Other disorders of phosphorus metabolism; E83.42 Hypomagnesemia; K70.30 Alcoholic cirrhosis of liver without ascites; E78.5 Hyperlipidemia, unspecified; G89.29 Other chronic pain; K57.90 Diverticulosis of intestine, part unspecified, without perforation or abscess without bleeding; Y90.5 Blood alcohol level of 100-119 mg/100 ml; F41.8 Other specified anxiety disorders; E87.6 Hypokalemia; I12.9 Hypertensive chronic kidney disease with stage 1 through stage 4 chronic kidney disease, or unspecified chronic kidney disease; N18.1 Chronic kidney disease, stage 1; D53.9 Nutritional anemia, unspecified; R19.7 Diarrhea, unspecified; W07.XXXA Fall from chair, initial encounter; Z86.14 Personal history of Methicillin resistant Staphylococcus aureus infection; Z90.89 Acquired absence of other organs; Z79.899 Other long term (current) drug therapy; Z88.0 Allergy status to penicillin; Z86.73 Personal history of transient ischemic attack (TIA), and cerebral infarction without residual deficits
CPT/HCPCS: 36415; 71046; 74018; 74183; 76705; 80048; 80053; 80320; 81001; 82009; 82105; 82140; 82150; 82248; 82272; 82533; 82607; 82728; 82746; 83520; 83540; 83550; 83605; 83690; 83735; 84100; 84132; 84484; 85025; 85610; 85730; 86850; 86900; 86901; 87040; 87086; 87324; 93005; 96361; 96365; 96367; 96372; 96375; 99291

== ENCOUNTER 2019-03-11 20:59 | Inpatient (IN) | payer OTHER ==
[2019-03-11 21:21] LABS: Glucose,Whole Blood 135 mg/dL (75-99)
--- NOTE | 2019-03-11 21:28 | ED ---
Altered Mental Status HPI - General Chief Complaint: Altered Mental Status Stated Complaint: Critical Labs Time Seen by Provider: 03/11/19 21:07 Source: EMS Mode of arrival: EMS Limitations: altered mental status - History of Present Illness Initial Comments: This patient is a 58-year-old woman brought from intermediate. When I asked the patient why she is here she states she is having problems with sores on her buttocks. Patient does appear to have dementia versus delirium. She is moderately slow to respond to questioning, but is oriented to person place however she could not state the exact date. Patient mainly complains of pain related to the sores on her buttocks. MD Complaint: altered mental status -: unknown Context: alcohol abuse, liver disease - Related Data Home Medications Medication Instructions Recorded Confirmed ARIPiprazole [Abilify] 2 mg PO DAILY 08/13/14 03/11/19 Sirolimus [Rapamune] 1 mg PO DAILY 08/13/14 03/11/19 Atomoxetine HCl [Strattera] 40 mg PO DAILY 01/23/19 03/11/19 Carvedilol [Coreg] 6.25 mg PO BID 01/23/19 03/11/19 Escitalopram [Lexapro] 20 mg PO DAILY 01/23/19 03/11/19 Mycophenolate Mofetil [Cellcept] 500 mg PO BID 01/23/19 03/11/19 Benzocaine/Menthol Lozeng [Cepacol 1 lozenge MUCOUS MEM Q2H PRN 03/11/19 03/11/19 lozenge] Furosemide [Lasix] 20 mg PO DAILY 03/11/19 03/11/19 Nystatin 100,000 Unit/ml Susp 500,000 unit PO 5XD 03/11/19 03/11/19 [Mycostatin Oral Susp] Tamsulosin [Flomax] 0.4 mg PO HS 03/11/19 03/11/19 Previous Rx's Medication Instructions Recorded Diltiazem Cd [Cardizem CD] 240 mg PO DAILY cap.er.24h 02/22/19 Ibuprofen [Motrin] 400 mg PO Q6HR PRN tab 02/22/19 Lactulose [Cephulac] 20 gm PO TID ml 02/22/19 Thiamine [Vitamin B-1] 100 mg PO BID@1200,1700 tab 04/12/19 Allergies Allergy/AdvReac Type Severity Reaction Status Date / Time Penicillins AdvReac Vomiting Verified 03/11/19 21:24 Review of Systems ROS Statement: Those systems with pertinent positive or pertinent negative responses have been documented in the HPI. ROS Other: All systems not noted in ROS Statement are negative. Limitations: ROS unobtainable due to patients medical condition Respiratory: Denies: cough, dyspnea Cardiovascular: Denies: chest pain Gastrointestinal: Denies: abdominal pain, vomiting Musculoskeletal: Denies: back pain Skin: Reports: as per HPI, other (Sores to the buttocks) Neurological: Denies: headache Past Medical History Past Medical History: CVA/TIA, Hyperlipidemia, Hypertension, Renal Disease Additional Past Medical History / Comment(s): HEART MURMUR, HX OF TIA , DIVERTICLITIS, ANEMIA., HEPATITIS, RECENT CORTISONE INJECTION OF THUMB FOR BASAL JOINT ARTHRITIS., BACK AND RIGHT SHOULDER PAIN (LIMITED ROM), POLYCYSTIC KIDNEY DISEASE, BORN WITH 1 KIDNEDY. 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 HX OF HEMODIALYSIS. 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 History of Any Multi-Drug Resistant Organisms: MRSA Date of last positivie culture/infection: 08/28/2014 MDRO Source:: Abdomen Past Surgical History: Adenoidectomy, Bladder Surgery, Section, Tonsillectomy, Tubal Ligation Additional Past Surgical History / Comment(s): cataracts. 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 eye surgery. dialysis fistula left arm. breast bx. Past Anesthesia/Blood Transfusion Reactions: Motion Sickness Past Psychological History: Anxiety Smoking Status: Never smoker Past Alcohol Use History: Abuse, Daily, Heavy Past Drug Use History: Marijuana - Past Family History Mother Family Medical History: No Reported History General Exam General appearance: alert, obese, other (The patient does appear mildly somnolent but arouses to voice. Suspect an element of hepatic encephalopathy given the history.) Head exam: Present: atraumatic, normocephalic Eye exam: Present: EOMI, scleral icterus ENT exam: Present: mucous membranes dry Neck exam: Present: full ROM. Absent: tenderness, meningismus Respiratory exam: Present: rales (Bilateral bases). Absent: respiratory distress, wheezes, rhonchi, stridor, chest wall tenderness, decreased breath sounds, prolonged expiratory Cardiovascular Exam: Present: normal rhythm, bradycardia (Rate is approximately 44 when I am in the room.), normal heart sounds. Absent: systolic murmur, diastolic murmur, rubs, gallop GI/Abdominal exam: Present: soft, organomegaly (Hepatomegaly). Absent: distended, tenderness, guarding, rebound, rigid Extremities exam: Present: full ROM, normal capillary refill, pedal edema. Absent: calf tenderness Neurological exam: Present: alert, CN II-XII intact. Absent: oriented X3 (Oriented to person and place), motor sensory deficit Skin exam: Present: warm, dry, intact, other (Jaundice). Absent: cyanosis, diaphoretic, erythema, urticaria, vesicles, petechiae, mottled Course Vital Signs 03/11/19 03/11/19 03/11/19 21:00 22:09 22:30 Temperature 97.3 F L Pulse Rate 33 L 29 L Pulse Rate [ 32 L Assistant Infant Toddler Teacher ] Respiratory 18 14 Rate Blood Pressure 102/59 97/67 O2 Sat by Pulse 100 96 Oximetry 03/11/19 03/11/19 03/11/19 22:40 22:50 23:56 Temperature Pulse Rate 32 L 30 L 40 L Pulse Rate [ Assistant Infant Toddler Teacher ] Respiratory 14 14 20 Rate Blood Pressure 96/53 92/57 97/57 O2 Sat by Pulse 92 L Oximetry 03/12/19 03/12/19 00:00 01:00 Temperature Pulse Rate 42 L 36 L Pulse Rate [ Assistant Infant Toddler Teacher ] Respiratory 20 22 Rate Blood Pressure 97/57 92/64 O2 Sat by Pulse 98 96 Oximetry - Reevaluation(s) Reevaluation #1: 03/11/19 23:[address] Wheeler, who is covering for Nephrology tonight, treatment recommendations incorporated. Medical Decision Making - Medical Decision Making Patient's 58-year-old woman, she has altered mental status and acute renal failure as well as hepatic encephalopathy. She had complained of having sores noted buttocks, but there are no decubitus ulcers. She does have a number of areas where the skin is weeping. Case is discussed with Dr. Gaston as well, and his treatment recommendations are incorporated. - Lab Data Result diagrams: 03/13/19 04:10 03/13/19 04:10 Lab Results 03/11/19 03/11/19 03/11/19 Range/Units 20:15 21:05 21:05 WBC 13.9 H (3.8-10.6) k/uL RBC 2.48 L (3.80-5.40) m/uL Hgb 8.8 L (11.4-16.0) gm/dL Hct 29.3 L (34.0-46.0) % MCV 118.4 H D (80.0-100.0) fL MCH 35.6 H (25.0-35.0) pg MCHC 30.1 L (31.0-37.0) g/dL RDW 17.1 H (11.5-15.5) % Plt Count 191 D (150-450) k/uL Neutrophils % (Manual) 80 % Band Neutrophils % 4 % Lymphocytes % (Manual) 11 % Monocytes % (Manual) 5 % Neutrophils # (Manual) 11.60 H (1.3-7.7) k/uL Lymphocytes # (Manual) 1.53 (1.0-4.8) k/uL Monocytes # (Manual) 0.70 (0-1.0) k/uL Nucleated RBCs 0 (0-0) /100 WBC Manual Slide Review Performed Large Platelets Present Polychromasia Present Hypochromasia Marked Anisocytosis Slight Macrocytosis Marked PT (9.0-12.0) sec INR (<1.2) APTT (22.0-30.0) sec Sodium 138 (137-145) mmol/L Potassium 5.4 H (3.5-5.1) mmol/L Chloride 111 H (98-107) mmol/L Carbon Dioxide 11 L (22-30) mmol/L Anion Gap 16 mmol/L BUN 48 H (7-17) mg/dL Creatinine 6.92 H (0.52-1.04) mg/dL Est GFR (CKD-EPI)AfAm 7 (>60 ml/min/1.73 sqM) Est GFR (CKD-EPI)NonAf 6 (>60 ml/min/1.73 sqM) Glucose 131 H (74-99) mg/dL POC Glucose (mg/dL) (75-99) mg/dL POC Glu Transcribing Machine Mechanic ID Lactic Ac Sepsis Rflx Plasma Lactic Acid Tony 2.1 H* (0.7-2.0) mmol/L Calcium 8.7 (8.4-10.2) mg/dL Magnesium (1.6-2.3) mg/dL Total Bilirubin 6.4 H (0.2-1.3) mg/dL AST 130 H (14-36) U/L ALT 44 (9-52) U/L Alkaline Phosphatase 229 H (38-126) U/L Ammonia (<30) umol/L Troponin I (0.000-0.034) ng/mL Total Protein 6.1 L (6.3-8.2) g/dL Albumin 2.7 L (3.5-5.0) g/dL Urine Color Urine Appearance (Clear) Urine pH (5.0-8.0) Ur Specific [place] (1.001-1.035) Urine Protein (Negative) Urine Glucose (UA) (Negative) Urine Ketones (Negative) Urine Blood (Negative) Urine Nitrite (Negative) Urine Bilirubin (Negative) Urine Urobilinogen (<2.0) mg/dL Ur Leukocyte Esterase (Negative) Urine RBC (0-5) /hpf Urine WBC (0-5) /hpf Urine WBC Clumps (None) /hpf Urine Bacteria (None) /hpf Urine Opiates Screen (NotDetected) Ur Oxycodone Screen (NotDetected) Urine Methadone Screen (NotDetected) Ur Propoxyphene Screen (NotDetected) Ur Barbiturates Screen (NotDetected) U Tricyclic Antidepress (NotDetected) Ur Phencyclidine Scrn (NotDetected) Ur Amphetamines Screen (NotDetected) U Methamphetamines Scrn (NotDetected) U Benzodiazepines Scrn (NotDetected) Urine Cocaine Screen (NotDetected) U Marijuana (THC) Screen (NotDetected) Serum Alcohol mg/dL 03/11/19 03/11/19 03/11/19 Range/Units 21:05 21:05 21:05 WBC (3.8-10.6) k/uL RBC (3.80-5.40) m/uL Hgb (11.4-16.0) gm/dL Hct (34.0-46.0) % MCV (80.0-100.0) fL MCH (25.0-35.0) pg MCHC (31.0-37.0) g/dL RDW (11.5-15.5) % Plt Count (150-450) k/uL Neutrophils % (Manual) % Band Neutrophils % % Lymphocytes % (Manual) % Monocytes % (Manual) % Neutrophils # (Manual) (1.3-7.7) k/uL Lymphocytes # (Manual) (1.0-4.8) k/uL Monocytes # (Manual) (0-1.0) k/uL Nucleated RBCs (0-0) /100 WBC Manual Slide Review Large Platelets Polychromasia Hypochromasia Anisocytosis Macrocytosis PT 12.9 H (9.0-12.0) sec INR 1.2 H (<1.2) APTT 30.5 H (22.0-30.0) sec Sodium (137-145) mmol/L Potassium (3.5-5.1) mmol/L Chloride (98-107) mmol/L Carbon Dioxide (22-30) mmol/L Anion Gap mmol/L BUN (7-17) mg/dL Creatinine (0.52-1.04) mg/dL Est GFR (CKD-EPI)AfAm (>60 ml/min/1.73 sqM) Est GFR (CKD-EPI)NonAf (>60 ml/min/1.73 sqM) Glucose (74-99) mg/dL POC Glucose (mg/dL) (75-99) mg/dL POC Glu Transcribing Machine Mechanic ID Lactic Ac Sepsis Rflx Plasma Lactic Acid Tony (0.7-2.0) mmol/L Calcium (8.4-10.2) mg/dL Magnesium (1.6-2.3) mg/dL Total Bilirubin (0.2-1.3) mg/dL AST (14-36) U/L ALT (9-52) U/L Alkaline Phosphatase (38-126) U/L Ammonia 36 H (<30) umol/L Troponin I <0.012 (0.000-0.034) ng/mL Total Protein (6.3-8.2) g/dL Albumin (3.5-5.0) g/dL Urine Color Urine Appearance (Clear) Urine pH (5.0-8.0) Ur Specific [place] (1.001-1.035) Urine Protein (Negative) Urine Glucose (UA) (Negative) Urine Ketones (Negative) Urine Blood (Negative) Urine Nitrite (Negative) Urine Bilirubin (Negative) Urine Urobilinogen (<2.0) mg/dL Ur Leukocyte Esterase (Negative) Urine RBC (0-5) /hpf Urine WBC (0-5) /hpf Urine WBC Clumps (None) /hpf Urine Bacteria (None) /hpf Urine Opiates Screen (NotDetected) Ur Oxycodone Screen (NotDetected) Urine Methadone Screen (NotDetected) Ur Propoxyphene Screen (NotDetected) Ur Barbiturates Screen (NotDetected) U Tricyclic Antidepress (NotDetected) Ur Phencyclidine Scrn (NotDetected) Ur Amphetamines Screen (NotDetected) U Methamphetamines Scrn (NotDetected) U Benzodiazepines Scrn (NotDetected) Urine Cocaine Screen (NotDetected) U Marijuana (THC) Screen (NotDetected) Serum Alcohol mg/dL 03/11/19 03/11/19 03/11/19 Range/Units 21:16 21:30 21:59 WBC (3.8-10.6) k/uL RBC (3.80-5.40) m/uL Hgb (11.4-16.0) gm/dL Hct (34.0-46.0) % MCV (80.0-100.0) fL MCH (25.0-35.0) pg MCHC (31.0-37.0) g/dL RDW (11.5-15.5) % Plt Count (150-450) k/uL Neutrophils % (Manual) % Band Neutrophils % % Lymphocytes % (Manual) % Monocytes % (Manual) % Neutrophils # (Manual) (1.3-7.7) k/uL Lymphocytes # (Manual) (1.0-4.8) k/uL Monocytes # (Manual) (0-1.0) k/uL Nucleated RBCs (0-0) /100 WBC Manual Slide Review Large Platelets Polychromasia Hypochromasia Anisocytosis Macrocytosis PT (9.0-12.0) sec INR (<1.2) APTT (22.0-30.0) sec Sodium (137-145) mmol/L Potassium (3.5-5.1) mmol/L Chloride (98-107) mmol/L Carbon Dioxide (22-30) mmol/L Anion Gap mmol/L BUN (7-17) mg/dL Creatinine (0.52-1.04) mg/dL Est GFR (CKD-EPI)AfAm (>60 ml/min/1.73 sqM) Est GFR (CKD-EPI)NonAf (>60 ml/min/1.73 sqM) Glucose (74-99) mg/dL POC Glucose (mg/dL) 135 H (75-99) mg/dL POC Glu Transcribing Machine Mechanic ID Janine Bernard Lactic Ac Sepsis Rflx Y Plasma Lactic Acid Tony (0.7-2.0) mmol/L Calcium (8.4-10.2) mg/dL Magnesium (1.6-2.3) mg/dL Total Bilirubin (0.2-1.3) mg/dL AST (14-36) U/L ALT (9-52) U/L Alkaline Phosphatase (38-126) U/L Ammonia (<30) umol/L Troponin I (0.000-0.034) ng/mL Total Protein (6.3-8.2) g/dL Albumin (3.5-5.0) g/dL Urine Color Dark Brown Urine Appearance Turbid H (Clear) Urine pH 6.0 (5.0-8.0) Ur Specific [place] 1.018 (1.001-1.035) Urine Protein 2+ H (Negative) Urine Glucose (UA) Negative (Negative) Urine Ketones Negative (Negative) Urine Blood Moderate H (Negative) Urine Nitrite Positive H (Negative) Urine Bilirubin 1+ H (Negative) Urine Urobilinogen <2.0 (<2.0) mg/dL Ur Leukocyte Esterase Large H (Negative) Urine RBC 68 H (0-5) /hpf Urine WBC >182 H (0-5) /hpf Urine WBC Clumps Many H (None) /hpf Urine Bacteria Many H (None) /hpf Urine Opiates Screen Not Detected (NotDetected) Ur Oxycodone Screen Not Detected (NotDetected) Urine Methadone Screen Not Detected (NotDetected) Ur Propoxyphene Screen Not Detected (NotDetected) Ur Barbiturates Screen Not Detected (NotDetected) U Tricyclic Antidepress Not Detected (NotDetected) Ur Phencyclidine Scrn Not Detected (NotDetected) Ur Amphetamines Screen Not Detected (NotDetected) U Methamphetamines Scrn Not Detected (NotDetected) U Benzodiazepines Scrn Not Detected (NotDetected) Urine Cocaine Screen Not Detected (NotDetected) U Marijuana (THC) Screen Not Detected (NotDetected) Serum Alcohol mg/dL 03/11/19 Range/Units 22:15 WBC (3.8-10.6) k/uL RBC (3.80-5.40) m/uL Hgb (11.4-16.0) gm/dL Hct (34.0-46.0) % MCV (80.0-100.0) fL MCH (25.0-35.0) pg MCHC (31.0-37.0) g/dL RDW (11.5-15.5) % Plt Count (150-450) k/uL Neutrophils % (Manual) % Band Neutrophils % % Lymphocytes % (Manual) % Monocytes % (Manual) % Neutrophils # (Manual) (1.3-7.7) k/uL Lymphocytes # (Manual) (1.0-4.8) k/uL Monocytes # (Manual) (0-1.0) k/uL Nucleated RBCs (0-0) /100 WBC Manual Slide Review Large Platelets Polychromasia Hypochromasia Anisocytosis Macrocytosis PT (9.0-12.0) sec INR (<1.2) APTT (22.0-30.0) sec Sodium 136 L (137-145) mmol/L Potassium 5.2 H (3.5-5.1) mmol/L Chloride 110 H (98-107) mmol/L Carbon Dioxide 11 L (22-30) mmol/L Anion Gap 15 mmol/L BUN 48 H (7-17) mg/dL Creatinine 6.83 H (0.52-1.04) mg/dL Est GFR (CKD-EPI)AfAm 7 (>60 ml/min/1.73 sqM) Est GFR (CKD-EPI)NonAf 6 (>60 ml/min/1.73 sqM) Glucose 128 H (74-99) mg/dL POC Glucose (mg/dL) (75-99) mg/dL POC Glu Transcribing Machine Mechanic ID Lactic Ac Sepsis Rflx Plasma Lactic Acid Tony (0.7-2.0) mmol/L Calcium 8.5 (8.4-10.2) mg/dL Magnesium 2.1 (1.6-2.3) mg/dL Total Bilirubin 6.3 H (0.2-1.3) mg/dL AST 131 H (14-36) U/L ALT 37 (9-52) U/L Alkaline Phosphatase 230 H (38-126) U/L Ammonia (<30) umol/L Troponin I (0.000-0.034) ng/mL Total Protein 6.0 L (6.3-8.2) g/dL Albumin 2.7 L (3.5-5.0) g/dL Urine Color Urine Appearance (Clear) Urine pH (5.0-8.0) Ur Specific [place] (1.001-1.035) Urine Protein (Negative) Urine Glucose (UA) (Negative) Urine Ketones (Negative) Urine Blood (Negative) Urine Nitrite (Negative) Urine Bilirubin (Negative) Urine Urobilinogen (<2.0) mg/dL Ur Leukocyte Esterase (Negative) Urine RBC (0-5) /hpf Urine WBC (0-5) /hpf Urine WBC Clumps (None) /hpf Urine Bacteria (None) /hpf Urine Opiates Screen (NotDetected) Ur Oxycodone Screen (NotDetected) Urine Methadone Screen (NotDetected) Ur Propoxyphene Screen (NotDetected) Ur Barbiturates Screen (NotDetected) U Tricyclic Antidepress (NotDetected) Ur Phencyclidine Scrn (NotDetected) Ur Amphetamines Screen (NotDetected) U Methamphetamines Scrn (NotDetected) U Benzodiazepines Scrn (NotDetected) Urine Cocaine Screen (NotDetected) U Marijuana (THC) Screen (NotDetected) Serum Alcohol <10 mg/dL - EKG Data -: EKG Interpreted by [facility] EKG shows normal: sinus rhythm, axis (HEENT normal), intervals (Normal), ST-T waves (Normal) Rate: bradycardia (Rate 32 bpm) Critical Care Time Critical Care Time: Yes (50 minutes) Critical Care Time: 50 minutes critical care time spent in performing history and physical, telephone order clerk room service, study interpretation, discussion with patient's family, the patient, and multiple physicians, including admitting physician and consultants. Disposition Clinical Impression: Urinary tract infection, Hepatic encephalopathy, Altered mental status, Acute renal failure, Sepsis Disposition: ADMITTED IP TO THIS HOSP Condition: Critical Is patient prescribed a controlled substance at d/c from ED?: No
[2019-03-11 21:29] LABS: INR 1.2 (<1.2); Partial Thromboplastin Time 30.5 sec (22.0-30.0); Prothrombin Time 12.9 sec (9.0-12.0)
[2019-03-11 21:31] LABS: Albumin 2.7 g/dL (3.5-5.0); Calcium 8.7 mg/dL (8.4-10.2); Potassium 5.4 mmol/L (3.5-5.1); Total Bilirubin 6.4 mg/dL (0.2-1.3); Total Protein 6.1 g/dL (6.3-8.2)
[2019-03-11 21:35] LABS: Anisocytosis Slight; HCT 29.3 % (34.0-46.0); HGB 8.8 gm/dL (11.4-16.0); Hypochromasia Marked; MCH 35.6 pg (25.0-35.0); MCHC 30.1 g/dL (31.0-37.0); Macrocytosis Marked; RBC 2.48 m/uL (3.80-5.40); RDW 17.1 % (11.5-15.5); WBC 13.9 k/uL (3.8-10.6)
[2019-03-11] MEDS ORDERED: LEVOFLOXACIN 750MG-D5W PMX 750 MG in DEXTROSE/WATER 1 150ML.BAG IVPB STA (21:38)
[2019-03-11 21:49] LABS: MCV 118.4 fL (80.0-100.0)
[2019-03-11 21:50] LABS: Platelet Count 191 k/uL (150-450)
--- NOTE | 2019-03-11 21:50 | XR ---
EXAMINATION TYPE: XR chest 1V portable DATE OF EXAM: 03/11/2019 COMPARISON: Chest x-ray February 15, 2019. HISTORY: Altered mental status and weakness. TECHNIQUE: Single frontal view of the chest is obtained. FINDINGS: Overlying EKG leads are redemonstrated. There is no focal air space opacity, pleural effusi on, or pneumothorax seen. The cardiac silhouette size is enlarged on current study. The osseous st ructures are intact. IMPRESSION: Cardiomegaly without acute pulmonary process.
[2019-03-11 21:51] LABS: Appearance,Urine Turbid (Clear); Bacteria,Urine Many /hpf; Bilirubin,Urine 1+ (Negative); Blood,Urine Moderate (Negative); Color,Urine Dark Brown; Glucose,Urine (UA) Negative (Negative); Ketones,Urine Negative (Negative); Leukocyte Esterase,Urine Large (Negative); Nitrite,Urine Positive (Negative); Protein,Urine 2+ (Negative); RBC,Urine 68 /hpf (0-5); Urobilinogen,Urine <2.0 mg/dL (<2.0); WBC,Urine >182 /hpf (0-5)
[2019-03-11] MEDS ORDERED: SODIUM CHLORIDE 0.9% 2,000 ML IV ONE (21:57)
[2019-03-11 22:03] LABS: Amphetamine Screen,Urine Not Detected (NotDetected); Barbiturate Screen,Urine Not Detected (NotDetected); Benzodiazepines Screen,Urine Not Detected (NotDetected); Cocaine Screen,Urine Not Detected (NotDetected); Methadone Screen, Urine Not Detected (NotDetected); Opiate Screen,Urine Not Detected (NotDetected); Oxycodone Screen, Urine Not Detected (NotDetected); Phencyclidine Screen,Urine Not Detected (NotDetected); Tricyclic Antidepressant,Urine Not Detected (NotDetected); Urn Cannabinoid Scrn Not Detected (NotDetected)
[2019-03-11 22:13] LABS: Specific Gravity,Urine 1.018 (1.001-1.035)
[2019-03-11 22:17] LABS: Band Neutrophils % 4 %; Large Platelets Present; Lymphocytes # (M) 1.53 k/uL (1.0-4.8); Neutrophils % (M) 80 %; Nucleated Red Blood Cells 0 /100 WBC (0-0); Polychromasia Present; Total Cells Counted 100
[2019-03-11 22:33] LABS: ALT 37 U/L (9-52); AST 131 U/L (14-36); Albumin 2.7 g/dL (3.5-5.0); Alcohol <10 mg/dL; Alkaline Phosphatase 230 U/L (38-126); Anion Gap 15 mmol/L; Blood Urea Nitrogen 48 mg/dL (7-17); Calcium 8.5 mg/dL (8.4-10.2); Carbon Dioxide 11 mmol/L (22-30); Chloride 110 mmol/L (98-107); Glucose 128 mg/dL (74-99); Magnesium 2.1 mg/dL (1.6-2.3); Potassium 5.2 mmol/L (3.5-5.1); Sodium 136 mmol/L (137-145); Total Bilirubin 6.3 mg/dL (0.2-1.3)
[2019-03-11] MEDS ORDERED: LACTULOSE 20 GM/30 ML CUP PO ONE (23:09)
[2019-03-11] MEDS ORDERED: SODIUM CHLORIDE 0.9% 1,000 ML IV ONE (23:14)
[2019-03-11] MEDS: DEXTROSE 5% IN WATER 1,000 ML with SODIUM BICARB (1 MEQ/ML) 150 ML IV SCH (23:53)
[2019-03-12] MEDS ORDERED: SODIUM CHLORIDE 0.9% 1,000 ML IV ONE ×2 (00:08→00:09)
[2019-03-12] MEDS ORDERED: CEFEPIME 2 GM in SODIUM CHLORIDE 0.9% 50 ML IVPB STA (00:10)
[2019-03-12] MEDS ORDERED: ALBUMIN HUMAN 25% 50 ML in EMPTY BAG 1 BAG IVPB ONE (00:15)
[2019-03-12] MEDS ORDERED: NALOXONE 0.4 MG/ML 1 ML VIAL IV PRN ×2 (00:38→04:13)
[2019-03-12] MEDS ORDERED: MORPHINE SULFATE 4 MG/ML SYRINGE IV STA (00:45)
[2019-03-12 01:45] LABS: Glucose,Whole Blood 156 mg/dL (75-99)
[2019-03-12] MEDS: DOPamine DRIP 800 MG in WATER FOR INJECTION 1 250ML.BAG IV SCH (03:40)
[2019-03-12 05:33] LABS: Anisocytosis Slight; Basophils % (A) 0 %; Eosinophils # (A) 0.2 k/uL (0-0.7); Eosinophils % (A) 1 %; HCT 27.1 % (34.0-46.0); Hypochromasia Marked; Lymphocytes # (A) 1.2 k/uL (1.0-4.8); Lymphocytes % (A) 10 %; MCHC 29.6 g/dL (31.0-37.0); MCV 121.7 fL (80.0-100.0); Mean Platelet Volume 10.6; Monocytes # (A) 0.3 k/uL (0-1.0); Monocytes % (A) 3 %; Neutrophils # (A) 10.5 k/uL (1.3-7.7); Neutrophils % (A) 85 %; Platelet Count 156 k/uL (150-450); RBC 2.22 m/uL (3.80-5.40); RDW 16.7 % (11.5-15.5); WBC 12.4 k/uL (3.8-10.6)
[2019-03-12 05:35] LABS: Macrocytosis Marked
[2019-03-12] MEDS: NOREPINEPHRINE 4 MG in SODIUM CHLORIDE 0.9% 250 ML IV SCH ×2 (05:41→21:00)
[2019-03-12 05:44] LABS: Calcium 7.6 mg/dL (8.4-10.2); Magnesium 1.9 mg/dL (1.6-2.3); Phosphorus 7.4 mg/dL (2.5-4.5); Potassium 4.8 mmol/L (3.5-5.1)
[2019-03-12] MEDS: CLOTRIMAZOLE TROCHE 10 MG TROCHE PO SCH ×4 (06:04→21:38)
--- NOTE | 2019-03-12 08:05 | P.CRDCN ---
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 The patient just was discharged from the hospital 2 weeks ago to the extended care facility. When the patient arrived to the emergency room she was hypotensive and bradycardic. She was in sinus bradycardia with a resting heart rate in the 30s. Subsequently the patient was started on dopamine and then Levothroid. At the extended care facility, the patient was on Cardizem at 240 mg daily which was held. Overall the patient is a very poor historian and she seems to be confused. The EKG showed sinus bradycardia. The patient was found to be in renal failure with a creatinine around 6. The liver function tests are elevated. The alkaline phosphatase is elevated. The calcium and phosphorous are elevated as well. Currently the patient is in process to be seen by the nephrology service as well. In 2013, she underwent transesophageal echocardiogram which revealed evidence of moderate aortic insufficiency with normal left ventricular systolic function. Past Medical History Past Medical History: CVA/TIA, Hyperlipidemia, Hypertension, Renal Disease Additional Past Medical History / Comment(s): HEART MURMUR, HX OF TIA , DIVERT ICLITIS, ANEMIA., HEPATITIS, RECENT CORTISONE INJECTION OF THUMB FOR BASAL JOINT ARTHRITIS., BACK AND RIGHT SHOULDER PAIN (LIMITED ROM), POLYCYSTIC KIDNEY DISEASE, BORN WITH 1 KIDNEDY. 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 HX OF HEMODIALYSIS. 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 History of Any Multi-Drug Resistant Organisms: MRSA Date of last positivie culture/infection: 08/28/2014 MDRO Source:: Abdomen Past Surgical History: Adenoidectomy, Bladder Surgery, Section, Tonsillectomy, Tubal Ligation Additional Past Surgical History / Comment(s): cataracts. 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 eye surgery. dialysis fistula left arm. breast bx. Past Anesthesia/Blood Transfusion Reactions: Motion Sickness Past Psychological History: Anxiety Additional Psychological History / Comment(s): No animals. No travel. The experience Smoking Status: Never smoker Past Alcohol Use History: Abuse, Daily, Heavy Additional Past Alcohol Use History / Comment(s): pt reports consuming 1 pint of vodka per day, last drink 02/15/19 Past Drug Use History: Marijuana Additional Drug Use History / Comment(s): 3 times a month - Past Family History Mother Family Medical History: No Reported History Medications and Allergies Home Medications Medication Instructions Recorded Confirmed Type ARIPiprazole [Abilify] 2 mg PO DAILY 08/13/14 03/11/19 History Sirolimus [Rapamune] 1 mg PO DAILY 08/13/14 03/11/19 History Atomoxetine HCl [Strattera] 40 mg PO DAILY 01/23/19 03/11/19 History Carvedilol [Coreg] 6.25 mg PO BID 01/23/19 03/11/19 History Escitalopram [Lexapro] 20 mg PO DAILY 01/23/19 03/11/19 History Mycophenolate Mofetil [Cellcept] 500 mg PO BID 01/23/19 03/11/19 History Diltiazem Cd [Cardizem CD] 240 mg PO DAILY cap.er.24h 02/22/19 03/11/19 Rx Ibuprofen [Motrin] 400 mg PO Q6HR PRN tab 02/22/19 03/11/19 Rx Lactulose [Cephulac] 20 gm PO TID ml 02/22/19 03/11/19 Rx Thiamine [Vitamin B-1] 100 mg PO BID@1200,1700 tab 02/22/19 03/11/19 Rx Benzocaine/Menthol Lozeng [Cepacol 1 lozenge MUCOUS MEM Q2H PRN 03/11/19 03/11/19 History lozenge] Furosemide [Lasix] 20 mg PO DAILY 03/11/19 03/11/19 History Nystatin 100,000 Unit/ml Susp 500,000 unit PO 5XD 03/11/19 03/11/19 History [Mycostatin Oral Susp] Tamsulosin [Flomax] 0.4 mg PO HS 03/11/19 03/11/19 History Allergies Allergy/AdvReac Type Severity Reaction Status Date / Time Penicillins AdvReac Vomiting Verified 03/11/19 21:24 Physical Exam Vitals: Vital Signs Temp Pulse Pulse Resp BP Pulse Ox 03/12/19 07:00 57 L 9 L 86/53 03/12/19 06:00 58 L 6 L 83/65 03/12/19 05:00 57 L 10 L 84/41 03/12/19 04:00 93.7 F L 52 L 9 L 77/50 99 03/12/19 03:00 44 L 20 70/57 98 03/12/19 02:00 36 L 11 L 75/43 99 03/12/19 01:00 36 L 22 92/64 96 03/12/19 00:00 42 L 20 97/57 98 03/11/19 23:56 40 L 20 97/57 92 L 03/11/19 22:50 30 L 14 92/57 03/11/19 22:40 32 L 14 96/53 03/11/19 22:30 29 L 14 97/67 96 03/11/19 22:09 32 L 03/11/19 21:00 97.3 F L 33 L 18 102/59 100 Intake and Output 03/11/19 03/12/19 03/12/19 22:59 06:59 14:59 Intake Total 5310.078 140.284 Output Total 15 5 Balance 5295.078 135.284 Intake: IV 1799 125 Cefepime 2 gm In Sodium 50 Chloride 0.9% 50 ml @ 100 mls/hr IVPB ONCE STA Rx# :[id number] Dextrose 5% in Water 1, 750 125 000 ml @ 125 mls/hr IV . Q9H12M EDDA with Sodium Bicarb (1 Meq/ml) 150 ml Rx#:[id number] Sodium Chloride 0.9% 1, 999 000 ml @ 999 mls/hr IV . Q1H1M ONE Rx#:[id number] Amount of Fluid Infused ( 3500 ml) Intake, IV Titration 11.078 15.284 Amount Norepinephrine 4 mg In 11.078 15.284 Sodium Chloride 0.9% 250 ml @ 0.05 MCG/KG/MIN 11. 579 mls/hr IV .[id number] EDDA Rx#:[id number] Output: Urine 15 5 Other: Voiding Method Indwelling Catheter # Bowel Movements 1 Weight 60.781 kg - Constitutional General appearance: no acute distress - Respiratory Respiratory: bilateral: diminished - Cardiovascular Rhythm: regular Heart sounds: normal: S1, S2 Abnormal Heart Sounds: systolic murmur Results 03/12/19 05:02 03/12/19 05:02 Cardiac Enzymes 03/11/19 03/11/19 03/11/19 Range/Units 21:05 21:05 22:15 AST 130 H 131 H (14-36) U/L Troponin I <0.012 (0.000-0.034) ng/mL Coagulation 03/11/19 Range/Units 21:05 PT 12.9 H (9.0-12.0) sec APTT 30.5 H (22.0-30.0) sec CBC 03/11/19 03/12/19 Range/Units 21:05 05:02 WBC 13.9 H 12.4 H (3.8-10.6) k/uL RBC 2.48 L 2.22 L (3.80-5.40) m/uL Hgb 8.8 L 8.0 L (11.4-16.0) gm/dL Hct 29.3 L 27.1 L (34.0-46.0) % Plt Count 191 D 156 (150-450) k/uL Comprehensive Metabolic Panel 03/11/19 03/11/19 03/12/19 Range/Units 21:05 22:15 05:02 Sodium 138 136 L 138 (137-145) mmol/L Potassium 5.4 H 5.2 H 4.8 (3.5-5.1) mmol/L Chloride 111 H 110 H 113 H (98-107) mmol/L Carbon Dioxide 11 L 11 L 11 L (22-30) mmol/L BUN 48 H 48 H 47 H (7-17) mg/dL Creatinine 6.92 H 6.83 H 6.16 H (0.52-1.04) mg/dL Glucose 131 H 128 H 149 H (74-99) mg/dL Calcium 8.7 8.5 7.6 L (8.4-10.2) mg/dL AST 130 H 131 H (14-36) U/L ALT 44 37 (9-52) U/L Alkaline Phosphatase 229 H 230 H (38-126) U/L Total Protein 6.1 L 6.0 L (6.3-8.2) g/dL Albumin 2.7 L 2.7 L (3.5-5.0) g/dL Current Medications Generic Name Dose Route Start Last Admin Trade Name Freq PRN Reason Stop Dose Admin Aripiprazole 2 mg 03/12/19 09:00 Abilify PO DAILY [facility] Clotrimazole 10 mg 03/12/19 06:00 03/12/19 06:04 Mycelex Solis PO Not Given 5XD [facility] Escitalopram Oxalate 20 mg 03/12/19 09:00 Lexapro PO DAILY [facility] Famotidine 20 mg 03/12/19 09:00 Pepcid IV Q12HR [facility] Sodium Bicarbonate 150 ml/ 1,150 mls @ 125 mls/hr 03/12/19 00:00 03/11/19 23:53 Dextrose/Water IV 125 mls/hr .Q9H12M EDDA Administration Cefepime HCl 2 gm/ Sodium 100 mls @ 200 mls/hr 03/12/19 14:00 Chloride IVPB Q12H EDDA Dopamine HCl/Dextrose 800 mg/ 250 mls @ 5.698 mls/hr 03/12/19 03:30 03/12/19 03:40 IV Solution IV 5 mcg/kg/min .Q24H EDDA 5.698 mls/hr Administration Protocol 5 MCG/KG/MIN Norepinephrine Bitartrate 4 mg 254 mls @ 11.579 mls/hr 03/12/19 05:15 03/12/19 07:14 / Sodium Chloride IV 0.1 mcg/kg/min .[id number] EDDA 23.158 mls/hr Titration Protocol 0.05 MCG/KG/MIN Lactulose 20 gm 03/12/19 09:00 Cephulac PO TID [facility] Mycophenolate Mofetil 500 mg 03/12/19 09:00 Cellcept PO BID [facility] Naloxone HCl 0.2 mg 03/12/19 04:13 Narcan IV Q2M PRN Opioid Reversal Non-Formulary Medication 1 mg 03/12/19 09:00 Sirolimus [Rapamune] PO DAILY [facility] Thiamine HCl 100 mg 03/12/19 12:00 Vitamin B-1 PO BID@1200,1700 [facility] Intake and Output 03/11/19 03/12/19 03/12/19 22:59 06:59 14:59 Intake Total 5310.078 140.284 Output Total 15 5 Balance 5295.078 135.284 Intake: IV 1799 125 Cefepime 2 gm In Sodium 50 Chloride 0.9% 50 ml @ 100 mls/hr IVPB ONCE STA Rx# :[id number] Dextrose 5% in Water 1, 750 125 000 ml @ 125 mls/hr IV . Q9H12M EDDA with Sodium Bicarb (1 Meq/ml) 150 ml Rx#:[id number] Sodium Chloride 0.9% 1, 999 000 ml @ 999 mls/hr IV . Q1H1M ONE Rx#:[id number] Amount of Fluid Infused ( 3500 ml) Intake, IV Titration 11.078 15.284 Amount Norepinephrine 4 mg In 11.078 15.284 Sodium Chloride 0.9% 250 ml @ 0.05 MCG/KG/MIN 11. 579 mls/hr IV .[id number] EDDA Rx#:[id number] Output: Urine 15 5 Other: Voiding Method Indwelling Catheter # Bowel Movements 1 Weight 60.781 kg 03/12/19 05:02 03/12/19 05:02 Assessment and Plan Assessment: Assessment #1 change in mental status #2 sinus bradycardia #3 hypotension #4 end-stage renal disease #5 status post kidney transplant 2 #6 history of alcohol abuse #7 chronic liver disease Plan #1 continue supporting the blood pressure and heart rate was dopamine as well as levo fed #2 check the TSH and free T4 #3 obtain an echocardiogram was Doppler #5 continue holding the Cardizem #6 follow-up with the patient. Thank you for allowing us participate in her care
[2019-03-12] MEDS: LACTULOSE 20 GM/30 ML CUP PO SCH ×3 (08:24→21:37)
[2019-03-12] MEDS: ESCITALOPRAM 20 MG TAB PO SCH (08:25)
[2019-03-12] MEDS: ARIPiprazole 2 MG TAB PO SCH (08:25)
[2019-03-12] MEDS: SIROLIMUS 1 MG PO SCH (08:38)
[2019-03-12] MEDS ORDERED: FAMOTIDINE 20 MG/2 ML VIAL IV SCH (09:00)
[2019-03-12] MEDS ORDERED: MYCOPHENOLATE MOFETIL 500 MG TAB PO SCH (09:00)
[2019-03-12] MEDS: DEXTROSE 5% IN WATER 1,000 ML with SODIUM BICARB (1 MEQ/ML) 150 ML IV SCH ×2 (10:14→21:38)
[2019-03-12] MEDS ORDERED: SODIUM BICARB 8.4% 50 ML SYR (1 MEQ/ML) IV STA (10:19)
--- NOTE | 2019-03-12 10:20 | P.NPCON ---
History of Present Illness - Reason for Consult acute renal failure - History of Present Illness Reason for consultation: Acute allograft dysfunction History of present illness: Patient is a 58-year-old female seen in renal consultation for acute allograft dysfunction. Patient received a living donor kidney transplant in 2002. She is maintained on CellCept and Rapamune. 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 Baseline creatinine is near 1. Patient presented to the hospital with generalized weakness. She was also having diarrhea. No vomiting. Denies hematuria or dysuria. Denies use of nonsteroidals. Patient was noted to be very hypotensive with systolic blood pressure in the 70s on admission. She was also bradycardic with heart rate in the 20s to 30s. She received about 5 L of normal saline and is now maintained on bicarb drip at 1 25 mL an hour. She is quite edematous. She is on 14 mics of Levophed as well as dopamine. She is oliguric. She is awake and alert. Denies chest pain or shortness of breath. Cultures are negative so far. Most recent blood pressure 89/47. Heart rate 65. She received Lasix 60 mg IV this morning with no significant response in u rine output. Vital signs are stable. Currently on vasopressors. General: The patient appeared well nourished and normally developed. HEENT: Head exam is unremarkable. Neck is without jugular venous distension. LUNGS: Breath sounds decreased. HEART: Rate and Rhythm are regular. First and second heart sounds normal. No murmurs, rubs or gallops. ABDOMEN: Abdominal exam reveals normal bowel sounds. Non-tender and non- distended. No evidence of peritonitis. EXTREMITITES: 2+ edema. Past Medical History Past Medical History: CVA/TIA, Hyperlipidemia, Hypertension, Renal Disease Additional Past Medical History / Comment(s): HEART MURMUR, HX OF TIA , DIVERTICLITIS, ANEMIA., HEPATITIS, RECENT CORTISONE INJECTION OF THUMB FOR BASAL JOINT ARTHRITIS., BACK AND RIGHT SHOULDER PAIN (LIMITED ROM), POLYCYSTIC KIDNEY DISEASE, BORN WITH 1 KIDNEDY. 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 HX OF HEMODIALYSIS. 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 History of Any Multi-Drug Resistant Organisms: MRSA Date of last positivie culture/infection: 08/28/2014 MDRO Source:: Abdomen Past Surgical History: Adenoidectomy, Bladder Surgery, Section, Tonsillectomy, Tubal Ligation Additional Past Surgical History / Comment(s): cataracts. 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 eye surgery. dialysis fistula left arm. breast bx. Past Anesthesia/Blood Transfusion Reactions: Motion Sickness Past Psychological History: Anxiety Additional Psychological History / Comment(s): No animals. No travel. The experience Smoking Status: Never smoker Past Alcohol Use History: Abuse, Daily, Heavy Additional Past Alcohol Use History / Comment(s): pt reports consuming 1 pint of vodka per day, last drink 02/15/19 Past Drug Use History: Marijuana Additional Drug Use History / Comment(s): 3 times a month - Past Family History Mother Family Medical History: No Reported History Medications and Allergies Home Medications Medication Instructions Recorded Confirmed Type ARIPiprazole [Abilify] 2 mg PO DAILY 08/13/14 03/11/19 History Sirolimus [Rapamune] 1 mg PO DAILY 08/13/14 03/11/19 History Atomoxetine HCl [Strattera] 40 mg PO DAILY 01/23/19 03/11/19 History Carvedilol [Coreg] 6.25 mg PO BID 01/23/19 03/11/19 History Escitalopram [Lexapro] 20 mg PO DAILY 01/23/19 03/11/19 History Mycophenolate Mofetil [Cellcept] 500 mg PO BID 01/23/19 03/11/19 History Diltiazem Cd [Cardizem CD] 240 mg PO DAILY cap.er.24h 02/22/19 03/11/19 Rx Ibuprofen [Motrin] 400 mg PO Q6HR PRN tab 02/22/19 03/11/19 Rx Lactulose [Cephulac] 20 gm PO TID ml 02/22/19 03/11/19 Rx Thiamine [Vitamin B-1] 100 mg PO BID@1200,1700 tab 02/22/19 03/11/19 Rx Benzocaine/Menthol Lozeng [Cepacol 1 lozenge MUCOUS MEM Q2H PRN 03/11/19 03/11/19 History lozenge] Furosemide [Lasix] 20 mg PO DAILY 03/11/19 03/11/19 History Nystatin 100,000 Unit/ml Susp 500,000 unit PO 5XD 03/11/19 03/11/19 History [Mycostatin Oral Susp] Tamsulosin [Flomax] 0.4 mg PO HS 03/11/19 03/11/19 History Allergies Allergy/AdvReac Type Severity Reaction Status Date / Time Penicillins AdvReac Vomiting Verified 03/11/19 21:24 Physical Exam Vitals: Vital Signs Temp Pulse Pulse Resp BP Pulse Ox 03/12/19 09:00 65 14 89/47 94 L 03/12/19 08:00 98.0 F 61 16 90/46 98 03/12/19 07:00 57 L 9 L 86/53 03/12/19 06:00 58 L 6 L 83/65 03/12/19 05:00 57 L 10 L 84/41 03/12/19 04:00 93.7 F L 52 L 9 L 77/50 99 03/12/19 03:00 44 L 20 70/57 98 03/12/19 02:00 36 L 11 L 75/43 99 03/12/19 01:00 36 L 22 92/64 96 03/12/19 00:00 42 L 20 97/57 98 03/11/19 23:56 40 L 20 97/57 92 L 03/11/19 22:50 30 L 14 92/57 03/11/19 22:40 32 L 14 96/53 03/11/19 22:30 29 L 14 97/67 96 03/11/19 22:09 32 L 03/11/19 21:00 97.3 F L 33 L 18 102/59 100 Intake and Output 03/11/19 03/12/19 03/12/19 22:59 06:59 14:59 Intake Total 5310.078 510.284 Output Total 15 10 Balance 5295.078 500.284 Intake: IV 1799 375 Cefepime 2 gm In Sodium 50 Chloride 0.9% 50 ml @ 100 mls/hr IVPB ONCE STA Rx# :[id number] Dextrose 5% in Water 1, 750 375 000 ml @ 125 mls/hr IV . Q9H12M EDDA with Sodium Bicarb (1 Meq/ml) 150 ml Rx#:[id number] Sodium Chloride 0.9% 1, 999 000 ml @ 999 mls/hr IV . Q1H1M ONE Rx#:[id number] Amount of Fluid Infused ( 3500 ml) Intake, IV Titration 11.078 15.284 Amount Norepinephrine 4 mg In 11.078 15.284 Sodium Chloride 0.9% 250 ml @ 0.05 MCG/KG/MIN 11. 579 mls/hr IV .[id number] [facility] Rx#:[id number] Oral 120 Output: Urine 15 10 Other: Voiding Method Indwelling Catheter Indwelling Catheter # Bowel Movements 1 Weight 60.781 kg 89 kg Results - Lab Results Most recent lab results Calcium 7.6 mg/dL (8.4-10.2) L 03/12/19 05:02 Phosphorus 7.4 mg/dL (2.5-4.5) H 03/12/19 05:02 Magnesium 1.9 mg/dL (1.6-2.3) 03/12/19 05:02 03/12/19 05:02 03/12/19 05:02 Assessment and Plan Plan: Assessment: 1. 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 Creatinine 6.9 on admission and is 6.16 this morning. Baseline creatinine near 1. 2. Metabolic acidosis secondary to acute kidney injury and diarrhea. 3. Status post living related renal transplant in 2002. 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 This was her second kidney transplant. 4. Septic shock. Source likely UTI. Maintain on IV antibiotics. Also on Levophed and dopamine. 5. Hyperphosphatemia secondary to acute kidney injury. Plan: I will decrease the rate of bicarbonate drip to 75 mL an hour. 4 A of bicarb IV push now. Lasix 80 mg IV once this evening. Avoid nephrotoxins. Follow-up cultures. Check kidney ultrasound. Hold CellCept in view of sepsis. Maintain Rapamune. Check level. If no improvement in her renal function and urine output in the next 24 hours, I will initiate renal replacement therapy. Patient is agreeable to the plan. Discussed with the grades 1 through 5 teacher. Thank you for the consultation. I will continue to follow the patient with you during her hospital stay.
--- NOTE | 2019-03-12 11:41 | US ---
EXAMINATION TYPE: US kidneys/renal and bladder DATE OF EXAM: 03/12/2019 COMPARISON: CT dated 01/23/2019 CLINICAL HISTORY: nathaniel. Exam performed portable in ICU. Right kidney surgically absent. Left tx kidn ey in [facility] x 10 years ago. Patient has kelly. EXAM MEASUREMENTS: Left Kidney: 12.4 x 6.8 x 7.0 cm Left Tx Kidney: 13.3 x 7.0 cm Limited exam due to patient body habitus and patient mobility Right Kidney: Surgically absent Left Kidney: Limited visualization, no hydronephrosis seen Left Tx kidney: Anechoic area near the hilum measures 1.9 x 1.6 cm. And could relate to a small cyst, loculated fluid, or the tortuous ureter when correspond to the prior CT of 01/23/2019. No fluid colle ction surrounding the left lower quadrant renal transplant. Cortical medullary differentiation is reva ntained. No hydronephrosis. No spectral broadening. Vascular flow is maintained. Bladder: not visualized due to kelly Bilateral Jets seen not seen Small amount of ascites visualized during the exam IMPRESSION: 1. No perinephric fluid collection or hydronephrosis of the left kidney. Arterial and venous waveform s are maintained to the transplant kidney. 2. Coarsened hepatic echotexture with numbing appearance of the liver on the prior CT raising suspici on for hepatitis, congestive hepatopathy or infiltrative hepatocellular carcinoma. 3. Small volume ascites.
--- NOTE | 2019-03-12 12:30 | P.CONS ---
History of Present Illness - Reason for Consult Consult date: 03/12/19 Elevated liver enzymes Requesting physician: Harry Foreman - Chief Complaint Buttock soreness weakness - History of Present Illness 58-year-old female with a history of renal transplant, hypertension, dementia, heavy alcohol abuse admitted from [facility] with reports of buttock discomfort weakness. Upon arrival patient's blood pressure systolic 70s IV pressors started as well as renal function significantly elevated creatinine 6.9. BUN 48. Patient was seen by the GI service earlier this month in regards to acute alcohol intoxication and elevated liver enzymes consistent with acute alcohol hepatitis superimposed on chronic alcohol liver disease. Patient's liver function tests on 02/19/2019 total bilirubin 9.2. AST 124. ALT 37. AP 311. She underwent MRI of the abdomen on 02/20/2019 with features of hepatomegaly no liver mass. Some mildly dilated ducts in the left hepatic lobe without mass relatively unchanged from previous CT imaging. Ultrasound gallbladder 0 02/15/2019 reported biliary sludge gallstone CBD was not measured at that time. Admission LFTs total bilirubin 6.4. AST 1:30. ALT 44. Repeat 29. Ammonia 36. INR 1.2. Sodium 138. Potassium 5.4. No history of intravenous drug abuse or hepatitis. No history of known liver disorders or autoimmune diseases. Hepatitis screen from 2016 nonreactive. Review of Systems MConstitutional: Denies fever, chills, sweats, weight gain, or loss. Weakness. HEENT: Negative for migraines, blurred vision or loss, earaches, drainage, tinnitus, oral mucosal lesions, dysphagia, or odynophagia. CARDIAC: Negative for chest pain, arrhythmias, or palpitation. RESPIRATORY: Negative for shortness of breath, hemoptysis, cough, or sputum production. GI: See HPI for pertinent findings. : Negative for hematuria, urgency, frequency, polyuria, or dysuria. GYNc: Denies possibility of . Negative vaginal discharge. MUSCULOSKELETAL: Negative for muscle aches, swelling, arthritis, and arthralgias. NEUROLOGIC: Negative for stroke or TIA. ENDOCRINE: Negative for thyroid problems. SKIN: Negative for rash or itching. PSYCHIATRIC: Negative history for depression and anxiety Past Medical History Past Medical History: CVA/TIA, Hyperlipidemia, Hypertension, Renal Disease Additional Past Medical History / Comment(s): HEART MURMUR, HX OF TIA , DIVERTICLITIS, ANEMIA., HEPATITIS, RECENT CORTISONE INJECTION OF THUMB FOR BASAL JOINT ARTHRITIS., BACK AND RIGHT SHOULDER PAIN (LIMITED ROM), POLYCYSTIC KIDNEY DISEASE, BORN WITH 1 KIDNEDY. 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 HX OF HEMODIALYSIS. 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 History of Any Multi-Drug Resistant Organisms: MRSA Year Discovered:: 08/28/2014 MDRO Source:: Abdomen Past Surgical History: Adenoidectomy, Bladder Surgery, Section, Tonsillectomy, Tubal Ligation Additional Past Surgical History / Comment(s): cataracts. 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 eye surgery. dialysis fistula left arm. breast bx. Past Anesthesia/Blood Transfusion Reactions: Motion Sickness Past Psychological History: Anxiety Additional Psychological History / Comment(s): No animals. No travel. The experience Smoking Status: Never smoker Past Alcohol Use History: Abuse, Daily, Heavy Additional Past Alcohol Use History / Comment(s): pt reports consuming 1 pint of vodka per day, last drink 02/15/19 Past Drug Use History: Marijuana Additional Drug Use History / Comment(s): 3 times a month - Past Family History Mother Family Medical History: No Reported History Medications and Allergies Home Medications Medication Instructions Recorded Confirmed Type ARIPiprazole [Abilify] 2 mg PO DAILY 08/13/14 03/11/19 History Sirolimus [Rapamune] 1 mg PO DAILY 08/13/14 03/11/19 History Atomoxetine HCl [Strattera] 40 mg PO DAILY 01/23/19 03/11/19 History Carvedilol [Coreg] 6.25 mg PO BID 01/23/19 03/11/19 History Escitalopram [Lexapro] 20 mg PO DAILY 01/23/19 03/11/19 History Mycophenolate Mofetil [Cellcept] 500 mg PO BID 01/23/19 03/11/19 History Diltiazem Cd [Cardizem CD] 240 mg PO DAILY cap.er.24h 02/22/19 03/11/19 Rx Ibuprofen [Motrin] 400 mg PO Q6HR PRN tab 02/22/19 03/11/19 Rx Lactulose [Cephulac] 20 gm PO TID ml 02/22/19 03/11/19 Rx Thiamine [Vitamin B-1] 100 mg PO BID@1200,1700 tab 02/22/19 03/11/19 Rx Benzocaine/Menthol Lozeng [Cepacol 1 lozenge MUCOUS MEM Q2H PRN 03/11/19 03/11/19 History lozenge] Furosemide [Lasix] 20 mg PO DAILY 03/11/19 03/11/19 History Nystatin 100,000 Unit/ml Susp 500,000 unit PO 5XD 03/11/19 03/11/19 History [Mycostatin Oral Susp] Tamsulosin [Flomax] 0.4 mg PO HS 03/11/19 03/11/19 History Allergies Allergy/AdvReac Type Severity Reaction Status Date / Time Penicillins AdvReac Vomiting Verified 03/11/19 21:24 Physical Exam Vitals: Vital Signs Temp Pulse Pulse Resp BP Pulse Ox 03/12/19 11:01 75 16 80/56 92 L 03/12/19 10:00 63 16 93/64 94 L 03/12/19 09:00 65 14 89/47 94 L 03/12/19 08:00 98.0 F 61 16 90/46 98 03/12/19 07:00 57 L 9 L 86/53 03/12/19 06:00 58 L 6 L 83/65 03/12/19 05:00 57 L 10 L 84/41 03/12/19 04:00 93.7 F L 52 L 9 L 77/50 99 03/12/19 03:00 44 L 20 70/57 98 03/12/19 02:00 36 L 11 L 75/43 99 03/12/19 01:00 36 L 22 92/64 96 03/12/19 00:00 42 L 20 97/57 98 03/11/19 23:56 40 L 20 97/57 92 L 03/11/19 22:50 30 L 14 92/57 03/11/19 22:40 32 L 14 96/53 03/11/19 22:30 29 L 14 97/67 96 03/11/19 22:09 32 L 03/11/19 21:00 97.3 F L 33 L 18 102/59 100 Intake and Output 03/11/19 03/12/19 03/12/19 22:59 06:59 14:59 Intake Total 5310.078 1055.284 Output Total 15 50 Balance 5295.078 1005.284 Intake: IV 1799 600 Cefepime 2 gm In Sodium 50 Chloride 0.9% 50 ml @ 100 mls/hr IVPB ONCE STA Rx# :[id number] Dextrose 5% in Water 1, 750 600 000 ml @ 75 mls/hr IV . [id number] EDDA with Sodium Bicarb (1 Meq/ml) 150 ml Rx#:[id number] Sodium Chloride 0.9% 1, 999 000 ml @ 999 mls/hr IV . Q1H1M ONE Rx#:[id number] Amount of Fluid Infused ( 3500 ml) Intake, IV Titration 11.8 215.284 Amount Levofloxacin 750Mg-D5w 200 Pmx 750 mg In Dextrose/ Water 1 150ml.bag @ 100 mls/hr IVPB ONCE STA Rx#: [id number] Norepinephrine 4 mg In .8 15.284 Sodium Chloride 0.9% 250 ml @ 0.05 MCG/KG/MIN 11. 579 mls/hr IV .[id number] EDDA Rx#:[id number] Oral 240 Output: Urine 15 50 Other: Voiding Method Indwelling Catheter Indwelling Catheter # Bowel Movements 1 Weight 60.781 kg 89 kg General appearance: The patient is alert, oriented, in no acute distress. Jaundice. HET: Head is normocephalic and atraumatic. Pupils are equal and reactive. Orop harynx is clear without lesions. Sclerae icterus. Neck: Supple without lymphadenopathy. Trachea midline. Heart: S1 S2. Regular rate and rhythm. Lungs: No crackles or wheezes are heard. Abdomen: Soft, mildly tender across the midabdomen with bowel sounds. No peritoneal signs. No palpable organomegaly or masses. Extremities: Normal skin color and turgor. No cyanosis, rash, ulceration, clubbing, or edema. Radial and pedal pulses are 2/4 bilaterally. Oleary with clear yellow urine. Neurological: No focal deficits. Strength and sensation are grossly intact. Results CBC & Chem 7: 03/12/19 05:02 03/12/19 05:02 Labs: Abnormal Lab Results - Last 24 Hours (Table) 03/11/19 03/11/19 03/11/19 Range/Units 20:15 21:05 21:05 WBC 13.9 H (3.8-10.6) k/uL RBC 2.48 L (3.80-5.40) m/uL Hgb 8.8 L (11.4-16.0) gm/dL Hct 29.3 L (34.0-46.0) % MCV 118.4 H D (80.0-100.0) fL MCH 35.6 H (25.0-35.0) pg MCHC 30.1 L (31.0-37.0) g/dL RDW 17.1 H (11.5-15.5) % Neutrophils # (1.3-7.7) k/uL Neutrophils # (Manual) 11.60 H (1.3-7.7) k/uL PT (9.0-12.0) sec INR (<1.2) APTT (22.0-30.0) sec Sodium (137-145) mmol/L Potassium 5.4 H (3.5-5.1) mmol/L Chloride 111 H (98-107) mmol/L Carbon Dioxide 11 L (22-30) mmol/L BUN 48 H (7-17) mg/dL Creatinine 6.92 H (0.52-1.04) mg/dL Glucose 131 H (74-99) mg/dL POC Glucose (mg/dL) (75-99) mg/dL Plasma Lactic Acid Tony 2.1 H* (0.7-2.0) mmol/L Calcium (8.4-10.2) mg/dL Phosphorus (2.5-4.5) mg/dL Total Bilirubin 6.4 H (0.2-1.3) mg/dL AST 130 H (14-36) U/L Alkaline Phosphatase 229 H (38-126) U/L Ammonia (<30) umol/L Total Protein 6.1 L (6.3-8.2) g/dL Albumin 2.7 L (3.5-5.0) g/dL TSH (0.465-4.680) mIU/L Urine Appearance (Clear) Urine Protein (Negative) Urine Blood (Negative) Urine Nitrite (Negative) Urine Bilirubin (Negative) Ur Leukocyte Esterase (Negative) Urine RBC (0-5) /hpf Urine WBC (0-5) /hpf Urine WBC Clumps (None) /hpf Urine Bacteria (None) /hpf 03/11/19 03/11/19 03/11/19 Range/Units 21:05 21:05 21:16 WBC (3.8-10.6) k/uL RBC (3.80-5.40) m/uL Hgb (11.4-16.0) gm/dL Hct (34.0-46.0) % MCV (80.0-100.0) fL MCH (25.0-35.0) pg MCHC (31.0-37.0) g/dL RDW (11.5-15.5) % Neutrophils # (1.3-7.7) k/uL Neutrophils # (Manual) (1.3-7.7) k/uL PT 12.9 H (9.0-12.0) sec INR 1.2 H (<1.2) APTT 30.5 H (22.0-30.0) sec Sodium (137-145) mmol/L Potassium (3.5-5.1) mmol/L Chloride (98-107) mmol/L Carbon Dioxide (22-30) mmol/L BUN (7-17) mg/dL Creatinine (0.52-1.04) mg/dL Glucose (74-99) mg/dL POC Glucose (mg/dL) 135 H (75-99) mg/dL Plasma Lactic Acid Tony (0.7-2.0) mmol/L Calcium (8.4-10.2) mg/dL Phosphorus (2.5-4.5) mg/dL Total Bilirubin (0.2-1.3) mg/dL AST (14-36) U/L Alkaline Phosphatase (38-126) U/L Ammonia 36 H (<30) umol/L Total Protein (6.3-8.2) g/dL Albumin (3.5-5.0) g/dL TSH (0.465-4.680) mIU/L Urine Appearance (Clear) Urine Protein (Negative) Urine Blood (Negative) Urine Nitrite (Negative) Urine Bilirubin (Negative) Ur Leukocyte Esterase (Negative) Urine RBC (0-5) /hpf Urine WBC (0-5) /hpf Urine WBC Clumps (None) /hpf Urine Bacteria (None) /hpf 03/11/19 03/11/19 03/12/19 Range/Units 21:30 22:15 01:43 WBC (3.8-10.6) k/uL RBC (3.80-5.40) m/uL Hgb (11.4-16.0) gm/dL Hct (34.0-46.0) % MCV (80.0-100.0) fL MCH (25.0-35.0) pg MCHC (31.0-37.0) g/dL RDW (11.5-15.5) % Neutrophils # (1.3-7.7) k/uL Neutrophils # (Manual) (1.3-7.7) k/uL PT (9.0-12.0) sec INR (<1.2) APTT (22.0-30.0) sec Sodium 136 L (137-145) mmol/L Potassium 5.2 H (3.5-5.1) mmol/L Chloride 110 H (98-107) mmol/L Carbon Dioxide 11 L (22-30) mmol/L BUN 48 H (7-17) mg/dL Creatinine 6.83 H (0.52-1.04) mg/dL Glucose 128 H (74-99) mg/dL POC Glucose (mg/dL) 156 H (75-99) mg/dL Plasma Lactic Acid Tony (0.7-2.0) mmol/L Calcium (8.4-10.2) mg/dL Phosphorus (2.5-4.5) mg/dL Total Bilirubin 6.3 H (0.2-1.3) mg/dL AST 131 H (14-36) U/L Alkaline Phosphatase 230 H (38-126) U/L Ammonia (<30) umol/L Total Protein 6.0 L (6.3-8.2) g/dL Albumin 2.7 L (3.5-5.0) g/dL TSH (0.465-4.680) mIU/L Urine Appearance Turbid H (Clear) Urine Protein 2+ H (Negative) Urine Blood Moderate H (Negative) Urine Nitrite Positive H (Negative) Urine Bilirubin 1+ H (Negative) Ur Leukocyte Esterase Large H (Negative) Urine RBC 68 H (0-5) /hpf Urine WBC >182 H (0-5) /hpf Urine WBC Clumps Many H (None) /hpf Urine Bacteria Many H (None) /hpf 03/12/19 03/12/1903/12/19 Range/Units 05:02 05:02 05:02 WBC 12.4 H (3.8-10.6) k/uL RBC 2.22 L (3.80-5.40) m/uL Hgb 8.0 L (11.4-16.0) gm/dL Hct 27.1 L (34.0-46.0) % MCV 121.7 H (80.0-100.0) fL MCH 36.0 H (25.0-35.0) pg MCHC 29.6 L (31.0-37.0) g/dL RDW 16.7 H (11.5-15.5) % Neutrophils # 10.5 H (1.3-7.7) k/uL Neutrophils # (Manual) (1.3-7.7) k/uL PT (9.0-12.0) sec INR (<1.2) APTT (22.0-30.0) sec Sodium (137-145) mmol/L Potassium (3.5-5.1) mmol/L Chloride 113 H (98-107) mmol/L Carbon Dioxide 11 L (22-30) mmol/L BUN 47 H (7-17) mg/dL Creatinine 6.16 H (0.52-1.04) mg/dL Glucose 149 H (74-99) mg/dL POC Glucose (mg/dL) (75-99) mg/dL Plasma Lactic Acid Tony (0.7-2.0) mmol/L Calcium 7.6 L (8.4-10.2) mg/dL Phosphorus 7.4 H (2.5-4.5) mg/dL Total Bilirubin (0.2-1.3) mg/dL AST (14-36) U/L Alkaline Phosphatase (38-126) U/L Ammonia (<30) umol/L Total Protein (6.3-8.2) g/dL Albumin (3.5-5.0) g/dL TSH 47.400 H (0.465-4.680) mIU/L Urine Appearance (Clear) Urine Protein (Negative) Urine Blood (Negative) Urine Nitrite (Negative) Urine Bilirubin (Negative) Ur Leukocyte Esterase (Negative) Urine RBC (0-5) /hpf Urine WBC (0-5) /hpf Urine WBC Clumps (None) /hpf Urine Bacteria (None) /hpf Microbiology - Last 24 Hours (Table) 03/11/19 22:15 Blood Culture Gram Stain - Preliminary Blood 03/11/19 22:15 Blood Culture - Final Blood 03/11/19 21:30 Urine Culture - Preliminary Urine,Catheterized US - abdomen: report reviewed (Dr. Little) Assessment and Plan (1) Elevated liver enzymes Narrative/Plan: 58-year-old female admitted with multiple complaints weakness hypotension vague abdominal pain, jaundice, elevated BUN/creatinine with a history of renal transplant long-standing alcohol abuse. Etiology of her elevated liver enzymes appears to be multifactorial. Suspect underlying alcohol liver disease with superimposed acute on chronic alcohol hepatitis component of ischemic hepatitis with evidence of hypotension on admission presently receiving IV pressors. And underlying hepatorenal syndrome cannot be excluded. MRI liver 2 weeks ago reported no hepatic masses features of hepatomegaly some mildly dilated left hepatic lobe duct dilation without mass relatively unchanged from previous CT imaging. Ultrasound 02/15/2019 reported biliary sludge and stones. Current Visit: Yes Status: Acute Code(s): R74.8 - ABNORMAL LEVELS OF OTHER SERUM ENZYMES SNOMED Code(s): 793624811 (2) Hypotension Current Visit: Yes Status: Acute Code(s): I95.9 - HYPOTENSION, UNSPECIFIED SNOMED Code(s): 70598269 (3) Acute renal failure Current Visit: Yes Status: Acute Code(s): N17.9 - ACUTE KIDNEY FAILURE, UNSPECIFIED SNOMED Code(s): 28254015 (4) Alcohol abuse Current Visit: No Status: Acute Code(s): F10.10 - ALCOHOL ABUSE, UNCOMPLICATED SNOMED Code(s): 01411367 (5) Alcoholic liver disease Current Visit: No Status: Acute Code(s): K70.9 - ALCOHOLIC LIVER DISEASE, UNSPECIFIED SNOMED Code(s): 31790203 Plan: 1. Continue with supportive measures. Avoid hepatotoxic medications. Nephrology following closely. Daily monitoring of CBC CMP PT/INR in ammonia. Lactulose 20 g 3 times a day. We'll repeat hepatitis screen and requests serologic workup for chronic liver disease. If patient's clinical course does not improve recommend transfer to tertiary care center. We'll follow closely with you. Thank you for this kind referral and the opportunity to participate in the care of your patient. This consultation was discussed with Dr. Little. The impression and plan of care have been directed as dictated.
--- NOTE | 2019-03-12 13:26 | P.CNPUL ---
History of Present Illness Consult date: 03/12/19 Chief complaint: Acute kidney injury, sepsis, History of present illness: This is a 58-year-old female patient with a recipient of a previous kidney transplantation and has multiple other medical problems and comorbidities most significant of which is alcoholic liver disease/cirrhosis and previous hospitalization for now underlying urine checked infection as well as related to a gram-negative bacteria/E. coli. The patient has chronic anemia, thrombocytopenia, previous history of CVA, hypertension and hyperlipidemia and congenitally absent kidney along with history of polycystic kidney disease and diverticular disease. The patient was treated in our intensive care unit approximately 3 weeks ago for hypotension/hypovolemia and UTI and the patient was sent back to the correction. As patient came back to the ICU yesterday because of significant abnormalities per the patient presented to the ED with acute kidney injury and hypotension. The patient was feeling weak and fatigued. The patient was having some diarrhea. No nausea. No hematuria. In fact her urine output dropped significantly. She was quite hypotensive with a systolic pressure in the mid 70s time of arrival and she was also bradycardic, she was in sinus bradycardia with a heart rate in the low 30s. The patient was receiving a combination of Cardizem and Coreg on outpatient basis. UA was abnormal. The patient was given a total of 5 L of normal saline and she was started on a bicarb infusion at the rate of 125 mL an hour. She was also started on pressors. I initially started on dopamine based on her bradycardia and hypotension which is still currently running at 5 mg per KG per minute. Subsequently she was started on levo fed at the rate of 0.1 g per KG per minute. Nevertheless, the urine output has remained quite low. Morning systolic blood pressure is in the mid 90s. Heart rate is up to 65. Urine output has been negligible. She received a total of 60 mg IV push Lasix without any significant response thus far. Mentally she is awake and alert. She is a bit sleepy and this is consistent with stage I hepatitic encephalopathy knowing that her ammonia level is also elevated. Her lactic acid level is at 1.6. Her bilirubin is at 6.3. The ammonia level is at 36. AST that 131. ALT is at 37. Alkaline phosphatase is at 2:30. Troponins are negative. His serum bicarbs at 11. Creatinine was as high as 6.8 and currently is down to 6.1. His platelet count is at 156. The upper limit a blood culture is showing gram-negative bacillus. The patient is currently on IV cefepime and infectious disease consultation is already been obtained. Echocardiogram is still pending. Review of Systems Constitutional: Reports daytime sleepiness, Reports fatigue, Reports poor appetite, Reports weakness, Reports weight gain Eyes: denies blurred vision, denies bulging eye, denies decreased vision Ears: deny: decreased hearing, ear discharge, earache, tinnitus Ears, nose, mouth and throat: Denies headache, Denies sore throat Breasts: absent: as per HPI, change in shape, gynecomastia, masses, nipple discharge, pain, skin changes, swelling Cardiovascular: Reports decreased exercise tolerance, Reports dyspnea on exertion, Reports edema, Reports leg edema, Reports shortness of breath Respiratory: Reports dyspnea Gastrointestinal: Reports diarrhea, Reports loss of appetite Genitourinary: Reports as per HPI Menstruation: Reports as per HPI Musculoskeletal: Reports as per HPI Musculoskeletal: bilateral: ankle swelling, elbow swelling, foot swelling, hand swelling, hip swelling Integumentary: Reports as per HPI Neurological: Reports as per HPI, Reports weakness Psychiatric: Reports confusion, Reports sleep disturbances Endocrine: Reports fatigue Hematologic/Lymphatic: Reports as per HPI Past Medical History Past Medical History: CVA/TIA, Hyperlipidemia, Hypertension, Liver Disease, Renal Disease Additional Past Medical History / Comment(s): HEART MURMUR, HX OF TIA , DIVERTICLITIS, ANEMIA., HEPATITIS, RECENT CORTISONE INJECTION OF THUMB FOR BASAL JOINT ARTHRITIS., BACK AND RIGHT SHOULDER PAIN (LIMITED ROM), POLYCYSTIC KIDNEY DISEASE, BORN WITH 1 KIDNEDY. 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 HX OF HEMODIALYSIS. 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 History of Any Multi-Drug Resistant Organisms: MRSA Date of last positivie culture/infection: 08/28/2014 MDRO Source:: Abdomen Past Surgical History: Adenoidectomy, Bladder Surgery, Section, Tonsillectomy, Tubal Ligation Additional Past Surgical History / Comment(s): cataracts. 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 eye surgery. dialysis fistula left arm. breast bx. Past Anesthesia/Blood Transfusion Reactions: Motion Sickness Past Psychological History: Anxiety Additional Psychological History / Comment(s): No animals. No travel. The experience Smoking Status: Never smoker Past Alcohol Use History: Abuse, Daily, Heavy Additional Past Alcohol Use History / Comment(s): pt reports consuming 1 pint of vodka per day, last drink 02/15/19 Past Drug Use History: Marijuana Additional Drug Use History / Comment(s): 3 times a month - Past Family History Mother Family Medical History: No Reported History Medications and Allergies Home Medications Medication Instructions Recorded Confirmed Type ARIPiprazole [Abilify] 2 mg PO DAILY 08/13/14 03/11/19 History Sirolimus [Rapamune] 1 mg PO DAILY 08/13/14 03/11/19 History Atomoxetine HCl [Strattera] 40 mg PO DAILY 01/23/19 03/11/19 History Carvedilol [Coreg] 6.25 mg PO BID 01/23/19 03/11/19 History Escitalopram [Lexapro] 20 mg PO DAILY 01/23/19 03/11/19 History Mycophenolate Mofetil [Cellcept] 500 mg PO BID 01/23/19 03/11/19 History Diltiazem Cd [Cardizem CD] 240 mg PO DAILY cap.er.24h 02/22/19 03/11/19 Rx Ibuprofen [Motrin] 400 mg PO Q6HR PRN tab 02/22/19 03/11/19 Rx Lactulose [Cephulac] 20 gm PO TID ml 02/22/19 03/11/19 Rx Thiamine [Vitamin B-1] 100 mg PO BID@1200,1700 tab 02/22/19 03/11/19 Rx Benzocaine/Menthol Lozeng [Cepacol 1 lozenge MUCOUS MEM Q2H PRN 03/11/19 03/11/19 History lozenge] Furosemide [Lasix] 20 mg PO DAILY 03/11/19 03/11/19 History Nystatin 100,000 Unit/ml Susp 500,000 unit PO 5XD 03/11/19 03/11/19 History [Mycostatin Oral Susp] Tamsulosin [Flomax] 0.4 mg PO HS 03/11/19 03/11/19 History Allergies Allergy/AdvReac Type Severity Reaction Status Date / Time Penicillins AdvReac Vomiting Verified 03/11/19 21:24 Physical Exam Vitals: Vital Signs Temp Pulse Pulse Resp BP Pulse Ox 03/12/19 12:00 96.6 F L 68 16 107/59 94 L 04/30/19 11:01 75 16 80/56 92 L 03/12/19 10:00 63 16 93/64 94 L 03/12/19 09:00 65 14 89/47 94 L 03/12/19 08:00 98.0 F 61 16 90/46 98 03/12/19 07:00 57 L 9 L 86/53 03/12/19 06:00 58 L 6 L 83/65 03/12/19 05:00 57 L 10 L 84/41 03/12/19 04:00 93.7 F L 52 L 9 L 77/50 99 03/12/19 03:00 44 L 20 70/57 98 03/12/19 02:00 36 L 11 L 75/43 99 03/12/19 01:00 36 L 22 92/64 96 03/12/19 00:00 42 L 20 97/57 98 03/11/19 23:56 40 L 20 97/57 92 L 03/11/19 22:50 30 L 14 92/57 03/11/19 22:40 32 L 14 96/53 03/11/19 22:30 29 L 14 97/67 96 03/11/19 22:09 32 L 03/11/19 21:00 97.3 F L 33 L 18 102/59 100 Intake and Output 03/11/19 03/12/19 03/12/19 22:59 06:59 14:59 Intake Total 5310.078 1055.284 Output Total 15 50 Balance 5295.078 1005.284 Intake: IV 1799 600 Cefepime 2 gm In Sodium 50 Chloride 0.9% 50 ml @ 100 mls/hr IVPB ONCE STA Rx# :[id number] Dextrose 5% in Water 1, 750 600 000 ml @ 75 mls/hr IV . [id number] EDDA with Sodium Bicarb (1 Meq/ml) 150 ml Rx#:[id number] Sodium Chloride 0.9% 1, 999 000 ml @ 999 mls/hr IV . Q1H1M ONE Rx#:[id number] Amount of Fluid Infused ( 3500 ml) Intake, IV Titration 11.078 215.284 Amount Levofloxacin 750Mg-D5w 200 Pmx 750 mg In Dextrose/ Water 1 150ml.bag @ 100 mls/hr IVPB ONCE STA Rx#: [id number] Norepinephrine 4 mg In 11.078 15.284 Sodium Chloride 0.9% 250 ml @ 0.05 MCG/KG/MIN 11. 579 mls/hr IV .[id number] [facility] Rx#:[id number] Oral 240 Output: Urine 15 50 Other: Voiding Method Indwelling Catheter Indwelling Catheter # Bowel Movements 1 Weight 60.781 kg 89 kg GENERAL EXAM: jaundiced 58-year-old obese white female, awake , oriented 3, pleasant and cooperative, the patient is somewhat lethargic and sleepy probably related to stage I hepatitic encephalopathy. HEAD: Normocephalic/atraumatic. EYES: Normal reaction of pupils, equal size. Conjunctiva pink, sclera white. NOSE: Clear with pink turbinates. THROAT: No erythema or exudates. NECK: No masses, no JVD, no thyroid enlargement, no adenopathy. CHEST: No chest wall deformity. Symmetrical expansion. LUNGS: Equal air entry with no crackles, wheeze, rhonchi or dullness. CVS: Regular rate and rhythm, normal S1 and S2, no gallops, no murmurs, no rubs ABDOMEN: Soft, nontender. No hepatosplenomegaly, normal bowel sounds, no guarding or rigidity. Scar of previous abdominal surgery over the anterior abd ominal wall EXTREMITIES: No clubbing, 2+ pitting edema lower extremities, no cyanosis, 2+ pulses and upper and lower extremities. The patient has a nonfunctioning AV fistula in the left upper extremity MUSCULOSKELETAL: Muscle strength and tone normal. SPINE: No scoliosis or deformity SKIN: No rashes CENTRAL NERVOUS SYSTEM: Lethargic, but arousable to verbal stimuli. No focal deficits, tone is normal in all 4 extremities. Results - Laboratory Findings CBC and BMP: 03/12/19 05:02 03/12/19 05:02 PT/INR, D-dimer PT 12.9 sec (9.0-12.0) H 03/11/19 21:05 INR 1.2 (<1.2) H 03/11/19 21:05 Abnormal lab findings: Abnormal Labs 03/11/19 03/11/19 03/11/19 20:15 21:05 21:05 WBC 13.9 H RBC 2.48 L Hgb 8.8 L Hct 29.3 L MCV 118.4 H D MCH 35.6 H MCHC 30.1 L RDW 17.1 H Neutrophils # Neutrophils # (Manual) 11.60 H PT INR APTT Sodium Potassium 5.4 H Chloride 111 H Carbon Dioxide 11 L BUN 48 H Creatinine 6.92 H Glucose 131 H POC Glucose (mg/dL) Plasma Lactic Acid Tony 2.1 H* Calcium Phosphorus Total Bilirubin 6.4 H AST 130 H Alkaline Phosphatase 229 H Ammonia Total Protein 6.1 L Albumin 2.7 L TSH Urine Appearance Urine Protein Urine Blood Urine Nitrite Urine Bilirubin Ur Leukocyte Esterase Urine RBC Urine WBC Urine WBC Clumps Urine Bacteria 03/11/19 03/11/19 03/11/19 21:05 21:05 21:16 WBC RBC Hgb Hct MCV MCH MCHC RDW Neutrophils # Neutrophils # (Manual) PT 12.9 H INR 1.2 H APTT 30.5 H Sodium Potassium Chloride Carbon Dioxide BUN Creatinine Glucose POC Glucose (mg/dL) 135 H Plasma Lactic Acid Tony Calcium Phosphorus Total Bilirubin AST Alkaline Phosphatase Ammonia 36 H Total Protein Albumin TSH Urine Appearance Urine Protein Urine Blood Urine Nitrite Urine Bilirubin Ur Leukocyte Esterase Urine RBC Urine WBC Urine WBC Clumps Urine Bacteria 03/11/19 03/11/19 03/12/19 21:30 22:15 01:43 WBC RBC Hgb Hct MCV MCH MCHC RDW Neutrophils # Neutrophils # (Manual) PT INR APTT Sodium 136 L Potassium 5.2 H Chloride 110 H Carbon Dioxide 11 L BUN 48 H Creatinine 6.83 H Glucose 128 H POC Glucose (mg/dL) 156 H Plasma Lactic Acid Tony Calcium Phosphorus Total Bilirubin 6.3 H AST 131 H Alkaline Phosphatase 230 H Ammonia Total Protein 6.0 L Albumin 2.7 L TSH Urine Appearance Turbid H Urine Protein 2+ H Urine Blood Moderate H Urine Nitrite Positive H Urine Bilirubin 1+ H Ur Leukocyte Esterase Large H Urine RBC 68 H Urine WBC >182 H Urine WBC Clumps Many H Urine Bacteria Many H 03/12/19 03/12/19 03/12/19 05:02 05:02 05:02 WBC 12.4 H RBC 2.22 L Hgb 8.0 L Hct 27.1 L MCV 121.7 H MCH 36.0 H MCHC 29.6 L RDW 16.7 H Neutrophils # 10.5 H Neutrophils # (Manual) PT INR APTT Sodium Potassium Chloride 113 H Carbon Dioxide 11 L BUN 47 H Creatinine 6.16 H Glucose 149 H POC Glucose (mg/dL) Plasma Lactic Acid Tony Calcium 7.6 L Phosphorus 7.4 H Total Bilirubin AST Alkaline Phosphatase Ammonia Total Protein Albumin TSH 47.400 H Urine Appearance Urine Protein Urine Blood Urine Nitrite Urine Bilirubin Ur Leukocyte Esterase Urine RBC Urine WBC Urine WBC Clumps Urine Bacteria - Diagnostic Findings Chest x-ray: image reviewed Assessment and Plan Plan: 1 septic shock secondary to gram-negative bacillus. The patient is bacteremic and the patient's blood cultures are showing gram-negative bacillus, likely source of infection being the urinary tract. 2 profound hypotension/shock secondary to above. The patient has been resus citated with 5 L of IV fluids and currently the patient's bicarb drip, dopamine and Levophed infusion. 3 acute kidney injury, the patient is oliguric and not producing significant amount of urine output at this point in time. 4 history of kidney transplant, maintained on immunosuppression with a c ombination of Rapamune and CellCept on outpatient basis 5 alcoholic liver disease with liver cirrhosis and pancytopenia and hyperbilirubinemia 6 stage I hepatitic encephalopathy 7 chronic anemia 8 chronic lymphocytopenia 9 non-anion gap metabolic acidosis currently on a bicarb infusion 10 history of recurrent UTI with E. coli 11 history of kidney chest mentation 2 11 history of CVA 12 history of hypertension 13 history of hyperlipidemia 14 history of congenital absence of the kidney/polycystic kidney disease 15 history of diverticular disease 16 edematous upper and lower extremities bilaterally 17 bradycardia, sinus, likely a beta michelle effect in combination with calcium channel blockers, echocardiogram still pending Plan Continue IV cefepime. Continue bicarb infusion. Continue combination of norepinephrine and dopamine. Echocardiogram to assess LV function. IV Lasix and assess the patient's ability to urinate while on diuretics. Hold CellCept and Rapamune for now. Nephrology consult. ID consult. May need dialysis at a later stage. We'll continue to follow and make further recommendations based on her progress. Condition is critical at this point in time. Time with Patient: Greater than 30
--- NOTE | 2019-03-12 13:33 | P.HPIM ---
History of Present Illness H&P Date: 03/12/19 This is a 58-year-old female patient who presents to the ER from [facility]. Patient has a complex medical history including kidney transplant in 2002 in which she is maintained on immunosuppression CellCept and Rapamune. Additional medical history includes recent admission for acute alcoholic hepatitis with chronic liver failure although, chronic kidney disease, underlying history of hyperlipidemia, depression, anemia and thrombocytopenia. Patient presented with heart rate in the 20s and 30s and hypotensive. Patient also in acute on chronic renal failure with creatinine 6.16 and bun 47. Patient was admitted to intensive care unit. Patient started on dopamine, Levophed and sodium bicarb drip. Blood cultures ordered. Lactic acid 1.6. Cardiology, nephrology, GI services and critical care. Patient currently on cefepime for antibiotics. At this time patient remains in the intensive care unit. Patient is complaining of some abdominal discomfort. Discussed case with nephrology services. Patient will be given Lasix today may require hemodialysis tomorrow. At this time patient denies chest pain. Heart rate has improved on dopamine. Patient denies shortness of breath. Oleary catheter is in place with minimal urine output Review of Systems Please refer to HPI otherwise unremarkable Past Medical History Past Medical History: CVA/TIA, Hyperlipidemia, Hypertension, Renal Disease Additional Past Medical History / Comment(s): HEART MURMUR, HX OF TIA , DIVERTICLITIS, ANEMIA., HEPATITIS, RECENT CORTISONE INJECTION OF THUMB FOR BASAL JOINT ARTHRITIS., BACK AND RIGHT SHOULDER PAIN (LIMITED ROM), POLYCYSTIC KIDNEY DISEASE, BORN WITH 1 KIDNEDY. 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 HX OF HEMODIALYSIS. 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 History of Any Multi-Drug Resistant Organisms: MRSA Date of last positivie culture/infection: 08/28/2014 MDRO Source:: Abdomen Past Surgical History: Adenoidectomy, Bladder Surgery, Section, Tonsillectomy, Tubal Ligation Additional Past Surgical History / Comment(s): cataracts. 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 eye surgery. dialysis fistula left arm. breast bx. Past Anesthesia/Blood Transfusion Reactions: Motion Sickness Past Psychological History: Anxiety Additional Psychological History / Comment(s): No animals. No travel. The experience Smoking Status: Never smoker Past Alcohol Use History: Abuse, Daily, Heavy Additional Past Alcohol Use History / Comment(s): pt reports consuming 1 pint of vodka per day, last drink 02/15/19 Past Drug Use History: Marijuana Additional Drug Use History / Comment(s): 3 times a month - Past Family History Mother Family Medical History: No Reported History Medications and Allergies Home Medications Medication Instructions Recorded Confirmed Type ARIPiprazole [Abilify] 2 mg PO DAILY 08/13/14 03/11/19 History Sirolimus [Rapamune] 1 mg PO DAILY 08/13/14 03/11/19 History Atomoxetine HCl [Strattera] 40 mg PO DAILY 01/23/19 03/11/19 History Carvedilol [Coreg] 6.25 mg PO BID 01/23/19 03/11/19 History Escitalopram [Lexapro] 20 mg PO DAILY 01/23/19 03/11/19 History Mycophenolate Mofetil [Cellcept] 500 mg PO BID 01/23/19 03/11/19 History Diltiazem Cd [Cardizem CD] 240 mg PO DAILY cap.er.24h 02/22/19 03/11/19 Rx Ibuprofen [Motrin] 400 mg PO Q6HR PRN tab 02/22/19 03/11/19 Rx Lactulose [Cephulac] 20 gm PO TID ml 02/22/19 03/11/19 Rx Thiamine [Vitamin B-1] 100 mg PO BID@1200,1700 tab 02/22/19 03/11/19 Rx Benzocaine/Menthol Lozeng [Cepacol 1 lozenge MUCOUS MEM Q2H PRN 03/11/19 03/11/19 History lozenge] Furosemide [Lasix] 20 mg PO DAILY 03/11/19 03/11/19 History Nystatin 100,000 Unit/ml Susp 500,000 unit PO 5XD 03/11/19 03/11/19 History [Mycostatin Oral Susp] Tamsulosin [Flomax] 0.4 mg PO HS 03/11/19 03/11/19 History Allergies Allergy/AdvReac Type Severity Reaction Status Date / Time Penicillins AdvReac Vomiting Verified 03/11/19 21:24 Physical Exam Vitals: Vital Signs Temp Pulse Pulse Resp BP Pulse Ox 03/12/19 11:01 75 16 80/56 92 L 03/12/19 10:00 63 16 93/64 94 L 03/12/19 09:00 65 14 89/47 94 L 03/12/19 08:00 98.0 F 61 16 90/46 98 03/12/19 07:00 57 L 9 L 86/53 03/12/19 06:00 58 L 6 L 83/65 03/12/19 05:00 57 L 10 L 84/41 03/12/19 04:00 93.7 F L 52 L 9 L 77/50 99 03/12/19 03:00 44 L 20 70/57 98 03/12/19 02:00 36 L 11 L 75/43 99 03/12/19 01:00 36 L 22 92/64 96 03/12/19 00:00 42 L 20 97/57 98 03/11/19 23:56 40 L 20 97/57 92 L 03/11/19 22:50 30 L 14 92/57 03/11/19 22:40 32 L 14 96/53 03/11/19 22:30 29 L 14 97/67 96 03/11/19 22:09 32 L 03/11/19 21:00 97.3 F L 33 L 18 102/59 100 Intake and Output 03/11/19 03/12/19 03/12/19 22:59 06:59 14:59 Intake Total 5310.078 860.284 Output Total 15 35 Balance 5295.078 825.284 Intake: IV 1799 525 Cefepime 2 gm In Sodium 50 Chloride 0.9% 50 ml @ 100 mls/hr IVPB ONCE STA Rx# :[id number] Dextrose 5% in Water 1, 750 525 000 ml @ 75 mls/hr IV . [id number] EDDA with Sodium Bicarb (1 Meq/ml) 150 ml Rx#:[id number] Sodium Chloride 0.9% 1, 999 000 ml @ 999 mls/hr IV . Q1H1M ONE Rx#:[id number] Amount of Fluid Infused ( 3500 ml) Intake, IV Titration 215.284 Amount Levofloxacin 750Mg-D5w 200 Pmx 750 mg In Dextrose/ Water 1 150ml.bag @ 100 mls/hr IVPB ONCE STA Rx#: [id number] Norepinephrine 4 mg In 11. 15.284 Sodium Chloride 0.9% 250 ml @ 0.05 MCG/KG/MIN 11. 579 mls/hr IV .[id number] [facility] Rx#:[id number] Oral 120 Output: Urine 15 35 Other: Voiding Method Indwelling Catheter Indwelling Catheter # Bowel Movements 1 Weight 60.781 kg 89 kg Head normocephalic, jaundice Neck supple Lungs clear to auscultation bilaterally no wheezing or crackles Heart regular rate and rhythm S1-S2, no rub or gallop Abdomen is soft nontender nondistended positive bowel sounds no hepatosplenomegaly Extremities generalized edema Results CBC & Chem 7: 03/12/19 05:02 03/12/19 05:02 Labs: Abnormal Lab Results - Last 24 Hours (Table) 03/11/19 03/11/19 03/11/19 Range/Units 20:15 21:05 21:05 WBC 13.9 H (3.8-10.6) k/uL RBC 2.48 L (3.80-5.40) m/uL Hgb 8.8 L (11.4-16.0) gm/dL Hct 29.3 L (34.0-46.0) % MCV 118.4 H D (80.0-100.0) fL MCH 35.6 H (25.0-35.0) pg MCHC 30.1 L (31.0-37.0) g/dL RDW 17.1 H (11.5-15.5) % Neutrophils # (1.3-7.7) k/uL Neutrophils # (Manual) 11.60 H (1.3-7.7) k/uL PT (9.0-12.0) sec INR (<1.2) APTT (22.0-30.0) sec Sodium (137-145) mmol/L Potassium 5.4 H (3.5-5.1) mmol/L Chloride 111 H (98-107) mmol/L Carbon Dioxide 11 L (22-30) mmol/L BUN 48 H (7-17) mg/dL Creatinine 6.92 H (0.52-1.04) mg/dL Glucose 131 H (74-99) mg/dL POC Glucose (mg/dL) (75-99) mg/dL Plasma Lactic Acid Tony 2.1 H* (0.7-2.0) mmol/L Calcium (8.4-10.2) mg/dL Phosphorus (2.5-4.5) mg/dL Total Bilirubin 6.4 H (0.2-1.3) mg/dL AST 130 H (14-36) U/L Alkaline Phosphatase 229 H (38-126) U/L Ammonia (<30) umol/L Total Protein 6.1 L (6.3-8.2) g/dL Albumin 2.7 L (3.5-5.0) g/dL TSH (0.465-4.680) mIU/L Urine Appearance (Clear) Urine Protein (Negative) Urine Blood (Negative) Urine Nitrite (Negative) Urine Bilirubin (Negative) Ur Leukocyte Esterase (Negative) Urine RBC (0-5) /hpf Urine WBC (0-5) /hpf Urine WBC Clumps (None) /hpf Urine Bacteria (None) /hpf 03/11/19 03/11/19 03/11/19 Range/Units 21:05 21:05 21:16 WBC (3.8-10.6) k/uL RBC (3.80-5.40) m/uL Hgb (11.4-16.0) gm/dL Hct (34.0-46.0) % MCV (80.0-100.0) fL MCH (25.0-35.0) pg MCHC (31.0-37.0) g/dL RDW (11.5-15.5) % Neutrophils # (1.3-7.7) k/uL Neutrophils # (Manual) (1.3-7.7) k/uL PT 12.9 H (9.0-12.0) sec INR 1.2 H (<1.2) APTT 30.5 H (22.0-30.0) sec Sodium (137-145) mmol/L Potassium (3.5-5.1) mmol/L Chloride (98-107) mmol/L Carbon Dioxide (22-30) mmol/L BUN (7-17) mg/dL Creatinine (0.52-1.04) mg/dL Glucose (74-99) mg/dL POC Glucose (mg/dL) 135 H (75-99) mg/dL Plasma Lactic Acid Tony (0.7-2.0) mmol/L Calcium (8.4-10.2) mg/dL Phosphorus (2.5-4.5) mg/dL Total Bilirubin (0.2-1.3) mg/dL AST (14-36) U/L Alkaline Phosphatase (38-126) U/L Ammonia 36 H (<30) umol/L Total Protein (6.3-8.2) g/dL Albumin (3.5-5.0) g/dL TSH (0.465-4.680) mIU/L Urine Appearance (Clear) Urine Protein (Negative) Urine Blood (Negative) Urine Nitrite (Negative) Urine Bilirubin (Negative) Ur Leukocyte Esterase (Negative) Urine RBC (0-5) /hpf Urine WBC (0-5) /hpf Urine WBC Clumps (None) /hpf Urine Bacteria (None) /hpf 03/11/19 03/11/19 03/12/19 Range/Units 21:30 22:15 01:43 WBC (3.8-10.6) k/uL RBC (3.80-5.40) m/uL Hgb (11.4-16.0) gm/dL Hct (34.0-46.0) % MCV (80.0-100.0) fL MCH (25.0-35.0) pg MCHC (31.0-37.0) g/dL RDW (11.5-15.5) % Neutrophils # (1.3-7.7) k/uL Neutrophils # (Manual) (1.3-7.7) k/uL PT (9.0-12.0) sec INR (<1.2) APTT (22.0-30.0) sec Sodium 136 L (137-145) mmol/L Potassium 5.2 H (3.5-5.1) mmol/L Chloride 110 H (98-107) mmol/L Carbon Dioxide 11 L (22-30) mmol/L BUN 48 H (7-17) mg/dL Creatinine 6.83 H (0.52-1.04) mg/dL Glucose 128 H (74-99) mg/dL POC Glucose (mg/dL) 156 H (75-99) mg/dL Plasma Lactic Acid Tony (0.7-2.0) mmol/L Calcium (8.4-10.2) mg/dL Phosphorus (2.5-4.5) mg/dL Total Bilirubin 6.3 H (0.2-1.3) mg/dL AST 131 H (14-36) U/L Alkaline Phosphatase 230 H (38-126) U/L Ammonia (<30) umol/L Total Protein 6.0 L (6.3-8.2) g/dL Albumin 2.7 L (3.5-5.0) g/dL TSH (0.465-4.680) mIU/L Urine Appearance Turbid H (Clear) Urine Protein 2+ H (Negative) Urine Blood Moderate H (Negative) Urine Nitrite Positive H (Negative) Urine Bilirubin 1+ H (Negative) Ur Leukocyte Esterase Large H (Negative) Urine RBC 68 H (0-5) /hpf Urine WBC >182 H (0-5) /hpf Urine WBC Clumps Many H (None) /hpf Urine Bacteria Many H (None) /hpf 03/12/19 03/12/19 03/12/19 Range/Units 05:02 05:02 05:02 WBC 12.4 H (3.8-10.6) k/uL RBC 2.22 L (3.80-5.40) m/uL Hgb 8.0 L (11.4-16.0) gm/dL Hct 27.1 L (34.0-46.0) % MCV 121.7 H (80.0-100.0) fL MCH 36.0 H (25.0-35.0) pg MCHC 29.6 L (31.0-37.0) g/dL RDW 16.7 H (11.5-15.5) % Neutrophils # 10.5 H (1.3-7.7) k/uL Neutrophils # (Manual) (1.3-7.7) k/uL PT (9.0-12.0) sec INR (<1.2) APTT (22.0-30.0) sec Sodium (137-145) mmol/L Potassium (3.5-5.1) mmol/L Chloride 113 H (98-107) mmol/L Carbon Dioxide 11 L (22-30) mmol/L BUN 47 H (7-17) mg/dL Creatinine 6.16 H (0.52-1.04) mg/dL Glucose 149 H (74-99) mg/dL POC Glucose (mg/dL) (75-99) mg/dL Plasma Lactic Acid Tony (0.7-2.0) mmol/L Calcium 7.6 L (8.4-10.2) mg/dL Phosphorus 7.4 H (2.5-4.5) mg/dL Total Bilirubin (0.2-1.3) mg/dL AST (14-36) U/L Alkaline Phosphatase (38-126) U/L Ammonia (<30) umol/L Total Protein (6.3-8.2) g/dL Albumin (3.5-5.0) g/dL TSH 47.400 H (0.465-4.680) mIU/L Urine Appearance (Clear) Urine Protein (Negative) Urine Blood (Negative) Urine Nitrite (Negative) Urine Bilirubin (Negative) Ur Leukocyte Esterase (Negative) Urine RBC (0-5) /hpf Urine WBC (0-5) /hpf Urine WBC Clumps (None) /hpf Urine Bacteria (None) /hpf Microbiology - Last 24 Hours (Table) 03/11/19 22:15 Blood Culture - Final Blood 03/11/19 21:30 Urine Culture - Preliminary Urine,Catheterized Thrombosis Risk Factor Assmnt - Choose All That Apply Each Factor Represents 1 point: Age 41-60 years, Medical pt on bed rest, Obesity (BMI >25), Sepsis (< 1month) Other Risk Factors: No Other congenital or acquired thrombophilia - If yes, enter type in comment: No Thrombosis Risk Factor Assessment Total Risk Factor Score: 4 Thrombosis Risk Factor Assessment Level: Moderate Risk Assessment and Plan Assessment: 1. Urinary tract infection with septic shock. Lactic acid 1.7. Dr. Lira consulted for infectious disease. Patient maintained on Maxipime for antibiotics. Critical care following 2. Sinus bradycardia. Patient's heart rate in the 20s and 30s on admit. Dopamine started. Cardiology services following. 3. Hypotension due to septic shock. Patient started on Levophed. 4. 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 Creatinine 6.9 on admission. Discussed case with nephrology Dr. Wheeler. 1 dose of IV Lasix today per nephrology. Possible hemodialysis tomorrow 5. Metabolic acidosis secondary to acute kidney injury and diarrhea 6. Status post living renal transplant in 2002. 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 Patient maintained on cellCept and rapamune medication. Per nephrology discontinue CellCept due to sepsis at this time 7. Acute on chronic liver disease. GI services are following patient maintained on lactulose 20 g 3 times a day for elevated blood ammonia level 8. History of alcohol abuse 9. Hypothyroidism. TSH 47. Patient started on Synthroid 25 mcgs 10. History of CVA 11. History of hyperlipidemia 12. History of essential hypertension 13. History of anxiety Patient currently admitted to the intensive care unit Critical care, cardiology, nephrology, GI and infectious disease following Patient currently on Levophed, dopamine and sodium bicarb drip Time with Patient: Greater than 30 (I performed an examination of the patient and discussed their management with the Nurse Practitioner. I have reviewed the Nurse Practitioner's notes and agree with the documented findings and plan of care. Greater than 60% of the total time spent in counseling and coordination of care)
[2019-03-12] MEDS ORDERED: CEFEPIME 2 GM in SODIUM CHLORIDE 0.9% 100 ML IVPB SCH (14:00)
[2019-03-12] MEDS: THIAMINE 100 MG TAB PO SCH ×2 (14:28→18:07)
[2019-03-12] MEDS ORDERED: FUROSEMIDE 10 MG/ML 10 ML VIAL IV ONE (15:00)
[2019-03-12 15:27] VITALS: BP 97/68
--- NOTE | 2019-03-12 15:55 | P.CONS ---
History of Present Illness - Reason for Consult Consult date: 03/12/19 - Chief Complaint Altered mental status - History of Present Illness 58-year-old female presents to Hospital from the extended care facility that she has been receiving care with some worsening of her mental status. It is noted the patient was recently hospitalized which point in time she was acutely ill with altered mental status. There was evidence of acute alcohol intoxication at that time, and there was development of acute alcoholic hepatitis. She has a history of polycystic kidney disease and has undergone renal transplantation in 2 events. It is noted she's had hemodialysis in the past in her dialysis fistula is nonfunctional. The patient now presents from extended care facility that she was transferred to after hospitalization with worsening mental status. It is found that she has evidence of acute renal failure and ongoing abnormal liver function. The patient who is arousable is not a good historian but does relate that she feels very poorly. There is a si gnificant increase in the amount of fluid and edema that she has. She does not believe she's had fever or chills. Review of Systems ROS unobtainable: due to mental status Past Medical History Past Medical History: CVA/TIA, Hyperlipidemia, Hypertension, Renal Disease Additional Past Medical History / Comment(s): HEART MURMUR, HX OF TIA , DIVERTICLITIS, ANEMIA., HEPATITIS, RECENT CORTISONE INJECTION OF THUMB FOR BASAL JOINT ARTHRITIS., BACK AND RIGHT SHOULDER PAIN (LIMITED ROM), POLYCYSTIC KIDNEY DISEASE, BORN WITH 1 KIDNEDY. 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 HX OF HEMODIALYSIS. 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 History of Any Multi-Drug Resistant Organisms: MRSA Year Discovered:: 08/28/2014 MDRO Source:: Abdomen Past Surgical History: Adenoidectomy, Bladder Surgery, Section, Tonsillectomy, Tubal Ligation Additional Past Surgical History / Comment(s): cataracts. 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 eye surgery. dialysis fistula left arm. breast bx. Past Anesthesia/Blood Transfusion Reactions: Motion Sickness Past Psychological History: Anxiety Additional Psychological History / Comment(s): No animals. No travel. The experience Smoking Status: Never smoker Past Alcohol Use History: Abuse, Daily, Heavy Additional Past Alcohol Use History / Comment(s): pt reports consuming 1 pint of vodka per day, last drink 02/15/19 Past Drug Use History: Marijuana Additional Drug Use History / Comment(s): 3 times a month - Past Family History Mother Family Medical History: No Reported History Medications and Allergies Home Medications and Allergies Comment(s): Current Medications Aripiprazole (Abilify) 2 mg PO DAILY [facility] Last Admin: 03/12/19 08:25 Dose: 2 mg Documented by: Clotrimazole (Mycelex Solis) 10 mg PO 5XD [facility] Last Admin: 03/12/19 15:46 Dose: Not Given Documented by: Escitalopram Oxalate (Lexapro) 20 mg PO DAILY [facility] Last Admin: 03/12/19 08:25 Dose: 20 mg Documented by: Famotidine (Pepcid) 20 mg PO DAILY [facility] Sodium Bicarbonate 150 ml/ (Dextrose/Water) 1,150 mls @ 75 mls/hr IV .[id number] [facility] Last Admin: 03/12/19 10:14 Dose: 125 mls/hr Documented by: Dopamine HCl/Dextrose 800 mg/ (IV Solution) 250 mls @ 5.698 mls/hr IV .Q24H [facility]; Protocol Last Admin: 03/12/19 03:40 Dose: 5 mcg/kg/min, 5.698 mls/hr Documented by: Norepinephrine Bitartrate 4 mg (/ Sodium Chloride) 254 mls @ 11.579 mls/hr IV .[id number] [facility]; Protocol Last Titration: 03/12/19 07:14 Dose: 0.1 mcg/kg/min, 23.158 mls/hr Documented by: Cefepime HCl 0.5 gm/ Sodium (Chloride) 50 mls @ 100 mls/hr IVPB Q24HR@0000 [facility] Lactulose (Cephulac) 20 gm PO TID [facility] Last Admin: 03/12/19 15:47 Dose: 20 gm Documented by: Levothyroxine Sodium (Synthroid) 25 mcg PO DAILY@0630 [facility] Naloxone HCl (Narcan) 0.2 mg IV Q2M PRN PRN Reason: Opioid Reversal Non-Formulary Medication (Sirolimus [Rapamune]) 1 mg PO DAILY [facility] Last Admin: 03/12/19 08:38 Dose: Not Given Documented by: Thiamine HCl (Vitamin B-1) 100 mg PO BID@1200,1700 [facility] Last Admin: 03/12/19 14:28 Dose: 100 mg Documented by: Home Medications Medication Instructions Recorded Confirmed Type ARIPiprazole [Abilify] 2 mg PO DAILY 08/13/14 03/11/19 History Sirolimus [Rapamune] 1 mg PO DAILY 08/13/14 03/11/19 History Atomoxetine HCl [Strattera] 40 mg PO DAILY 01/23/19 03/11/19 History Carvedilol [Coreg] 6.25 mg PO BID 01/23/19 03/11/19 History Escitalopram [Lexapro] 20 mg PO DAILY 01/23/19 03/11/19 History Mycophenolate Mofetil [Cellcept] 500 mg PO BID 01/23/19 03/11/19 History Diltiazem Cd [Cardizem CD] 240 mg PO DAILY cap.er.24h 02/22/19 03/11/19 Rx Ibuprofen [Motrin] 400 mg PO Q6HR PRN tab 02/22/19 03/11/19 Rx Lactulose [Cephulac] 20 gm PO TID ml 02/22/19 03/11/19 Rx Thiamine [Vitamin B-1] 100 mg PO BID@1200,1700 tab 02/22/19 03/11/19 Rx Benzocaine/Menthol Lozeng [Cepacol 1 lozenge MUCOUS MEM Q2H PRN 03/11/19 03/11/19 History lozenge] Furosemide [Lasix] 20 mg PO DAILY 03/11/19 03/11/19 History Nystatin 100,000 Unit/ml Susp 500,000 unit PO 5XD 03/11/19 03/11/19 History [Mycostatin Oral Susp] Tamsulosin [Flomax] 0.4 mg PO HS 03/11/19 03/11/19 History Allergies Allergy/AdvReac Type Severity Reaction Status Date / Time Penicillins AdvReac Vomiting Verified 03/11/19 21:24 Physical Exam Vitals: Vital Signs Temp Pulse Pulse Resp BP Pulse Ox 03/12/19 15:00 75 17 97/68 99 03/12/19 14:00 74 16 93/75 97 03/12/19 13:00 73 16 93/78 94 L 03/12/19 12:00 96.6 F L 68 16 107/59 94 L 03/12/19 11:01 75 16 80/56 92 L 03/12/19 10:00 63 16 93/64 94 L 03/12/19 09:00 65 14 89/47 94 L 03/12/19 08:00 98.0 F 61 16 90/46 98 03/12/19 07:00 57 L 9 L 86/53 03/12/19 06:00 58 L 6 L 83/65 03/12/19 05:00 57 L 10 L 84/41 03/12/19 04:00 93.7 F L 52 L 9 L 77/50 99 03/12/19 03:00 44 L 20 70/57 98 03/12/19 02:00 36 L 11 L 75/43 99 03/12/19 01:00 36 L 22 92/64 96 03/12/19 00:00 42 L 20 97/57 98 03/11/19 23:56 40 L 20 97/57 92 L 03/11/19 22:50 30 L 14 92/57 03/11/19 22:40 32 L 14 96/53 03/11/19 22:30 29 L 14 97/67 96 03/11/19 22:09 32 L 03/11/19 21:00 97.3 F L 33 L 18 102/59 100 Intake and Output 03/12/19 03/12/19 03/12/19 06:59 14:59 22:59 Intake Total 5310.078 1325.284 75 Output Total 15 50 25 Balance 5295.078 1275.284 50 Intake: IV 1799 750 75 Cefepime 2 gm In Sodium 50 Chloride 0.9% 50 ml @ 100 mls/hr IVPB ONCE STA Rx# :[id number] Dextrose 5% in Water 1, 750 750 75 000 ml @ 75 mls/hr IV . [id number] EDDA with Sodium Bicarb (1 Meq/ml) 150 ml Rx#:[id number] Sodium Chloride 0.9% 1, 999 000 ml @ 999 mls/hr IV . Q1H1M ONE Rx#:[id number] Amount of Fluid Infused ( 3500 ml) Intake, IV Titration 215.284 Amount Levofloxacin 750Mg-D5w 200 Pmx 750 mg In Dextrose/ Water 1 150ml.bag @ 100 mls/hr IVPB ONCE STA Rx#: [id number] Norepinephrine 4 mg In 11.078 15.284 Sodium Chloride 0.9% 250 ml @ 0.05 MCG/KG/MIN 11. 579 mls/hr IV .[id number] [facility] Rx#:[id number] Oral 360 Output: Urine 15 50 25 Other: Voiding Method Indwelling Catheter Indwelling Catheter # Bowel Movements 1 Weight 89 kg 58-year-old woman remains jaundiced HEENT: Anicteric conjunctiva are pink and moist nasal mucosa grossly intact without significant lesions, there is no thrush. Neck: The neck is supple without significant lymphadenopathy or thyromegaly. Lungs: Symmetrical bilateral air entry with few expiratory wheezes no bronchial sounds Heart: Regular rate and rhythm with an audible S1-S2, no S3 no S4. There is no significant murmur click or rub, PMI was nondisplaced. Abdomen: Obese, Positive bowel sounds soft and nontender without palpable masses or organomegaly. There was no guarding or rebound. Tenderness in the right upper quadrant no significant ascites spleen was not palpable Extremities: Significant increase in the amount of peripheral edema, there is also evidence of ecchymosis to the palmar surface of the left wrist that is tender and edematous. No open ulceration is seen Neuthe patient is arousable and awake follows some simple commands poor historian at this time Results CBC & Chem 7: 03/12/19 05:02 03/12/19 05:02 Labs: Abnormal Lab Results - Last 24 Hours (Table) 03/11/19 03/11/19 03/11/19 Range/Units 20:15 21:05 21:05 WBC 13.9 H (3.8-10.6) k/uL RBC 2.48 L (3.80-5.40) m/uL Hgb 8.8 L (11.4-16.0) gm/dL Hct 29.3 L (34.0-46.0) % MCV 118.4 H D (80.0-100.0) fL MCH 35.6 H (25.0-35.0) pg MCHC 30.1 L (31.0-37.0) g/dL RDW 17.1 H (11.5-15.5) % Neutrophils # (1.3-7.7) k/uL Neutrophils # (Manual) 11.60 H (1.3-7.7) k/uL PT (9.0-12.0) sec INR (<1.2) APTT (22.0-30.0) sec Sodium (137-145) mmol/L Potassium 5.4 H (3.5-5.1) mmol/L Chloride 111 H (98-107) mmol/L Carbon Dioxide 11 L (22-30) mmol/L BUN 48 H (7-17) mg/dL Creatinine 6.92 H (0.52-1.04) mg/dL Glucose 131 H (74-99) mg/dL POC Glucose (mg/dL) (75-99) mg/dL Plasma Lactic Acid Tony 2.1 H* (0.7-2.0) mmol/L Calcium (8.4-10.2) mg/dL Phosphorus (2.5-4.5) mg/dL Total Bilirubin 6.4 H (0.2-1.3) mg/dL AST 130 H (14-36) U/L Alkaline Phosphatase 229 H (38-126) U/L Ammonia (<30) umol/L Total Protein 6.1 L (6.3-8.2) g/dL Albumin 2.7 L (3.5-5.0) g/dL TSH (0.465-4.680) mIU/L Urine Appearance (Clear) Urine Protein (Negative) Urine Blood (Negative) Urine Nitrite (Negative) Urine Bilirubin (Negative) Ur Leukocyte Esterase (Negative) Urine RBC (0-5) /hpf Urine WBC (0-5) /hpf Urine WBC Clumps (None) /hpf Urine Bacteria (None) /hpf 03/11/19 03/11/19 03/11/19 Range/Units 21:05 21:05 21:16 WBC (3.8-10.6) k/uL RBC (3.80-5.40) m/uL Hgb (11.4-16.0) gm/dL Hct (34.0-46.0) % MCV (80.0-100.0) fL MCH (25.0-35.0) pg MCHC (31.0-37.0) g/dL RDW (11.5-15.5) % Neutrophils # (1.3-7.7) k/uL Neutrophils # (Manual) (1.3-7.7) k/uL PT 12.9 H (9.0-12.0) sec INR 1.2 H (<1.2) APTT 30.5 H (22.0-30.0) sec Sodium (137-145) mmol/L Potassium (3.5-5.1) mmol/L Chloride (98-107) mmol/L Carbon Dioxide (22-30) mmol/L BUN (7-17) mg/dL Creatinine (0.52-1.04) mg/dL Glucose (74-99) mg/dL POC Glucose (mg/dL) 135 H (75-99) mg/dL Plasma Lactic Acid Tony (0.7-2.0) mmol/L Calcium (8.4-10.2) mg/dL Phosphorus (2.5-4.5) mg/dL Total Bilirubin (0.2-1.3) mg/dL AST (14-36) U/L Alkaline Phosphatase (38-126) U/L Ammonia 36 H (<30) umol/L Total Protein (6.3-8.2) g/dL Albumin (3.5-5.0) g/dL TSH (0.465-4.680) mIU/L Urine Appearance (Clear) Urine Protein (Negative) Urine Blood (Negative) Urine Nitrite (Negative) Urine Bilirubin (Negative) Ur Leukocyte Esterase (Negative) Urine RBC (0-5) /hpf Urine WBC (0-5) /hpf Urine WBC Clumps (None) /hpf Urine Bacteria (None) /hpf 03/11/19 03/11/19 03/12/19 Range/Units 21:30 22:15 01:43 WBC (3.8-10.6) k/uL RBC (3.80-5.40) m/uL Hgb (11.4-16.0) gm/dL Hct (34.0-46.0) % MCV (80.0-100.0) fL MCH (25.0-35.0) pg MCHC (31.0-37.0) g/dL RDW (11.5-15.5) % Neutrophils # (1.3-7.7) k/uL Neutrophils # (Manual) (1.3-7.7) k/uL PT (9.0-12.0) sec INR (<1.2) APTT (22.0-30.0) sec Sodium 136 L (137-145) mmol/L Potassium 5.2 H (3.5-5.1) mmol/L Chloride 110 H (98-107) mmol/L Carbon Dioxide 11 L (22-30) mmol/L BUN 48 H (7-17) mg/dL Creatinine 6.83 H (0.52-1.04) mg/dL Glucose 128 H (74-99) mg/dL POC Glucose (mg/dL) 156 H (75-99) mg/dL Plasma Lactic Acid Tony (0.7-2.0) mmol/L Calcium (8.4-10.2) mg/dL Phosphorus (2.5-4.5) mg/dL Total Bilirubin 6.3 H (0.2-1.3) mg/dL AST 131 H (14-36) U/L Alkaline Phosphatase 230 H (38-126) U/L Ammonia (<30) umol/L Total Protein 6.0 L (6.3-8.2) g/dL Albumin 2.7 L (3.5-5.0) g/dL TSH (0.465-4.680) mIU/L Urine Appearance Turbid H (Clear) Urine Protein 2+ H (Negative) Urine Blood Moderate H (Negative) Urine Nitrite Positive H (Negative) Urine Bilirubin 1+ H (Negative) Ur Leukocyte Esterase Large H (Negative) Urine RBC 68 H (0-5) /hpf Urine WBC >182 H (0-5) /hpf Urine WBC Clumps Many H (None) /hpf Urine Bacteria Many H (None) /hpf 03/12/19 03/12/19 03/12/19 Range/Units 05:02 05:02 05:02 WBC 12.4 H (3.8-10.6) k/uL RBC 2.22 L (3.80-5.40) m/uL Hgb 8.0 L (11.4-16.0) gm/dL Hct 27.1 L (34.0-46.0) % MCV 121.7 H (80.0-100.0) fL MCH 36.0 H (25.0-35.0) pg MCHC 29.6 L (31.0-37.0) g/dL RDW 16.7 H (11.5-15.5) % Neutrophils # 10.5 H (1.3-7.7) k/uL Neutrophils # (Manual) (1.3-7.7) k/uL PT (9.0-12.0) sec INR (<1.2) APTT (22.0-30.0) sec Sodium (137-145) mmol/L Potassium (3.5-5.1) mmol/L Chloride 113 H (98-107) mmol/L Carbon Dioxide 11 L (22-30) mmol/L BUN 47 H (7-17) mg/dL Creatinine 6.16 H (0.52-1.04) mg/dL Glucose 149 H (74-99) mg/dL POC Glucose (mg/dL) (75-99) mg/dL Plasma Lactic Acid Tony (0.7-2.0) mmol/L Calcium 7.6 L (8.4-10.2) mg/dL Phosphorus 7.4 H (2.5-4.5) mg/dL Total Bilirubin (0.2-1.3) mg/dL AST (14-36) U/L Alkaline Phosphatase (38-126) U/L Ammonia (<30) umol/L Total Protein (6.3-8.2) g/dL Albumin (3.5-5.0) g/dL TSH 47.400 H (0.465-4.680) mIU/L Urine Appearance (Clear) Urine Protein (Negative) Urine Blood (Negative) Urine Nitrite (Negative) Urine Bilirubin (Negative) Ur Leukocyte Esterase (Negative) Urine RBC (0-5) /hpf Urine WBC (0-5) /hpf Urine WBC Clumps (None) /hpf Urine Bacteria (None) /hpf Microbiology - Last 24 Hours (Table) 03/11/19 22:15 Blood Culture Gram Stain - Preliminary Blood 03/11/19 22:15 Blood Culture - Final Blood 03/11/19 21:30 Urine Culture - Preliminary Urine,Catheterized Laboratory Results WBC 12.4 k/uL (3.8-10.6) H 03/12/19 05:02 RBC 2.22 m/uL (3.80-5.40) L 03/12/19 05:02 Hgb 8.0 gm/dL (11.4-16.0) L 03/12/19 05:02 Hct 27.1 % (34.0-46.0) L 03/12/19 05:02 MCV 121.7 fL (80.0-100.0) H 03/12/19 05:02 MCH 36.0 pg (25.0-35.0) H 03/12/19 05:02 MCHC 29.6 g/dL (31.0-37.0) L 03/12/19 05:02 RDW 16.7 % (11.5-15.5) H 03/12/19 05:02 Plt Count 156 k/uL (150-450) 03/12/19 05:02 Neutrophils % 85 % 03/12/19 05:02 Neutrophils % (Manual) 80 % 03/11/19 21:05 Band Neutrophils % 4 % 03/11/19 21:05 Lymphocytes % 10 % 03/12/19 05:02 Lymphocytes % (Manual) 11 % 03/11/19 21:05 Monocytes % 3 % 03/12/19 05:02 Monocytes % (Manual) 5 % 03/11/19 21:05 Eosinophils % 1 % 03/12/19 05:02 Basophils % 0 % 03/12/19 05:02 Neutrophils # 10.5 k/uL (1.3-7.7) H 03/12/19 05:02 Neutrophils # (Manual) 11.60 k/uL (1.3-7.7) H 03/11/19 21:05 Lymphocytes # 1.2 k/uL (1.0-4.8) 03/12/19 05:02 Lymphocytes # (Manual) 1.53 k/uL (1.0-4.8) 03/11/19 21:05 Monocytes # 0.3 k/uL (0-1.0) 03/12/19 05:02 Monocytes # (Manual) 0.70 k/uL (0-1.0) 03/11/19 21:05 Eosinophils # 0.2 k/uL (0-0.7) 03/12/19 05:02 Basophils # 0.0 k/uL (0-0.2) 03/12/19 05:02 Nucleated RBCs 0 /100 WBC (0-0) 03/11/19 21:05 Manual Slide Review Performed 03/11/19 21:05 Large Platelets Present 03/11/19 21:05 Polychromasia Present 03/11/19 21:05 Hypochromasia Marked 03/12/19 05:02 Anisocytosis Slight 03/12/19 05:02 Macrocytosis Marked 03/12/19 05:02 PT 12.9 sec (9.0-12.0) H 03/11/19 21:05 INR 1.2 (<1.2) H 03/11/19 21:05 APTT 30.5 sec (22.0-30.0) H 03/11/19 21:05 Sodium 138 mmol/L (137-145) 03/12/19 05:02 Potassium 4.8 mmol/L (3.5-5.1) 03/12/19 05:02 Chloride 113 mmol/L (98-107) H 03/12/19 05:02 Carbon Dioxide 11 mmol/L (22-30) L 03/12/19 05:02 Anion Gap 14 mmol/L 03/12/19 05:02 BUN 47 mg/dL (7-17) H 03/12/19 05:02 Creatinine 6.16 mg/dL (0.52-1.04) H 03/12/19 05:02 Est GFR (CKD-EPI)AfAm 8 (>60 ml/min/1.73 sqM) 03/12/19 05:02 Est GFR (CKD-EPI)NonAf 7 (>60 ml/min/1.73 sqM) 03/12/19 05:02 Glucose 149 mg/dL (74-99) H 03/12/19 05:02 POC Glucose (mg/dL) 156 mg/dL (75-99) H 03/12/19 01:43 POC Glu Industrial X Ray Operator ID Papo Nelson 03/12/19 01:43 Lactic Ac Sepsis Rflx Y 03/11/19 21:59 Plasma Lactic Acid Tony 1.6 mmol/L (0.7-2.0) 03/12/19 01:16 Calcium 7.6 mg/dL (8.4-10.2) L 03/12/19 05:02 Phosphorus 7.4 mg/dL (2.5-4.5) H 03/12/19 05:02 Magnesium 1.9 mg/dL (1.6-2.3) 03/12/19 05:02 Total Bilirubin 6.3 mg/dL (0.2-1.3) H 03/11/19 22:15 AST 131 U/L (14-36) H 03/11/19 22:15 ALT 37 U/L (9-52) 03/11/19 22:15 Alkaline Phosphatase 230 U/L (38-126) H 03/11/19 22:15 Ammonia 36 umol/L (<30) H 03/11/19 21:05 Troponin I <0.012 ng/mL (0.000-0.034) 03/11/19 21:05 Total Protein 6.0 g/dL (6.3-8.2) L 03/11/19 22:15 Albumin 2.7 g/dL (3.5-5.0) L 03/11/19 22:15 TSH 47.400 mIU/L (0.465-4.680) H 03/12/19 05:02 Urine Color Dark Brown 03/11/19 21:30 Urine Appearance Turbid (Clear) H 03/11/19 21:30 Urine pH 6.0 (5.0-8.0) 03/11/19 21:30 Ur Specific Novelty 1.018 (1.001-1.035) 03/11/19 21:30 Urine Protein 2+ (Negative) H 03/11/19 21:30 Urine Glucose (UA) Negative (Negative) 03/11/19 21:30 Urine Ketones Negative (Negative) 03/11/19 21:30 Urine Blood Moderate (Negative) H 03/11/19 21:30 Urine Nitrite Positive (Negative) H 03/11/19 21:30 Urine Bilirubin 1+ (Negative) H 03/11/19 21:30 Urine Urobilinogen <2.0 mg/dL (<2.0) 03/11/19 21:30 Ur Leukocyte Esterase Large (Negative) H 03/11/19 21:30 Urine RBC 68 /hpf (0-5) H 03/11/19 21:30 Urine WBC >182 /hpf (0-5) H 03/11/19 21:30 Urine WBC Clumps Many /hpf (None) H 03/11/19 21:30 Urine Bacteria Many /hpf (None) H 03/11/19 21:30 Urine Opiates Screen Not Detected (NotDetected) 03/11/19 21:30 Ur Oxycodone Screen Not Detected (NotDetected) 03/11/19 21:30 Urine Methadone Screen Not Detected (NotDetected) 03/11/19 21:30 Ur Propoxyphene Screen Not Detected (NotDetected) 03/11/19 21:30 Ur Barbiturates Screen Not Detected (NotDetected) 03/11/19 21:30 U Tricyclic Antidepress Not Detected (NotDetected) 03/11/19 21:30 Ur Phencyclidine Scrn Not Detected (NotDetected) 03/11/19 21:30 Ur Amphetamines Screen Not Detected (NotDetected) 03/11/19 21:30 U Methamphetamines Scrn Not Detected (NotDetected) 03/11/19 21:30 U Benzodiazepines Scrn Not Detected (NotDetected) 03/11/19 21:30 Urine Cocaine Screen Not Detected (NotDetected) 03/11/19 21:30 U Marijuana (THC) Screen Not Detected (NotDetected) 03/11/19 21:30 Serum Alcohol <10 mg/dL 03/11/19 22:15 Comments: Transplanted kidney without hydronephrosis vascular flow maintained Chest x-ray: report reviewed (Without acute infiltrate) Assessment and Plan (1) Altered mental status Current Visit: Yes Status: Acute Code(s): R41.82 - ALTERED MENTAL STATUS, UNSPECIFIED SNOMED Code(s): 426783946 (2) Elevated liver enzymes Current Visit: Yes Status: Acute Code(s): R74.8 - ABNORMAL LEVELS OF OTHER SERUM ENZYMES SNOMED Code(s): 669049536 (3) Acute renal failure Current Visit: Yes Status: Acute Code(s): N17.9 - ACUTE KIDNEY FAILURE, UNSPECIFIED SNOMED Code(s): 50261516 (4) Gram-negative sepsis with organ dysfunction Narrative/Plan: 58-year-old woman presents to Hospital from the [facility] care facility where she has been receiving care since her recent hospitalization presents for worsening altered mental status. Patient continues to have lethargy and has evidence of acute renal failure which is of great concern given her renal transplant status. She was seen by nephrology and she is receiving fluids and soda bicarbonate to reduce her acidosis. CellCept is being held given the acute renal failure and levels were requested. The patient's hepatic dysfunction persists with an ongoing elevated bilirubin, has been evaluated by gastroenterology and advises ongoing alcohol cessation and monitoring. INR is only minimally elevated 1.2 which is improved from earlier this month. Albumin has increased slightly from 2.5-2.7. She does have evidence of gram-negative sepsis likely from the urinary system we have asked for a bladder scan to ensure that there is not any obstruction from the bladder with [place]. Cefepime has been initiated and dose adjusted her ready by pharmacy which is adequate choice based on her previous cultures of a non-ESBL Escherichia coli. Follow blood cultures requested. Current Visit: Yes Status: Acute Code(s): A41.50 - GRAM-NEGATIVE SEPSIS, UNSPECIFIED; R65.20 - SEVERE SEPSIS WITHOUT SEPTIC SHOCK SNOMED Code(s): 450590488
[2019-03-12] MEDS ORDERED: FUROSEMIDE 10 MG/ML 10 ML VIAL IV SCH (16:00)
--- NOTE | 2019-03-12 17:34 | ECHOF ---
Referral Reason:bradycardia MEASUREMENTS -------- HEIGHT: 147.3 cm WEIGHT: 60.8 kg BP: 86/56 IVSd: 1.1 cm (0.6 - 1.1) LVIDd: 3.5 cm (3.9 - 5.3) LVPWd: 1.1 cm (0.6 - 1.1) IVSs: 1.6 cm LVIDs: 2.5 cm LVPWs: 1.8 cm LA Diam: 3.4 cm (2.7 - 3.8) RVIDd: 3.0 cm (< 3.3) LAESV Index (A-L): 24.73 ml/m Ao Diam: 2.7 cm (2.0 - 3.7) AV Cusp: 2.0 cm (1.5 - 2.6) EPSS: 0.1 cm MV E River: 1.86 m/s MV DecT: 243 ms MV A River: 0.97 m/s MV E/A Ratio: 1.92 AR PHT: 498 ms RAP: 5.00 mmHg RVSP: 36.35 mmHg MV EF SLOPE: 44.30 mm/s (70 - 150) MV EXCURSION: 14.58 mm (> 18.000) FINDINGS -------- Sinus rhythm. This was a technically good study. The left ventricular size is normal. There is borderline concentric left ventricular hypertrophy. Overall left ventricular systolic function is normal with, an EF between 60 - 65 %. The right ventricle is normal in size. Normal LA size by volume 22+/-6 ml/m2. The right atrium is normal in size. There is mild aortic valve sclerosis. There is mild aortic regurgitation. The mitral valve leaflets are mildly thickened. Mild mitral annular calcification present. Mild-t o-moderate mitral regurgitation is present. Mbbt-[id number] tricuspid regurgitation present. There is mild pulmonary hypertension. The right ventricular systolic pressure, as measured by Doppler, is 36.35mmHg. Trace/mild (physiologic) pulmonic regurgitation. The aortic root size is normal. Normal inferior vena cava with normal inspiratory collapse consistent with estimated right atrial pre ssure of 5 mmHg. There is no pericardial effusion. CONCLUSIONS -------- 1. Sinus rhythm. 2. This was a technically good study. 3. The left ventricular size is normal. 4. There is borderline concentric left ventricular hypertrophy. 5. Overall left ventricular systolic function is normal with, an EF between 60 - 65 %. 6. The right ventricle is normal in size. 7. Normal LA size by volume 22+/-6 ml/m2. 8. The right atrium is normal in size. 9. There is mild aortic valve sclerosis. 10. There is mild aortic regurgitation. 11. The mitral valve leaflets are mildly thickened. 12. Mild mitral annular calcification present. 13. Vynl-mw-ewunxbsh mitral regurgitation is present. 14. Mqwy-qw-brvaflqk tricuspid regurgitation present. 15. There is mild pulmonary hypertension. 16. The right ventricular systolic pressure, as measured by Doppler, is 36.35mmHg. 17. Trace/mild (physiologic) pulmonic regurgitation. 18. The aortic root size is normal. 19. Normal inferior vena cava with normal inspiratory collapse consistent with estimated right atrial pressure of 5 mmHg. 20. There is no pericardial effusion. [employer] ENGINEER: Dulce Holguin RDCS
[2019-03-12 18:58] LABS: Calcium 7.3 mg/dL (8.4-10.2); Potassium 4.2 mmol/L (3.5-5.1)
--- NOTE | 2019-03-12 21:56 | XR ---
EXAMINATION: XR chest 1V portable DATE AND TIME: 03/12/2019 9:32 PM CLINICAL INDICATION: PHH; Confirm central line placement TECHNIQUE: AP portable semiupright COMPARISON: 03/11/2019 FINDINGS: The lungs are clear. The pleural spaces are negative. The cardiac silhouette is not enlarged. The remainder of the mediastinal silhouette is unremarkable. The skeletal structures and soft tissues are negative for acute findings. IMPRESSION: 1. No central line is seen. 2. No pneumothorax or pleural effusion.
--- NOTE | 2019-03-13 00:01 | PCN ---
PROCEDURE NOTE ARTERIAL LINE PLACEMENT (RIGHT RADIAL ARTERY): Indications: Hemodynamic monitoring. A time-out was completed verifying correct patient, procedure, site, positioning, and implant(s) or special equipment if applicable. Devin's test was performed to ensure adequate perfusion. The patient's right wrist was prepped and draped in sterile fashion. 1% Lidocaine was used to anesthetize the area. An 18G Arrow arterial line was introduced into the right radial artery. The catheter was threaded over the guide wire and the needle was removed with appropriate pulsatile blood return. Blood loss was minimal. The catheter was then sutured in place to the skin and a sterile dressing applied. Perfusion to the extremity distal to the point of catheter insertion was checked and found to be adequate. Waveform was noted. Line was flushed, secured in place with sutures. Sterile dressing was applied. The patient tolerated the procedure well and there were no complications. MMODL / IJN: [id number] /
[2019-03-13] MEDS: CEFEPIME 0.5 GM in SODIUM CHLORIDE 0.9% 50 ML IVPB SCH (00:36)
[2019-03-13 00:45] LABS: Glucose,Whole Blood 151 mg/dL (75-99)
[2019-03-13] MEDS: CLOTRIMAZOLE TROCHE 10 MG TROCHE PO SCH ×5 (00:54→20:27)
[2019-03-13 01:20] LABS: Hepatitis A Antibody IgM Non-Reactive (Non-Reactive); Hepatitis B Core IgM Non-Reactive (Non-Reactive)
[2019-03-13 04:29] LABS: Anisocytosis Slight; Basophils % (A) 0 %; Eosinophils # (A) 0.2 k/uL (0-0.7); Eosinophils % (A) 3 %; HCT 26.5 % (34.0-46.0); HGB 8.1 gm/dL (11.4-16.0); Hypochromasia Marked; Lymphocytes # (A) 0.9 k/uL (1.0-4.8); Lymphocytes % (A) 13 %; MCHC 30.6 g/dL (31.0-37.0); Macrocytosis Marked; Mean Platelet Volume 10.7; Monocytes # (A) 0.1 k/uL (0-1.0); Monocytes % (A) 2 %; Neutrophils # (A) 5.6 k/uL (1.3-7.7); Neutrophils % (A) 81 %; Platelet Count 183 k/uL (150-450); RBC 2.32 m/uL (3.80-5.40); RDW 16.9 % (11.5-15.5); WBC 6.9 k/uL (3.8-10.6)
[2019-03-13 04:41] LABS: INR 1.5 (<1.2); Prothrombin Time 15.2 sec (9.0-12.0)
[2019-03-13 04:54] LABS: Albumin 2.3 g/dL (3.5-5.0); Calcium 7.1 mg/dL (8.4-10.2); Magnesium 1.7 mg/dL (1.6-2.3); Phosphorus 6.6 mg/dL (2.5-4.5); Potassium 3.8 mmol/L (3.5-5.1); Total Protein 5.2 g/dL (6.3-8.2)
[2019-03-13 04:57] LABS: MCV 114.2 fL (80.0-100.0)
[2019-03-13] MEDS: DOPamine DRIP 800 MG in WATER FOR INJECTION 1 250ML.BAG IV SCH ×2 (06:08→11:28)
[2019-03-13] MEDS ORDERED: LEVOTHYROXINE 25 MCG TAB PO SCH (06:30)
[2019-03-13] MEDS ORDERED: FUROSEMIDE 10 MG/ML 10 ML VIAL IV STA ×2 (06:40→16:33)
[2019-03-13] MEDS ORDERED: SODIUM BICARB 8.4% 50 ML SYR (1 MEQ/ML) IV STA (06:42)
[2019-03-13] MEDS ORDERED: POTASSIUM CHLORIDE ER 20 MEQ TAB.ER PO STA (06:43)
[2019-03-13] MEDS ORDERED: MAGNESIUM SULFATE-D5W PMX 1 GM in DEXTROSE/WATER 1 100ML.BAG IVPB ONE (07:00)
--- NOTE | 2019-03-13 07:47 | XR ---
EXAMINATION TYPE: XR chest 1V DATE OF EXAM: 03/13/2019 HISTORY: Shortness of breath. COMPARISON: 03/12/2019 TECHNIQUE: Single view of the chest is submitted. FINDINGS: Demonstrated are scattered senescent parenchymal change. There is no evidence for focal infiltrate. The heart is stable. Hilar and mediastinal structures are within normal limits. Degenerative changes are seen of the dorsal spine. IMPRESSION: 1. Chronic changes without evidence for acute pulmonary disease.
--- NOTE | 2019-03-13 07:57 | PCN ---
PROCEDURE NOTE INSERTION OF A CENTRAL LINE: PREOPERATIVE DIAGNOSIS: Septic shock. POSTOPERATIVE DIAGNOSIS: Septic shock. A time-out was completed verifying correct patient, procedure, site, positioning, and implant(s) or special equipment if applicable. Devin's test was performed to ensure adequate perfusion. The patient's right groin was prepped and draped in sterile fashion. 1% Lidocaine was used to anesthetize the area. An 18G Arrow arterial line was introduced into the right femoral artery. The catheter was threaded over the guide wire and the needle was removed with appropriate pulsatile blood return. Blood loss was minimal. The catheter was then sutured in place to the skin and a sterile dressing applied. Perfusion to the extremity distal to the point of catheter insertion was checked and found to be adequate. The patient tolerated the procedure well and there were no complications. No bedside complications. MMODL / IJN: [id number] /
[2019-03-13] MEDS: SIROLIMUS 1 MG PO SCH (08:37)
[2019-03-13] MEDS: LACTULOSE 20 GM/30 ML CUP PO SCH (08:47)
[2019-03-13] MEDS: FAMOTIDINE 20 MG TAB PO SCH (08:47)
--- NOTE | 2019-03-13 08:55 | P.PN ---
Subjective Progress Note Date: 03/13/19 This is a 58-year-old female patient with an extensive past medical history significant for end stage renal disease and status post kidney transplant twice, history of chronic alcohol use, chronic liver disease secondary to alcohol, as well as multiple comorbid conditions, who was brought from an extended care facility to the hospital with a change in mental status. The patient just was discharged from the hospital 2 weeks ago to the extended care facility. When the patient arrived to the emergency room she was hypotensive and bradycardic. She was in sinus bradycardia with a resting heart rate in the 30s. Subsequently the patient was started on dopamine and then Levothroid. At the extended care facility, the patient was on Cardizem at 240 mg daily which was held. The EKG showed sinus bradycardia. The patient was found to be in renal failure with a creatinine around 6. The liver function tests are elevated. The alkaline phosphatase is elevated. The calcium and phosphorous are elevated as well. Currently the patient is in process to be seen by the nephrology service as well. On follow-up with the patient today, March [id number], the patient seems to be slightly better today she is not as confused as yesterday. Her heart rate has improved and we are coming dose with a dose of dopamine. She underwent an echocardiogram which revealed normal LV function with mild AI, [id number] MR, and mild to moderate TR. Objective - Vital Signs Vital signs: Vital Signs Temp 97.5 F L 03/13/19 08:00 Pulse 87 03/13/19 08:00 Resp 14 03/13/19 08:00 BP 97/68 03/12/19 15:00 Pulse Ox 99 03/13/19 08:00 Intake & Output 03/12/19 03/13/19 03/13/19 18:59 06:59 18:59 Intake Total 2104.922 1329.594 171 Output Total 101 377 80 Balance 2003.922 952.594 91 Weight 89 kg 88.7 kg Intake: IV 1242 1176 171 0.9 KVO 180 240 40 Dextrose 5% in Water 1, 1050 900 125 000 ml @ 50 mls/hr IV . Q23H [facility] with Sodium Bicarb (1 Meq/ml) 150 ml Rx#:[id number] Pressure Bag 12 36 6 Intake, IV Titration 442.922 153.594 Amount DOPamine DRIP 800 mg In 139.699 Water For Injection 1 250ml.bag @ 5 MCG/KG/MIN 5.698 mls/hr IV .Q24H [facility] Rx#:[id number] Levofloxacin 750Mg-D5w 200 Pmx 750 mg In Dextrose/ Water 1 150ml.bag @ 100 mls/hr IVPB ONCE STA Rx#: [id number] Norepinephrine 4 mg In 242.922 13.895 Sodium Chloride 0.9% 250 ml @ 0.05 MCG/KG/MIN 11. 579 mls/hr IV .[id number] [facility] Rx#:[id number] Oral 420 Output: Urine 100 377 80 Urine/Stool Mix 1 Other: Voiding Method Indwelling Catheter Indwelling Catheter # Bowel Movements 1 1 ABP, PAP, CO, CI - Last Documented Arterial Blood Pressure 112/61 - Constitutional General appearance: Present: no acute distress - Respiratory Respiratory: bilateral: CTA - Cardiovascular Rhythm: regular Abnormal Heart Sounds: Present: systolic murmur - Labs CBC & Chem 7: 03/13/19 04:10 03/13/19 04:10 Labs: Abnormal Lab Results - Last 24 Hours (Table) 03/12/19 03/12/19 03/13/19 Range/Units 05:02 18:25 00:43 RBC (3.80-5.40) m/uL Hgb (11.4-16.0) gm/dL Hct (34.0-46.0) % MCV (80.0-100.0) fL MCHC (31.0-37.0) g/dL RDW (11.5-15.5) % Lymphocytes # (1.0-4.8) k/uL PT (9.0-12.0) sec INR (<1.2) Chloride 110 H (98-107) mmol/L Carbon Dioxide 15 L (22-30) mmol/L BUN 47 H (7-17) mg/dL Creatinine 5.98 H (0.52-1.04) mg/dL Glucose 213 H (74-99) mg/dL POC Glucose (mg/dL) 151 H (75-99) mg/dL Calcium 7.3 L (8.4-10.2) mg/dL Phosphorus (2.5-4.5) mg/dL Total Bilirubin (0.2-1.3) mg/dL AST (14-36) U/L Alkaline Phosphatase (38-126) U/L Ammonia (<30) umol/L Total Protein (6.3-8.2) g/dL Albumin (3.5-5.0) g/dL TSH 47.400 H (0.465-4.680) mIU/L 03/13/19 03/13/19 03/13/19 Range/Units 04:10 04:10 04:10 RBC 2.32 L (3.80-5.40) m/uL Hgb 8.1 L (11.4-16.0) gm/dL Hct 26.5 L (34.0-46.0) % MCV 114.2 H D (80.0-100.0) fL MCHC 30.6 L (31.0-37.0) g/dL RDW 16.9 H (11.5-15.5) % Lymphocytes # 0.9 L (1.0-4.8) k/uL PT 15.2 H (9.0-12.0) sec INR 1.5 H (<1.2) Chloride 109 H (98-107) mmol/L Carbon Dioxide 17 L (22-30) mmol/L BUN 47 H (7-17) mg/dL Creatinine 5.73 H (0.52-1.04) mg/dL Glucose 133 H (74-99) mg/dL POC Glucose (mg/dL) (75-99) mg/dL Calcium 7.1 L (8.4-10.2) mg/dL Phosphorus 6.6 H (2.5-4.5) mg/dL Total Bilirubin 5.0 H (0.2-1.3) mg/dL AST 124 H (14-36) U/L Alkaline Phosphatase 186 H (38-126) U/L Ammonia (<30) umol/L Total Protein 5.2 L (6.3-8.2) g/dL Albumin 2.3 L (3.5-5.0) g/dL TSH (0.465-4.680) mIU/L 03/13/19 Range/Units 04:10 RBC (3.80-5.40) m/uL Hgb (11.4-16.0) gm/dL Hct (34.0-46.0) % MCV (80.0-100.0) fL MCHC (31.0-37.0) g/dL RDW (11.5-15.5) % Lymphocytes # (1.0-4.8) k/uL PT (9.0-12.0) sec INR (<1.2) Chloride (98-107) mmol/L Carbon Dioxide (22-30) mmol/L BUN (7-17) mg/dL Creatinine (0.52-1.04) mg/dL Glucose (74-99) mg/dL POC Glucose (mg/dL) (75-99) mg/dL Calcium (8.4-10.2) mg/dL Phosphorus (2.5-4.5) mg/dL Total Bilirubin (0.2-1.3) mg/dL AST (14-36) U/L Alkaline Phosphatase (38-126) U/L Ammonia 53 H (<30) umol/L Total Protein (6.3-8.2) g/dL Albumin (3.5-5.0) g/dL TSH (0.465-4.680) mIU/L Microbiology - Last 24 Hours (Table) 03/11/19 21:30 Urine Culture - Preliminary Urine,Catheterized Gram Neg Bacilli Group D Enterococcus 03/11/19 22:15 Blood Culture Gram Stain - Preliminary Blood Blood Culture - Preliminary Escherichia coli 03/11/19 22:15 Blood Culture - Final Blood Assessment and Plan Assessment: Assessment #1 change in mental status #2 sinus bradycardia #3 hypotension #4 end-stage renal disease #5 status post kidney transplant 2 #6 history of alcohol abuse #7 chronic liver disease Plan #1 continue weaning the patient from dopamine #2 the echocardiogram was reviewed #3 follow-up with the patient Thank you for allowing us participate in her care
--- NOTE | 2019-03-13 09:52 | P.PN ---
Subjective Progress Note Date: 03/13/19 Principal diagnosis: Renal failure alcohol liver disease Experiencing increased abdominal pain with nonbloody bowel movements. Pain seems to be more isolated to the right side/flank. Afebrile. E. coli bacteremia as well as group D enterococcus urine culture. Receiving dopamine and low-dose levofed. Ammonia increased to 53. Hemoglobin 8.1. Platelet 183. INR 1.5. BUN 47. Creatinine 5.7. LFTs improved total bilirubin 5.0. AST 124. ALT 37. AP 186. Hepatitis screen nonreactive. Objective - Vital Signs Vital signs: Vital Signs Temp 97.5 F L 03/13/19 08:00 Pulse 81 03/13/19 09:15 Resp 14 03/13/19 09:15 BP 97/68 03/12/19 15:00 Pulse Ox 97 03/13/19 09:15 Intake & Output 03/12/19 03/13/19 03/13/19 18:59 06:59 18:59 Intake Total 2104.922 1329.594 259 Output Total 101 377 130 Balance 2003.922 952.594 129 Weight 89 kg 88.7 kg Intake: IV 1242 1176 259 0.9 KVO 180 240 50 Dextrose 5% in Water 1, 1050 900 200 000 ml @ 50 mls/hr IV . Q23H [facility] with Sodium Bicarb (1 Meq/ml) 150 ml Rx#:[id number] Pressure Bag 12 36 9 Intake, IV Titration 442.922 153.594 Amount DOPamine DRIP 800 mg In 139.699 Water For Injection 1 250ml.bag @ 5 MCG/KG/MIN 5.698 mls/hr IV .Q24H [facility] Rx#:[id number] Levofloxacin 750Mg-D5w 200 Pmx 750 mg In Dextrose/ Water 1 150ml.bag @ 100 mls/hr IVPB ONCE STA Rx#: [id number] Norepinephrine 4 mg In 242.922 13.895 Sodium Chloride 0.9% 250 ml @ 0.05 MCG/KG/MIN 11. 579 mls/hr IV .[id number] [facility] Rx#:[id number] Oral 420 Output: Urine 100 377 130 Urine/Stool Mix 1 Other: Voiding Method Indwelling Catheter Indwelling Catheter # Bowel Movements 1 1 ABP, PAP, CO, CI - Last Documented Arterial Blood Pressure 119/62 - Exam General appearance: The patient is alert, oriented to self slightly confused appears uncomfortable reporting abdominal pain. HET: Head is normocephalic and atraumatic. Pupils are equal and reactive. Oropharynx is clear without lesions. Neck: Supple without lymphadenopathy. Trachea midline. Heart: S1 S2. Regular rate and rhythm. Lungs: No crackles or wheezes are heard. Abdomen: Soft, distended moderate tenderness to the right side extending into flank with slight hypoactive bowel sounds. Positive guarding no rebound. No palpable organomegaly or masses. Extremities: Oleary with sandra urine. Neurological: No focal deficits. Strength and sensation are grossly intact. - Labs CBC & Chem 7: 03/13/19 04:10 03/13/19 04:10 Labs: Abnormal Lab Results - Last 24 Hours (Table) 03/12/19 03/12/19 03/13/19 Range/Units 05:02 18:25 00:43 RBC (3.80-5.40) m/uL Hgb (11.4-16.0) gm/dL Hct (34.0-46.0) % MCV (80.0-100.0) fL MCHC (31.0-37.0) g/dL RDW (11.5-15.5) % Lymphocytes # (1.0-4.8) k/uL PT (9.0-12.0) sec INR (<1.2) Chloride 110 H (98-107) mmol/L Carbon Dioxide 15 L (22-30) mmol/L BUN 47 H (7-17) mg/dL Creatinine 5.98 H (0.52-1.04) mg/dL Glucose 213 H (74-99) mg/dL POC Glucose (mg/dL) 151 H (75-99) mg/dL Calcium 7.3 L (8.4-10.2) mg/dL Phosphorus (2.5-4.5) mg/dL Total Bilirubin (0.2-1.3) mg/dL AST (14-36) U/L Alkaline Phosphatase (38-126) U/L Ammonia (<30) umol/L Total Protein (6.3-8.2) g/dL Albumin (3.5-5.0) g/dL TSH 47.400 H (0.465-4.680) mIU/L 03/13/19 03/13/19 03/13/19 Range/Units 04:10 04:10 04:10 RBC 2.32 L (3.80-5.40) m/uL Hgb 8.1 L (11.4-16.0) gm/dL Hct 26.5 L (34.0-46.0) % MCV 114.2 H D (80.0-100.0) fL MCHC 30.6 L (31.0-37.0) g/dL RDW 16.9 H (11.5-15.5) % Lymphocytes # 0.9 L (1.0-4.8) k/uL PT 15.2 H (9.0-12.0) sec INR 1.5 H (<1.2) Chloride 109 H (98-107) mmol/L Carbon Dioxide 17 L (22-30) mmol/L BUN 47 H (7-17) mg/dL Creatinine 5.73 H (0.52-1.04) mg/dL Glucose 133 H (74-99) mg/dL POC Glucose (mg/dL) (75-99) mg/dL Calcium 7.1 L (8.4-10.2) mg/dL Phosphorus 6.6 H (2.5-4.5) mg/dL Total Bilirubin 5.0 H (0.2-1.3) mg/dL AST 124 H (14-36) U/L Alkaline Phosphatase 186 H (38-126) U/L Ammonia (<30) umol/L Total Protein 5.2 L (6.3-8.2) g/dL Albumin 2.3 L (3.5-5.0) g/dL TSH (0.465-4.680) mIU/L 03/13/19 Range/Units 04:10 RBC (3.80-5.40) m/uL Hgb (11.4-16.0) gm/dL Hct (34.0-46.0) % MCV (80.0-100.0) fL MCHC (31.0-37.0) g/dL RDW (11.5-15.5) % Lymphocytes # (1.0-4.8) k/uL PT (9.0-12.0) sec INR (<1.2) Chloride (98-107) mmol/L Carbon Dioxide (22-30) mmol/L BUN (7-17) mg/dL Creatinine (0.52-1.04) mg/dL Glucose (74-99) mg/dL POC Glucose (mg/dL) (75-99) mg/dL Calcium (8.4-10.2) mg/dL Phosphorus (2.5-4.5) mg/dL Total Bilirubin (0.2-1.3) mg/dL AST (14-36) U/L Alkaline Phosphatase (38-126) U/L Ammonia 53 H (<30) umol/L Total Protein (6.3-8.2) g/dL Albumin (3.5-5.0) g/dL TSH (0.465-4.680) mIU/L Microbiology - Last 24 Hours (Table) 03/11/19 21:30 Urine Culture - Preliminary Urine,Catheterized Gram Neg Bacilli Group D Enterococcus 03/11/19 22:15 Blood Culture Gram Stain - Preliminary Blood Blood Culture - Preliminary Escherichia coli 03/11/19 22:15 Blood Culture - Final Blood Assessment and Plan (1) Elevated liver enzymes Narrative/Plan: 58-year-old female admitted with multiple complaints weakness hypotension vague abdominal pain, jaundice, elevated BUN/creatinine with a history of renal transplant long-standing alcohol abuse. Etiology of her elevated liver enzymes appears to be multifactorial. Suspect underlying alcohol liver disease with superimposed acute on chronic alcohol hepatitis component of ischemic hepatitis with evidence of hypotension on admission presently receiving IV pressors. An underlying hepatorenal syndrome cannot be excluded. MRI liver 2 weeks ago reported no hepatic masses features of hepatomegaly some mildly dilated left hepatic lobe duct dilation without mass relatively unchanged from previous CT imaging. Ultrasound 02/15/2019 reported biliary sludge and stones. LFTs are improving however patient has increased abdominal pain to the right side/flank with slight improvement in renal function. E. coli bacteremia and enterococcus UTI cultures resulted. Current Visit: Yes Status: Acute Code(s): R74.8 - ABNORMAL LEVELS OF OTHER SERUM ENZYMES SNOMED Code(s): 368806440 (2) Hypotension Current Visit: Yes Status: Acute Code(s): I95.9 - HYPOTENSION, UNSPECIFIED SNOMED Code(s): 39334282 (3) Acute renal failure Current Visit: Yes Status: Acute Code(s): N17.9 - ACUTE KIDNEY FAILURE, UNSPECIFIED SNOMED Code(s): 59259328 (4) Alcohol abuse Current Visit: No Status: Acute Code(s): F10.10 - ALCOHOL ABUSE, UNCOMPLICATED SNOMED Code(s): 12411734 (5) Alcoholic liver disease Current Visit: No Status: Acute Code(s): K70.9 - ALCOHOLIC LIVER DISEASE, UNSPECIFIED SNOMED Code(s): 95401740 (6) E coli bacteremia Current Visit: Yes Status: Acute Code(s): R78.81 - BACTEREMIA SNOMED Code(s): 283758615076 (7) Enterococcus UTI Current Visit: Yes Status: Acute Code(s): N39.0 - URINARY TRACT INFECTION, SITE NOT SPECIFIED; B95.2 - ENTEROCOCCUS THE CAUSE OF DISEASES CLASSIFIED ELSEWHERE SNOMED Code(s): 697519370475597 Plan: 1. CT abdomen and pelvis without contrast evaluate abdominal pain acute abdominal process. Advised NPO untl CT is resulted. Lactulose 20 g 4 times daily ammonia increased this morning to 53. Continue present medical therapy. Daily CBC CMP PT/INR ammonia. Overall condition is guarded. We'll continue to follow. Assessment and plan a care discussed with Dr. Little
[2019-03-13 10:23] VITALS: BMI 43.8
[2019-03-13] MEDS ORDERED: BUMETANIDE 10 MG in DEXTROSE 5% IN WATER 100 ML IV SCH ×2 (10:30)
[2019-03-13] MEDS: DEXTROSE 5% IN WATER 1,000 ML with SODIUM BICARB (1 MEQ/ML) 150 ML IV SCH (11:01)
[2019-03-13] MEDS: BUMETANIDE 10 MG in DEXTROSE 5% IN WATER 60 ML IV SCH ×2 (11:01)
[2019-03-13] MEDS: ARIPiprazole 2 MG TAB PO SCH (11:02)
[2019-03-13] MEDS: ESCITALOPRAM 20 MG TAB PO SCH (11:02)
--- NOTE | 2019-03-13 11:03 | P.PN ---
Subjective Progress Note Date: 03/13/19 This is a 58-year-old female patient who presents to the ER from [facility]. Patient has a complex medical history including kidney transplant in 2002 in which she is maintained on immunosuppression CellCept and Rapamune. Additional medical history includes recent admission for acute alcoholic h epatitis with chronic liver failure although, chronic kidney disease, underlying history of hyperlipidemia, depression, anemia and thrombocytopenia. Patient presented with heart rate in the 20s and 30s and hypotensive. Patient also in acute on chronic renal failure with creatinine 6.16 and bun 47. Patient was admitted to intensive care unit. Patient started on dopamine, Levophed and sodium bicarb drip. Blood cultures ordered. Lactic acid 1.6. Cardiology, nephrology, GI services and critical care. Patient currently on cefepime for antibiotics. At this time patient remains in the intensive care unit. Patient is complaining of some abdominal discomfort. Discussed case with nephrology services. Patient will be given Lasix today may require hemodialysis tomorrow. At this time patient denies chest pain. Heart rate has improved on dopamine. Patient denies shortness of breath. Oleary catheter is in place with minimal urine output On 03/13/2019 patient remains in the intensive care unit. Creatinine 5.73 and bun 47. Patient remains on dopamine and Levophed. Patient also on sodium bicarbonate drip. CT of abdomen and pelvis ordered due to abdominal pain per critical care. Critical care, nephrology, GI, cardiology and infectious disease are following Objective - Vital Signs Vital signs: Vital Signs Temp 97.5 F L 03/13/19 08:00 Pulse 81 03/13/19 09:15 Resp 14 03/13/19 09:15 BP 97/68 03/12/19 15:00 Pulse Ox 97 03/13/19 09:15 Intake & Output 03/12/19 03/13/19 03/13/19 18:59 06:59 18:59 Intake Total 2104.922 1329.594 259 Output Total 101 377 130 Balance 952.594 129 Weight 89 kg 88.7 kg 88.7 kg Intake: IV 1242 1176 259 0.9 KVO 180 240 50 Dextrose 5% in Water 1, 1050 900 200 000 ml @ 50 mls/hr IV . Q23H [facility] with Sodium Bicarb (1 Meq/ml) 150 ml Rx#:[id number] Pressure Bag 12 36 9 Intake, IV Titration 442.922 153.594 Amount DOPamine DRIP 800 mg In 139.699 Water For Injection 1 250ml.bag @ 5 MCG/KG/MIN 5.698 mls/hr IV .Q24H [facility] Rx#:[id number] Levofloxacin 750Mg-D5w 200 Pmx 750 mg In Dextrose/ Water 1 150ml.bag @ 100 mls/hr IVPB ONCE STA Rx#: [id number] Norepinephrine 4 mg In 242.922 13.895 Sodium Chloride 0.9% 250 ml @ 0.05 MCG/KG/MIN 11. 579 mls/hr IV .[id number] [facility] Rx#:[id number] Oral 420 Output: Urine 100 377 130 Urine/Stool Mix 1 Other: Voiding Method Indwelling Catheter Indwelling Catheter # Bowel Movements 1 1 ABP, PAP, CO, CI - Last Documented Arterial Blood Pressure 119/62 - Exam Head normocephalic, jaundice Neck supple Lungs clear to auscultation bilaterally no wheezing or crackles Heart regular rate and rhythm S1-S2, no rub or gallop Abdomen is soft nontender nondistended positive bowel sounds no hepatosplenomegaly Extremities generalized edema - Labs CBC & Chem 7: 03/13/19 04:10 03/13/19 04:10 Labs: Abnormal Lab Results - Last 24 Hours (Table) 03/12/19 03/13/19 03/13/19 Range/Units 18:25 00:43 04:10 RBC 2.32 L (3.80-5.40) m/uL Hgb 8.1 L (11.4-16.0) gm/dL Hct 26.5 L (34.0-46.0) % MCV 114.2 H D (80.0-100.0) fL MCHC 30.6 L (31.0-37.0) g/dL RDW 16.9 H (11.5-15.5) % Lymphocytes # 0.9 L (1.0-4.8) k/uL PT (9.0-12.0) sec INR (<1.2) Chloride 110 H (98-107) mmol/L Carbon Dioxide 15 L (22-30) mmol/L BUN 47 H (7-17) mg/dL Creatinine 5.98 H (0.52-1.04) mg/dL Glucose 213 H (74-99) mg/dL POC Glucose (mg/dL) 151 H (75-99) mg/dL Calcium 7.3 L (8.4-10.2) mg/dL Phosphorus (2.5-4.5) mg/dL Total Bilirubin (0.2-1.3) mg/dL AST (14-36) U/L Alkaline Phosphatase (38-126) U/L Ammonia (<30) umol/L Total Protein (6.3-8.2) g/dL Albumin (3.5-5.0) g/dL 03/13/19 03/13/19 03/13/19 Range/Units 04:10 04:10 04:10 RBC (3.80-5.40) m/uL Hgb (11.4-16.0) gm/dL Hct (34.0-46.0) % MCV (80.0-100.0) fL MCHC (31.0-37.0) g/dL RDW (11.5-15.5) % Lymphocytes # (1.0-4.8) k/uL PT 15.2 H (9.0-12.0) sec INR 1.5 H (<1.2) Chloride 109 H (98-107) mmol/L Carbon Dioxide 17 L (22-30) mmol/L BUN 47 H (7-17) mg/dL Creatinine 5.73 H (0.52-1.04) mg/dL Glucose 133 H (74-99) mg/dL POC Glucose (mg/dL) (75-99) mg/dL Calcium 7.1 L (8.4-10.2) mg/dL Phosphorus 6.6 H (2.5-4.5) mg/dL Total Bilirubin 5.0 H (0.2-1.3) mg/dL AST 124 H (14-36) U/L Alkaline Phosphatase 186 H (38-126) U/L Ammonia 53 H (<30) umol/L Total Protein 5.2 L (6.3-8.2) g/dL Albumin 2.3 L (3.5-5.0) g/dL Microbiology - Last 24 Hours (Table) 03/11/19 21:30 Urine Culture - Preliminary Urine,Catheterized Gram Neg Bacilli Group D Enterococcus 03/11/19 22:15 Blood Culture Gram Stain - Preliminary Blood Blood Culture - Preliminary Escherichia coli 03/11/19 22:15 Blood Culture - Final Blood Assessment and Plan Assessment: 1. Urinary tract infection with septic shock. Lactic acid 1.7. Dr. Lira consulted for infectious disease. Patient maintained on Maxipime for antibiotics. Critical care following 2. Sinus bradycardia. Patient's heart rate in the 20s and 30s on admit. Dopamine started. Cardiology services following. 3. Hypotension due to septic shock. Patient started on Levophed. 4. 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 Creatinine 6.9 on admission. D iscussed case with nephrology Dr. Wheeler. 1 dose of IV Lasix today per nephrology. Possible hemodialysis tomorrow 5. Metabolic acidosis secondary to acute kidney injury and diarrhea 6. Status post living renal transplant in 2002. 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 Patient maintained on cellCept and rapamune medication. Per nephrology discontinue CellCept due to sepsis at this time 7. Acute on chronic liver disease. GI services are following patient maintained on lactulose 20 g 3 times a day for elevated blood ammonia level 8. History of alcohol abuse 9. Hypothyroidism. TSH 47. Patient started on Synthroid 25 mcgs 10. History of CVA 11. History of hyperlipidemia 12. History of essential hypertension 13. History of anxiety 14. Increased abdominal pain. CT of abdomen and pelvis has been ordered 15. Elevated ammonia level patient maintained on lactulose we'll continue to monitor Patient currently admitted to the intensive care unit Critical care, cardiology, nephrology, GI and infectious disease following Patient currently on Levophed, dopamine and sodium bicarb drip Patient started on Bumex drip per critical care CT of abdomen and pelvis ordered I performed an examination of the patient and discussed their management with the Nurse Practitioner. I have reviewed the Nurse Practitioner's notes and agree with the documented findings and plan of care
--- NOTE | 2019-03-13 11:03 | CT ---
EXAMINATION TYPE: CT abdomen pelvis wo con DATE OF EXAM: 03/13/2019 COMPARISON: 01/23/2019 HISTORY: Renal failure CT DLP: 666.2 mGycm Examination of the solid and hollow viscera is limited given the lack of contrast. FINDINGS: LUNG BASES: Small bilateral pleural effusions and probable underlying compressive atelectasis. LIVER/GB: Cholelithiasis. No space-occupying hepatic lesion. PANCREAS: No pancreatic mass identified. No inflammatory process seen. SPLEEN: No evidence for splenomegaly. No intrasplenic lesions seen. ADRENALS: No adrenal nodules identified. No evidence for thickening. KIDNEYS: Renal atrophic changes with transplanted kidney within the left hemipelvis. No evidence for renal mass. No nephrolithiasis. No hydronephrosis. BOWEL: There is evidence for free air. This may be postoperative procedure: Nature. Perforated viscus is not excluded. Appendix has a normal appearance. No evidence of bowel obstruction. No inflammatory process. Lymph nodes: No evidence for adenopathy greater than 1 cm. Abdominal aorta: Atheromatous changes seen. No evidence for aneurysm. Genital organs: No significant abnormality. Other: There is evidence of ascites. Anasarca. IMPRESSION: 1. Free air within the abdomen. Correlate for recent procedure. Perforated viscus is not excluded. Si te of perforation difficult to elucidate. 2. Ascites with anasarca. Basilar pleural effusions and compressive atelectasis. A Red level critical message alert has been initiated for Harry Foreman MD via the [email or web address] System on 03/13/2019 11:01 AM. This message alert has been sent to Harry Foreman MD via the preferences provided by the clinician for the receipt of Radiology Critical Findings. Message ID [id number].
[2019-03-13] MEDS: THIAMINE 100 MG TAB PO SCH ×2 (11:27→12:41)
[2019-03-13] MEDS: NOREPINEPHRINE 4 MG in SODIUM CHLORIDE 0.9% 250 ML IV SCH (11:28)
--- NOTE | 2019-03-13 12:12 | P.PN ---
Subjective Patient is seen in follow-up for acute allograft dysfunction. Patient received a living donor kidney transplant in 2002. She is maintained on CellCept and Rapamune as an outpatient but are currently held due to septic shock. Baseline creatinine is near 1. It was 6.9 on admission and is 5.73 today. She is noted to have free air in the abdomen. Blood cultures positive for E. coli and urine culture is positive for gram-negative bacilli and group D enterococcus. She was severely volume overloaded. She did receive 80 mg IV Lasix yesterday and again today. Urine output has been about 40-50 mL an hour. She was started on Bumex drip this morning. Currently on 2 mics of dopamine and 8 mics of Levophed. Vital signs are stable. Currently on vasopressors. General: The patient appeared well nourished and normally developed. HEENT: Head exam is unremarkable. Neck is without jugular venous distension. LUNGS: Breath sounds decreased. HEART: Rate and Rhythm are regular. First and second heart sounds normal. No murmurs, rubs or gallops. ABDOMEN: Bowel sounds present. Mildly tender to palpation. EXTREMITITES: 2+ edema. Objective - Vital Signs Vital signs: Vital Signs Temp 97.5 F L 03/13/19 08:00 Pulse 85 03/13/19 11:00 Resp 14 03/13/19 11:00 BP 97/68 03/12/19 15:00 Pulse Ox 98 03/13/19 11:00 Intake & Output 03/12/19 03/13/19 03/13/19 18:59 06:59 18:59 Intake Total 2104.922 1329.594 639.843 Output Total 101 377 230 Balance 952.594 409.843 Weight 89 kg 88.7 kg 88.7 kg Intake: IV 1242 1176 385 0.9 KVO 180 240 70 Dextrose 5% in Water 1, 1050 900 300 000 ml @ 50 mls/hr IV . Q23H [facility] with Sodium Bicarb (1 Meq/ml) 150 ml Rx#:[id number] Pressure Bag 12 36 15 Intake, IV Titration 442.922 153.594 254.843 Amount DOPamine DRIP 800 mg In 139.699 14.738 Water For Injection 1 250ml.bag @ 5 MCG/KG/MIN 5.698 mls/hr IV .Q24H [facility] Rx#:[id number] Levofloxacin 750Mg-D5w 200 Pmx 750 mg In Dextrose/ Water 1 150ml.bag @ 100 mls/hr IVPB ONCE STA Rx#: [id number] Norepinephrine 4 mg In 242.922 13.895 240.105 Sodium Chloride 0.9% 250 ml @ 0.05 MCG/KG/MIN 11. 579 mls/hr IV .[id number] [facility] Rx#:[id number] Oral 420 Output: Urine 100 377 230 Urine/Stool Mix 1 Other: Voiding Method Indwelling Catheter Indwelling Catheter # Bowel Movements 1 1 ABP, PAP, CO, CI - Last Documented Arterial Blood Pressure 129/99 - Labs CBC & Chem 7: 03/13/19 04:10 03/13/19 04:10 Labs: Abnormal Lab Results - Last 24 Hours (Table) 03/12/19 03/12/19 03/13/19 Range/Units 05:02 18:25 00:43 RBC (3.80-5.40) m/uL Hgb (11.4-16.0) gm/dL Hct (34.0-46.0) % MCV (80.0-100.0) fL MCHC (31.0-37.0) g/dL RDW (11.5-15.5) % Lymphocytes # (1.0-4.8) k/uL PT (9.0-12.0) sec INR (<1.2) Chloride 110 H (98-107) mmol/L Carbon Dioxide 15 L (22-30) mmol/L BUN 47 H (7-17) mg/dL Creatinine 5.98 H (0.52-1.04) mg/dL Glucose 213 H (74-99) mg/dL POC Glucose (mg/dL) 151 H (75-99) mg/dL Calcium 7.3 L (8.4-10.2) mg/dL Phosphorus (2.5-4.5) mg/dL Total Bilirubin (0.2-1.3) mg/dL AST (14-36) U/L Alkaline Phosphatase (38-126) U/L Ammonia (<30) umol/L Total Protein (6.3-8.2) g/dL Albumin (3.5-5.0) g/dL Free T4 0.41 L (0.78-2.19) ng/dL 03/13/19 03/13/19 03/13/19 Range/Units 04:10 04:10 04:10 RBC 2.32 L (3.80-5.40) m/uL Hgb 8.1 L (11.4-16.0) gm/dL Hct 26.5 L (34.0-46.0) % MCV 114.2 H D (80.0-100.0) fL MCHC 30.6 L (31.0-37.0) g/dL RDW 16.9 H (11.5-15.5) % Lymphocytes # 0.9 L (1.0-4.8) k/uL PT 15.2 H (9.0-12.0) sec INR 1.5 H (<1.2) Chloride 109 H (98-107) mmol/L Carbon Dioxide 17 L (22-30) mmol/L BUN 47 H (7-17) mg/dL Creatinine 5.73 H (0.52-1.04) mg/dL Glucose 133 H (74-99) mg/dL POC Glucose (mg/dL) (75-99) mg/dL Calcium 7.1 L (8.4-10.2) mg/dL Phosphorus 6.6 H (2.5-4.5) mg/dL Total Bilirubin 5.0 H (0.2-1.3) mg/dL AST 124 H (14-36) U/L Alkaline Phosphatase 186 H (38-126) U/L Ammonia (<30) umol/L Total Protein 5.2 L (6.3-8.2) g/dL Albumin 2.3 L (3.5-5.0) g/dL Free T4 (0.78-2.19) ng/dL 03/13/19 Range/Units 04:10 RBC (3.80-5.40) m/uL Hgb (11.4-16.0) gm/dL Hct (34.0-46.0) % MCV (80.0-100.0) fL MCHC (31.0-37.0) g/dL RDW (11.5-15.5) % Lymphocytes # (1.0-4.8) k/uL PT (9.0-12.0) sec INR (<1.2) Chloride (98-107) mmol/L Carbon Dioxide (22-30) mmol/L BUN (7-17) mg/dL Creatinine (0.52-1.04) mg/dL Glucose (74-99) mg/dL POC Glucose (mg/dL) (75-99) mg/dL Calcium (8.4-10.2) mg/dL Phosphorus (2.5-4.5) mg/dL Total Bilirubin (0.2-1.3) mg/dL AST (14-36) U/L Alkaline Phosphatase (38-126) U/L Ammonia 53 H (<30) umol/L Total Protein (6.3-8.2) g/dL Albumin (3.5-5.0) g/dL Free T4 (0.78-2.19) ng/dL Microbiology - Last 24 Hours (Table) 03/11/19 21:30 Urine Culture - Preliminary Urine,Catheterized Gram Neg Bacilli Group D Enterococcus 03/11/19 22:15 Blood Culture Gram Stain - Preliminary Blood Blood Culture - Preliminary Escherichia coli 03/11/19 22:15 Blood Culture - Final Blood Assessment and Plan Plan: Assessment: 1. 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 Creatinine 6.9 on admission and is 5.73 this morning. Baseline creatinine near 1. No hydronephrosis noted on ultrasound. 2. Metabolic acidosis secondary to acute kidney injury and diarrhea. Better. 3. Status post living related renal transplant in 2002. 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 This was her second kidney transplant. 4. Septic shock. Source is UTI and E. coli bacteremia. Also concern for abdominal source as she has free air. Maintained on IV antibiotics. Also on Levophed and dopamine. 5. Hyperphosphatemia secondary to acute kidney injury. Improving. 6. Pneumoperitoneum. Surgery consulted. 7. Volume overload. 8. Diastolic CHF with mild to moderate mitral and tricuspid regurgitation. Plan: I will decrease the rate of bicarbonate drip to 50 mL an hour. Patient received 3 A of bicarb IV push this morning. Status post 80 mg IV Lasix this morning. Now on Bumex drip. Avoid nephrotoxins. Follow-up cultures. Hold antirejection medications in view of septic shock. Rapamune level pending. No urgent need for renal replacement therapy at this time.
--- NOTE | 2019-03-13 12:12 | P.PN ---
Subjective Progress Note Date: 03/13/19 This is a 58-year-old female patient with a recipient of a previous kidney transplantation and has multiple other medical problems and comorbidities most significant of which is alcoholic liver disease/cirrhosis and previous hospitalization for now underlying urine checked infection as well as related to a gram-negative bacteria/E. coli. The patient has chronic anemia, thrombocytopenia, previous history of CVA, hypertension and hyperlipidemia and congenitally absent kidney along with history of polycystic kidney disease and diverticular disease. The patient was treated in our intensive care unit approximately 3 weeks ago for hypotension/hypovolemia and UTI and the patient was sent back to the [facility]. As patient came back to the ICU yesterday because of significant abnormalities per the patient presented to the ED with acute kidney injury and hypotension. The patient was feeling weak and fatigued. The patient was having some diarrhea. No nausea. No hematuria. In fact her urine output dropped significantly. She was quite hypotensive with a systolic pressure in the mid 70s time of arrival and she was also bradycardic, she was in sinus bradycardia with a heart rate in the low 30s. The patient was receiving a combination of Cardizem and Coreg on outpatient basis. UA was abnormal. The patient was given a total of 5 L of normal saline and she was started on a bicarb infusion at the rate of 125 mL an hour. She was also started on pressors. I initially started on dopamine based on her bradycardia and hypotension which is still currently running at 5 mg per KG per minute. Subsequently she was started on levo fed at the rate of 0.1 g per KG per minute. Nevertheless, the urine output has remained quite low. Morning systolic blood pressure is in the mid 90s. Heart rate is up to 65. Urine output has been negligible. She received a total of 60 mg IV push Lasix without any significant response thus far. Mentally she is awake and alert. She is a bit sleepy and this is consistent with stage I hepatitic encephalopathy knowing that her ammonia level is also elevated. Her lactic acid level is at 1.6. Her bilirubin is at 6.3. The ammonia level is at 36. AST that 131. ALT is at 37. Alkaline phosphatase is at 2:30. Troponins are negative. His serum bicarbs at 11. Creatinine was as high as 6.8 and currently is down to 6.1. His platelet count is at 156. The upper limit a blood culture is showing gram-negative bacillus. The patient is currently on IV cefepime and infectious disease consultation is already been obtained. Echocardiogram is still pending. On today's evaluation of 03/13/2019 Seeing this patient for a follow-up. In general, she seems to be a bit more awake compared to yesterday. She is or 81- 2. He is currently on 5 L of oxygen nasal cannula with a pulse ox of 98-99%. Chest x-ray is not showing any acute abnormalities. The patient is on lactulose and she is producing adequate bowel activity. In addition, the patient's urine output is improved and currently the [place] catheter is producing approximately 30-40 mL an hour of urine output. She has developed extensive generalized anasarca and edema. On today's evaluation her abdomen is slightly distended and she is complaining of some abdominal pain/tense feeling. I was able to insert a triple lumen catheter in her right femoral vein and currently she is receiving IV fluids in the form of D5 W and 3 A of bicarb at the rate of 75 mL an hour. Note that she had significant degree of metabolic acidosis which improved and the serum bicarbs up to 17. BUN is at 47 with creatinine of 5.7 the patient has developed extensive amount of anasarca to the point where the patient is weeping from her skin all over. The patient will be started on Bumex 0.[address] consulting with nephrology. Note that urine output improved and the patient is producing somewhat between 30-40 mL's of urine output since yesterday. Note that the patient is septic. The patient was found to have a E. coli urinary tract infection and sepsis and the urine culture also showed enterococcus group D. her white cell count is down to 6.9.Lactic acid level is down to 1.6. The patient is currently on pressors and she is on dopamine at 2 g per KG per minute and norepinephrine infusion at 8 g. As mentioned she is on a D5 with 3 A of sodium bicarbonate the rate of 75 cc an hour. Her serum ammonia level is at 63. We'll follow the patient's TSH was elevated at 47.4 and the free T4 is also low and the patient was started on 25 g of Synthroid. Objective - Vital Signs Vital signs: Vital Signs Temp 97.5 F L 03/13/19 08:00 Pulse 85 03/13/19 11:00 Resp 14 03/13/19 11:00 BP 97/68 03/12/19 15:00 Pulse Ox 98 03/13/19 11:00 Intake & Output 03/12/19 03/13/19 03/13/19 18:59 06:59 18:59 Intake Total 2104.922 1329.594 639.843 Output Total 101 377 230 Balance 2003.922 952.594 409.843 Weight 89 kg 88.7 kg 88.7 kg Intake: IV 1242 1176 385 0.9 KVO 180 240 70 Dextrose 5% in Water 1, 1050 900 300 000 ml @ 50 mls/hr IV . Q23H [facility] with Sodium Bicarb (1 Meq/ml) 150 ml Rx#:[id number] Pressure Bag 12 36 15 Intake, IV Titration 442.922 153.594 254.843 Amount DOPamine DRIP 800 mg In 139.699 14.738 Water For Injection 1 250ml.bag @ 5 MCG/KG/MIN 5.698 mls/hr IV .Q24H [facility] Rx#:[id number] Levofloxacin 750Mg-D5w 200 Pmx 750 mg In Dextrose/ Water 1 150ml.bag @ 100 mls/hr IVPB ONCE STA Rx#: [id number] Norepinephrine 4 mg In 242.922 13.895 240.105 Sodium Chloride 0.9% 250 ml @ 0.05 MCG/KG/MIN 11. 579 mls/hr IV .[id number] [facility] Rx#:[id number] Oral 420 Output: Urine 100 377 230 Urine/Stool Mix 1 Other: Voiding Method Indwelling Catheter Indwelling Catheter # Bowel Movements 1 1 ABP, PAP, CO, CI - Last Documented Arterial Blood Pressure 129/99 - Exam GENERAL EXAM: jaundiced 58-year-old obese white female, awake , oriented 1-2, pleasant and cooperative, the patient is somewhat lethargic and sleepy probably related to stage I hepatitic encephalopathy. HEAD: Normocephalic/atraumatic. EYES: Normal reaction of pupils, equal size. Conjunctiva pink, sclera white. NOSE: Clear with pink turbinates. THROAT: No erythema or exudates. NECK: No masses, no JVD, no thyroid enlargement, no adenopathy. CHEST: No chest wall deformity. Symmetrical expansion. LUNGS: Equal air entry with no crackles, wheeze, rhonchi or dullness. CVS: Regular rate and rhythm, normal S1 and S2, no gallops, no murmurs, no rubs ABDOMEN: Soft, nontender. No hepatosplenomegaly, normal bowel sounds, no guarding or rigidity. Scar of previous abdominal surgery over the anterior abdominal wall and there is a mild abdominal tenderness. EXTREMITIES: No clubbing, 2+ pitting edema lower extremities, no cyanosis, 2+ pulses and upper and lower extremities. The patient has a nonfunctioning AV fistula in the left upper extremity MUSCULOSKELETAL: Muscle strength and tone normal. SPINE: No scoliosis or deformity SKIN: No rashes, diffuse anasarca and weeping of fluid from the skin surface and there is no evidence of any cellulitis at this point this time. The patient has a triple lumen catheter in the right femoral vein area. CENTRAL NERVOUS SYSTEM: Lethargic, but arousable to verbal stimuli. No focal deficits, tone is normal in all 4 extremities. - Labs CBC & Chem 7: 03/13/19 04:10 03/13/19 04:10 Labs: Abnormal Lab Results - Last 24 Hours (Table) 03/12/19 03/12/19 03/13/19 Range/Units 05:02 18:25 00:43 RBC (3.80-5.40) m/uL Hgb (11.4-16.0) gm/dL Hct (34.0-46.0) % MCV (80.0-100.0) fL MCHC (31.0-37.0) g/dL RDW (11.5-15.5) % Lymphocytes # (1.0-4.8) k/uL PT (9.0-12.0) sec INR (<1.2) Chloride 110 H (98-107) mmol/L Carbon Dioxide 15 L (22-30) mmol/L BUN 47 H (7-17) mg/dL Creatinine 5.98 H (0.52-1.04) mg/dL Glucose 213 H (74-99) mg/dL POC Glucose (mg/dL) 151 H (75-99) mg/dL Calcium 7.3 L (8.4-10.2) mg/dL Phosphorus (2.5-4.5) mg/dL Total Bilirubin (0.2-1.3) mg/dL AST (14-36) U/L Alkaline Phosphatase (38-126) U/L Ammonia (<30) umol/L Total Protein (6.3-8.2) g/dL Albumin (3.5-5.0) g/dL Free T4 0.41 L (0.78-2.19) ng/dL 03/13/19 03/13/19 03/13/19 Range/Units 04:10 04:10 04:10 RBC 2.32 L (3.80-5.40) m/uL Hgb 8.1 L (11.4-16.0) gm/dL Hct 26.5 L (34.0-46.0) % MCV 114.2 H D (80.0-100.0) fL MCHC 30.6 L (31.0-37.0) g/dL RDW 16.9 H (11.5-15.5) % Lymphocytes # 0.9 L (1.0-4.8) k/uL PT 15.2 H (9.0-12.0) sec INR 1.5 H (<1.2) Chloride 109 H (98-107) mmol/L Carbon Dioxide 17 L (22-30) mmol/L BUN 47 H (7-17) mg/dL Creatinine 5.73 H (0.52-1.04) mg/dL Glucose 133 H (74-99) mg/dL POC Glucose (mg/dL) (75-99) mg/dL Calcium 7.1 L (8.4-10.2) mg/dL Phosphorus 6.6 H (2.5-4.5) mg/dL Total Bilirubin 5.0 H (0.2-1.3) mg/dL AST 124 H (14-36) U/L Alkaline Phosphatase 186 H (38-126) U/L Ammonia (<30) umol/L Total Protein 5.2 L (6.3-8.2) g/dL Albumin 2.3 L (3.5-5.0) g/dL Free T4 (0.78-2.19) ng/dL 03/13/19 Range/Units 04:10 RBC (3.80-5.40) m/uL Hgb (11.4-16.0) gm/dL Hct (34.0-46.0) % MCV (80.0-100.0) fL MCHC (31.0-37.0) g/dL RDW (11.5-15.5) % Lymphocytes # (1.0-4.8) k/uL PT (9.0-12.0) sec INR (<1.2) Chloride (98-107) mmol/L Carbon Dioxide (22-30) mmol/L BUN (7-17) mg/dL Creatinine (0.52-1.04) mg/dL Glucose (74-99) mg/dL POC Glucose (mg/dL) (75-99) mg/dL Calcium (8.4-10.2) mg/dL Phosphorus (2.5-4.5) mg/dL Total Bilirubin (0.2-1.3) mg/dL AST (14-36) U/L Alkaline Phosphatase (38-126) U/L Ammonia 53 H (<30) umol/L Total Protein (6.3-8.2) g/dL Albumin (3.5-5.0) g/dL Free T4 (0.78-2.19) ng/dL Microbiology - Last 24 Hours (Table) 03/11/19 21:30 Urine Culture - Preliminary Urine,Catheterized Gram Neg Bacilli Group D Enterococcus 03/11/19 22:15 Blood Culture Gram Stain - Preliminary Blood Blood Culture - Preliminary Escherichia coli 03/11/19 22:15 Blood Culture - Final Blood Assessment and Plan Plan: 1 septic shock secondary to gram-negative bacillus. The patient is bacteremic and the cultures showing E. coli consistent with a E. coli sepsis and UTI. The urine cultures also showing enterococcus group D. The patient remains on IV cefepime. Hemodynamically improved compared to yesterday. The patient is still on a combination of dopamine and norepinephrine infusion. Urine output is improving. White cell count is up in the lactic acid level is down to 1.6. 2 profound hypotension/shock secondary to above. The patient has been resuscitated with fluids and pressors. Currently on D5 with 3 ampules of sodium bicarbonate the rate of 75 mL's an hour and 8 mics of norepinephrine infusion and 2 mics of dopamine infusion. 3 acute kidney injury, the patient has amount stated some improvement in urine output in the creatinine is down to 5.9 4 history of kidney transplant, maintained on immunosuppression with a combination of Rapamune and CellCept on outpatient basis, currently on hold 5 alcoholic liver disease with liver cirrhosis and pancytopenia and hyperbilirubinemia 6 stage I hepatitic encephalopathy 7 chronic anemia 8 chronic lymphocytopenia 9 non-anion gap metabolic acidosis currently on a bicarb infusion 10 history of recurrent UTI with E. coli 11 history of kidney transplantation 11 history of CVA 12 history of hypertension 13 history of hyperlipidemia 14 history of congenital absence of the kidney/polycystic kidney disease 15 history of diverticular disease 16 edematous upper and lower extremities bilaterally 17 bradycardia, sinus, likely a beta michelle effect in combination with calcium channel blockers, echocardiogram showing a preserved LV function and the patient's bradycardia pain much recovered. 18 hypothyroidism with elevated TSH and a low free T4 the patient started on Synthroid. Plan Continue IV cefepime. Continue bicarb infusion. Continue combination of norepinephrine and dopamine. Cut down the IV fluids to 50 mL an hour. Echocardiogram was noted. There is a concern of ongoing abdominal pain. For that reason a CAT scan of the abdomen will be obtained and the patient will be asked to be seen by general surgery. Would suggest repeating the lactic acid level. Watch for any fever pattern. The Lactulose to Once a Day. Add Synthroid. Add Bumex Drip at 0.5 Mg an Hour to Optimize the Fluid Balance. We 'll Continue to Follow. Condition Is Critical. High Mortality Risk Based on the Above-Mentioned Comorbidities. Rigidity care evaluation done more than 30 minutes including discussions done with general surgery, nephrology and primary care, gastroenterology discussion Time with Patient: Greater than 30
[2019-03-13 12:15] LABS: Protein, Total 4.7 g/dL (6.2-8.2)
[2019-03-13] MEDS: HYDROmorphone 0.5 MG/0.5 ML SYRINGE IVP PRN ×2 (12:49→22:16)
[2019-03-13] MEDS ORDERED: LACTULOSE 20 GM/30 ML CUP PO SCH (13:00)
[2019-03-13 13:38] LABS: Ceruloplasmin 34.7 mg/dL (20.0-60.0)
--- NOTE | 2019-03-13 15:22 | P.GSCN ---
History of Present Illness Consult date: 03/13/19 Reason for Consult: abdominal pain Requesting physician: Harry Foreman History of present illness: CHIEF COMPLAINT: abdominal pain HISTORY OF PRESENT ILLNESS: 58-year-old female who was admitted to the hospital secondary to urinary tract infection and septic shock. General surgery was consulted for evaluation of abdominal pain. Patient underwent CT scan today revealing free air. Patient examined at the bedside in the ICU. Patient receiving lactulose with most recent BM this morning. Patient currently comfortable and resting in bed. She recently received IV narcotics for pain. Denies nausea or vomiting. WBC improved today from 12.4 to 6.9. Hemoglobin 8.1. INR 1.5. Creatinine 5.73. Most recent lactic acid 1.6. PAST MEDICAL HISTORY: See list. PAST SURGICAL HISTORY: See list. SOCIAL HISTORY: No illicit drug use. History of alcohol abuse. REVIEW OF SYSTEMS: Unable to obtain secondary to lethargy and altered mental status. PHYSICAL EXAM: VITAL SIGNS: Reviewed. GENERAL: Well-developed in no acute distress-resting comfortably. HEENT: No sclera icterus. Extraocular movements grossly intact. Moist buccal mucosa. Head is atraumatic, normocephalic. ABDOMEN: Anasarca. Abdomen distended. Abdomen firm likely secondary to anasarca. Positive bowel sounds. Minimal tenderness upon palpation. NEUROLOGIC: Lethargic. Arousable to verbal stimuli. Moves all extremities. ASSESSMENT: 1. Abdominal pain 2. Pneumoperitoneum PLAN: Case discussed with Dr. Josue. Patient is high risk for surgery due to her multiple comorbidities including kidney transplant. Dr. Josue discussed option of transferring patient to tertiary center where she had transplants performed. Patients family reports [place]. She did follow up with a physician out of [facility] but has not seen him in close to 10 years due to the distance and transportation issues. No surgical intervention recommended at this time per Dr. Josue. Continue with current treatment. Further recommendations pending evaluation by Dr. Josue this afternoon. Nurse practitioner note has been reviewed by physician. Signing provider agrees with the documented findings, assessment, and plan of care. Past Medical History Past Medical History: CVA/TIA, Hyperlipidemia, Hypertension, Renal Disease Additional Past Medical History / Comment(s): HEART MURMUR, HX OF TIA , DIVERTIC LITIS, ANEMIA., HEPATITIS, RECENT CORTISONE INJECTION OF THUMB FOR BASAL JOINT ARTHRITIS., BACK AND RIGHT SHOULDER PAIN (LIMITED ROM), POLYCYSTIC KIDNEY DISEASE, BORN WITH 1 KIDNEDY. 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 HX OF HEMODIALYSIS. 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 History of Any Multi-Drug Resistant Organisms: MRSA Year Discovered:: 08/28/2014 MDRO Source:: Abdomen Past Surgical History: Adenoidectomy, Bladder Surgery, Section, Tonsillectomy, Tubal Ligation Additional Past Surgical History / Comment(s): cataracts. 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 eye surgery. dialysis fistula left arm. breast bx. Past Anesthesia/Blood Transfusion Reactions: Motion Sickness Past Psychological History: Anxiety Smoking Status: Never smoker Past Alcohol Use History: Abuse, Daily, Heavy Past Drug Use History: Marijuana - Past Family History Mother Family Medical History: No Reported History Medications and Allergies Home Medications Medication Instructions Recorded Confirmed Type ARIPiprazole [Abilify] 2 mg PO DAILY 08/13/14 03/11/19 History Sirolimus [Rapamune] 1 mg PO DAILY 08/13/14 03/11/19 History Atomoxetine HCl [Strattera] 40 mg PO DAILY 01/23/19 03/11/19 History Carvedilol [Coreg] 6.25 mg PO BID 01/23/19 03/11/19 History Escitalopram [Lexapro] 20 mg PO DAILY 01/23/19 03/11/19 History Mycophenolate Mofetil [Cellcept] 500 mg PO BID 01/23/19 03/11/19 History Diltiazem Cd [Cardizem CD] 240 mg PO DAILY cap.er.24h 02/22/19 03/11/19 Rx Ibuprofen [Motrin] 400 mg PO Q6HR PRN tab 02/22/19 03/11/19 Rx Lactulose [Cephulac] 20 gm PO TID ml 02/22/19 03/11/19 Rx Thiamine [Vitamin B-1] 100 mg PO BID@1200,1700 tab 02/22/19 03/11/19 Rx Benzocaine/Menthol Lozeng [Cepacol 1 lozenge MUCOUS MEM Q2H PRN 03/11/19 03/11/19 History lozenge] Furosemide [Lasix] 20 mg PO DAILY 03/11/19 03/11/19 History Nystatin 100,000 Unit/ml Susp 500,000 unit PO 5XD 03/11/19 03/11/19 History [Mycostatin Oral Susp] Tamsulosin [Flomax] 0.4 mg PO HS 03/11/19 03/11/19 History Allergies Allergy/AdvReac Type Severity Reaction Status Date / Time Penicillins AdvReac Vomiting Verified 03/11/19 21:24 Surgical - Exam Vital Signs Temp Pulse Resp BP Pulse Ox 97.3 F L 33 L 18 102/59 100 03/11/19 21:00 03/11/19 21:00 03/11/19 21:00 03/11/19 21:00 03/11/19 21:00 Results - Labs 03/13/19 04:10 03/13/19 04:10 Abnormal Lab Results - Last 24 Hours (Table) 03/12/19 03/12/19 03/13/19 Range/Units 05:02 18:25 00:43 RBC (3.80-5.40) m/uL Hgb (11.4-16.0) gm/dL Hct (34.0-46.0) % MCV (80.0-100.0) fL MCHC (31.0-37.0) g/dL RDW (11.5-15.5) % Lymphocytes # (1.0-4.8) k/uL PT (9.0-12.0) sec INR (<1.2) Chloride 110 H (98-107) mmol/L Carbon Dioxide 15 L (22-30) mmol/L BUN 47 H (7-17) mg/dL Creatinine 5.98 H (0.52-1.04) mg/dL Glucose 213 H (74-99) mg/dL POC Glucose (mg/dL) 151 H (75-99) mg/dL Calcium 7.3 L (8.4-10.2) mg/dL Phosphorus (2.5-4.5) mg/dL Total Bilirubin (0.2-1.3) mg/dL AST (14-36) U/L Alkaline Phosphatase (38-126) U/L Ammonia (<30) umol/L Total Protein (6.3-8.2) g/dL Total Protein (PEP) (6.2-8.2) g/dL Albumin (3.5-5.0) g/dL Cwyhw-3-Ydxemlxyzxh (99.0-242.0) mg/dL Free T4 0.41 L (0.78-2.19) ng/dL 03/13/19 03/13/19 03/13/19 Range/Units 04:10 04:10 04:10 RBC 2.32 L (3.80-5.40) m/uL Hgb 8.1 L (11.4-16.0) gm/dL Hct 26.5 L (34.0-46.0) % MCV 114.2 H D (80.0-100.0) fL MCHC 30.6 L (31.0-37.0) g/dL RDW 16.9 H (11.5-15.5) % Lymphocytes # 0.9 L (1.0-4.8) k/uL PT (9.0-12.0) sec INR (<1.2) Chloride 109 H (98-107) mmol/L Carbon Dioxide 17 L (22-30) mmol/L BUN 47 H (7-17) mg/dL Creatinine 5.73 H (0.52-1.04) mg/dL Glucose 133 H (74-99) mg/dL POC Glucose (mg/dL) (75-99) mg/dL Calcium 7.1 L (8.4-10.2) mg/dL Phosphorus 6.6 H (2.5-4.5) mg/dL Total Bilirubin 5.0 H (0.2-1.3) mg/dL AST 124 H (14-36) U/L Alkaline Phosphatase 186 H (38-126) U/L Ammonia (<30) umol/L Total Protein 5.2 L (6.3-8.2) g/dL Total Protein (PEP) 4.7 L (6.2-8.2) g/dL Albumin 2.3 L (3.5-5.0) g/dL Omdcn-1-Uasawzvhlci 258.0 H (99.0-242.0) mg/dL Free T4 (0.78-2.19) ng/dL 03/13/19 03/13/19 Range/Units 04:10 04:10 RBC (3.80-5.40) m/uL Hgb (11.4-16.0) gm/dL Hct (34.0-46.0) % MCV (80.0-100.0) fL MCHC (31.0-37.0) g/dL RDW (11.5-15.5) % Lymphocytes # (1.0-4.8) k/uL PT 15.2 H (9.0-12.0) sec INR 1.5 H (<1.2) Chloride (98-107) mmol/L Carbon Dioxide (22-30) mmol/L BUN (7-17) mg/dL Creatinine (0.52-1.04) mg/dL Glucose (74-99) mg/dL POC Glucose (mg/dL) (75-99) mg/dL Calcium (8.4-10.2) mg/dL Phosphorus (2.5-4.5) mg/dL Total Bilirubin (0.2-1.3) mg/dL AST (14-36) U/L Alkaline Phosphatase (38-126) U/L Ammonia 53 H (<30) umol/L Total Protein (6.3-8.2) g/dL Total Protein (PEP) (6.2-8.2) g/dL Albumin (3.5-5.0) g/dL Johdc-3-Ascztwkwack (99.0-242.0) mg/dL Free T4 (0.78-2.19) ng/dL Microbiology - Last 24 Hours (Table) 03/11/19 22:15 Blood Culture Gram Stain - Preliminary Blood Blood Culture - Preliminary Escherichia coli 03/11/19 21:30 Urine Culture - Preliminary Urine,Catheterized Gram Neg Bacilli Group D Enterococcus 03/11/19 22:15 Blood Culture - Final Blood Diabetes panel 03/12/19 03/13/19 Range/Units 18:25 04:10 Sodium 138 139 (137-145) mmol/L Potassium 4.2 3.8 (3.5-5.1) mmol/L Chloride 110 H 109 H (98-107) mmol/L Carbon Dioxide 15 L 17 L (22-30) mmol/L BUN 47 H 47 H (7-17) mg/dL Creatinine 5.98 H 5.73 H (0.52-1.04) mg/dL Glucose 213 H 133 H (74-99) mg/dL Calcium 7.3 L 7.1 L (8.4-10.2) mg/dL AST 124 H (14-36) U/L ALT 37 (9-52) U/L Alkaline Phosphatase 186 H (38-126) U/L Total Protein 5.2 L (6.3-8.2) g/dL Albumin 2.3 L (3.5-5.0) g/dL Calcium panel 03/12/19 03/13/19 Range/Units 18:25 04:10 Calcium 7.3 L 7.1 L (8.4-10.2) mg/dL Phosphorus 6.6 H (2.5-4.5) mg/dL Albumin 2.3 L (3.5-5.0) g/dL Pituitary panel 03/12/19 03/13/19 Range/Units 18:25 04:10 Sodium 138 139 (137-145) mmol/L Potassium 4.2 3.8 (3.5-5.1) mmol/L Chloride 110 H 109 H (98-107) mmol/L Carbon Dioxide 15 L 17 L (22-30) mmol/L BUN 47 H 47 H (7-17) mg/dL Creatinine 5.98 H 5.73 H (0.52-1.04) mg/dL Glucose 213 H 133 H (74-99) mg/dL Calcium 7.3 L 7.1 L (8.4-10.2) mg/dL Adrenal panel 03/12/19 03/13/19 Range/Units 18:25 04:10 Sodium 138 139 (137-145) mmol/L Potassium 4.2 3.8 (3.5-5.1) mmol/L Chloride 110 H 109 H (98-107) mmol/L Carbon Dioxide 15 L 17 L (22-30) mmol/L BUN 47 H 47 H (7-17) mg/dL Creatinine 5.98 H 5.73 H (0.52-1.04) mg/dL Glucose 213 H 133 H (74-99) mg/dL Calcium 7.3 L 7.1 L (8.4-10.2) mg/dL Total Bilirubin 5.0 H (0.2-1.3) mg/dL AST 124 H (14-36) U/L ALT 37 (9-52) U/L Alkaline Phosphatase 186 H (38-126) U/L Total Protein 5.2 L (6.3-8.2) g/dL Albumin 2.3 L (3.5-5.0) g/dL Assessment and Plan (1) Abdominal pain Current Visit: Yes Status: Acute Code(s): R10.9 - UNSPECIFIED ABDOMINAL PAIN SNOMED Code(s): 47329912 (2) Pneumoperitoneum Current Visit: Yes Status: Acute Code(s): K66.8 - OTHER SPECIFIED DISORDERS OF PERITONEUM SNOMED Code(s): 35157691
[2019-03-13] MEDS ORDERED: DAPTOmycin 500 MG in SODIUM CHLORIDE 0.9% 50 ML IVPB SCH (22:00)
--- NOTE | 2019-03-13 22:35 | P.PN ---
Subjective Progress Note Date: 03/13/19 58-year-old female presents to Hospital from the extended care facility that she has been receiving care with some worsening of her mental status. It is noted the patient was recently hospitalized which point in time she was acutely ill with altered mental status. There was evidence of acute a lcohol intoxication at that time, and there was development of acute alcoholic hepatitis. She has a history of polycystic kidney disease and has undergone renal transplantation in 2 events. It is noted she's had hemodialysis in the past in her dialysis fistula is nonfunctional. The patient now presents from extended care facility that she was transferred to after hospitalization with worsening mental status. It is found that she has evidence of acute renal failure and ongoing abnormal liver function. The patient who is arousable is not a good historian but does relate that she feels very poorly. There is a significant increase in the amount of fluid and edema that she has. She does no t believe she's had fever or chills. 03/13/2019 patient remains in intensive care unit requiring vasopressor therapy with dopamine and Levothroid. Urine output remains poor but she has not required intubation or mechanical ventilation. Weeping from her arms and legs is slightly improved this afternoon but does have from the right groin site. Mentation remains poor. The patient did develop abdominal pain, x-rays revealed evidence of free air within the abdominal cavity. Surgical consult has been initiated and is in progress. Objective - Vital Signs Vital signs: Vital Signs Temp 97.6 F 03/13/19 17:00 Pulse 90 03/13/19 19:00 Resp 10 L 03/13/19 19:00 BP 97/68 03/12/19 15:00 Pulse Ox 99 03/13/19 19:00 Intake & Output 03/13/19 03/13/19 03/14/19 06:59 18:59 06:59 Intake Total 2806.029 9616.843 68 Output Total 377 330 10 Balance 952.594 795.843 58 Weight 88.7 kg 88.7 kg Intake: IV 1176 871 68 0.9 KVO 240 140 10 Bumetanide 10 mg In 45 5 Dextrose 5% in Water 60 ml @ 0.5 MG/HR 5 mls/hr IV .Q20H [facility] Rx#: [id number] Dextrose 5% in Water 1, 900 650 50 000 ml @ 50 mls/hr IV . Q23H [facility] with Sodium Bicarb (1 Meq/ml) 150 ml Rx#:[id number] Pressure Bag 36 36 3 Intake, IV Titration 153.594 254.843 Amount DOPamine DRIP 800 mg In 139.699 14.738 Water For Injection 1 250ml.bag @ 5 MCG/KG/MIN 5.698 mls/hr IV .Q24H [facility] Rx#:[id number] Norepinephrine 4 mg In 13.895 240.105 Sodium Chloride 0.9% 250 ml @ 0.05 MCG/KG/MIN 11. 579 mls/hr IV .[id number] [facility] Rx#:[id number] Output: Urine 377 330 10 Other: Voiding Method Indwelling Catheter Indwelling Catheter # Bowel Movements 1 ABP, PAP, CO, CI - Last Documented Arterial Blood Pressure 100/60 - Exam 58-year-old woman remains jaundiced HEENT: Anicteric conjunctiva are pink and moist nasal mucosa grossly intact without significant lesions, there is no thrush. Neck: The neck is supple without significant lymphadenopathy or thyromegaly. Lungs: Symmetrical bilateral air entry with few expiratory wheezes no bronchial sounds Heart: Regular rate and rhythm with an audible S1-S2, no S3 no S4. There is no significant murmur click or rub, PMI was nondisplaced. Abdomen: Obese, Positive bowel sounds soft and nontender without palpable masses or organomegaly. There was no guarding or rebound. Tenderness in the right upper quadrant no significant ascites spleen was not palpable Extremities: Significant increase in the amount of peripheral edema, there is also evidence of ecchymosis to the palmar surface of the left wrist that is tender and edematous. No open ulceration is seen but does have weeping from the arms , some weeping occurs from the right Neuthe patient is arousable and awake follows some simple commands poor historian at this time - Labs CBC & Chem 7: 03/13/19 04:10 03/13/19 04:10 Labs: Abnormal Lab Results - Last 24 Hours (Table) 03/12/19 03/12/19 03/13/19 Range/Units 05:02 05:02 00:43 RBC (3.80-5.40) m/uL Hgb (11.4-16.0) gm/dL Hct (34.0-46.0) % MCV (80.0-100.0) fL MCHC (31.0-37.0) g/dL RDW (11.5-15.5) % Lymphocytes # (1.0-4.8) k/uL PT (9.0-12.0) sec INR (<1.2) Chloride (98-107) mmol/L Carbon Dioxide (22-30) mmol/L BUN (7-17) mg/dL Creatinine (0.52-1.04) mg/dL Glucose (74-99) mg/dL POC Glucose (mg/dL) 151 H (75-99) mg/dL Calcium (8.4-10.2) mg/dL Phosphorus (2.5-4.5) mg/dL Total Bilirubin (0.2-1.3) mg/dL AST (14-36) U/L Alkaline Phosphatase (38-126) U/L Ammonia (<30) umol/L Total Protein (6.3-8.2) g/dL Total Protein (PEP) (6.2-8.2) g/dL Albumin (3.5-5.0) g/dL Qngrj-0-Dvuuhssdvqm (99.0-242.0) mg/dL Free T4 0.41 L (0.78-2.19) ng/dL Sirolimus 17.7 H (4.0-12.0) ng/mL 03/13/19 03/13/19 03/13/19 Range/Units 04:10 04:10 04:10 RBC 2.32 L (3.80-5.40) m/uL Hgb 8.1 L (11.4-16.0) gm/dL Hct 26.5 L (34.0-46.0) % MCV 114.2 H D (80.0-100.0) fL MCHC 30.6 L (31.0-37.0) g/dL RDW 16.9 H (11.5-15.5) % Lymphocytes # 0.9 L (1.0-4.8) k/uL PT (9.0-12.0) sec INR (<1.2) Chloride 109 H (98-107) mmol/L Carbon Dioxide 17 L (22-30) mmol/L BUN 47 H (7-17) mg/dL Creatinine 5.73 H (0.52-1.04) mg/dL Glucose 133 H (74-99) mg/dL POC Glucose (mg/dL) (75-99) mg/dL Calcium 7.1 L (8.4-10.2) mg/dL Phosphorus 6.6 H (2.5-4.5) mg/dL Total Bilirubin 5.0 H (0.2-1.3) mg/dL AST 124 H (14-36) U/L Alkaline Phosphatase 186 H (38-126) U/L Ammonia (<30) umol/L Total Protein 5.2 L (6.3-8.2) g/dL Total Protein (PEP) 4.7 L (6.2-8.2) g/dL Albumin 2.3 L (3.5-5.0) g/dL Dhfik-8-Bwucpcgmncr 258.0 H (99.0-242.0) mg/dL Free T4 (0.78-2.19) ng/dL Sirolimus (4.0-12.0) ng/mL 03/13/19 03/13/19 Range/Units 04:10 04:10 RBC (3.80-5.40) m/uL Hgb (11.4-16.0) gm/dL Hct (34.0-46.0) % MCV (80.0-100.0) fL MCHC (31.0-37.0) g/dL RDW (11.5-15.5) % Lymphocytes # (1.0-4.8) k/uL PT 15.2 H (9.0-12.0) sec INR 1.5 H (<1.2) Chloride (98-107) mmol/L Carbon Dioxide (22-30) mmol/L BUN (7-17) mg/dL Creatinine (0.52-1.04) mg/dL Glucose (74-99) mg/dL POC Glucose (mg/dL) (75-99) mg/dL Calcium (8.4-10.2) mg/dL Phosphorus (2.5-4.5) mg/dL Total Bilirubin (0.2-1.3) mg/dL AST (14-36) U/L Alkaline Phosphatase (38-126) U/L Ammonia 53 H (<30) umol/L Total Protein (6.3-8.2) g/dL Total Protein (PEP) (6.2-8.2) g/dL Albumin (3.5-5.0) g/dL Mixyg-2-Qsazxftodbb (99.0-242.0) mg/dL Free T4 (0.78-2.19) ng/dL Sirolimus (4.0-12.0) ng/mL Microbiology - Last 24 Hours (Table) 03/11/19 22:15 Blood Culture Gram Stain - Final Blood Blood Culture - Final Citrobacter braakii 03/11/19 21:30 Urine Culture - Preliminary Urine,Catheterized Gram Neg Bacilli Group D Enterococcus Laboratory Results WBC 6.9 k/uL (3.8-10.6) 03/13/19 04:10 RBC 2.32 m/uL (3.80-5.40) L 03/13/19 04:10 Hgb 8.1 gm/dL (11.4-16.0) L 03/13/19 04:10 Hct 26.5 % (34.0-46.0) L 03/13/19 04:10 MCV 114.2 fL (80.0-100.0) H D 03/13/19 04:10 MCH 35.0 pg (25.0-35.0) 03/13/19 04:10 MCHC 30.6 g/dL (31.0-37.0) L 03/13/19 04:10 RDW 16.9 % (11.5-15.5) H 03/13/19 04:10 Plt Count 183 k/uL (150-450) 03/13/19 04:10 Neutrophils % 81 % 03/13/19 04:10 Neutrophils % (Manual) 80 % 03/11/19 21:05 Band Neutrophils % 4 % 03/11/19 21:05 Lymphocytes % 13 % 03/13/19 04:10 Lymphocytes % (Manual) 11 % 03/11/19 21:05 Monocytes % 2 % 03/13/19 04:10 Monocytes % (Manual) 5 % 03/11/19 21:05 Eosinophils % 3 % 03/13/19 04:10 Basophils % 0 % 03/13/19 04:10 Neutrophils # 5.6 k/uL (1.3-7.7) 03/13/19 04:10 Neutrophils # (Manual) 11.60 k/uL (1.3-7.7) H 03/11/19 21:05 Lymphocytes # 0.9 k/uL (1.0-4.8) L 03/13/19 04:10 Lymphocytes # (Manual) 1.53 k/uL (1.0-4.8) 03/11/19 21:05 Monocytes # 0.1 k/uL (0-1.0) 03/13/19 04:10 Monocytes # (Manual) 0.70 k/uL (0-1.0) 03/11/19 21:05 Eosinophils # 0.2 k/uL (0-0.7) 03/13/19 04:10 Basophils # 0.0 k/uL (0-0.2) 03/13/19 04:10 Nucleated RBCs 0 /100 WBC (0-0) 03/11/19 21:05 Manual Slide Review Performed 03/11/19 21:05 Large Platelets Present 03/11/19 21:05 Polychromasia Present 03/11/19 21:05 Hypochromasia Marked 03/13/19 04:10 Anisocytosis Slight 03/13/19 04:10 Macrocytosis Marked 03/13/19 04:10 PT 15.2 sec (9.0-12.0) H 03/13/19 04:10 INR 1.5 (<1.2) H 03/13/19 04:10 APTT 30.5 sec (22.0-30.0) H 03/11/19 21:05 Sodium 139 mmol/L (137-145) 03/13/19 04:10 Potassium 3.8 mmol/L (3.5-5.1) 03/13/19 04:10 Chloride 109 mmol/L (98-107) H 03/13/19 04:10 Carbon Dioxide 17 mmol/L (22-30) L 03/13/19 04:10 Anion Gap 13 mmol/L 03/13/19 04:10 BUN 47 mg/dL (7-17) H 03/13/19 04:10 Creatinine 5.73 mg/dL (0.52-1.04) H 03/13/19 04:10 Est GFR (CKD-EPI)AfAm 9 (>60 ml/min/1.73 sqM) 03/13/19 04:10 Est GFR (CKD-EPI)NonAf 8 (>60 ml/min/1.73 sqM) 03/13/19 04:10 Glucose 133 mg/dL (74-99) H 03/13/19 04:10 POC Glucose (mg/dL) 151 mg/dL (75-99) H 03/13/19 00:43 POC Glu [employer] ID Vinh Cagle 03/13/19 00:43 Lactic Ac Sepsis Rflx Y 03/11/19 21:59 Plasma Lactic Acid Tony 1.6 mmol/L (0.7-2.0) 03/12/19 01:16 Calcium 7.1 mg/dL (8.4-10.2) L 03/13/19 04:10 Phosphorus 6.6 mg/dL (2.5-4.5) H 03/13/19 04:10 Magnesium 1.7 mg/dL (1.6-2.3) 03/13/19 04:10 Total Bilirubin 5.0 mg/dL (0.2-1.3) H 03/13/19 04:10 AST 124 U/L (14-36) H 03/13/19 04:10 ALT 37 U/L (9-52) 03/13/19 04:10 Alkaline Phosphatase 186 U/L (38-126) H 03/13/19 04:10 Ammonia 53 umol/L (<30) H 03/13/19 04:10 Troponin I <0.012 ng/mL (0.000-0.034) 03/11/19 21:05 Total Protein 5.2 g/dL (6.3-8.2) L 03/13/19 04:10 Total Protein (PEP) 4.7 g/dL (6.2-8.2) L 03/13/19 04:10 Albumin 2.3 g/dL (3.5-5.0) L 03/13/19 04:10 Ympdn-3-Jakrguieclp 258.0 mg/dL (99.0-242.0) H 03/13/19 04:10 Ceruloplasmin 34.7 mg/dL (20.0-60.0) 03/13/19 04:10 TSH 47.400 mIU/L (0.465-4.680) H 03/12/19 05:02 Free T4 0.41 ng/dL (0.78-2.19) L 03/12/19 05:02 Urine Color Dark Brown 03/11/19 21:30 Urine Appearance Turbid (Clear) H 03/11/19 21:30 Urine pH 6.0 (5.0-8.0) 03/11/19 21:30 Ur Specific [place] 1.018 (1.001-1.035) 03/11/19 21:30 Urine Protein 2+ (Negative) H 03/11/19 21:30 Urine Glucose (UA) Negative (Negative) 03/11/19 21:30 Urine Ketones Negative (Negative) 03/11/19 21:30 Urine Blood Moderate (Negative) H 03/11/19 21:30 Urine Nitrite Positive (Negative) H 03/11/19 21:30 Urine Bilirubin 1+ (Negative) H 03/11/19 21:30 Urine Urobilinogen <2.0 mg/dL (<2.0) 03/11/19 21:30 Ur Leukocyte Esterase Large (Negative) H 03/11/19 21:30 Urine RBC 68 /hpf (0-5) H 03/11/19 21:30 Urine WBC >182 /hpf (0-5) H 03/11/19 21:30 Urine WBC Clumps Many /hpf (None) H 03/11/19 21:30 Urine Bacteria Many /hpf (None) H 03/11/19 21:30 Urine Opiates Screen Not Detected (NotDetected) 03/11/19 21:30 Ur Oxycodone Screen Not Detected (NotDetected) 03/11/19 21:30 Urine Methadone Screen Not Detected (NotDetected) 03/11/19 21:30 Ur Propoxyphene Screen Not Detected (NotDetected) 03/11/19 21:30 Ur Barbiturates Screen Not Detected (NotDetected) 03/11/19 21:30 U Tricyclic Antidepress Not Detected (NotDetected) 03/11/19 21:30 Ur Phencyclidine Scrn Not Detected (NotDetected) 03/11/19 21:30 Ur Amphetamines Screen Not Detected (NotDetected) 03/11/19 21:30 U Methamphetamines Scrn Not Detected (NotDetected) 03/11/19 21:30 U Benzodiazepines Scrn Not Detected (NotDetected) 03/11/19 21:30 Urine Cocaine Screen Not Detected (NotDetected) 03/11/19 21:30 Sirolimus 17.7 ng/mL (4.0-12.0) H 03/12/19 05:02 U Marijuana (THC) Screen Not Detected (NotDetected) 03/11/19 21:30 Serum Alcohol <10 mg/dL 03/11/19 22:15 JANNA Screen NEGATIVE (NEGATIVE) 03/13/19 04:10 Hepatitis A IgM Ab Non-Reactive (Non-Reactive) 03/12/19 18:25 Hep Bs Antigen Non-Reactive (Non-Reactive) 03/12/19 18:25 Hep B Core IgM Ab Non-Reactive (Non-Reactive) 03/12/19 18:25 Hep C IgG Ab Non-Reactive (Non-Reactive) 03/12/19 18:25 Microbiology 03/11/19 22:15 Blood Blood Culture Gram Stain - Final 03/11/19 22:15 Blood Blood Culture - Final Citrobacter braakii 03/11/19 21:30 Urine,Catheterized Urine Culture - Preliminary Gram Neg Bacilli Group D Enterococcus 03/11/19 22:15 Blood Blood Culture - Final Assessment and Plan (1) Altered mental status Current Visit: Yes Status: Acute Code(s): R41.82 - ALTERED MENTAL STATUS, UNSPECIFIED SNOMED Code(s): 119735645 (2) Elevated liver enzymes Current Visit: Yes Status: Acute Code(s): R74.8 - ABNORMAL LEVELS OF OTHER SERUM ENZYMES SNOMED Code(s): 861580454 (3) Acute renal failure Current Visit: Yes Status: Acute Code(s): N17.9 - ACUTE KIDNEY FAILURE, UNSPECIFIED SNOMED Code(s): 69900806 (4) Gram-negative sepsis with organ dysfunction Narrative/Plan: 58-year-old woman presents to [facility] from the [facility] where she has been receiving care since her recent hospitalization presents for worsening altered mental status. Patient continues to have lethargy and has evidence of acute renal failure which is of great concern given her renal transplant status. She was seen by nephrology and she is receiving fluids and soda bicarbonate to reduce her acidosis. CellCept is being held given the acute renal failure and levels were requested. The patient's hepatic dysfunction persists with an ongoing elevated bilirubin, has been evaluated by gastroenterology and advises ongoing alcohol cessation and monitoring. INR is only minimally elevated 1.2 which is improved from earlier this month. Albumin has increased slightly from 2.5-2.7. She does have evidence of gram-negative sepsis likely from the urinary system we have asked for a bladder scan to ensure that there is not any obstruction from the bladder with [place]. Cefepime has been initiated and dose adjusted her ready by pharmacy which is adequate choice based on her previous cultures of a non- ESBL Escherichia coli. Follow blood cultures requested. 03/13/2019 level of vasopressor has minimally decreased, urinary output remains poor but creatinine has not worsened. Patient's mentation remains poor. Laboratory does reveal the gram-negative bacilli in the blood originally as E. coli is now been corrected to a Citrobacter. Urine culture with gram-negative bacilli and enterococcus species. Antibiotic therapy with cefepime continues, daptomycin is added for treatment of the underlying enterococcus until final cultures are resulted. 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 Family's questions are answered It is noted patient developed abdominal pain. Computed tomography scan reveal evidence of free air which was not noticed on a prior computed tomography scan or recent ultrasound. Antibiotics adjusted for recurrent positive cultures. Current Visit: Yes Status: Acute Code(s): A41.50 - GRAM-NEGATIVE SEPSIS, UNSPECIFIED; R65.20 - SEVERE SEPSIS WITHOUT SEPTIC SHOCK SNOMED Code(s): 093198124
[2019-03-14] MEDS: CEFEPIME 0.5 GM in SODIUM CHLORIDE 0.9% 50 ML IVPB SCH (00:07)
[2019-03-14] MEDS: CLOTRIMAZOLE TROCHE 10 MG TROCHE PO SCH ×4 (00:07→15:45)
[2019-03-14] MEDS: NOREPINEPHRINE 4 MG in SODIUM CHLORIDE 0.9% 250 ML IV SCH (00:28)
[2019-03-14] MEDS: HALOPERIDOL LACTATE 5 MG/ML 1 ML VIAL IVP PRN ×3 (01:11→13:32)
[2019-03-14 01:24] LABS: ABG Base Excess -2.7 mmol/L; ABG HCO3 23 mmol/L (21-25); ABG PCO2 41 mmHg (35-45); ABG PH 7.35 (7.35-7.45); ABG PO2 127 mmHg (83-108); ABG TCO2 24 mmol/L (19-24)
[2019-03-14] MEDS ORDERED: NOREPINEPHRINE 32 MG in SODIUM CHLORIDE 0.9% 218 ML IV SCH (01:30)
[2019-03-14] MEDS: BUMETANIDE 10 MG in DEXTROSE 5% IN WATER 60 ML IV SCH ×2 (02:25)
[2019-03-14 05:39] LABS: Anisocytosis Slight; Basophils % (A) 0 %; Eosinophils # (A) 0.2 k/uL (0-0.7); Eosinophils % (A) 1 %; HCT 29.8 % (34.0-46.0); HGB 8.9 gm/dL (11.4-16.0); Hypochromasia Marked; Lymphocytes # (A) 1.6 k/uL (1.0-4.8); Lymphocytes % (A) 8 %; MCH 34.2 pg (25.0-35.0); MCHC 29.8 g/dL (31.0-37.0); MCV 114.7 fL (80.0-100.0); Macrocytosis Marked; Mean Platelet Volume 9.7; Monocytes # (A) 0.5 k/uL (0-1.0); Monocytes % (A) 2 %; Neutrophils # (A) 17.1 k/uL (1.3-7.7); Neutrophils % (A) 88 %; Platelet Count 235 k/uL (150-450); RDW 17.2 % (11.5-15.5); WBC 19.6 k/uL (3.8-10.6)
[2019-03-14] MEDS ORDERED: LEVOTHYROXINE IVP 100 MCG/5 ML VIAL IV SCH (06:30)
[2019-03-14 06:31] LABS: Albumin 2.4 g/dL (3.5-5.0); Calcium 6.8 mg/dL (8.4-10.2); Magnesium 1.6 mg/dL (1.6-2.3); Total Bilirubin 5.4 mg/dL (0.2-1.3); Total Protein 5.3 g/dL (6.3-8.2)
--- NOTE | 2019-03-14 07:29 | XR ---
EXAMINATION TYPE: XR chest 1V portable DATE OF EXAM: 03/14/2019 COMPARISON: 03/13/2019 HISTORY: Shortness of breath TECHNIQUE: Single frontal view of the chest is obtained. FINDINGS: There is a mildly enlarged cardiac mediastinal silhouette. Mild degenerative changes of th e spine are also seen. Minimal left basilar atelectasis remains. Low lung volumes are evident. No acu te osseous pathology. IMPRESSION: Minimal left basilar atelectasis and low lung volumes.
--- NOTE | 2019-03-14 08:05 | P.PN ---
Progress Note - Text Progress Note Date: 03/13/19 Patient seen and evaluated. Extensive discussion with the patient's family members at bedside regarding findings of free abdominal air. Earlier chest x-ray from this morning was unremarkable and personally reviewed. CT of the abdomen and pelvis personally reviewed without definitive source identified. No fat stranding identified along the sigmoid colon or diverticulitis. Small punctate air found along the upper abdomen. Diffuse anasarca also identified. Clinical exam demonstrates no evidence of peritonitis. Patient otherwise somnolent. No rebound or guarding identified on exam as well. With her history of a second renal transplant, elevated liver transaminases, ongoing immunosuppression including renal failure and complex medical comorbidities and morbid obesity, acute failure of renal transplant versus salvageability with most appropriate workup to be performed at transplant center such as [facility] described. As for findings on computed tomography scan, patient clinically doing better regarding chemistries and white blood cell count. Patient is extremely high risk for mortality with exploratory laparotomy although patient is clinically doing better. At this time, patient has guarded prognosis. With her history of second renal transplant, acute renal failure following second renal transplant and multiple medical comorbidities, I recommended transfer to tertiary care center with full spectrum of transplant care including any further need for abdominal surgery at a transplant center. All questions of the patient and family were addressed of which they were pleased with the level of discussion. Critical Care time: 32 minutes
[2019-03-14] MEDS: SIROLIMUS 1 MG PO SCH (08:10)
[2019-03-14] MEDS: ESCITALOPRAM 20 MG TAB PO SCH (08:10)
[2019-03-14] MEDS: ARIPiprazole 2 MG TAB PO SCH (08:10)
[2019-03-14] MEDS: FAMOTIDINE 20 MG TAB PO SCH (08:12)
[2019-03-14] MEDS ORDERED: LACTULOSE 20 GM/30 ML CUP PO SCH (09:00)
--- NOTE | 2019-03-14 10:02 | XR ---
EXAMINATION TYPE: XR abdomen 1V DATE OF EXAM: 03/14/2019 9:53 AM CLINICAL HISTORY: Abdominal distention TECHNIQUE: Single supine KUB image of the abdomen is obtained. COMPARISON: None. FINDINGS: Right central venous catheter from a femoral approach is seen in the pelvis. Surgical clips are present right paracentral to the L5 vertebral body and overlying the right iliac bone. Postsurgi bree changes of the L3 vertebral body are also noted. There are newly dilated scattered loops of small bowel within the abdomen that are centralized. Small bowel measures up to 4.7 cm no gross evidence o f pneumoperitoneum. There is a positive bowel gas and the low pelvis. Osseous structures are grossly intact. IMPRESSION: New dilated centralized loops of small bowel may represent severe ileus or small bowel ob struction as there is possibility of bowel gas in the pelvis.
--- NOTE | 2019-03-14 10:08 | P.DS ---
Providers Date of admission: 03/12/19 00:38 Expected date of discharge: 03/14/19 Attending physician: Harry Foreman Consults: 03/12/19 00:34 Consult Physician Stat Consulting Provider: Paul Wheeler Consult Reason/Comments: Transplant patient. Elevated creatinine Do you want consulting provider notified?: Already Contacted 03/12/19 00:35 Consult Physician Stat Consulting Provider: Oralia Gaston Consult Reason/Comments: intensive care Do you want consulting provider notified?: Already Contacted 03/12/19 00:36 Consult Physician Routine Consulting Provider: Josh Lira Consult Reason/Comments: sepsis. Urinary tract infection Do you want consulting provider notified?: Yes 03/12/19 00:37 Consult Physician Routine Consulting Provider: Xander Gomez Consult Reason/Comments: liver failure patient. hepatic encephalopathy Do you want consulting provider notified?: Yes 03/12/19 03:23 Consult Physician Stat Consulting Provider: Peter Patterson Consult Reason/Comments: low HR and BP Do you want consulting provider notified?: Yes 03/13/19 12:44 Consult Physician Stat Consulting Provider: Haley Josue Consult Reason/Comments: Severe Abdominal Pain Do you want consulting provider notified?: Already Contacted Primary care physician: Harry Foreman [facility] Course: Discharge diagnosis 1. Urinary tract infection with septic shock. Lactic acid2.1, repeat 1.6. Dr. Lira consulted for infectious disease. Patient maintained on Maxipime and daptomycin for antibiotics. Urine culture growing enterococcus faecium and Citrobacter braaki, and positive blood culture for Citrobacter braakii. 2. Sinus bradycardia. Patient's heart rate in the 20s and 30s on admit. heart rate has improved. Patient maintained on dopamine to 2mcgs 3. Hypotension due to septic shock. Patient started on Levophed. She currently on 12 mics of Levophed 4. 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 Creatinine 6.9 on admission. Discussed case with nephrology Dr. Wheeler. Patient maintained on Bumex drip. Creatinine trending down to 5.35 bun 48 5. Metabolic acidosis secondary to acute kidney injury and diarrhea. maintained on sodium bicarbonate drip 6. Status post living renal transplant in 2002. 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 Patient maintained on cellCept and rapamune medication. Per nephrology discontinue CellCept due to sepsis at this time 7. Acute on chronic liver disease. GI services are following patient maintained on lactulose 20 g 3 times a day for elevated blood ammonia level 8. History of alcohol abuse 9. Hypothyroidism. TSH 47. Patient started on Synthroid 25 mcgs 10. History of CVA 11. History of hyperlipidemia 12. History of essential hypertension 13. History of anxiety 14. Increased abdominal pain. CT of abdomen and pelvis has been ordered 15. Elevated ammonia level patient maintained on lactulose we'll continue to monitor 16. Pneumoperitoneum. CT of abdomen completed showing free air within the abdomen correlate for recent procedure perforated viscus is not excluded site of perforation difficult to exclude. Ascites with anasarca Marie. Basilar pleural effusions and comprehensive atelectasis she was evaluated by surgical services. Per surgical services given her history of second renal transplant, elevated liver transaminases, ongoing immunosuppression including renal failure and complex medical comorbidities and morbid obesity acute failure of renal transplant versus salvage ability with most appropriate workup to be performed at transplant center such as [facility] Patient will be transferred to [facility] for higher level care and further treatment. Discussed case with surgical and critical care team. Patient has been accepted at [facility] course This is a 58-year-old female patient who presents to the ER from [facility]. Patient has a complex medical history including kidney transplant in 2002 in which she is maintained on immunosuppression CellCept and Rapamune. Additional medical history includes recent admission for acute alcoholic hepatitis with chronic liver failure although, chronic kidney disease, underlying history of hyperlipidemia, depression, anemia and thrombocytopenia. Patient presented with heart rate in the 20s and 30s and hypotensive. Patient also in acute on chronic renal failure with creatinine 6.16 and bun 47. Patient was admitted to intensive care unit. Patient started on dopamine, Levophed and sodium bicarb drip. Blood cultures ordered. Lactic acid 1.6. Cardiology, nephrology, GI services and critical care. Patient currently on cefepime for antibiotics. At this time patient remains in the intensive care unit. Patient is complaining of some abdominal discomfort. Discussed case with nephrology services. Patient will be given Lasix today may require hemodialysis tomorrow. At this time patient denies chest pain. Heart rate has improved on dopamine. Patient denies shortness of breath. Oleary catheter is in place with minimal ur ine output On 03/13/2019 patient remains in the intensive care unit. Creatinine 5.73 and bun 47. Patient remains on dopamine and Levophed. Patient also on sodium bicarbonate drip. CT of abdomen and pelvis ordered due to abdominal pain per critical care. Critical care, nephrology, GI, cardiology and infectious disease are following On 03/14/2019 patient was evaluated by surgical services for pneumoperitoneum. Recommending transfer to [facility] dated complex medical history including renal transplant patient currently being in acute renal failure. Discussed case with surgical services and critical care team. Patient has been accepted at [facility] patient to be transferred with ACLS protocol. I performed an examination of the patient and discussed their management with the Nurse Practitioner. I have reviewed the Nurse Practitioner's notes and agree with the documented findings and plan of care Patient Condition at Discharge: Stable Plan - Discharge Summary New Discharge Prescriptions: No Action ARIPiprazole [Abilify] 2 mg PO DAILY Sirolimus [Rapamune] 1 mg PO DAILY Atomoxetine HCl [Strattera] 40 mg PO DAILY Escitalopram [Lexapro] 20 mg PO DAILY Mycophenolate Mofetil [Cellcept] 500 mg PO BID Carvedilol [Coreg] 6.25 mg PO BID Diltiazem Cd [Cardizem CD] 240 mg PO DAILY cap.er.24h Lactulose [Cephulac] 20 gm PO TID ml Ibuprofen [Motrin] 400 mg PO Q6HR PRN tab PRN Reason: Pain Thiamine [Vitamin B-1] 100 mg PO BID@1200,1700 tab Benzocaine/Menthol Lozeng [Cepacol lozenge] 1 lozenge MUCOUS MEM Q2H PRN PRN Reason: Sore Throat Furosemide [Lasix] 20 mg PO DAILY Nystatin 100,000 Unit/ml Susp [Mycostatin Oral Susp] 500,000 unit PO 5XD Tamsulosin [Flomax] 0.4 mg PO HS Discharge Medication List ARIPiprazole [Abilify] 2 mg PO DAILY 08/13/14 [History] Sirolimus [Rapamune] 1 mg PO DAILY 08/13/14 [History] Atomoxetine HCl [Strattera] 40 mg PO DAILY 01/23/19 [History] Carvedilol [Coreg] 6.25 mg PO BID 01/23/19 [History] Escitalopram [Lexapro] 20 mg PO DAILY 01/23/19 [History] Mycophenolate Mofetil [Cellcept] 500 mg PO BID 01/23/19 [History] Diltiazem Cd [Cardizem CD] 240 mg PO DAILY cap.er.24h 02/22/19 [Rx] Ibuprofen [Motrin] 400 mg PO Q6HR PRN tab 02/22/19 [Rx] Lactulose [Cephulac] 20 gm PO TID ml 02/22/19 [Rx] Thiamine [Vitamin B-1] 100 mg PO BID@1200,1700 tab 02/22/19 [Rx] Benzocaine/Menthol Lozeng [Cepacol lozenge] 1 lozenge MUCOUS MEM Q2H PRN 03/11/19 [History] Furosemide [Lasix] 20 mg PO DAILY 03/11/19 [History] Nystatin 100,000 Unit/ml Susp [Mycostatin Oral Susp] 500,000 unit PO 5XD 03/11/19 [History] Tamsulosin [Flomax] 0.4 mg PO HS 03/11/19 [History] Follow up Appointment(s)/Referral(s): Harry Foreman MD [Primary Care Provider] - 1-2 days
--- NOTE | 2019-03-14 10:12 | P.PN ---
Subjective Progress Note Date: 03/14/19 Principal diagnosis: Septic shock related to enterococcus faecium and Citrobacter brachii, and bacteremia This is a 58-year-old female patient with a recipient of a previous kidney transplantation and has multiple other medical problems and comorbidities most significant of which is alcoholic liver disease/cirrhosis and previous hospitalization for now underlying urine checked infection as well as related to a gram-negative bacteria/E. coli. The patient has chronic anemia, thrombocytopenia, previous history of CVA, hypertension and hyperlipidemia and congenitally absent kidney along with history of polycystic kidney disease and diverticular disease. The patient was treated in our intensive care unit approximately 3 weeks ago for hypotension/hypovolemia and UTI and the patient was sent back to the assisted. As patient came back to the ICU yesterday because of significant abnormalities per the patient presented to the ED with acute kidney injury and hypotension. The patient was feeling weak and fatigued. The patient was having some diarrhea. No nausea. No hematuria. In fact her urine output dropped significantly. She was quite hypotensive with a systolic pressure in the mid 70s time of arrival and she was also bradycardic, she was in sinus bradycardia with a heart rate in the low 30s. The patient was receiving a combination of Cardizem and Coreg on outpatient basis. UA was abnormal. The patient was given a total of 5 L of normal saline and she was started on a bicarb infusion at the rate of 125 mL an hour. She was also started on pressors. I initially started on dopamine based on her bradycardia and hypotension which is still currently running at 5 mg per KG per minute. Subsequently she was started on levo fed at the rate of 0.1 g per KG per minute. Nevertheless, the urine output has remained quite low. Morning systolic blood pressure is in the mid 90s. Heart rate is up to 65. Urine output has been negligible. She received a total of 60 mg IV push Lasix without any significant response thus far. Mentally she is awake and alert. She is a bit sleepy and this is consistent with stage I hepatitic encephalopathy knowing that her ammonia level is also elevated. Her lactic acid level is at 1.6. Her bilirubin is at 6.3. The ammonia level is at 36. AST that 131. ALT is at 37. Alkaline phosphatase is at 2:30. Troponins are negative. His serum bicarbs at 11. Creatinine was as high as 6.8 and currently is down to 6.1. His platelet count is at 156. The upper limit a blood culture is showing gram-negative bacillus. The patient is currently on IV cefepime and infectious disease consultation is already been obtained. Echocardiogram is still pending. On today's evaluation of 03/13/2019 Seeing this patient for a follow-up. In general, she seems to be a bit more awake compared to yesterday. She is or 81- 2. He is currently on 5 L of oxygen nasal cannula with a pulse ox of 98-99%. Chest x-ray is not showing any acute abnormalities. The patient is on lactulose and she is producing adequate bowel activity. In addition, the patient's urine output is improved and currently the Oleary catheter is producing approximately 30-40 mL an hour of urine output. She has developed extensive generalized anasarca and edema. On today's evaluation her abdomen is slightly distended and she is complaining of some abdominal pain/tense feeling. I was able to insert a triple lumen catheter in her right femoral vein and currently she is receiving IV fluids in the form of D5 W and 3 A of bicarb at the rate of 75 mL an hour. Note that she had significant degree of metabolic acidosis which improved and the serum bicarbs up to 17. BUN is at 47 with creatinine of 5.7 the patient has developed extensive amount of anasarca to the point where the patient is weeping from her skin all over. The patient will be started on Bumex 0.5 mg an hour after consulting with nephrology. Note that urine output improved and the patient is producing somewhat between 30-40 mL's of urine output since yesterday. Note that the patient is septic. The patient was found to have a E. coli urinary tract infection and sepsis and the urine culture also showed enterococcus group D. her white cell count is down to 6.9.Lactic acid level is down to 1.6. The patient is currently on pressors and she is on dopamine at 2 g per KG per minute and norepinephrine infusion at 8 g. As mentioned she is on a D5 with 3 A of sodium bicarbonate the rate of 75 cc an hour. Her serum ammonia level is at 63. We'll follow the patient's TSH was elevated at 47.4 and the free T4 is also low and the patient was started on 25 g of Synthroid. On the 03/14/2019 patient seen in follow-up in the intensive care unit, she is awake and alert, she is oriented to person and place, this morning is a significant amount of discomfort from her right upper abdominal pain. Bowel sounds are extremely difficult to auscultate, possibly hypoactive. Patient is on room air, with a pulse ox of 97%, afebrile, maintenance IV fluids include D5 W with 3 up to bicarb at a rate of 50 ML per hour, dopamine drip is at 2 mics per kilo per minute, Bumex is a 0.5 mg per hour, norepinephrine is currently at 12 mics per minute. Patient is oliguric, and producing urine at a rate of 10-20 ML per hour. Today's labs have been reviewed, and white blood cell count has increased to 19.6 from 6.9 on yesterday's labs, hemoglobin of 8.9, serum sodium is 141, potassium is 4.0, chloride is 107, CO2 is 21, BUN of 48, creatinine is 5.35, renal profile is relatively stable, slightly improved creatinine on today's labs, ammonia level is 64. Microbiology has been reviewed, and urine cultures were positive for Citrobacter braaki, Enterococcus faecium, and blood cultures were positive for Citrobacter braakii. ID service is following, and patient is currently on a combination of daptomycin, cefepime. Lung sounds are clear, diminished at the bases. She is maintaining good oxygenation on room air, denies any difficulty breathing, other than related to pain in her abdomen and abdominal distention. Patient has severe generalized anasarca, significant swelling and third spacing and upper and lower extremities,and trunk. Patient has been evaluated by surgery, and transferred to tertiary center was recommended. Objective - Vital Signs Vital signs: Vital Signs Temp 97.1 F L 03/14/19 04:00 Pulse 88 03/14/19 07:00 Resp 12 03/14/19 07:00 BP 97/68 03/12/19 15:00 Pulse Ox 96 03/14/19 08:41 Intake & Output 03/13/19 03/14/19 03/14/19 18:59 06:59 18:59 Intake Total 8533.294 5497.000 68 Output Total 330 155 15 Balance 795.843 972.000 53 Weight 88.7 kg 91 kg Intake: IV 871 796 68 0.9 KVO 140 120 10 Bumetanide 10 mg In 45 40 5 Dextrose 5% in Water 60 ml @ 0.5 MG/HR 5 mls/hr IV .Q20H EDDA Rx#: [id number] Dextrose 5% in Water 1, 650 600 50 000 ml @ 50 mls/hr IV . Q23H EDDA with Sodium Bicarb (1 Meq/ml) 150 ml Rx#:[id number] Pressure Bag 36 36 3 Intake, IV Titration 254.843 331.000 Amount Bumetanide 10 mg In 77 Dextrose 5% in Water 60 ml @ 0.5 MG/HR 5 mls/hr IV .Q20H EDDA Rx#: [id number] DOPamine DRIP 800 mg In 14.738 Water For Injection 1 250ml.bag @ 5 MCG/KG/MIN 5.698 mls/hr IV .Q24H EDDA Rx#:[id number] Norepinephrine 4 mg In 240.105 254.000 Sodium Chloride 0.9% 250 ml @ 0.05 MCG/KG/MIN 11. 579 mls/hr IV .[id number] EDDA Rx#:[id number] Output: Urine 330 155 15 Other: Voiding Method Indwelling Catheter Indwelling Catheter # Bowel Movements 1 ABP, PAP, CO, CI - Last Documented Arterial Blood Pressure 100/57 - Exam GENERAL EXAM: Alert, 58-year-old white female, in moderate to severe discomfort from right upper abdominal pain, on room air, patient has appearance of generalized anasarca, with moderate to severe amount of generalized edema in upper and lower extremities, face, and trunk HEAD: Normocephalic/atraumatic. EYES: Normal reaction of pupils, equal size. Conjunctiva pink, sclera white. NOSE: Clear with pink turbinates. THROAT: No erythema or exudates. NECK: No masses, no JVD, no thyroid enlargement, no adenopathy. CHEST: No chest wall deformity. Symmetrical expansion. LUNGS: Equal air entry with mesh breath sounds at the bases, CVS: Regular rate and rhythm, normal S1 and S2, no gallops, no murmurs, no rubs ABDOMEN: Distended, tender, to palpation in the right upper quadrant. Abdominal wall edema noted. No hepatosplenomegaly, normal bowel sounds, no guarding or rigidity. EXTREMITIES: No clubbing, no edema, no cyanosis, 2+ pulses and upper and lower extremities. MUSCULOSKELETAL: Muscle strength and tone normal. SPINE: No scoliosis or deformity SKIN: No rashes CENTRAL NERVOUS SYSTEM: Alert and oriented -2. No focal deficits, tone is normal in all 4 extremities. - Labs CBC & Chem 7: 03/14/19 05:30 03/14/19 05:30 Labs: Abnormal Lab Results - Last 24 Hours (Table) 03/12/19 03/12/19 03/13/19 Range/Units 05:02 05:02 04:10 WBC (3.8-10.6) k/uL RBC (3.80-5.40) m/uL Hgb (11.4-16.0) gm/dL Hct (34.0-46.0) % MCV (80.0-100.0) fL MCHC (31.0-37.0) g/dL RDW (11.5-15.5) % Neutrophils # (1.3-7.7) k/uL ABG pO2 (83-108) mmHg ABG O2 Saturation (94-97) % Carbon Dioxide (22-30) mmol/L BUN (7-17) mg/dL Creatinine (0.52-1.04) mg/dL Glucose (74-99) mg/dL Calcium (8.4-10.2) mg/dL Total Bilirubin (0.2-1.3) mg/dL AST (14-36) U/L Alkaline Phosphatase (38-126) U/L Ammonia (<30) umol/L Total Protein (6.3-8.2) g/dL Total Protein (PEP) 4.7 L (6.2-8.2) g/dL Albumin (3.5-5.0) g/dL Dvsvc-6-Jpzjgknvkxn 258.0 H (99.0-242.0) mg/dL Free T4 0.41 L (0.78-2.19) ng/dL Sirolimus 17.7 H (4.0-12.0) ng/mL 03/14/19 03/14/19 03/14/19 Range/Units 00:00 05:30 05:30 WBC 19.6 H (3.8-10.6) k/uL RBC 2.60 L (3.80-5.40) m/uL Hgb 8.9 L (11.4-16.0) gm/dL Hct 29.8 L (34.0-46.0) % MCV 114.7 H (80.0-100.0) fL MCHC 29.8 L (31.0-37.0) g/dL RDW 17.2 H (11.5-15.5) % Neutrophils # 17.1 H (1.3-7.7) k/uL ABG pO2 127 H (83-108) mmHg ABG O2 Saturation 99.0 H (94-97) % Carbon Dioxide 21 L (22-30) mmol/L BUN 48 H (7-17) mg/dL Creatinine 5.35 H (0.52-1.04) mg/dL Glucose 128 H (74-99) mg/dL Calcium 6.8 L (8.4-10.2) mg/dL Total Bilirubin 5.4 H (0.2-1.3) mg/dL AST 159 H (14-36) U/L Alkaline Phosphatase 196 H (38-126) U/L Ammonia (<30) umol/L Total Protein 5.3 L (6.3-8.2) g/dL Total Protein (PEP) (6.2-8.2) g/dL Albumin 2.4 L (3.5-5.0) g/dL Waqkj-7-Uwireiemcvw (99.0-242.0) mg/dL Free T4 (0.78-2.19) ng/dL Sirolimus (4.0-12.0) ng/mL 03/14/19 Range/Units 06:28 WBC (3.8-10.6) k/uL RBC (3.80-5.40) m/uL Hgb (11.4-16.0) gm/dL Hct (34.0-46.0) % MCV (80.0-100.0) fL MCHC (31.0-37.0) g/dL RDW (11.5-15.5) % Neutrophils # (1.3-7.7) k/uL ABG pO2 (83-108) mmHg ABG O2 Saturation (94-97) % Carbon Dioxide (22-30) mmol/L BUN (7-17) mg/dL Creatinine (0.52-1.04) mg/dL Glucose (74-99) mg/dL Calcium (8.4-10.2) mg/dL Total Bilirubin (0.2-1.3) mg/dL AST (14-36) U/L Alkaline Phosphatase (38-126) U/L Ammonia 64 H (<30) umol/L Total Protein (6.3-8.2) g/dL Total Protein (PEP) (6.2-8.2) g/dL Albumin (3.5-5.0) g/dL Ubmhk-0-Zwvgcvimlop (99.0-242.0) mg/dL Free T4 (0.78-2.19) ng/dL Sirolimus (4.0-12.0) ng/mL Microbiology - Last 24 Hours (Table) 03/11/19 22:15 Blood Culture Gram Stain - Final Blood Blood Culture - Final Citrobacter braakii 03/11/19 21:30 Urine Culture - Final Urine,Catheterized Citrobacter braakii Enterococcus faecium 03/12/19 21:45 Blood Culture - Preliminary Blood No Growth after 24 hours Assessment and Plan Plan: Assessment: 1 septic shock secondary to Citrobacter braakii bacteremia, and urine cultures were positive for Citrobacter braakii, Enterococcus faecium. The patient is still on a combination of dopamine and norepinephrine infusion. Urine output is improving. White cell count is up in the lactic acid level is down to 1.6. 2 profound hypotension/shock secondary to above. The patient has been re suscitated with fluids and pressors. Currently on D5 with 3 ampules of sodium bicarbonate the rate of 75 mL's an hour and 8 mics of norepinephrine infusion and 2 mics of dopamine infusion. 3 acute kidney injury, the patient has amount stated some improvement in urine output in the creatinine is down to 5.35 5 acute abdominal pain, with CT of the abdomen and pelvis showed free air within the abdomen, and the site of the perforation was difficult to elucidate. Surgical services on consult 6 history of kidney transplant, maintained on immunosuppression with a combination of Rapamune and CellCept on outpatient basis, currently on hold 7 alcoholic liver disease with liver cirrhosis and pancytopenia and hyperbilirubinemia 8 stage I hepatitic encephalopathy 9 chronic anemia 10 chronic lymphocytopenia 11 non-anion gap metabolic acidosis currently on a bicarb infusion 12 history of recurrent UTI with E. coli 13 history of kidney transplantation 14 history of CVA 15 history of hypertension 16 history of hyperlipidemia 17 history of congenital absence of the kidney/polycystic kidney disease 18 history of diverticular disease 19 edematous upper and lower extremities bilaterally 20 bradycardia, sinus, likely a beta michelle effect in combination with calcium channel blockers, echocardiogram showing a preserved LV function and the patient's bradycardia pain much recovered. 21 hypothyroidism with elevated TSH and a low free T4 the patient started on Synthroid. Plan: Patient remains on vasopressor support, currently levo fed is at 12 mics per minute, and dopamine is at 2 mics per kilo per minute, and patient remains oliguric despite the Bumex drip. Antibiotics per ID service recommendations, Ativan daptomycin and cefepime. Patient is awake and alert, but she is in significant amount of discomfort from right upper quadrant pain, we'll repeat abdominal x-ray today, repeat lactic acid level. Continue with current treatment, surgical services recommended transfer to tertiary care facility, [facility] view of high complexity of patient's case, patient is high risk for surgical intervention, related to multiple comorbidities, and history of 2 renal transplants. The patient's family is in agreement, and the transfer has been initiated 's morning. From pulmonary perspective patient denies worsening shortness of breath, she is maintaining good oxygenation, chest x-ray was reviewed with Dr. Gaston, and showed minimal left basilar atelectasis and low lung volumes. No focal infiltrates. We'll continue current medical treatment, will await a bed at [facility]. I performed a history & physical examination of the patient and discussed their management with my nurse practitioner, Cindy Salazar. I reviewed the nurse practitioner's note and agree with the documented findings and plan of care. Lung sounds are positive for clear breath sounds. The findings and the impression was discussed with the patient. I attest to the documentation by the nurse practitioner. Time with Patient: Greater than 30
--- NOTE | 2019-03-14 10:57 | P.PN ---
Subjective Progress Note Date: 03/14/19 Principal diagnosis: Renal failure alcohol liver disease CT abdomen and pelvis yesterday reported free air within the abdomen. General surgery consulted patient evaluated recommendations appreciated. Abdominal x- ray this morning and dilated central to small bowel may represent severe ileus or small bowel obstruction possibility of bowel gas and pelvis. White count increased 19.6. Hemoglobin 8.9. Platelet 235. Afebrile. Blood cultures now reporting Citrobacter species. Transfer to tertiary care center planned for today. LFTs relatively unchanged total bilirubin 5.4. AST 159. ALT 46. AP 196. Ammonia 64. Objective - Vital Signs Vital signs: Vital Signs Temp 97.5 F L 03/14/19 08:00 Pulse 90 03/14/19 10:00 Resp 12 03/14/19 10:00 BP 97/68 03/12/19 15:00 Pulse Ox 92 L 03/14/19 10:00 Intake & Output 03/13/19 03/14/19 03/14/19 18:59 06:59 18:59 Intake Total 1313.724 3476.000 215.366 Output Total 330 155 85 Balance 795.843 972.000 130.366 Weight 88.7 kg 91 kg Intake: IV 871 796 172 0.9 KVO 140 120 40 Bumetanide 10 mg In 45 40 20 Dextrose 5% in Water 60 ml @ 0.5 MG/HR 5 mls/hr IV .Q20H EDDA Rx#: [id number] Dextrose 5% in Water 1, 650 600 100 000 ml @ 50 mls/hr IV . Q23H EDDA with Sodium Bicarb (1 Meq/ml) 150 ml Rx#:[id number] Pressure Bag 36 36 12 Intake, IV Titration 254.843 331.000 43.366 Amount Bumetanide 10 mg In 77 Dextrose 5% in Water 60 ml @ 0.5 MG/HR 5 mls/hr IV .Q20H EDDA Rx#: [id number] DOPamine DRIP 800 mg In 14.738 Water For Injection 1 250ml.bag @ 5 MCG/KG/MIN 5.698 mls/hr IV .Q24H EDDA Rx#:[id number] Norepinephrine 32 mg In 43.366 Sodium Chloride 0.9% 218 ml @ 0.05 MCG/KG/MIN 2. 079 mls/hr IV .Q24H EDDA Rx#:[id number] Norepinephrine 4 mg In 240.105 254.000 Sodium Chloride 0.9% 250 ml @ 0.05 MCG/KG/MIN 11. 579 mls/hr IV .[id number] EDDA Rx#:[id number] Output: Urine 330 155 85 Other: Voiding Method Indwelling Catheter Indwelling Catheter Indwelling Catheter # Bowel Movements 1 ABP, PAP, CO, CI - Last Documented Arterial Blood Pressure 100/56 - Exam General appearance: The patient is alert, oriented to self slightly confused appears uncomfortable reporting abdominal pain. HET: Head is normocephalic and atraumatic. Pupils are equal and reactive. Oropharynx is clear without lesions. Neck: Supple without lymphadenopathy. Trachea midline. Heart: S1 S2. Regular rate and rhythm. Lungs: No crackles or wheezes are heard. Abdomen: Soft, distended moderate tenderness to the right side hypoactive bowel sounds. Extremities: Oleary with sandra urine. Neurological: No focal deficits. Strength and sensation are grossly intact. - Labs CBC & Chem 7: 03/14/19 05:30 03/14/19 05:30 Labs: Abnormal Lab Results - Last 24 Hours (Table) 03/12/19 03/12/19 03/13/19 Range/Units 05:02 05:02 04:10 WBC (3.8-10.6) k/uL RBC (3.80-5.40) m/uL Hgb (11.4-16.0) gm/dL Hct (34.0-46.0) % MCV (80.0-100.0) fL MCHC (31.0-37.0) g/dL RDW (11.5-15.5) % Neutrophils # (1.3-7.7) k/uL ABG pO2 (83-108) mmHg ABG O2 Saturation (94-97) % Carbon Dioxide (22-30) mmol/L BUN (7-17) mg/dL Creatinine (0.52-1.04) mg/dL Glucose (74-99) mg/dL Calcium (8.4-10.2) mg/dL Total Bilirubin (0.2-1.3) mg/dL AST (14-36) U/L Alkaline Phosphatase (38-126) U/L Ammonia (<30) umol/L Total Protein (6.3-8.2) g/dL Total Protein (PEP) 4.7 L (6.2-8.2) g/dL Albumin (3.5-5.0) g/dL Qctok-1-Nladxywsroq 258.0 H (99.0-242.0) mg/dL Free T4 0.41 L (0.78-2.19) ng/dL Sirolimus 17.7 H (4.0-12.0) ng/mL 03/14/19 03/14/19 03/14/19 Range/Units 00:00 05:30 05:30 WBC 19.6 H (3.8-10.6) k/uL RBC 2.60 L (3.80-5.40) m/uL Hgb 8.9 L (11.4-16.0) gm/dL Hct 29.8 L (34.0-46.0) % MCV 114.7 H (80.0-100.0) fL MCHC 29.8 L (31.0-37.0) g/dL RDW 17.2 H (11.5-15.5) % Neutrophils # 17.1 H (1.3-7.7) k/uL ABG pO2 127 H (83-108) mmHg ABG O2 Saturation 99.0 H (94-97) % Carbon Dioxide 21 L (22-30) mmol/L BUN 48 H (7-17) mg/dL Creatinine 5.35 H (0.52-1.04) mg/dL Glucose 128 H (74-99) mg/dL Calcium 6.8 L (8.4-10.2) mg/dL Total Bilirubin 5.4 H (0.2-1.3) mg/dL AST 159 H (14-36) U/L Alkaline Phosphatase 196 H (38-126) U/L Ammonia (<30) umol/L Total Protein 5.3 L (6.3-8.2) g/dL Total Protein (PEP) (6.2-8.2) g/dL Albumin 2.4 L (3.5-5.0) g/dL Indfy-2-Kejjyotvgfl (99.0-242.0) mg/dL Free T4 (0.78-2.19) ng/dL Sirolimus (4.0-12.0) ng/mL 03/14/19 Range/Units 06:28 WBC (3.8-10.6) k/uL RBC (3.80-5.40) m/uL Hgb (11.4-16.0) gm/dL Hct (34.0-46.0) % MCV (80.0-100.0) fL MCHC (31.0-37.0) g/dL RDW (11.5-15.5) % Neutrophils # (1.3-7.7) k/uL ABG pO2 (83-108) mmHg ABG O2 Saturation (94-97) % Carbon Dioxide (22-30) mmol/L BUN (7-17) mg/dL Creatinine (0.52-1.04) mg/dL Glucose (74-99) mg/dL Calcium (8.4-10.2) mg/dL Total Bilirubin (0.2-1.3) mg/dL AST (14-36) U/L Alkaline Phosphatase (38-126) U/L Ammonia 64 H (<30) umol/L Total Protein (6.3-8.2) g/dL Total Protein (PEP) (6.2-8.2) g/dL Albumin (3.5-5.0) g/dL Bpwdx-3-Zqwiezqfohc (99.0-242.0) mg/dL Free T4 (0.78-2.19) ng/dL Sirolimus (4.0-12.0) ng/mL Microbiology - Last 24 Hours (Table) 03/11/19 22:15 Blood Culture Gram Stain - Final Blood Blood Culture - Final Citrobacter braakii 03/11/19 21:30 Urine Culture - Final Urine,Catheterized Citrobacter braakii Enterococcus faecium 03/12/19 21:45 Blood Culture - Preliminary Blood No Growth after 24 hours Assessment and Plan (1) Elevated liver enzymes Narrative/Plan: 58-year-old female admitted with multiple complaints weakness hypotension vague abdominal pain, jaundice, elevated BUN/creatinine with a history of renal transplant long-standing alcohol abuse. Etiology of her elevated liver enzymes appears to be multifactorial. Suspect underlying alcohol liver disease with superimposed acute on chronic alcohol hepatitis component of ischemic hepatitis with evidence of hypotension on admission presently receiving IV pressors. An underlying hepatorenal syndrome cannot be excluded. MRI liver 2 weeks ago rep orted no hepatic masses features of hepatomegaly some mildly dilated left hepatic lobe duct dilation without mass relatively unchanged from previous CT imaging. Ultrasound 02/15/2019 reported biliary sludge and stones. LFTs are improving however patient has increased abdominal pain to the right s antoni/flank with slight improvement in renal function. E. coli bacteremia and enterococcus UTI cultures resulted. Current Visit: Yes Status: Acute Code(s): R74.8 - ABNORMAL LEVELS OF OTHER SERUM ENZYMES SNOMED Code(s): 866846121 (2) Hypotension Current Visit: Yes Status: Acute Code(s): I95.9 - HYPOTENSION, UNSPECIFIED SNOMED Code(s): 62220645 (3) Acute renal failure Current Visit: Yes Status: Acute Code(s): N17.9 - ACUTE KIDNEY FAILURE, UNSPECIFIED SNOMED Code(s): 41138663 (4) Alcohol abuse Current Visit: No Status: Acute Code(s): F10.10 - ALCOHOL ABUSE, UNCOMPLICATED SNOMED Code(s): 62168506 (5) Alcoholic liver disease Current Visit: No Status: Acute Code(s): K70.9 - ALCOHOLIC LIVER DISEASE, UNSPECIFIED SNOMED Code(s): 68380705 (6) Bacteremia Narrative/Plan: Citrobacter species Current Visit: Yes Status: Acute Code(s): R78.81 - BACTEREMIA SNOMED Co de(s): 3709758 (7) Abdominal pain Narrative/Plan: Possible free air per CT abdomen results yesterday possible small bowel obstruction per abdominal xrays today without gross pneumoperitoneum. General surgery has evaluated patient assessment and recommendations appreciated. Current Visit: Yes Status: Acute Code(s): R10.9 - UNSPECIFIED ABDOMINAL PAIN SNOMED Code(s): 99286207 Plan: 1. Due to the complexity of patient's clinical history and present clinical status patient is being transferred to a tertiary care today for evaluation and further treatment. Assessment and plan a care discussed with Dr. Little
[2019-03-14] MEDS: THIAMINE 100 MG TAB PO SCH (12:00)
--- NOTE | 2019-03-14 12:26 | P.PN ---
Subjective Patient is seen in follow-up for acute allograft dysfunction. Patient received a living donor kidney transplant in 2002. She is maintained on CellCept and Rapamune as an outpatient but are currently held due to septic shock. Patient's sister states that she is not sure if she has been taking her antirejection medications as an outpatient. Baseline creatinine is near 1. It was 6.9 on admission and is 5.35 today. She is noted to have free air in the abdomen. Blood cultures positive for Citrobacter and urine culture is positive for Citrob acter and enterococcus. She is severely volume overloaded and is maintained on Bumex drip. Urine output has been about 20-30 mL an hour. Currently on 2 mics of dopamine and 10 mics of Levophed. Vital signs are stable. Currently on vasopressors. General: The patient appeared well nourished and normally developed. HEENT: Head exam is unremarkable. Neck is without jugular venous distension. LUNGS: Breath sounds decreased. HEART: Rate and Rhythm are regular. First and second heart sounds normal. No murmurs, rubs or gallops. ABDOMEN: Bowel sounds decreased. Mildly tender to palpation. EXTREMITITES: 2+ edema. Objective - Vital Signs Vital signs: Vital Signs Temp 97.5 F L 03/14/19 08:00 Pulse 80 03/14/19 11:00 Resp 12 03/14/19 11:00 BP 97/68 03/12/19 15:00 Pulse Ox 97 03/14/19 11:00 Intake & Output 03/13/19 03/14/19 03/14/19 18:59 06:59 18:59 Intake Total 8957.649 1146.000 283.366 Output Total 330 155 120 Balance 795.843 972.000 163.366 Weight 88.7 kg 91 kg Intake: IV 871 796 240 0.9 KVO 140 120 50 Bumetanide 10 mg In 45 40 25 Dextrose 5% in Water 60 ml @ 0.5 MG/HR 5 mls/hr IV .Q20H EDDA Rx#: [id number] Dextrose 5% in Water 1, 650 600 150 000 ml @ 50 mls/hr IV . Q23H EDDA with Sodium Bicarb (1 Meq/ml) 150 ml Rx#:[id number] Pressure Bag 36 36 15 Intake, IV Titration 254.843 331.000 43.366 Amount Bumetanide 10 mg In 77 Dextrose 5% in Water 60 ml @ 0.5 MG/HR 5 mls/hr IV .Q20H EDDA Rx#: [id number] DOPamine DRIP 800 mg In 14.738 Water For Injection 1 250ml.bag @ 5 MCG/KG/MIN 5.698 mls/hr IV .Q24H EDDA Rx#:[id number] Norepinephrine 32 mg In 43.366 Sodium Chloride 0.9% 218 ml @ 0.05 MCG/KG/MIN 2. 079 mls/hr IV .Q24H EDDA Rx#:[id number] Norepinephrine 4 mg In 240.105 254.000 Sodium Chloride 0.9% 250 ml @ 0.05 MCG/KG/MIN 11. 579 mls/hr IV .[id number] EDDA Rx#:[id number] Output: Urine 330 155 120 Other: Voiding Method Indwelling Catheter Indwelling Catheter Indwelling Catheter # Bowel Movements 1 ABP, PAP, CO, CI - Last Documented Arterial Blood Pressure 104/54 - Labs CBC & Chem 7: 03/14/19 05:30 03/14/19 05:30 Labs: Abnormal Lab Results - Last 24 Hours (Table) 03/12/19 03/13/19 03/14/19 Range/Units 05:02 04:10 00:00 WBC (3.8-10.6) k/uL RBC (3.80-5.40) m/uL Hgb (11.4-16.0) gm/dL Hct (34.0-46.0) % MCV (80.0-100.0) fL MCHC (31.0-37.0) g/dL RDW (11.5-15.5) % Neutrophils # (1.3-7.7) k/uL ABG pO2 127 H (83-108) mmHg ABG O2 Saturation 99.0 H (94-97) % Carbon Dioxide (22-30) mmol/L BUN (7-17) mg/dL Creatinine (0.52-1.04) mg/dL Glucose (74-99) mg/dL Calcium (8.4-10.2) mg/dL Total Bilirubin (0.2-1.3) mg/dL AST (14-36) U/L Alkaline Phosphatase (38-126) U/L Ammonia (<30) umol/L Total Protein (6.3-8.2) g/dL Albumin (3.5-5.0) g/dL [id number]-[id number]-Pnfudsnrftd 258.0 H (99.0-242.0) mg/dL Sirolimus 17.7 H (4.0-12.0) ng/mL 03/14/19 03/14/19 03/14/19 Range/Units 05:30 05:30 06:28 WBC 19.6 H (3.8-10.6) k/uL RBC 2.60 L (3.80-5.40) m/uL Hgb 8.9 L (11.4-16.0) gm/dL Hct 29.8 L (34.0-46.0) % MCV 114.7 H (80.0-100.0) fL MCHC 29.8 L (31.0-37.0) g/dL RDW 17.2 H (11.5-15.5) % Neutrophils # 17.1 H (1.3-7.7) k/uL ABG pO2 (83-108) mmHg ABG O2 Saturation (94-97) % Carbon Dioxide 21 L (22-30) mmol/L BUN 48 H (7-17) mg/dL Creatinine 5.35 H (0.52-1.04) mg/dL Glucose 128 H (74-99) mg/dL Calcium 6.8 L (8.4-10.2) mg/dL Total Bilirubin 5.4 H (0.2-1.3) mg/dL AST 159 H (14-36) U/L Alkaline Phosphatase 196 H (38-126) U/L Ammonia 64 H (<30) umol/L Total Protein 5.3 L (6.3-8.2) g/dL Albumin 2.4 L (3.5-5.0) g/dL Kvgiz-0-Ukmyzbshzat (99.0-242.0) mg/dL Sirolimus (4.0-12.0) ng/mL Microbiology - Last 24 Hours (Table) 03/11/19 22:15 Blood Culture Gram Stain - Final Blood Blood Culture - Final Citrobacter braakii 03/11/19 21:30 Urine Culture - Final Urine,Catheterized Citrobacter braakii Enterococcus faecium 03/12/19 21:45 Blood Culture - Preliminary Blood No Growth after 24 hours Assessment and Plan Plan: Assessment: 1. 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 Creatinine 6.9 on admission and is 5.35 this morning. Baseline creatinine near 1. No hydronephrosis noted on ultrasound. 2. Metabolic acidosis secondary to acute kidney injury and diarrhea. Better. 3. Status post living related renal transplant in 2002. 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 This was her second kidney transplant. 4. Septic shock. Source is UTI and bacteremia. Also concern for abdominal source as she has free air. Maintained on IV antibiotics. Also on Levophed and dopamine. 5. Hyperphosphatemia secondary to acute kidney injury. Improving. 6. Pneumoperitoneum. Surgery following. 7. Volume overload. 8. Diastolic CHF with mild to moderate mitral and tricuspid regurgitation. Plan: Hep-Lock IV fluids. Lasix 80 mg IV once now. Increase rate of Bumex drip to 1 mg per hour. Avoid nephrotoxins. Hold antirejection medications in view of septic shock. Rapamune level from March 12 noted to be high at 17.7. Continue to assess on a daily basis for the need for renal replacement therapy.
[2019-03-14 12:31] VITALS: TEMP 97.4
[2019-03-14] MEDS ORDERED: FUROSEMIDE 10 MG/ML 10 ML VIAL IV STA (12:56)
[2019-03-14] MEDS: DEXTROSE 5% IN WATER 1,000 ML with SODIUM BICARB (1 MEQ/ML) 150 ML IV SCH (13:03)
--- NOTE | 2019-03-14 13:07 | P.PN ---
Subjective Progress Note Date: 03/14/19 This is a 58-year-old female patient with an extensive past medical history significant for end stage renal disease and status post kidney transplant twice, history of chronic alcohol use, chronic liver disease secondary to alcohol, as well as multiple comorbid conditions, who was brought from an extended care facility to the hospital with a change in mental status. The patient just was discharged from the hospital 2 weeks ago to the extended care facility. When the patient arrived to the emergency room she was hypotensive and bradycardic. She was in sinus bradycardia with a resting heart rate in the 30s. Subsequently the patient was started on dopamine and then Levothroid. At the extended care facility, the patient was on Cardizem at 240 mg daily which was held. The EKG showed sinus bradycardia. The patient was found to be in renal failure with a creatinine around 6. The liver function tests are elevated. The alkaline phosphatase is elevated. The calcium and phosphorous are elevated as well. Currently the patient is in process to be seen by the nephrology service as well. On follow-up with the patient today, she continues to be doing well. She is in process to be transferred to [facility]. Objective - Vital Signs Vital signs: Vital Signs Temp 97.4 F L 03/14/19 12:00 Pulse 84 03/14/19 13:00 Resp 10 L 03/14/19 13:00 BP 97/68 03/12/19 15:00 Pulse Ox 98 03/14/19 12:00 Intake & Output 03/13/19 03/14/19 03/14/19 18:59 06:59 18:59 Intake Total 3821.620 5684.000 419.366 Output Total 330 155 160 Balance 795.843 972.000 259.366 Weight 88.7 kg 91 kg Intake: IV 871 796 376 0.9 KVO 140 120 70 Bumetanide 10 mg In 45 40 35 Dextrose 5% in Water 60 ml @ 1 MG/HR 10 mls/hr IV .Q10H EDDA Rx#:[id number] Dextrose 5% in Water 1, 650 600 250 000 ml @ 50 mls/hr IV . Q23H EDDA with Sodium Bicarb (1 Meq/ml) 150 ml Rx#:[id number] Pressure Bag 36 36 21 Intake, IV Titration 254.843 331.000 43.366 Amount Bumetanide 10 mg In 77 Dextrose 5% in Water 60 ml @ 1 MG/HR 10 mls/hr IV .Q10H EDDA Rx#:[id number] DOPamine DRIP 800 mg In 14.738 Water For Injection 1 250ml.bag @ 5 MCG/KG/MIN 5.698 mls/hr IV .Q24H EDDA Rx#:[id number] Norepinephrine 32 mg In 43.366 Sodium Chloride 0.9% 218 ml @ 0.05 MCG/KG/MIN 2. 079 mls/hr IV .Q24H EDDA Rx#:[id number] Norepinephrine 4 mg In 240.105 254.000 Sodium Chloride 0.9% 250 ml @ 0.05 MCG/KG/MIN 11. 579 mls/hr IV .[id number] EDDA Rx#:[id number] Output: Urine 330 155 160 Other: Voiding Method Indwelling Catheter Indwelling Catheter Indwelling Catheter # Bowel Movements 1 ABP, PAP, CO, CI - Last Documented Arterial Blood Pressure 105/54 - Constitutional General appearance: Present: no acute distress - Respiratory Respiratory: bilateral: diminished - Cardiovascular Rhythm: regular Heart sounds: normal: S1, S2 Abnormal Heart Sounds: Present: systolic murmur - Labs CBC & Chem 7: 03/14/19 05:30 03/14/19 05:30 Labs: Abnormal Lab Results - Last 24 Hours (Table) 03/12/19 03/13/19 03/14/19 Range/Units 05:02 04:10 00:00 WBC (3.8-10.6) k/uL RBC (3.80-5.40) m/uL Hgb (11.4-16.0) gm/dL Hct (34.0-46.0) % MCV (80.0-100.0) fL MCHC (31.0-37.0) g/dL RDW (11.5-15.5) % Neutrophils # (1.3-7.7) k/uL ABG pO2 127 H (83-108) mmHg ABG O2 Saturation 99.0 H (94-97) % Carbon Dioxide (22-30) mmol/L BUN (7-17) mg/dL Creatinine (0.52-1.04) mg/dL Glucose (74-99) mg/dL Calcium (8.4-10.2) mg/dL Total Bilirubin (0.2-1.3) mg/dL AST (14-36) U/L Alkaline Phosphatase (38-126) U/L Ammonia (<30) umol/L Total Protein (6.3-8.2) g/dL Albumin (3.5-5.0) g/dL Jlneu-3-Ylfsmttbuvu 258.0 H (99.0-242.0) mg/dL Sirolimus 17.7 H (4.0-12.0) ng/mL 03/14/19 03/14/19 03/14/19 Range/Units 05:30 05:30 06:28 WBC 19.6 H (3.8-10.6) k/uL RBC 2.60 L (3.80-5.40) m/uL Hgb 8.9 L (11.4-16.0) gm/dL Hct 29.8 L (34.0-46.0) % MCV 114.7 H (80.0-100.0) fL MCHC 29.8 L (31.0-37.0) g/dL RDW 17.2 H (11.5-15.5) % Neutrophils # 17.1 H (1.3-7.7) k/uL ABG pO2 (83-108) mmHg ABG O2 Saturation (94-97) % Carbon Dioxide 21 L (22-30) mmol/L BUN 48 H (7-17) mg/dL Creatinine 5.35 H (0.52-1.04) mg/dL Glucose 128 H (74-99) mg/dL Calcium 6.8 L (8.4-10.2) mg/dL Total Bilirubin 5.4 H (0.2-1.3) mg/dL AST 159 H (14-36) U/L Alkaline Phosphatase 196 H (38-126) U/L Ammonia 64 H (<30) umol/L Total Protein 5.3 L (6.3-8.2) g/dL Albumin 2.4 L (3.5-5.0) g/dL Dupxx-7-Sdwtmizhbvn (99.0-242.0) mg/dL Sirolimus (4.0-12.0) ng/mL Microbiology - Last 24 Hours (Table) 03/11/19 22:15 Blood Culture Gram Stain - Final Blood Blood Culture - Final Citrobacter braakii 03/11/19 21:30 Urine Culture - Final Urine,Catheterized Citrobacter braakii Enterococcus faecium 03/12/19 21:45 Blood Culture - Preliminary Blood No Growth after 24 hours Assessment and Plan Assessment: Assessment #1 change in mental status #2 sinus bradycardia #3 hypotension #4 end-stage renal disease #5 status post kidney transplant 2 #6 history of alcohol abuse #7 chronic liver disease Plan #1 continue weaning the patient from dopamine #2 the echocardiogram was reviewed #3 the patient is going to be transferred to [facility]. Thank you for allowing us participate in her care
[2019-03-14 13:53] LABS: Liver/Kidney Microsome Antibod 1.4 UNITS (<=20)
[2019-03-14 14:07] LABS: Albumin 2.27 g/dL (3.80-4.90); Gamma Globulin 0.85 g/dL (0.70-1.50)
[2019-03-14 15:33] VITALS: RESP 12
[2019-03-14 16:25] VITALS: PULSE 73
--- NOTE | 2019-03-14 23:15 | P.PN ---
Subjective Progress Note Date: 03/14/19 58-year-old female presents to Hospital from the extended care facility that she has been receiving care with some worsening of her mental status. It is noted the patient was recently hospitalized which point in time she was acutely ill with altered mental status. There was evidence of acute a lcohol intoxication at that time, and there was development of acute alcoholic hepatitis. She has a history of polycystic kidney disease and has undergone renal transplantation in 2 events. It is noted she's had hemodialysis in the past in her dialysis fistula is nonfunctional. The patient now presents from extended care facility that she was transferred to after hospitalization with worsening mental status. It is found that she has evidence of acute renal failure and ongoing abnormal liver function. The patient who is arousable is not a good historian but does relate that she feels very poorly. There is a significant increase in the amount of fluid and edema that she has. She does no t believe she's had fever or chills. 03/13/2019 patient remains in intensive care unit requiring vasopressor therapy with dopamine and Levothroid. Urine output remains poor but she has not required intubation or mechanical ventilation. Weeping from her arms and legs is slightly improved this afternoon but does have from the right groin site. Mentation remains poor. The patient did develop abdominal pain, x-rays revealed evidence of free air within the abdominal cavity. Surgical consult has been initiated and is in progress. 03/14/2019 patient remains in vasopressor therapy. Her creatinine has slightly improved in his urine output has improved slightly. Edema has also slightly improved. However there is concerns about the cause of her sepsis. Urinary infection appears to be occurring however the sudden onset of abdominal pain and free air noted on the computed tomography scan are of concern. Given the patient's renal transplant status, patient being transferred to a tertiary [facility] er, for further surgical evaluation. Objective - Vital Signs Vital signs: Vital Signs Temp 97.4 F L 03/14/19 12:00 Pulse 73 03/14/19 16:00 Resp 12 03/14/19 16:00 BP 97/68 03/12/19 15:00 Pulse Ox 94 L 03/14/19 16:00 Intake & Output 03/14/19 03/14/19 03/15/19 06:59 18:59 06:59 Intake Total 1127.000 455.366 Output Total 155 200 Balance 972.000 255.366 Weight 91 kg Intake: IV 796 412 0.9 KVO 120 90 Bumetanide 10 mg In 40 45 Dextrose 5% in Water 60 ml @ 1 MG/HR 10 mls/hr IV .Q10H EDDA Rx#:[id number] Dextrose 5% in Water 1, 600 250 000 ml @ 50 mls/hr IV . Q23H EDDA with Sodium Bicarb (1 Meq/ml) 150 ml Rx#:[id number] Pressure Bag 36 27 Intake, IV Titration 331.000 43.366 Amount Bumetanide 10 mg In 77 Dextrose 5% in Water 60 ml @ 1 MG/HR 10 mls/hr IV .Q10H EDDA Rx#:[id number] Norepinephrine 32 mg In 43.366 Sodium Chloride 0.9% 218 ml @ 0.05 MCG/KG/MIN 2. 079 mls/hr IV .Q24H EDDA Rx#:[id number] Norepinephrine 4 mg In 254.000 Sodium Chloride 0.9% 250 ml @ 0.05 MCG/KG/MIN 11. 579 mls/hr IV .[id number] EDDA Rx#:[id number] Output: Urine 155 200 Other: Voiding Method Indwelling Catheter Indwelling Catheter ABP, PAP, CO, CI - Last Documented Arterial Blood Pressure 110/49 - Exam 58-year-old woman remains jaundiced HEENT: Anicteric conjunctiva are pink and moist nasal mucosa grossly intact without significant lesions, there is no thrush. Neck: The neck is supple without significant lymphadenopathy or thyromegaly. Lungs: Symmetrical bilateral air entry with few expiratory wheezes no bronchial sounds Heart: Regular rate and rhythm with an audible S1-S2, no S3 no S4. There is no significant murmur click or rub, PMI was nondisplaced. Abdomen: Obese, Positive bowel sounds soft and nontender without palpable masses or organomegaly. There was no guarding or rebound. Tenderness in the right upper quadrant no significant ascites spleen was not palpable Extremities: Significant increase in the amount of peripheral edema, there is also evidence of ecchymosis to the palmar surface of the left wrist that is tender and edematous. No open ulceration is seen but does have weeping from the arms , some weeping occurs from the right Neuthe patient is arousable and awake follows some simple commands poor historian at this time - Labs CBC & Chem 7: 03/14/19 05:30 03/14/19 05:30 Labs: Abnormal Lab Results - Last 24 Hours (Table) 03/13/19 03/14/19 03/14/19 Range/Units 04:10 00:00 05:30 WBC (3.8-10.6) k/uL RBC (3.80-5.40) m/uL Hgb (11.4-16.0) gm/dL Hct (34.0-46.0) % MCV (80.0-100.0) fL MCHC (31.0-37.0) g/dL RDW (11.5-15.5) % Neutrophils # (1.3-7.7) k/uL ABG pO2 127 H (83-108) mmHg ABG O2 Saturation 99.0 H (94-97) % Carbon Dioxide 21 L (22-30) mmol/L BUN 48 H (7-17) mg/dL Creatinine 5.35 H (0.52-1.04) mg/dL Glucose 128 H (74-99) mg/dL Calcium 6.8 L (8.4-10.2) mg/dL Total Bilirubin 5.4 H (0.2-1.3) mg/dL AST 159 H (14-36) U/L Alkaline Phosphatase 196 H (38-126) U/L Ammonia (<30) umol/L Total Protein 5.3 L (6.3-8.2) g/dL Albumin 2.4 L (3.5-5.0) g/dL Albumin (PEP) 2.27 L (3.80-4.90) g/dL Beta Globulins 0.55 L (0.60-1.30) g/dL 03/14/19 03/14/19 Range/Units 05:30 06:28 WBC 19.6 H (3.8-10.6) k/uL RBC 2.60 L (3.80-5.40) m/uL Hgb 8.9 L (11.4-16.0) gm/dL Hct 29.8 L (34.0-46.0) % MCV 114.7 H (80.0-100.0) fL MCHC 29.8 L (31.0-37.0) g/dL RDW 17.2 H (11.5-15.5) % Neutrophils # 17.1 H (1.3-7.7) k/uL ABG pO2 (83-108) mmHg ABG O2 Saturation (94-97) % Carbon Dioxide (22-30) mmol/L BUN (7-17) mg/dL Creatinine (0.52-1.04) mg/dL Glucose (74-99) mg/dL Calcium (8.4-10.2) mg/dL Total Bilirubin (0.2-1.3) mg/dL AST (14-36) U/L Alkaline Phosphatase (38-126) U/L Ammonia 64 H (<30) umol/L Total Protein (6.3-8.2) g/dL Albumin (3.5-5.0) g/dL Albumin (PEP) (3.80-4.90) g/dL Beta Globulins (0.60-1.30) g/dL Microbiology - Last 24 Hours (Table) 03/11/19 22:15 Blood Culture Gram Stain - Final Blood Blood Culture - Final Citrobacter braakii 03/11/19 21:30 Urine Culture - Final Urine,Catheterized Citrobacter braakii Enterococcus faecium 03/12/19 21:45 Blood Culture - Preliminary Blood No Growth after 24 hours Laboratory Results WBC 19.6 k/uL (3.8-10.6) H 03/14/19 05:30 RBC 2.60 m/uL (3.80-5.40) L 03/14/19 05:30 Hgb 8.9 gm/dL (11.4-16.0) L 03/14/19 05:30 Hct 29.8 % (34.0-46.0) L 03/14/19 05:30 MCV 114.7 fL (80.0-100.0) H 03/14/19 05:30 MCH 34.2 pg (25.0-35.0) 03/14/19 05:30 MCHC 29.8 g/dL (31.0-37.0) L 03/14/19 05:30 RDW 17.2 % (11.5-15.5) H 03/14/19 05:30 Plt Count 235 k/uL (150-450) 03/14/19 05:30 Neutrophils % 88 % 03/14/19 05:30 Neutrophils % (Manual) 80 % 03/11/19 21:05 Band Neutrophils % 4 % 03/11/19 21:05 Lymphocytes % 8 % 03/14/19 05:30 Lymphocytes % (Manual) 11 % 03/11/19 21:05 Monocytes % 2 % 03/14/19 05:30 Monocytes % (Manual) 5 % 03/11/19 21:05 Eosinophils % 1 % 03/14/19 05:30 Basophils % 0 % 03/14/19 05:30 Neutrophils # 17.1 k/uL (1.3-7.7) H 03/14/19 05:30 Neutrophils # (Manual) 11.60 k/uL (1.3-7.7) H 03/11/19 21:05 Lymphocytes # 1.6 k/uL (1.0-4.8) 03/14/19 05:30 Lymphocytes # (Manual) 1.53 k/uL (1.0-4.8) 03/11/19 21:05 Monocytes # 0.5 k/uL (0-1.0) 03/14/19 05:30 Monocytes # (Manual) 0.70 k/uL (0-1.0) 03/11/19 21:05 Eosinophils # 0.2 k/uL (0-0.7) 03/14/19 05:30 Basophils # 0.0 k/uL (0-0.2) 03/14/19 05:30 Nucleated RBCs 0 /100 WBC (0-0) 03/11/19 21:05 Manual Slide Review Performed 03/11/19 21:05 Large Platelets Present 03/11/19 21:05 Polychromasia Present 03/11/19 21:05 Hypochromasia Marked 03/14/19 05:30 Anisocytosis Slight 03/14/19 05:30 Macrocytosis Marked 03/14/19 05:30 PT 15.2 sec (9.0-12.0) H 03/13/19 04:10 INR 1.5 (<1.2) H 03/13/19 04:10 APTT 30.5 sec (22.0-30.0) H 03/11/19 21:05 Sample Site [place] 03/14/19 00:00 ABG pH 7.35 (7.35-7.45) 03/14/19 00:00 ABG pCO2 41 mmHg (35-45) 03/14/19 00:00 ABG pO2 127 mmHg (83-108) H 03/14/19 00:00 ABG HCO3 23 mmol/L (21-25) 03/14/19 00:00 ABG Total CO2 24 mmol/L (19-24) 03/14/19 00:00 ABG O2 Saturation 99.0 % (94-97) H 03/14/19 00:00 ABG Base Excess -2.7 mmol/L 03/14/19 00:00 Devin Test no 03/14/19 00:00 ABG Lactic Acid 1.3 mmol/L (0.5-1.6) 03/14/19 08:47 FiO2 36 % 03/14/19 00:00 Sodium 141 mmol/L (137-145) 03/14/19 05:30 Potassium 4.0 mmol/L (3.5-5.1) 03/14/19 05:30 Chloride 107 mmol/L (98-107) 03/14/19 05:30 Carbon Dioxide 21 mmol/L (22-30) L 03/14/19 05:30 Anion Gap 13 mmol/L 03/14/19 05:30 BUN 48 mg/dL (7-17) H 03/14/19 05:30 Creatinine 5.35 mg/dL (0.52-1.04) H 03/14/19 05:30 Est GFR (CKD-EPI)AfAm 10 (>60 ml/min/1.73 sqM) 03/14/19 05:30 Est GFR (CKD-EPI)NonAf 8 (>60 ml/min/1.73 sqM) 03/14/19 05:30 Glucose 128 mg/dL (74-99) H 03/14/19 05:30 POC Glucose (mg/dL) 151 mg/dL (75-99) H 03/13/19 00:43 POC Glu [employer] ID Vinh Cagle 03/13/19 00:43 Lactic Ac Sepsis Rflx Y 03/11/19 21:59 Plasma Lactic Acid Tony 1.6 mmol/L (0.7-2.0) 03/12/19 01:16 Calcium 6.8 mg/dL (8.4-10.2) L 03/14/19 05:30 Phosphorus 6.6 mg/dL (2.5-4.5) H 03/13/19 04:10 Magnesium 1.6 mg/dL (1.6-2.3) 03/14/19 05:30 Total Bilirubin 5.4 mg/dL (0.2-1.3) H 03/14/19 05:30 AST 159 U/L (14-36) H 03/14/19 05:30 ALT 46 U/L (9-52) 03/14/19 05:30 Alkaline Phosphatase 196 U/L (38-126) H 03/14/19 05:30 Ammonia 64 umol/L (<30) H 03/14/19 06:28 Troponin I <0.012 ng/mL (0.000-0.034) 03/11/19 21:05 Total Protein 5.3 g/dL (6.3-8.2) L 03/14/19 05:30 Total Protein (PEP) 4.7 g/dL (6.2-8.2) L 03/13/19 04:10 Albumin 2.4 g/dL (3.5-5.0) L 03/14/19 05:30 Albumin (PEP) 2.27 g/dL (3.80-4.90) L 03/13/19 04:10 Apvxo-1-Sdoymhhja 0.39 g/dL (0.10-0.40) 03/13/19 04:10 Vtxnq-3-Pwqmtgktw 0.63 g/dL (0.60-1.00) 03/13/19 04:10 Beta Globulins 0.55 g/dL (0.60-1.30) L 03/13/19 04:10 Gamma Globulins 0.85 g/dL (0.70-1.50) 03/13/19 04:10 PEP Interpretation SEE NOTE 03/13/19 04:10 Orgwg-7-Mclsjswhggr 258.0 mg/dL (99.0-242.0) H 03/13/19 04:10 Ceruloplasmin 34.7 mg/dL (20.0-60.0) 03/13/19 04:10 TSH 47.400 mIU/L (0.465-4.680) H 03/12/19 05:02 Free T4 0.41 ng/dL (0.78-2.19) L 03/12/19 05:02 Urine Color Dark Brown 03/11/19 21:30 Urine Appearance Turbid (Clear) H 03/11/19 21:30 Urine pH 6.0 (5.0-8.0) 03/11/19 21:30 Ur Specific [place] 1.018 (1.001-1.035) 03/11/19 21:30 Urine Protein 2+ (Negative) H 03/11/19 21:30 Urine Glucose (UA) Negative (Negative) 03/11/19 21:30 Urine Ketones Negative (Negative) 03/11/19 21: Urine Blood Moderate (Negative) H 03/11/19 21:30 Urine Nitrite Positive (Negative) H 03/11/19 21: Urine Bilirubin 1+ (Negative) H 03/11/19 21:30 Urine Urobilinogen <2.0 mg/dL (<2.0) 03/11/19 21:30 Ur Leukocyte Esterase Large (Negative) H 03/11/19 21:30 Urine RBC 68 /hpf (0-5) H 03/11/19 21:30 Urine WBC >182 /hpf (0-5) H 03/11/19 21:30 Urine WBC Clumps Many /hpf (None) H 03/11/19 21:30 Urine Bacteria Many /hpf (None) H 03/11/19 21:30 Urine Opiates Screen Not Detected (NotDetected) 03/11/19 21:30 Ur Oxycodone Screen Not Detected (NotDetected) 03/11/19 21:30 Urine Methadone Screen Not Detected (NotDetected) 03/11/19 21:30 Ur Propoxyphene Screen Not Detected (NotDetected) 03/11/19 21:30 Ur Barbiturates Screen Not Detected (NotDetected) 03/11/19 21:30 U Tricyclic Antidepress Not Detected (NotDetected) 03/11/19 21:30 Ur Phencyclidine Scrn Not Detected (NotDetected) 03/11/19 21:30 Ur Amphetamines Screen Not Detected (NotDetected) 03/11/19 21:30 U Methamphetamines Scrn Not Detected (NotDetected) 03/11/19 21:30 U Benzodiazepines Scrn Not Detected (NotDetected) 03/11/19 21:30 Urine Cocaine Screen Not Detected (NotDetected) 03/11/19 21:30 Sirolimus 17.7 ng/mL (4.0-12.0) H 03/12/19 05:02 U Marijuana (THC) Screen Not Detected (NotDetected) 03/11/19 21:30 Serum Alcohol <10 mg/dL 03/11/19 22:15 JANNA Screen NEGATIVE (NEGATIVE) 03/13/19 04:10 Anti-Mitochondrial Ab 5.3 UNITS (<=20) 03/13/19 04:10 Anti-Smooth Muscle Ab 9 UNITS (<20) 03/13/19 04:10 Liver/Kid Microsomes Ab 1.4 UNITS (<=20) 03/13/19 04:10 Hepatitis A IgM Ab Non-Reactive (Non-Reactive) 03/12/19 18:25 Hep Bs Antigen Non-Reactive (Non-Reactive) 03/12/19 18:25 Hep B Core IgM Ab Non-Reactive (Non-Reactive) 03/12/19 18:25 Hep C IgG Ab Non-Reactive (Non-Reactive) 03/12/19 18:25 Microbiology 03/11/19 22:15 Blood Blood Culture Gram Stain - Final 03/11/19 22:15 Blood Blood Culture - Final Citrobacter braakii 03/11/19 21:30 Urine,Catheterized Urine Culture - Final Citrobacter braakii Enterococcus faecium 03/12/19 21:45 Blood Blood Culture - Preliminary No Growth after 24 hours 03/11/19 22:15 Blood Blood Culture - Final Assessment and Plan (1) Altered mental status Status: Acute Code(s): R41.82 - ALTERED MENTAL STATUS, UNSPECIFIED SNOMED Code(s): 217453267 (2) Elevated liver enzymes Status: Acute Code(s): R74.8 - ABNORMAL LEVELS OF OTHER SERUM ENZYMES SNOMED Code(s): 003085490 (3) Acute renal failure Status: Acute Code(s): N17.9 - ACUTE KIDNEY FAILURE, UNSPECIFIED SNOMED Code(s): 55548618 (4) Gram-negative sepsis with organ dysfunction Narrative/Plan: 58-year-old woman presents to Hospital from [facility] where she has been receiving care since her recent hospitalization presents for worsening altered mental status. Patient continues to have lethargy and has evidence of acute renal failure which is of great concern given her renal transplant status. She was seen by nephrology and she is receiving fluids and soda bicarbonate to reduce her acidosis. CellCept is being held given the acute renal failure and levels were requested. The patient's hepatic dysfunction persists with an ongoing elevated bilirubin, has been evaluated by gastroenterology and advises ongoing alcohol cessation and monitoring. INR is only minimally elevated 1.2 which is improved from earlier this month. Albumin has increased slightly from 2.5-2.7. She does have evidence of gram-negative sepsis likely from the urinary system we have asked for a bladder scan to ensure that there is not any obstruction from the bladder with [place]. Cefepime has been initiated and dose adjusted her ready by pharmacy which is adequate choice based on her previous cultures of a non- ESBL Escherichia coli. Follow blood cultures requested. 03/13/2019 level of vasopressor has minimally decreased, urinary output remains poor but creatinine has not worsened. Patient's mentation remains poor. Laboratory does reveal the gram-negative bacilli in the blood originally as E. coli is now been corrected to a Citrobacter. Urine culture with gram-negative bacilli and enterococcus species. Antibiotic therapy with cefepime continues, daptomycin is added for treatment of the underlying enterococcus until final cultures are resulted. 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 Family's questions are answered It is noted patient developed abdominal pain. Computed tomography scan reveal evidence of free air which was not noticed on a prior computed tomography scan or recent ultrasound. Antibiotics adjusted for recurrent positive cultures. 03/14/2019 patient remains on vasopressor therapy. They have been weaned but not discontinued. Urine output has improved and edema status is improved. Creatinine has slightly improved. The patient's computed tomography scan reveals evidence of pneumoperitoneum, and follow-up x-ray also shows some air within the abdominal cavity. 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 However given her renal transplant status and prior complex abdominal surgeries, she is being transferred to the tertiary care center for more advanced surgical evaluation and potential intervention. For recurrent isolated pathogens cefepime and daptomycin are being utilized, given her penicillin ALLERGY as well as the ATN and desire to avoid other nephrotoxic agents. Upon her transfer back to her community would be happy to reassume her care from the ID aspect. Status: Acute Code(s): A41.50 - GRAM-NEGATIVE SEPSIS, UNSPECIFIED; R65.20 - SEVERE SEPSIS WITHOUT SEPTIC SHOCK SNOMED Code(s): 530479663
== END 2019-03-14 17:52 | disposition short-term general hospital (02) | DRG 871 ==
LOC: EC 20:59 → 2SICU 03-12 00:38
PROVIDERS: ADMIT Internal Medicine; ATTEND Internal Medicine
PROC: 03HY32Z Insertion of Monitoring Device into Upper Artery, Percutaneous Approach (ICD-10-PCS; principal; 2019-03-12)
PROC: 4A133B1 Monitoring of Arterial Pressure, Peripheral, Percutaneous Approach (ICD-10-PCS; 2019-03-12)
PROC: 4A133J1 Monitoring of Arterial Pulse, Peripheral, Percutaneous Approach (ICD-10-PCS; 2019-03-12)
PROC: 02HV33Z Insertion of Infusion Device into Superior Vena Cava, Percutaneous Approach (ICD-10-PCS; 2019-03-12)
DX: A41.81 Sepsis due to Enterococcus (principal); N17.0 Acute kidney failure with tubular necrosis; R65.21 Severe sepsis with septic shock; K76.7 Hepatorenal syndrome; K63.1 Perforation of intestine (nontraumatic); N39.0 Urinary tract infection, site not specified; I50.30 Unspecified diastolic (congestive) heart failure; Z68.42 Body mass index [BMI] 45.0-49.9, adult; T86.19 Other complication of kidney transplant; E87.2 Acidosis; D61.818 Other pancytopenia; K56.609 Unspecified intestinal obstruction, unspecified as to partial versus complete obstruction; J98.11 Atelectasis; I11.0 Hypertensive heart disease with heart failure; I08.3 Combined rheumatic disorders of mitral, aortic and tricuspid valves; E83.39 Other disorders of phosphorus metabolism; E66.01 Morbid (severe) obesity due to excess calories; K70.11 Alcoholic hepatitis with ascites; K70.30 Alcoholic cirrhosis of liver without ascites; F03.90 Unspecified dementia, unspecified severity, without behavioral disturbance, psychotic disturbance, mood disturbance, and anxiety; K72.10 Chronic hepatic failure without coma; E78.5 Hyperlipidemia, unspecified; M19.90 Unspecified osteoarthritis, unspecified site; F41.9 Anxiety disorder, unspecified; R00.1 Bradycardia, unspecified; N13.9 Obstructive and reflux uropathy, unspecified; K57.90 Diverticulosis of intestine, part unspecified, without perforation or abscess without bleeding; F10.10 Alcohol abuse, uncomplicated; E03.9 Hypothyroidism, unspecified; F32.9 Major depressive disorder, single episode, unspecified; K80.20 Calculus of gallbladder without cholecystitis without obstruction; Y90.0 Blood alcohol level of less than 20 mg/100 ml; Z79.899 Other long term (current) drug therapy; Z86.73 Personal history of transient ischemic attack (TIA), and cerebral infarction without residual deficits; Z87.440 Personal history of urinary (tract) infections; Z98.42 Cataract extraction status, left eye; Z98.41 Cataract extraction status, right eye; Z88.0 Allergy status to penicillin
CPT/HCPCS: 36415; 71045; 74018; 74176; 76770; 80048; 80053; 80074; 80195; 80306; 80320; 81001; 82103; 82140; 82390; 82805; 83516; 83605; 83735; 84100; 84165; 84439; 84443; 84484; 85025; 85610; 85730; 86038; 86376; 87040; 87077; 87086; 87186; 93005; 93306; 96365; 96366; 96367; 96368; 99291